=== PATIENT | male | born 1940 | race Caucasian/White ===

== ENCOUNTER 2020-08-20 13:29 | Inpatient (IN) | payer MEDICARE, OTHER, SELFPAY ==
[2020-08-20 13:32] VITALS: BP 154/95; BP 166/92; PULSE 74; PULSE 85; RESP 18; TEMP 37.3; O2SAT 95; BMI 26.1
--- NOTE | 2020-08-20 14:13 | ECG_ITS ---
Test Reason : WEAKNESS,COUGH Blood Pressure : / mmHG Vent. Rate : 077 BPM Atrial Rate : 077 BPM P-R Int : 146 ms QRS Dur : 090 ms QT Int : 392 ms P-R-T Axes : 014 007 001 degrees QTc Int : 443 ms Sinus rhythm with Premature atrial complexes with Aberrant conduction Otherwise normal ECG When compared with ECG of 28-APR-2019 19:13, Aberrant conduction is now Present T wave inversion no longer evident in Anterior leads Referred By: Oneil Ingram Electronically Signed By:Juaquin Martinez
--- NOTE | 2020-08-20 14:13 | XR_ITS ---
EXAMINATION: XR CHEST CLINICAL INFORMATION: Shortness of breath COMPARISON: Previous chest x-ray April 2019 TECHNIQUE: Frontal view of the chest was obtained. FINDINGS: The cardiac and mediastinal contours are stable. The lungs are clear. There is no pleural effusion or pneumothorax. There are degenerative changes of the spine. XR/XR chest 1V IMPRESSION: No evidence for acute disease in the chest.
[2020-08-20 14:42] LABS: Basophils Percent Auto 0.3 % (0-2); Eosinophils Percent Auto 0.3 % (0-4); Hematocrit 39.8 % (42-52); Hemoglobin 13.4 g/dl (14.0-18.0); Imm Gran Abs Auto 0.01 X10*3/uL (0.00-0.03); Imm Gran Pct Auto 0.3 % (0.0-0.4); Lymphocytes Absolute Auto 0.6 X10*3/uL (1.2-4.9); Lymphocytes Percent Auto 15.8 % (20-40); MANUAL DIFF FLAG SCAN; Mean Corpuscular HGB Conc 33.7 g/dl (31.0-36.0); Mean Corpuscular Hemoglobin 29.1 pg (27.0-33.0); Mean Corpuscular Volume 86.3 fL (80-98); Mean Platelet Volume 9.2 fL (9.4-12.4); Monocytes Absolute Auto 0.6 X10*3/uL (0.1-1.2); Monocytes Percent Auto 17.2 % (2-11); Neutrophils Absolute Auto 2.4 X10*3/uL (2.0-8.3); Neutrophils Percent Auto 66.1 % (45-73); Red Blood Count 4.61 X10*6/uL (4.60-5.80); Red Cell Distribution Width 13.2 % (11.0-16.0); SCAN SMEAR FLAG 1; White Blood Count 3.6 X10*3/uL (4.8-10.8)
[2020-08-20 14:50] LABS: INTERNATIONAL NORM RATIO 1.1 (0.9-1.1); Prothrombin Time 13.3 SEC (10.8-13.0)
[2020-08-20 14:53] LABS: Partial Thromboplastin Time 32.1 SEC (24.1-38.0)
[2020-08-20 15:11] LABS: Alanine Aminotransferase 21 U/L (0-40); Albumin Level 3.8 g/dL (3.5-5.0); Alkaline Phosphatase 35 U/L (39-117); Anion Gap 12 (12-20); Aspartate Amino Transferase 29 U/L (5-37); Bilirubin Total 0.9 mg/dL (0.0-1.0); Blood Urea Nitrogen 26 mg/dL (9-16); Calcium 8.4 mg/dL (8.4-10.2); Carbon Dioxide 27 mmol/L (22-29); Chloride 106 mmol/L (96-108); Creatinine Clr Calc Pharmacy 59.8; Estimated Glomerular Filt Rate > 60; Glucose Random 83 mg/dL (60-115); Lactate Dehydrogenase 317 U/L (118-273); Potassium 4.1 mmol/l (3.3-5.1); Sodium 141 mmol/L (135-145); Total Protein 6.4 g/dL (6.5-8.0)
[2020-08-20 15:13] LABS: Platelet Count 111 X10*3/uL (160-400)
[2020-08-20 15:14] LABS: SLIDE REVIEW VERIFIED
[2020-08-20 15:16] LABS: B Type Natriuretic Peptide 20 pg/mL (<100); Troponin-I High Sensitivity 9.4 ng/L (<3.5-35.0)
[2020-08-20 15:23] VITALS: BP 123/79; PULSE 74; RESP 16; TEMP 37.5; O2SAT 97
[2020-08-20 15:26] LABS: Influenza A PCR NEGATIVE (Negative); Influenza B PCR NEGATIVE (Negative); Resp Syncy Virus RNA Qual PCR NEGATIVE (Negative); SARS COV2 PCR INHOUSE POSITIVE (Negative)
[2020-08-20 15:31] LABS: Procalcitonin 0.03 ng/mL
[2020-08-20 15:33] LABS: Ferritin 767 ng/mL (20-250)
[2020-08-20 15:41] LABS: Glucose Urine UA NEG (NEG); Leukocyte Esterase Urine NEG (NEG); Nitrite Urine NEG (NEG); PH 5.5 (5.0-8.0); Specific Gravity - Urine >= 1.030 (1.005-1.025); Urine Blood 3+ (NEG); Urine Ketones 15 MG/DL (NEG); Urine Protein 1+ MG/DL (NEG-TRACE)
[2020-08-20 15:43] LABS: Appearance Urine CLOUDY; Color Urine YELLOW
[2020-08-20] MEDS: 0.9 % Sodium Chloride 500 ML 999 ML IV (15:45)
[2020-08-20 16:00] LABS: RBC Urine 30-49 /HPF (0)
--- NOTE | 2020-08-20 16:07 | PC.NURSE ---
ambulated pt in heart with tech. pt ambulated with slow gait. o2 dropped to around 80% room air. pt denied symptoms, placed back in bed , sating high 90's at rest.
[2020-08-20 16:08] VITALS: O2SAT 80
[2020-08-20] MEDS: Albuterol Sulfate 90 MCG 8 GM INHALER 4 PUFF INHALE (17:00)
--- NOTE | 2020-08-20 17:09 | PM.IMHP ---
History of Present Illness Date of Service: 08/20/20 <AMEYA Sanchez - Last Filed: 08/20/20 17:19> Chief Complaint: Positive COVID contact <AMEYA Sanchez - Last Filed: 08/20/20 17:19> This is a an 80-year-old male who came to the emergency department with his and his son. A member of his [employer] tested positive for coronavirus and they came to be tested. Patient is a vague historian but states that he has no specific complaints. He denies any chest pain, shortness of breath, cough. He tested positive for coronavirus. Chest x-ray was unremarkable. He was noted to be hypoxic with ambulation so the decision was made to admit him for further management. <AMEYA Sanchez - Last Filed: 08/20/20 17:19> Review of Systems Review of Systems: Yes all other systems are reviewed and are negative <AMEYA Sanchez - Last Filed: 08/20/20 17:19> Constitutional: Constitutional: Denies chills and Denies fever(s) <AMEYA Sanchez - Last Filed: 08/20/20 17:19> Cardiovascular: Cardiovascular: Denies chest pain <AMEYA Sanchez - Last Filed: 08/20/20 17:19> Respiratory: Respiratory: Denies cough <AMEYA Sanchez - Last Filed: 08/20/20 17:19> Gastrointestinal: Gastrointestinal: Denies abdominal pain <AMEYA Sanchez - Last Filed: 08/20/20 17:19> [facility] Medical History: Medical History (Updated 08/20/20 @ 21:43 by Oneil Ingram NP) COVID-19 GERD (gastroesophageal reflux disease) HLD (hyperlipidemia) HTN (hypertension) SBO (small bowel obstruction) <AMEYA Sanchez - Last Filed: 08/20/20 17:19> Functional capacity: independent ambulation <AMEYA Sanchez - Last Filed: 08/20/20 17:19> Family history: reviewed and not pertinent <AMEYA Sanchez - Last Filed: 08/20/20 17:19> Surgical History: Surgical History (Updated 08/20/20 @ 17:14 by AMEYA Sanchez) H/O colectomy History of appendectomy <AMEYA Sanchez - Last Filed: 08/20/20 17:19> Social History: Social History (Updated 08/20/20 @ 17:15 by AMEYA Sanchez) Household Members: Spouse Housing: House Alcohol intake: never Smoking Status: Former smoker Smoked in Last 30 Days: No Use of substances other than those prescribed or required for medical reasons: No Currently Displaying Signs/Symptoms of Drug Intoxication Withdrawal: No Have you been hit, kicked, punched, or otherwise hurt by someone within the past year? If so, by whom?: No Do you feel safe in your current relationship?: Yes Is there a partner from a previous relationship who is making you feel unsafe now?: No Are you made to feel afraid or neglected: No Advance Directives: No Advance Directives Information Provided: No Do you have thoughts of harming others: None Do you have a plan to hurt others: No Plan Recently lost weight without trying: No <AMEYA Sanchez - Last Filed: 08/20/20 17:19> Meds Allergies/Adverse reactions: Allergies Allergy/AdvReac Type Severity Reaction Status Date / Time No Known Allergies Allergy Unverified 05/20/20 16:25 <AMEYA Sanchez - Last Filed: 08/20/20 17:19> Home medications: Home Medications Medication Instructions Recorded Confirmed Type lisinopril 20 mg PO DAILY 08/20/20 08/20/20 History simvastatin 40 mg PO BEDTIME 08/20/20 08/20/20 History <AMEYA Sanchez - Last Filed: 08/20/20 17:19> Physical Exam Vital Signs and Narrative: Vital Signs: Last Vital Signs Temp 99.5 F 08/20/20 15:23 Pulse 74 08/20/20 15:23 Resp 16 08/20/20 15:23 BP 123/79 08/20/20 15:23 Pulse Ox 80 L 08/20/20 16:08 Body Mass Index 26.1 <AMEYA Sanchez - Last Filed: 08/20/20 17:19> Const: Nutritional Appearance: well nourished <AMEYA Sanchez - Last Filed: 08/20/20 17:19> Orientation/consciousness: patient oriented x3 <AMEYA Sanchez - Last Filed: 08/20/20 17:19> HENMT: Head: Yes normocephalic and Yes atraumatic <AMEYA Sanchez - Last Filed: 08/20/20 17:19> Eyes: Sclerae: sclerae normal <AMEYA Sanchez - Last Filed: 08/20/20 17:19> Chest: Chest palpation & inspection: normal inspection of the chest <AMEYA Sanchez - Last Filed: 08/20/20 17:19> Resp: Effort & Inspection: normal respiratory effort and no respiratory distress <AMEYA Sanchez - Last Filed: 08/20/20 17:19> Cardio: Rate: regular rate <AMEYA Sanchez - Last Filed: 08/20/20 17:19> Rhythm: regular rhythm <AMEYA Sanchez - Last Filed: 08/20/20 17:19> GI: Palpation (GI): Soft to palpation and nontender <AMEYA Sanchez - Last Filed: 08/20/20 17:19> Skin: General skin exam: no rashes or lesions noted <AMEYA Sanchez - Last Filed: 08/20/20 17:19> Neuro: General: patient oriented x3 <AMEYA Sanchez - Last Filed: 08/20/20 17:19> Cranial nerves: Yes CN's II-XII intact bilaterally and Yes Bilaterally intact EOM present <AMEYA Sanchez - Last Filed: 08/20/20 17:19> Extrem: General: Yes normal to inspection <AMEYA Sanchez - Last Filed: 08/20/20 17:19> Results Labs CBC and Chem 7: : 08/21/20 06:47 08/21/20 06:47 <AMEYA Sanchez - Last Filed: 08/20/20 17:19> Labs: Laboratory Results - last 24 hr 08/20/20 08/20/20 08/20/20 14:24 14:24 14:24 MCV 86.3 MCH 29.1 MCHC 33.7 RDW 13.2 Plt Count 111 L MPV 9.2 L Immature Gran % (Auto) 0.3 Neut % (Auto) 66.1 Lymph % (Auto) 15.8 L [place] % (Auto) 17.2 H Eos % (Auto) 0.3 Baso % (Auto) 0.3 Lymph # (Auto) 0.6 L [place] # (Auto) 0.6 Eos # (Auto) 0.0 Baso # (Auto) 0.0 Abs Immat Gran (auto) 0.01 Absolute Neuts (auto) 2.4 Absolute Nucleated RBC 0.000 Nucleated RBC % (auto) 0.0 Smear Tech's Comments VERIFIED PT 13.3 H INR 1.1 APTT 32.1 Anion Gap Estim Creat Clear Calc Estimated GFR Random Glucose Calcium Ferritin Total Bilirubin AST ALT Alkaline Phosphatase Lactate Dehydrogenase Troponin I High Sens B-Natriuretic Peptide Total Protein Albumin Procalcitonin 0.03 Urine Color Urine Appearance Urine pH Ur Specific [place] Urine Protein Urine Glucose (UA) Urine Ketones Urine Blood Urine Nitrite Ur Leukocyte Esterase Urine RBC Urine WBC Ur Squamous Epith Cells Urine Bacteria Coronavirus (PCR) Influenza Type A (PCR) Influenza Type B (PCR) RSV RNA Qual (PCR) 08/20/20 08/20/20 08/20/20 14:24 14:24 14:25 MCV MCH MCHC RDW Plt Count MPV Immature Gran % (Auto) Neut % (Auto) Lymph % (Auto) [place] % (Auto) Eos % (Auto) Baso % (Auto) Lymph # (Auto) [place] # (Auto) Eos # (Auto) Baso # (Auto) Abs Immat Gran (auto) Absolute Neuts (auto) Absolute Nucleated RBC Nucleated RBC % (auto) Smear Tech's Comments PT INR APTT Anion Gap 12 Estim Creat Clear Calc 59.8 Estimated GFR > 60 Random Glucose 83 Calcium 8.4 Ferritin 767 H Total Bilirubin 0.9 AST 29 ALT 21 Alkaline Phosphatase 35 L Lactate Dehydrogenase 317 H Troponin I High Sens 9.4 B-Natriuretic Peptide 20 Total Protein 6.4 L Albumin 3.8 Procalcitonin Urine Color Urine Appearance Urine pH Ur Specific [place] Urine Protein Urine Glucose (UA) Urine Ketones Urine Blood Urine Nitrite Ur Leukocyte Esterase Urine RBC Urine WBC Ur Squamous Epith Cells Urine Bacteria Coronavirus (PCR) POSITIVE A Influenza Type A (PCR) NEGATIVE Influenza Type B (PCR) NEGATIVE RSV RNA Qual (PCR) NEGATIVE 08/20/20 15:24 MCV MCH MCHC RDW Plt Count MPV Immature Gran % (Auto) Neut % (Auto) Lymph % (Auto) [place] % (Auto) Eos % (Auto) Baso % (Auto) Lymph # (Auto) [place] # (Auto) Eos # (Auto) Baso # (Auto) Abs Immat Gran (auto) Absolute Neuts (auto) Absolute Nucleated RBC Nucleated RBC % (auto) Smear Tech's Comments PT INR APTT Anion Gap Estim Creat Clear Calc Estimated GFR Random Glucose Calcium Ferritin Total Bilirubin AST ALT Alkaline Phosphatase Lactate Dehydrogenase Troponin I High Sens B-Natriuretic Peptide Total Protein Albumin Procalcitonin Urine Color YELLOW Urine Appearance CLOUDY Urine pH 5.5 Ur Specific [place] >= 1.030 H Urine Protein 1+ H Urine Glucose (UA) NEG Urine Ketones 15 Urine Blood 3+ H Urine Nitrite NEG Ur Leukocyte Esterase NEG Urine RBC 30-49 H Urine WBC 1-4 Ur Squamous Epith Cells NONE Urine Bacteria NONE Coronavirus (PCR) Influenza Type A (PCR) Influenza Type B (PCR) RSV RNA Qual (PCR) <AMEYA Sanchez - Last Filed: 08/20/20 17:19> Imaging Radiologist's Impressions: Impressions Chest X-Ray 08/20/20 14:13 IMPRESSION: No evidence for acute disease in the chest. <AMEYA Sanchez - Last Filed: 08/20/20 17:19> Assessment and Plan (1) COVID-19: Status: Inactive <AMEYA Sanchez - Last Filed: 08/20/20 17:19> This is a an 80-year-old male with history of hypertension, dyslipidemia, likely dementia who presents to the emergency department after having a positive coronavirus contact now testing positive for COVID-19 Acute hypoxia r/t COVID-19 Oxygen saturation dropped to 80% with ambulation -dexamethasone -supplemental oxygen Hypertension Continue lisinopril Dyslipidemia Continue statin likely Undiagnosed dementia. 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 DVT prophylaxis-lovenox This case was discussed with Dr. Johnson <AMEYA Sanchez - Last Filed: 08/20/20 17:19>
--- NOTE | 2020-08-20 17:39 | PM.EVENT ---
Event Note Date of Service: 08/20/20 Event Note: Addendum to H and P by Mid-level Provider I saw and examined the patient and participated in the prince portion of the E/M service. I agree with the history and exam as documented by PA. Patient here with covid and hypoxia with ambulation. Exam: no respiratory distress. Admit for close monitoring of O2, corticosteroid. Otherwise, I agree with assessment and plan as outlined in the H and P. late entry note from 08/20/20
[2020-08-20 17:48] VITALS: BP 158/84; PULSE 74; RESP 20; TEMP 37.5; O2SAT 95
--- NOTE | 2020-08-20 20:15 | PC.NURSE ---
REPORT GIVEN TO RN ON FLOOR, PT READY FOR TRANSPORT TO FLOOR.
--- NOTE | 2020-08-20 21:36 | ED_ITS ---
HPI - Weakness General Chief complaint: Weakness Stated complaint: ?COVID EXPOSURE WANTS EVAL Time Seen by Provider: 08/20/20 14:05 Source: patient Mode of arrival: ambulatory Limitations: no limitations History of Present Illness HPI Narrative: This is a 80-year-old male who presents via EMS from home he has a history of gastroesophageal reflux disease, hypertension, hyperlipidemia, and remote history of bowel obstruction, colostomy and appendectomy who presents with and some also as patients with complaint of generalized weakness over the past 1 week exposed to friends at [employer] tested positive he has been increasingly weak and more lethargic per the son and subjective fevers/chills similar to the and son. Also per son he has similar type symptoms in the past where he had a UTI. History is somewhat limited from the patient mostly gathered from and son Neri who report that he likely has dementia as he is always very forgetful and also his answers questions with question. Complaint: generalized weakness Context: new medication Associated symptoms: denies other symptoms Related Data Home Medications Medication Instructions Recorded Confirmed lisinopril 20 mg PO DAILY 08/20/20 08/20/20 simvastatin 40 mg PO BEDTIME 08/20/20 08/20/20 Allergies Allergy/AdvReac Type Severity Reaction Status Date / Time No Known Allergies Allergy Unverified 05/20/20 16:25 Review of Systems Review of Systems: Constitutional: No Weight loss, No Fever, + Chills, No Night Sweats, No Fatigue, No Malaise ENT/Mouth: No Hearing loss, No Ear Pain, No Nasal Congestion, No Sinus Pain, No Hoarseness, No sore throat, + Rhinorrhea, No Swallowing Difficulty Eyes: No Eye Pain, No Swelling, No Redness, No Foreign Body, No Discharge, No Vision Changes Cardiovascular: No Chest Pain, + SOB ?sometimes?, No Dyspnea on Exertion, No Orthopnea, No Edema, No Palpitations Respiratory: + Cough, No Sputum, No Wheezing, No Smoke Exposure, No Dyspnea Gastrointestinal: No Nausea, No Vomiting, No Diarrhea, No Constipation, No abdominal Pain, No Hematochezia, No Melena Genitourinary: no irregular bleeding, No Dysuria, No Urinary Frequency, No H ematuria, No Urinary Incontinence, No Urgency, No Flank Pain, No Urinary Flow Changes, No Hesitancy Musculoskeletal: No joint pain, No Myalgias, No Joint Swelling Skin: No Skin Lesions, No rash Neuro: + Weakness, No Numbness, No Paresthesias, No Loss of Consciousness, No Dizziness, No Headache Psych: No Social Issues Heme/Lymph: No Bruising, No Bleeding,No Lymphadenopathy Endocrine: No Polyuria, No Polydipsia, No Temperature Intolerance Yes all other systems are reviewed and are negative [facility] Past Medical History Medical History (Updated 08/20/20 @ 21:43 by Oneil Ingram NP) COVID-19 GERD (gastroesophageal reflux disease) HLD (hyperlipidemia) HTN (hypertension) SBO (small bowel obstruction) Surgical History (Updated 08/20/20 @ 17:14 by AMEYA Sanchez) H/O colectomy History of appendectomy Social History Social History (Updated 08/20/20 @ 17:15 by AMEYA Sanchez) Household Members: Spouse Housing: House Alcohol intake: never Smoking Status: Former smoker Smoked in Last 30 Days: No Use of substances other than those prescribed or required for medical reasons: No Have you been hit, kicked, punched, or otherwise hurt by someone within the past year? If so, by whom?: No Do you feel safe in your current relationship?: Yes Is there a partner from a previous relationship who is making you feel unsafe now?: No Are you made to feel afraid or neglected: No Advance Directives: No Advance Directives Information Provided: No Do you have thoughts of harming others: None Do you have a plan to hurt others: No Plan Recently lost weight without trying: No Physical Exam Vital Signs: Vital Signs: Last Vital Signs Temp 99.5 F 08/20/20 17:48 Pulse 74 08/20/20 17:48 Resp 20 08/20/20 17:48 BP 158/84 H 08/20/20 17:48 Pulse Ox 95 08/20/20 17:48 Body Mass Index 26.1 Reviewed Const: Other: Frail/elderly appearing General: cooperative; No acute distress or intoxicated appearing Orientation/consciousness: oriented to person, oriented to place and No oriented to time HENMT: Head: Yes normal to inspection Ears: hearing grossly normal bilaterally Eyes: General: appearance normal, both eyes and all related structures Visual [place]: normal visual [place] by confrontation Neck: Neck: Yes normal visual inspection and No tender Thyroid: Thyroid normal Chest: Chest palpation & inspection: normal inspection of the chest Resp: Other: Slight dry bronchial cough Effort & Inspection: normal respiratory effort Auscultation: wheezes (Very mild forced expiratory) Cardio: Jugular venous distension: no JVD Rate: regular rate Rhythm: regular rhythm Heart sounds: S1 normal heart sound present and S2 normal heart sound present GI: Inspection: Yes normal to inspection Percussion: Yes normal to percussi on Auscultation: normal bowel sounds : General: Yes no CVA tenderness Back/Spine/Pelvis: Back: no CVA tenderness Skin: General skin exam: no rashes or lesions noted Neuro: General: oriented to person, oriented to place and No oriented to time Extrem: General: Yes normal to inspection Course Course Course Narrative: Interview 80-year-old male presenting with his son as well as who been exposed with other members of the [employer] with COVID-19 has had body aches chills some vague shortness of breath history limited due to question dementia however upon arrival slightly hypoxic at 91-92% on room air. Will go ahead initiate COVID stratification labs, chest x-ray EKG as well as check UA as son states that sometimes he is like this with UTI. He offers no complaints though history is limited secondary to his dementia. Reevaluation(s) Reevaluation #1: COVID positive, chest x-ray negative at rest pulse ox 91-92% after neb. with ambulation per RN he walked about 15 ft and his pulse ox dropped to 80%. He offers no complaints. Given findings case discussed with hospitalist for further management. MDM - Weakness Lab Data Result diagrams: 08/20/20 14:24 08/20/20 14:24 Labs: Lab Results 08/20/20 08/20/20 08/20/20 Range/Units 14:24 14:24 14:24 WBC 3.6 L (4.8-10.8) X10*3/uL RBC 4.61 (4.60-5.80) X10*6/uL Hgb 13.4 L (14.0-18.0) g/dl Hct 39.8 L (42-52) % MCV 86.3 (80-98) fL MCH 29.1 (27.0-33.0) pg MCHC 33.7 (31.0-36.0) g/dl RDW 13.2 (11.0-16.0) % Plt Count 111 L (160-400) X10*3/uL MPV 9.2 L (9.4-12.4) fL Immature Gran % (Auto) 0.3 (0.0-0.4) % Neut % (Auto) 66.1 (45-73) % Lymph % (Auto) 15.8 L (20-40) % [place] % (Auto) 17.2 H (2-11) % Eos % (Auto) 0.3 (0-4) % Baso % (Auto) 0.3 (0-2) % Lymph # (Auto) 0.6 L (1.2-4.9) X10*3/uL [place] # (Auto) 0.6 (0.1-1.2) X10*3/uL Eos # (Auto) 0.0 (0.0-0.4) X10*3/uL Baso # (Auto) 0.0 (0.0-0.2) X10*3/uL Abs Immat Gran (auto) 0.01 (0.00-0.03) X10*3/uL Absolute Neuts (auto) 2.4 (2.0-8.3) X10*3/uL Absolute Nucleated RBC 0.000 (0.0-0.012) X10*3/uL Nucleated RBC % (auto) 0.0 (0.0-0.2) /100WBC Smear Tech's Comments VERIFIED PT 13.3 H (10.8-13.0) SEC INR 1.1 (0.9-1.1) APTT 32.1 (24.1-38.0) SEC Sodium (135-145) mmol/L Potassium (3.3-5.1) mmol/l Chloride (96-108) mmol/L Carbon Dioxide (22-29) mmol/L Anion Gap (12-20) BUN (9-16) mg/dL Creatinine (0.5-1.4) mg/dL Estim Creat Clear Calc Estimated GFR Random Glucose (60-115) mg/dL Calcium (8.4-10.2) mg/dL Ferritin (20-250) ng/mL Total Bilirubin (0.0-1.0) mg/dL AST (5-37) U/L ALT (0-40) U/L Alkaline Phosphatase (39-117) U/L Lactate Dehydrogenase (118-273) U/L Troponin I High Sens (<3.5-35.0) ng/L B-Natriuretic Peptide (<100) pg/mL Total Protein (6.5-8.0) g/dL Albumin (3.5-5.0) g/dL Procalcitonin 0.03 ng/mL Urine Color Urine Appearance Urine pH (5.0-8.0) Ur Specific [place] (1.005-1.025) Urine Protein (NEG-TRACE) MG/DL Urine Glucose (UA) (NEG) MG/DL Urine Ketones (NEG) MG/DL Urine Blood (NEG) Urine Nitrite (NEG) Ur Leukocyte Esterase (NEG) Urine RBC (0) /HPF Urine WBC (0-4) /HPF Ur Squamous Epith Cells /LPF Urine Bacteria /LPF Coronavirus (PCR) (Negative) Influenza Type A (PCR) (Negative) Influenza Type B (PCR) (Negative) RSV RNA Qual (PCR) (Negative) 08/20/20 08/20/20 08/20/20 Range/Units 14:24 14:24 14:25 WBC (4.8-10.8) X10*3/uL RBC (4.60-5.80) X10*6/uL Hgb (14.0-18.0) g/dl Hct (42-52) % MCV (80-98) fL MCH (27.0-33.0) pg MCHC (31.0-36.0) g/dl RDW (11.0-16.0) % Plt Count (160-400) X10*3/uL MPV (9.4-12.4) fL Immature Gran % (Auto) (0.0-0.4) % Neut % (Auto) (45-73) % Lymph % (Auto) (20-40) % [place] % (Auto) (2-11) % Eos % (Auto) (0-4) % Baso % (Auto) (0-2) % Lymph # (Auto) (1.2-4.9) X10*3/uL [place] # (Auto) (0.1-1.2) X10*3/uL Eos # (Auto) (0.0-0.4) X10*3/uL Baso # (Auto) (0.0-0.2) X10*3/uL Abs Immat Gran (auto) (0.00-0.03) X10*3/uL Absolute Neuts (auto) (2.0-8.3) X10*3/uL Absolute Nucleated RBC (0.0-0.012) X10*3/uL Nucleated RBC % (auto) (0.0-0.2) /100WBC Smear Tech's Comments PT (10.8-13.0) SEC INR (0.9-1.1) APTT (24.1-38.0) SEC Sodium 141 (135-145) mmol/L Potassium 4.1 (3.3-5.1) mmol/l Chloride 106 (96-108) mmol/L Carbon Dioxide 27 (22-29) mmol/L Anion Gap 12 (12-20) BUN 26 H (9-16) mg/dL Creatinine 0.92 (0.5-1.4) mg/dL Estim Creat Clear Calc 59.8 Estimated GFR > 60 Random Glucose 83 (60-115) mg/dL Calcium 8.4 (8.4-10.2) mg/dL Ferritin 767 H (20-250) ng/mL Total Bilirubin 0.9 (0.0-1.0) mg/dL AST 29 (5-37) U/L ALT 21 (0-40) U/L Alkaline Phosphatase 35 L (39-117) U/L Lactate Dehydrogenase 317 H (118-273) U/L Troponin I High Sens 9.4 (<3.5-35.0) ng/L B-Natriuretic Peptide 20 (<100) pg/mL Total Protein 6.4 L (6.5-8.0) g/dL Albumin 3.8 (3.5-5.0) g/dL Procalcitonin ng/mL Urine Color Urine Appearance Urine pH (5.0-8.0) Ur Specific [place] (1.005-1.025) Urine Protein (NEG-TRACE) MG/DL Urine Glucose (UA) (NEG) MG/DL Urine Ketones (NEG) MG/DL Urine Blood (NEG) Urine Nitrite (NEG) Ur Leukocyte Esterase (NEG) Urine RBC (0) /HPF Urine WBC (0-4) /HPF Ur Squamous Epith Cells /LPF Urine Bacteria /LPF Coronavirus (PCR) POSITIVE A (Negative) Influenza Type A (PCR) NEGATIVE (Negative) Influenza Type B (PCR) NEGATIVE (Negative) RSV RNA Qual (PCR) NEGATIVE (Negative) 08/20/20 Range/Units 15:24 WBC (4.8-10.8) X10*3/uL RBC (4.60-5.80) X10*6/uL Hgb (14.0-18.0) g/dl Hct (42-52) % MCV (80-98) fL MCH (27.0-33.0) pg MCHC (31.0-36.0) g/dl RDW (11.0-16.0) % Plt Count (160-400) X10*3/uL MPV (9.4-12.4) fL Immature Gran % (Auto) (0.0-0.4) % Neut % (Auto) (45-73) % Lymph % (Auto) (20-40) % [place] % (Auto) (2-11) % Eos % (Auto) (0-4) % Baso % (Auto) (0-2) % Lymph # (Auto) (1.2-4.9) X10*3/uL [place] # (Auto) (0.1-1.2) X10*3/uL Eos # (Auto) (0.0-0.4) X10*3/uL Baso # (Auto) (0.0-0.2) X10*3/uL Abs Immat Gran (auto) (0.00-0.03) X10*3/uL Absolute Neuts (auto) (2.0-8.3) X10*3/uL Absolute Nucleated RBC (0.0-0.012) X10*3/uL Nucleated RBC % (auto) (0.0-0.2) /100WBC Smear Tech's Comments PT (10.8-13.0) SEC INR (0.9-1.1) APTT (24.1-38.0) SEC Sodium (135-145) mmol/L Potassium (3.3-5.1) mmol/l Chloride (96-108) mmol/L Carbon Dioxide (22-29) mmol/L Anion Gap (12-20) BUN (9-16) mg/dL Creatinine (0.5-1.4) mg/dL Estim Creat Clear Calc Estimated GFR Random Glucose (60-115) mg/dL Calcium (8.4-10.2) mg/dL Ferritin (20-250) ng/mL Total Bilirubin (0.0-1.0) mg/dL AST (5-37) U/L ALT (0-40) U/L Alkaline Phosphatase (39-117) U/L Lactate Dehydrogenase (118-273) U/L Troponin I High Sens (<3.5-35.0) ng/L B-Natriuretic Peptide (<100) pg/mL Total Protein (6.5-8.0) g/dL Albumin (3.5-5.0) g/dL Procalcitonin ng/mL Urine Color YELLOW Urine Appearance CLOUDY Urine pH 5.5 (5.0-8.0) Ur Specific [place] >= 1.030 H (1.005-1.025) Urine Protein 1+ H (NEG-TRACE) MG/DL Urine Glucose (UA) NEG (NEG) MG/DL Urine Ketones 15 (NEG) MG/DL Urine Blood 3+ H (NEG) Urine Nitrite NEG (NEG) Ur Leukocyte Esterase NEG (NEG) Urine RBC 30-49 H (0) /HPF Urine WBC 1-4 (0-4) /HPF Ur Squamous Epith Cells NONE /LPF Urine Bacteria NONE /LPF Coronavirus (PCR) (Negative) Influenza Type A (PCR) (Negative) Influenza Type B (PCR) (Negative) RSV RNA Qual (PCR) (Negative) Discharge Plan Discharge Clinical Impression: COVID-19, Hypoxia Patient Disposition: Admitted As Inpatient Interventions: Admission Worksheet (ED) Last Done: 08/20/20 21:39
[2020-08-20] MEDS: 0.9 % Sodium Chloride Flush 3 ML SYRINGE IVFLUSH (21:58)
[2020-08-20] MEDS: Enoxaparin Sodium 40 MG/0.4 ML SYRINGE SUBCUT (21:58)
[2020-08-20 23:57] VITALS: BP 162/94; PULSE 78; RESP 20; TEMP 36.7; O2SAT 94
[2020-08-21] VITALS (7 sets, daily range): BP systolic 96–168; BP diastolic 71–96; PULSE 63–83; RESP 18–20; TEMP 36–37.2; O2SAT 92–96
[2020-08-21 07:05] LABS: MANUAL DIFF FLAG NO
[2020-08-21 07:13] LABS: Basophils Percent Auto 0.3 % (0-2); Hematocrit 41.2 % (42-52); Hemoglobin 13.6 g/dl (14.0-18.0); Imm Gran Abs Auto 0.01 X10*3/uL (0.00-0.03); Imm Gran Pct Auto 0.3 % (0.0-0.4); Lymphocytes Absolute Auto 0.8 X10*3/uL (1.2-4.9); Mean Corpuscular Hemoglobin 28.5 pg (27.0-33.0); Mean Corpuscular Volume 86.4 fL (80-98); Mean Platelet Volume 9.3 fL (9.4-12.4); Monocytes Absolute Auto 0.5 X10*3/uL (0.1-1.2); Monocytes Percent Auto 13.6 % (2-11); Neutrophils Absolute Auto 2.6 X10*3/uL (2.0-8.3); Neutrophils Percent Auto 64.8 % (45-73); Platelet Count 121 X10*3/uL (160-400); Red Blood Count 4.77 X10*6/uL (4.60-5.80)
[2020-08-21 07:36] LABS: Anion Gap 11 (12-20); Blood Urea Nitrogen 21 mg/dL (9-16); Calcium 8.2 mg/dL (8.4-10.2); Carbon Dioxide 27 mmol/L (22-29); Chloride 106 mmol/L (96-108); Creatinine Clr Calc Pharmacy 65.5; Estimated Glomerular Filt Rate > 60; Glucose Random 91 mg/dL (60-115); Sodium 140 mmol/L (135-145)
[2020-08-21] MEDS: 0.9 % Sodium Chloride Flush 3 ML SYRINGE IVFLUSH ×3 (08:27→20:07)
[2020-08-21] MEDS: Atorvastatin Calcium 10 MG TABLET PO (08:27)
[2020-08-21] MEDS: lisinopriL 20 MG TABLET PO (08:27)
[2020-08-21] MEDS: dexAMETHasone 6 MG TABLET PO (08:27)
--- NOTE | 2020-08-21 15:05 | HO.PM.IMPN ---
Subjective Subjective Date of Service: 08/21/20 Interval History: seen in f/u for covid with hypoxia on ambulation. Has no complaint ROS: denies sob, no fever Physical Exam Vital Signs: Vital Signs: Last Vital Signs Temp 97.1 F 08/21/20 11:07 Pulse 83 08/21/20 11:07 Resp 20 08/21/20 11:07 BP 136/72 08/21/20 11:07 Pulse Ox 92 08/21/20 11:07 Body Mass Index 26.1 General: AO X 2, no acute distress Resp: normal resp effort CVS: S1,S2,RRR GI: +BS, NT, no distention Skin: No rash Neuro: motor grossly intact Psych: appropriate affect Objective Data Current Medications Generic Name Dose Route Start Last Admin Trade Name Freq PRN Reason Stop Dose Admin Acetaminophen 650 mg 08/20/20 20:12 Acetaminophen 325 Mg Tablet PO Q6H PRN Pain, Mild (Pain Scale 1-3) Atorvastatin Calcium 10 mg 08/21/20 09:00 08/21/20 08:27 Atorvastatin Calcium 10 Mg Tablet PO 10 mg DAILY CARL Administration Dexamethasone 6 mg 08/21/20 09:00 08/21/20 08:27 Dexamethasone 6 Mg Tablet PO 6 mg DAILY CARL Administration Docusate Sodium 100 mg 08/20/20 20:12 Docusate Sodium 100 Mg Capsule PO DAILY PRN Constipation Enoxaparin Sodium 40 mg 08/20/20 21:00 08/20/20 21:58 Enoxaparin Sodium 40 Mg/0.4 Ml Syringe SUBCUT 40 mg Q24H CARL Administration Lisinopril 20 mg 08/21/20 09:00 08/21/20 08:27 Lisinopril 20 Mg Tablet PO 20 mg DAILY CARL Administration Protocol Ondansetron HCl 4 mg 08/20/20 20:12 Ondansetron Hcl 4 Mg/2 Ml Vial IVPUSH Q8H PRN Nausea and Vomiting Pharmacy Consult 1 each 08/20/20 15:27 Consult Rx Perform Med Rec MISCELLANE ONCE PRN Consult order Sodium Chloride 3 ml 08/21/20 00:00 08/21/20 08:27 0.9 % Sodium Chloride Flush 3 Ml Syringe IVFLUSH 3 ml QSHIFT CARL Administration Labs CBC & Chem 7: 08/21/20 06:47 08/21/20 06:47 Assessment and Plan (1) COVID-19: Status: Inactive Assessment and Plan: 80-year-old male with history of hypertension, dyslipidemia, likely dementia who presents to the emergency department after having a positive coronavirus contact now testing positive for COVID-19 Acute hypoxia r/t COVID-19 Oxygen saturation dropped to 80% with ambulation -dexamethasone D2 -supplemental oxygen as needed Hypertension Continue lisinopril Dyslipidemia Continue statin likely Undiagnosed dementia. 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 DVT prophylaxis-lovenox Will observe 1 more day
[2020-08-21] MEDS: Enoxaparin Sodium 40 MG/0.4 ML SYRINGE SUBCUT (20:07)
[2020-08-22 03:24] VITALS: BP 151/80; PULSE 73; RESP 18; TEMP 36.8; O2SAT 92
[2020-08-22 07:39] VITALS: BP 151/59; PULSE 94; RESP 18; TEMP 36.4; O2SAT 94
[2020-08-22] MEDS: 0.9 % Sodium Chloride Flush 3 ML SYRINGE IVFLUSH ×2 (07:50→18:52)
[2020-08-22] MEDS: lisinopriL 20 MG TABLET PO (07:50)
[2020-08-22] MEDS: dexAMETHasone 6 MG TABLET PO (07:51)
[2020-08-22] MEDS: Atorvastatin Calcium 10 MG TABLET PO (07:51)
--- NOTE | 2020-08-22 10:20 | HO.PM.IMPN ---
Subjective Subjective Date of Service: 08/22/20 Interval History: seen in f/u for covid with hypoxia on ambulation. At baseline confusion, no distress ROS: denies sob, no fever Physical Exam Vital Signs: Vital Signs: Last Vital Signs Temp 97.5 F 08/22/20 07:39 Pulse 94 08/22/20 07:39 Resp 18 08/22/20 07:39 BP 151/59 H 08/22/20 07:39 Pulse Ox 94 08/22/20 07:39 Body Mass Index 26.1 General: Oriented to self, no acute distress Resp: normal resp effort CVS: regular GI: +BS, NT, no distention Skin: No rash Neuro: motor grossly intact Psych: appropriate affect, pleasantly confused Objective Data Current Medications Generic Name Dose Route Start Last Admin Trade Name Freq PRN Reason Stop Dose Admin Acetaminophen 650 mg 08/20/20 20:12 Acetaminophen 325 Mg Tablet PO Q6H PRN Pain, Mild (Pain Scale 1-3) Atorvastatin Calcium 10 mg 08/21/20 09:00 08/22/20 07:51 Atorvastatin Calcium 10 Mg Tablet PO 10 mg DAILY CARL Administration Dexamethasone 6 mg 08/21/20 09:00 08/22/20 07:51 Dexamethasone 6 Mg Tablet PO 6 mg DAILY CARL Administration Docusate Sodium 100 mg 08/20/20 20:12 Docusate Sodium 100 Mg Capsule PO DAILY PRN Constipation Enoxaparin Sodium 40 mg 08/20/20 21:00 08/21/20 20:07 Enoxaparin Sodium 40 Mg/0.4 Ml Syringe SUBCUT 40 mg Q24H CARL Administration Lisinopril 20 mg 08/21/20 09:00 08/22/20 07:50 Lisinopril 20 Mg Tablet PO 20 mg DAILY CARL Administration Protocol Ondansetron HCl 4 mg 08/20/20 20:12 Ondansetron Hcl 4 Mg/2 Ml Vial IVPUSH Q8H PRN Nausea and Vomiting Pharmacy Consult 1 each 08/20/20 15:27 Consult Rx Perform Med Rec MISCELLANE ONCE PRN Consult order Sodium Chloride 3 ml 08/21/20 00:00 08/22/20 07:50 0.9 % Sodium Chloride Flush 3 Ml Syringe IVFLUSH 3 ml QSHIFT CARL Administration Labs CBC & Chem 7: 08/21/20 06:47 08/21/20 06:47 Assessment and Plan (1) COVID-19: Status: Inactive Assessment and Plan: 80-year-old male with history of hypertension, dyslipidemia, likely dementia who presents to the emergency department after having a positive coronavirus contact now testing positive for COVID-19 Covid 19, Acute hypoxia with exertion Oxygen saturation dropped to 80% with ambulation -dexamethasone D3/10 -supplemental oxygen as needed Hypertension Continue lisinopril Dyslipidemia Continue statin likely Undiagnosed dementia. 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 DVT prophylaxis-lovenox He will likely need placement as who cares for him also has covid in next bed and is more acute
[2020-08-22 12:00] VITALS: BP 126/77; PULSE 74; RESP 18; TEMP 36.1; O2SAT 92
--- NOTE | 2020-08-22 13:53 | MHC.CM.PN ---
CM SPOKE TO PTS SON, HITESH ([phone]) WHO REPORTS HE LIVES IN THE SAME HOME WITH THE PT AND HIS . HITESH REPORTS THE PT DID NOT HAVE ANY SERVICES [employer] BUT WAS NOT ALWAYS DOING A GOOD JOB CARING FOR HIMSELF. HE REPORTS THE PT WOULD GET UTI's OR OTHER ILLNESSES AND WOULD NOT GO TO THE DOCTORS OR TELL ANYONE HE DID NOT FEEL GOOD. HITESH REPORTS SUSPECTING THE PT HAS DEMENTIA BUT IS DOING A GOOD JOB TRYING TO HIDE IT. HITESH REPORTS THE PT DID NOT USE DME [employer]. HE ALSO REPORTS THE PT DOES NOT HAVE A HCP AND ASKS THAT THE DOCUMENT AND INFO BE SENT HOME WITH THE PT. CM EXPLAINED THE DOCUMENT, WHEN IT IS USEFUL AND THE REQUIREMENTS FOR COMPLETING A LEGAL/VALID HCP. HITESH REPORTS THE PT HAS INSURANCE, [employer] AND IS A . 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
[2020-08-22 15:11] VITALS: BP 115/82; PULSE 80; RESP 19; TEMP 36.1; O2SAT 92
[2020-08-22 19:03] VITALS: BP 139/65; PULSE 80; RESP 19; TEMP 36; O2SAT 90
--- NOTE | 2020-08-22 19:03 | PC.NURSE ---
Pt oob to recliner with 1 assist, tolerated 25% of his dinner, urinated with no problem,had small formed BM. Denied any pain,no SOB noted or reported. Pt requires cuing with his ADL's
[2020-08-22] MEDS: Enoxaparin Sodium 40 MG/0.4 ML SYRINGE SUBCUT (20:39)
[2020-08-22 21:08] VITALS: O2SAT 95
[2020-08-23] VITALS (8 sets, daily range): BP systolic 101–158; BP diastolic 62–93; PULSE 66–102; RESP 16–20; TEMP 36.3–39.3; O2SAT 91–97
[2020-08-23] MEDS: 0.9 % Sodium Chloride Flush 3 ML SYRINGE IVFLUSH ×4 (00:27→19:35)
[2020-08-23] MEDS: Acetaminophen 325 MG TABLET 650 MG PO (01:03)
[2020-08-23] MEDS: dexAMETHasone 6 MG TABLET PO (09:21)
[2020-08-23] MEDS: Atorvastatin Calcium 10 MG TABLET PO (09:21)
[2020-08-23] MEDS: lisinopriL 20 MG TABLET PO (09:22)
--- NOTE | 2020-08-23 10:24 | MHC.CM.PN ---
Male 80 DX Covid+ DP Home VNA? [facility] transport. HCP+ son Neri. LOS R/T TEMP 08/23/20 midnight >102 oral.
--- NOTE | 2020-08-23 12:43 | HO.PM.IMPN ---
Subjective Subjective Date of Service: 08/23/20 Interval History: no complaints, but did have fever ;ast night Cardiovascular Cardiovascular: Reports no additional cardiovascular complaints Respiratory Respiratory: Reports no additional respiratory complaints Physical Exam Vital Signs: Vital Signs: Last Vital Signs Temp 97.4 F 08/23/20 11:26 Pulse 102 H 08/23/20 11:26 Resp 19 08/23/20 11:26 BP 125/86 08/23/20 11:26 Pulse Ox 93 08/23/20 11:26 Body Mass Index 26.1 General: Alert, no acute distress Resp: CTA bilateral CVS: S1,S2,RRR GI: soft, non tender, non distended Neuro: motor grossly intact Psych: appropriate affect Objective Data Current Medications Generic Name Dose Route Start Last Admin Trade Name Freq PRN Reason Stop Dose Admin Acetaminophen 650 mg 08/20/20 20:12 08/23/20 01:03 Acetaminophen 325 Mg Tablet PO 650 mg Q6H PRN Administration Pain, Mild (Pain Scale 1-3) Atorvastatin Calcium 10 mg 08/21/20 09:00 08/23/20 09:21 Atorvastatin Calcium 10 Mg Tablet PO 10 mg DAILY CARL Administration Dexamethasone 6 mg 08/21/20 09:00 08/23/20 09:21 Dexamethasone 6 Mg Tablet PO 6 mg DAILY CARL Administration Docusate Sodium 100 mg 08/20/20 20:12 Docusate Sodium 100 Mg Capsule PO DAILY PRN Constipation Enoxaparin Sodium 40 mg 08/20/20 21:00 08/22/20 20:39 Enoxaparin Sodium 40 Mg/0.4 Ml Syringe SUBCUT 40 mg Q24H CARL Administration Lisinopril 20 mg 08/21/20 09:00 08/23/20 09:22 Lisinopril 20 Mg Tablet PO 20 mg DAILY CARL Administration Protocol Ondansetron HCl 4 mg 08/20/20 20:12 Ondansetron Hcl 4 Mg/2 Ml Vial IVPUSH Q8H PRN Nausea and Vomiting Pharmacy Consult 1 each 08/20/20 15:27 Consult Rx Perform Med Rec MISCELLANE ONCE PRN Consult order Sodium Chloride 3 ml 08/21/20 00:00 08/23/20 09:22 0.9 % Sodium Chloride Flush 3 Ml Syringe IVFLUSH 3 ml QSHIFT CARL Administration Labs CBC & Chem 7: 08/21/20 06:47 08/21/20 06:47 Assessment and Plan (1) COVID-19: Status: Inactive Assessment and Plan: 80-year-old male with history of hypertension, dyslipidemia, likely dementia who presents to the emergency department after having a positive coronavirus contact now testing positive for COVID-19 Covid 19, Acute hypoxia with exertion Oxygen saturation dropped to 80% with ambulation -dexamethasone D4/10 -supplemental oxygen as needed Hypertension Continue lisinopril Dyslipidemia Continue statin likely Undiagnosed dementia. 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 DVT prophylaxis-lovenox
[2020-08-23] MEDS: Enoxaparin Sodium 40 MG/0.4 ML SYRINGE SUBCUT (19:35)
[2020-08-24] VITALS (9 sets, daily range): BP systolic 110–161; BP diastolic 67–96; PULSE 65–89; RESP 18–21; TEMP 36.9–38.5; O2SAT 91–97
[2020-08-24 07:11] LABS: Hematocrit 40.8 % (42-52); Hemoglobin 13.8 g/dl (14.0-18.0); Imm Gran Abs Auto 0.13 X10*3/uL (0.00-0.03); Imm Gran Pct Auto 1.2 % (0.0-0.4); Lymphocytes Absolute Auto 0.6 X10*3/uL (1.2-4.9); Lymphocytes Percent Auto 5.2 % (20-40); MANUAL DIFF FLAG SCAN; Mean Corpuscular HGB Conc 33.8 g/dl (31.0-36.0); Mean Corpuscular Hemoglobin 29.4 pg (27.0-33.0); Mean Corpuscular Volume 86.8 fL (80-98); Mean Platelet Volume 9.8 fL (9.4-12.4); Monocytes Absolute Auto 0.7 X10*3/uL (0.1-1.2); Monocytes Percent Auto 6.2 % (2-11); Neutrophils Absolute Auto 9.2 X10*3/uL (2.0-8.3); Neutrophils Percent Auto 87.4 % (45-73); Platelet Count 158 X10*3/uL (160-400); Red Cell Distribution Width 13.1 % (11.0-16.0); SCAN SMEAR FLAG 1; White Blood Count 10.5 X10*3/uL (4.8-10.8)
[2020-08-24 07:29] LABS: D Dimer 383 NG/ML
[2020-08-24 07:36] LABS: Anion Gap 15 (12-20); Blood Urea Nitrogen 32 mg/dL (9-16); Calcium 8.3 mg/dL (8.4-10.2); Carbon Dioxide 24 mmol/L (22-29); Chloride 106 mmol/L (96-108); Creatinine Clr Calc Pharmacy 62.6; Estimated Glomerular Filt Rate > 60; Glucose Fasting 95 mg/dL (60-99); Lactate Dehydrogenase 375 U/L (118-273); Potassium 3.8 mmol/l (3.3-5.1); Sodium 141 mmol/L (135-145)
[2020-08-24 07:57] LABS: SLIDE REVIEW VERIFIED
[2020-08-24] MEDS: 0.9 % Sodium Chloride Flush 3 ML SYRINGE IVFLUSH ×3 (07:58→20:12)
[2020-08-24] MEDS: Atorvastatin Calcium 10 MG TABLET PO (07:59)
[2020-08-24] MEDS: dexAMETHasone 6 MG TABLET PO (07:59)
[2020-08-24] MEDS: lisinopriL 20 MG TABLET PO (07:59)
[2020-08-24 10:05] LABS: C Reactive Protein 12.35 mg/dL (< or = 0.50)
--- NOTE | 2020-08-24 12:20 | HO.PM.IMPN ---
Subjective Subjective Date of Service: 08/24/20 Interval History: no copmlaints, had fever Cardiovascular Cardiovascular: Reports no additional cardiovascular complaints Respiratory Respiratory: Reports no additional respiratory complaints Physical Exam Vital Signs: Vital Signs: Last Vital Signs Temp 98.8 F 08/24/20 11:14 Pulse 69 08/24/20 11:14 Resp 19 08/24/20 11:14 BP 110/67 08/24/20 11:14 Pulse Ox 91 L 08/24/20 11:14 Body Mass Index 26.1 General: Alert, confused, no acute distress Resp: CTA bilateral CVS: S1,S2,RRR GI: soft, non tender, non distended Neuro: motor grossly intact Psych: appropriate affect Objective Data Current Medications Generic Name Dose Route Start Last Admin Trade Name Freq PRN Reason Stop Dose Admin Acetaminophen 650 mg 08/20/20 20:12 08/23/20 01:03 Acetaminophen 325 Mg Tablet PO 650 mg Q6H PRN Administration Pain, Mild (Pain Scale 1-3) Atorvastatin Calcium 10 mg 08/21/20 09:00 08/24/20 07:59 Atorvastatin Calcium 10 Mg Tablet PO 10 mg DAILY CARL Administration Dexamethasone 6 mg 08/21/20 09:00 08/24/20 07:59 Dexamethasone 6 Mg Tablet PO 6 mg DAILY CARL Administration Docusate Sodium 100 mg 08/20/20 20:12 Docusate Sodium 100 Mg Capsule PO DAILY PRN Constipation Enoxaparin Sodium 40 mg 08/20/20 21:00 08/23/20 19:35 Enoxaparin Sodium 40 Mg/0.4 Ml Syringe SUBCUT 40 mg Q24H CARL Administration Lisinopril 20 mg 08/21/20 09:00 08/24/20 07:59 Lisinopril 20 Mg Tablet PO 20 mg DAILY CARL Administration Protocol Ondansetron HCl 4 mg 08/20/20 20:12 Ondansetron Hcl 4 Mg/2 Ml Vial IVPUSH Q8H PRN Nausea and Vomiting Pharmacy Consult 1 each 08/20/20 15:27 Consult Rx Perform Med Rec MISCELLANE ONCE PRN Consult order Sodium Chloride 3 ml 08/21/20 00:00 08/24/20 07:58 0.9 % Sodium Chloride Flush 3 Ml Syringe IVFLUSH 3 ml QSHIFT CARL Administration Labs CBC & Chem 7: 08/24/20 06:20 08/24/20 06:20 Assessment and Plan (1) COVID-19: Status: Inactive Assessment and Plan: 80-year-old male with history of hypertension, dyslipidemia, likely dementia who presents to the emergency department after having a positive coronavirus contact now testing positive for COVID-19 Covid 19, Acute hypoxia with exertion Oxygen saturation dropped to 80% with ambulation -dexamethasone D5/10 -supplemental oxygen as needed having fevers, likely has still yet to peak Hypertension Continue lisinopril Dyslipidemia Continue statin likely Undiagnosed dementia. 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 DVT prophylaxis-lovenox
[2020-08-24] MEDS: Enoxaparin Sodium 40 MG/0.4 ML SYRINGE SUBCUT (20:12)
[2020-08-25] VITALS (8 sets, daily range): BP systolic 115–153; BP diastolic 71–92; PULSE 56–69; RESP 17–20; TEMP 36.1–37.2; O2SAT 92–95
[2020-08-25] MEDS: 0.9 % Sodium Chloride Flush 3 ML SYRINGE IVFLUSH ×3 (07:52→19:56)
[2020-08-25] MEDS: Atorvastatin Calcium 10 MG TABLET PO (07:52)
[2020-08-25] MEDS: dexAMETHasone 6 MG TABLET PO (07:53)
[2020-08-25] MEDS: lisinopriL 20 MG TABLET PO (07:53)
--- NOTE | 2020-08-25 10:46 | HO.PM.IMPN ---
Subjective Subjective Date of Service: 08/25/20 Interval History: no complaints Cardiovascular Cardiovascular: Reports no additional cardiovascular complaints Respiratory Respiratory: Reports no additional respiratory complaints Physical Exam Vital Signs: Vital Signs: Last Vital Signs Temp 98.6 F 08/25/20 07:46 Pulse 67 08/25/20 07:53 Resp 20 08/25/20 07:46 BP 153/73 H 08/25/20 07:53 Pulse Ox 93 08/25/20 07:46 Body Mass Index 26.1 General: Alert confused, no acute distress Resp: CTA bilateral CVS: S1,S2,RRR GI: soft, non tender, non distended Neuro: motor grossly intact Psych: appropriate affect Objective Data Current Medications Generic Name Dose Route Start Last Admin Trade Name Freq PRN Reason Stop Dose Admin Acetaminophen 650 mg 08/20/20 20:12 08/23/20 01:03 Acetaminophen 325 Mg Tablet PO 650 mg Q6H PRN Administration Pain, Mild (Pain Scale 1-3) Atorvastatin Calcium 10 mg 08/21/20 09:00 08/25/20 07:52 Atorvastatin Calcium 10 Mg Tablet PO 10 mg DAILY CARL Administration Dexamethasone 6 mg 08/21/20 09:00 08/25/20 07:53 Dexamethasone 6 Mg Tablet PO 6 mg DAILY CARL Administration Docusate Sodium 100 mg 08/20/20 20:12 Docusate Sodium 100 Mg Capsule PO DAILY PRN Constipation Enoxaparin Sodium 40 mg 08/20/20 21:00 08/24/20 20:12 Enoxaparin Sodium 40 Mg/0.4 Ml Syringe SUBCUT 40 mg Q24H CARL Administration Lisinopril 20 mg 08/21/20 09:00 08/25/20 07:53 Lisinopril 20 Mg Tablet PO 20 mg DAILY CARL Administration Protocol Ondansetron HCl 4 mg 08/20/20 20:12 Ondansetron Hcl 4 Mg/2 Ml Vial IVPUSH Q8H PRN Nausea and Vomiting Pharmacy Consult 1 each 08/20/20 15:27 Consult Rx Perform Med Rec MISCELLANE ONCE PRN Consult order Sodium Chloride 3 ml 08/21/20 00:00 08/25/20 07:52 0.9 % Sodium Chloride Flush 3 Ml Syringe IVFLUSH 3 ml QSHIFT CARL Administration Labs CBC & Chem 7: 08/24/20 06:20 08/24/20 06:20 Assessment and Plan (1) COVID-19: Status: Inactive Assessment and Plan: 80-year-old male with history of hypertension, dyslipidemia, likely dementia who presents to the emergency department after having a positive coronavirus contact now testing positive for COVID-19 Covid 19, Acute hypoxia with exertion Oxygen saturation dropped to 80% with ambulation -dexamethasone D6/10 -supplemental oxygen as needed having fevers, likely has still yet to peak Hypertension Continue lisinopril Dyslipidemia Continue statin likely Undiagnosed dementia. 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 DVT prophylaxis-lovenox
--- NOTE | 2020-08-25 14:57 | MHC.CM.PN ---
Male 80 DX Covid + PT eval rec STR. Spoke with son, Neri as well as his . Preferences were obtained and referrals were made. DP STR VIA BLS.
[2020-08-25] MEDS: Enoxaparin Sodium 40 MG/0.4 ML SYRINGE SUBCUT (19:56)
[2020-08-26 03:15] VITALS: BP 138/77; PULSE 54; RESP 17; TEMP 36.6; O2SAT 94
[2020-08-26 06:50] LABS: Hematocrit 41.1 % (42-52); Hemoglobin 13.3 g/dl (14.0-18.0); Imm Gran Abs Auto 0.08 X10*3/uL (0.00-0.03); Imm Gran Pct Auto 1.1 % (0.0-0.4); Lymphocytes Absolute Auto 0.5 X10*3/uL (1.2-4.9); Lymphocytes Percent Auto 6.6 % (20-40); MANUAL DIFF FLAG SCAN; Mean Corpuscular HGB Conc 32.4 g/dl (31.0-36.0); Mean Corpuscular Hemoglobin 28.2 pg (27.0-33.0); Mean Corpuscular Volume 87.1 fL (80-98); Mean Platelet Volume 9.5 fL (9.4-12.4); Monocytes Absolute Auto 0.9 X10*3/uL (0.1-1.2); Monocytes Percent Auto 12.2 % (2-11); Neutrophils Absolute Auto 6.1 X10*3/uL (2.0-8.3); Neutrophils Percent Auto 80.1 % (45-73); Platelet Count 211 X10*3/uL (160-400); Red Blood Count 4.72 X10*6/uL (4.60-5.80); Red Cell Distribution Width 13.1 % (11.0-16.0); SCAN SMEAR FLAG 1; White Blood Count 7.6 X10*3/uL (4.8-10.8)
[2020-08-26 07:14] LABS: Anion Gap 13 (12-20); Blood Urea Nitrogen 39 mg/dL (9-16); Calcium 8.4 mg/dL (8.4-10.2); Carbon Dioxide 27 mmol/L (22-29); Chloride 105 mmol/L (96-108); Creatinine Clr Calc Pharmacy 61.9; D Dimer 320 NG/ML; Estimated Glomerular Filt Rate > 60; Glucose Fasting 105 mg/dL (60-99); Lactate Dehydrogenase 286 U/L (118-273); Potassium 4.3 mmol/l (3.3-5.1); Sodium 141 mmol/L (135-145)
[2020-08-26 07:39] VITALS: BP 140/52; PULSE 53; RESP 19; TEMP 36.1; O2SAT 94
[2020-08-26 07:47] LABS: SLIDE REVIEW VERIFIED
[2020-08-26] MEDS: lisinopriL 20 MG TABLET PO (08:05)
[2020-08-26] MEDS: 0.9 % Sodium Chloride Flush 3 ML SYRINGE IVFLUSH (08:05)
[2020-08-26] MEDS: dexAMETHasone 6 MG TABLET PO (08:05)
[2020-08-26] MEDS: Atorvastatin Calcium 10 MG TABLET PO (08:05)
[2020-08-26 08:53] VITALS: BP 140/52; PULSE 53; O2SAT 94
--- NOTE | 2020-08-26 09:18 | MHC.CM.PN ---
Per MD Patient may DC today. Contacted [facility] RE bed availability today and tomorrow. Other Facilities referred oare on [facility] list. More referrals will be made if [facility] can not accommodate placement. CM will follow.
--- NOTE | 2020-08-26 10:56 | PC.NURSE ---
Patient is alert and oriented x4, able to make decisions for himself and make his needs known to nursing staff. No behavior issues and is appropriate with staff.
[2020-08-26 11:07] VITALS: BP 113/78; PULSE 79; RESP 18; TEMP 36.2; O2SAT 94
--- NOTE | 2020-08-26 11:21 | PM.DS ---
DS: Providers Provider Date of admission: 08/20/20 17:03 Primary care physician: Unknown Physician DS: Diagnosis Discharge Diagnosis (1) COVID-19: Status: Inactive (2) COVID-19: Status: Acute (3) Hypoxia: Status: Acute DS: Medications Discharge Medications Home Medications: Home Medications Medication Instructions Recorded Confirmed lisinopril 20 mg PO DAILY 08/20/20 08/20/20 simvastatin 40 mg PO BEDTIME 08/20/20 08/20/20 Previous Rx's Medication Instructions Recorded dexamethasone 6 mg PO DAILY #4 tab 08/26/20 DS: Summary Hospital Course Hospital Course: Patient was admitted for acute hypoxic respiratory failure secondary to COVID pneumonia. He was given Decadron. His hypoxia quickly resolved. Did have fever, but has been afebrile greater than 48 hours. And has been on room air for most of his admission. Patient will be discharged to nursing home facility. Time Spent with Patient Time attestation: Total time spent providing and/or coordinating discharge services: Physical Exam Vital Signs: Vital Signs: Last Vital Signs Temp 97.1 F 08/26/20 11:07 Pulse 79 08/26/20 11:07 Resp 18 08/26/20 11:07 BP 113/78 08/26/20 11:07 Pulse Ox 94 08/26/20 11:07 Body Mass Index 26.1 General: AO X 3, no acute distress Resp: CTA bilateral CVS: S1,S2,RRR GI: soft, non tender, non distended Neuro: motor grossly intact Psych: appropriate affect DS: Data Data Completed and Pending Labs on day of discharge: 08/20/20 14:13 ECG 12 lead EKG Stat EKG Documentation DIRECTED XR chest 1V Stat 08/20/20 14:24 B Type Natriuretic Peptide Stat Complete Blood Count Auto Diff Stat Comprehensive Met. Panel Stat Ferritin Stat Lactate Dehydrogenase Stat Partial Thromboplastin Time Stat Procalcitonin Stat Prothrombin Time INR Stat SLIDE REVIEW Stat Troponin-I High Sensitivity Stat 08/20/20 14:25 SARS-CoV2/FLU/RSV Stat 08/20/20 15:28 0.9 % Sodium Chloride [Ns] 500 ml IV 999 mls/hr Albuterol Sulfate [Ventolin] 4 puff INHALE ONCE ONE 08/20/20 16:59 Transfer Order Routine 08/21/20 06:47 Basic Metabolic Panel DAILY@0600 Complete Blood Count Auto Diff DAILY@0600 08/24/20 06:20 BMP [Basic Metabolic Panel Fasting] Routine C Reactive Protein Routine Complete Blood Count Auto Diff Routine D Dimer Routine Lactate Dehydrogenase Routine SLIDE REVIEW Routine 08/26/20 05:52 BMP [Basic Metabolic Panel Fasting] Routine Complete Blood Count Auto Diff Routine D Dimer Routine Lactate Dehydrogenase Routine SLIDE REVIEW Routine Laboratory Last Values WBC 7.6 X10*3/uL (4.8-10.8) 08/26/20 05:52 RBC 4.72 X10*6/uL (4.60-5.80) 08/26/20 05:52 Hgb 13.3 g/dl (14.0-18.0) L 08/26/20 05:52 Hct 41.1 % (42-52) L 08/26/20 05:52 MCV 87.1 fL (80-98) 08/26/20 05:52 MCH 28.2 pg (27.0-33.0) 08/26/20 05:52 MCHC 32.4 g/dl (31.0-36.0) 08/26/20 05:52 RDW 13.1 % (11.0-16.0) 08/26/20 05:52 Plt Count 211 X10*3/uL (160-400) D 08/26/20 05:52 MPV 9.5 fL (9.4-12.4) 08/26/20 05:52 Immature Gran % (Auto) 1.1 % (0.0-0.4) H 08/26/20 05:52 Neut % (Auto) 80.1 % (45-73) H 08/26/20 05:52 Lymph % (Auto) 6.6 % (20-40) L 08/26/20 05:52 Adams % (Auto) 12.2 % (2-11) H 08/26/20 05:52 Eos % (Auto) 0.0 % (0-4) 08/26/20 05:52 Baso % (Auto) 0.0 % (0-2) 08/26/20 05:52 Lymph # (Auto) 0.5 X10*3/uL (1.2-4.9) L 08/26/20 05:52 Adams # (Auto) 0.9 X10*3/uL (0.1-1.2) 08/26/20 05:52 Eos # (Auto) 0.0 X10*3/uL (0.0-0.4) 08/26/20 05:52 Baso # (Auto) 0.0 X10*3/uL (0.0-0.2) 08/26/20 05:52 Abs Immat Gran (auto) 0.08 X10*3/uL (0.00-0.03) H 08/26/20 05:52 Absolute Neuts (auto) 6.1 X10*3/uL (2.0-8.3) 08/26/20 05:52 Absolute Nucleated RBC 0.000 X10*3/uL (0.0-0.012) 08/26/20 05:52 Nucleated RBC % (auto) 0.0 /100WBC (0.0-0.2) 08/26/20 05:52 Smear Tech's Comments VERIFIED 08/26/20 05:52 PT 13.3 SEC (10.8-13.0) H 08/20/20 14:24 INR 1.1 (0.9-1.1) 08/20/20 14:24 APTT 32.1 SEC (24.1-38.0) 08/20/20 14:24 D-Dimer 320 NG/ML 08/26/20 05:52 Sodium 141 mmol/L (135-145) 08/26/20 05:52 Potassium 4.3 mmol/l (3.3-5.1) 08/26/20 05:52 Chloride 105 mmol/L (96-108) 08/26/20 05:52 Carbon Dioxide 27 mmol/L (22-29) 08/26/20 05:52 Anion Gap 13 (-20) 08/26/20 05:52 BUN 39 mg/dL (9-16) H 08/26/20 05:52 Creatinine 0.89 mg/dL (0.5-1.4) 08/26/20 05:52 Estim Creat Clear Calc 61.9 08/26/20 05:52 Estimated GFR > 60 08/26/20 05:52 Random Glucose 91 mg/dL (60-115) 08/21/20 06:47 Fasting Glucose 105 mg/dL (60-99) H 08/26/20 05:52 Calcium 8.4 mg/dL (8.4-10.2) 08/26/20 05:52 Ferritin 767 ng/mL (20-250) H 08/20/20 14:24 Total Bilirubin 0.9 mg/dL (0.0-1.0) 08/20/20 14:24 AST 29 U/L (5-37) 08/20/20 14:24 ALT 21 U/L (0-40) 08/20/20 14:24 Alkaline Phosphatase 35 U/L (39-117) L 08/20/20 14:24 Lactate Dehydrogenase 286 U/L (118-273) H 08/26/20 05:52 Troponin I High Sens 9.4 ng/L (<3.5-35.0) 08/20/20 14:24 C-Reactive Protein 12.35 mg/dL (< or = 0.50) H 08/24/20 06:20 C-React Prot High Sens Cancelled 08/24/20 06:20 B-Natriuretic Peptide 20 pg/mL (<100) 08/20/20 14:24 Total Protein 6.4 g/dL (6.5-8.0) L 08/20/20 14:24 Albumin 3.8 g/dL (3.5-5.0) 08/20/20 14:24 Procalcitonin 0.03 ng/mL 08/20/20 14:24 Urine Color YELLOW 08/20/20 15:24 Urine Appearance CLOUDY 08/20/20 15:24 Urine pH 5.5 (5.0-8.0) 08/20/20 15:24 Ur Specific [place] >= 1.030 (1.005-1.025) H 08/20/20 15:24 Urine Protein 1+ MG/DL (NEG-TRACE) H 08/20/20 15:24 Urine Glucose (UA) NEG MG/DL (NEG) 08/20/20 15:24 Urine Ketones 15 MG/DL (NEG) 08/20/20 15:24 Urine Blood 3+ (NEG) H 08/20/20 15:24 Urine Nitrite NEG (NEG) 08/20/20 15:24 Ur Leukocyte Esterase NEG (NEG) 08/20/20 15:24 Urine RBC 30-49 /HPF (0) H 08/20/20 15:24 Urine WBC 1-4 /HPF (0-4) 08/20/20 15:24 Ur Squamous Epith Cells NONE /LPF 08/20/20 15:24 Urine Bacteria NONE /LPF 08/20/20 15:24 Coronavirus (PCR) POSITIVE (Negative) A 08/20/20 14:25 Influenza Type A (PCR) NEGATIVE (Negative) 08/20/20 14:25 Influenza Type B (PCR) NEGATIVE (Negative) 08/20/20 14:25 RSV RNA Qual (PCR) NEGATIVE (Negative) 08/20/20 14:25 Discharge Plan Discharge Patient Disposition: Xfer SNF Referrals: Physician,Unknown [Primary Care Provider] - Discharge Medications: New dexamethasone 6 mg Tablet 6 mg PO DAILY Qty: 4 RF: 0 Continued lisinopril 20 mg Tablet 20 mg PO DAILY RF: 0 simvastatin 40 mg Tablet 40 mg PO BEDTIME RF: 0 Discharge Orders: Discharge Order (Routine); Ordered 08/26/20 Ordered By: Luis Whitfield Activity on Discharge: As tolerated Visit Report Forms: Patient Portal Discharge page Care Plan Goals: recovery Health Concerns: covid Plan of Treatment: 4 more days decadron
== END 2020-08-26 14:01 | disposition skilled nursing facility (03) | DRG 179 ==
LOC: HO.ED 14:08 → HO.IMC 18:58
PROVIDERS: Nurse Practitioner Primary Care; Physician Assistant Medical; Admitting Provider Internal Medicine; Emergency Provider Emergency Medicine Emergency Medical Services; Visit Provider Internal Medicine
DX: U07.1 COVID-19 (principal); K21.9 Gastro-esophageal reflux disease without esophagitis; F03.90 Unspecified dementia, unspecified severity, without behavioral disturbance, psychotic disturbance, mood disturbance, and anxiety; R09.02 Hypoxemia; E78.5 Hyperlipidemia, unspecified; Z79.899 Other long term (current) drug therapy
CPT/HCPCS: 0241U; 36415; 71045; 80048; 80053; 81001; 82728; 83615; 83880; 84145; 84484; 85025; 85379; 85610; 85730; 86140; 86141; 93005; 97110; 97116; 97162; 97530; 99284; J1650; J8540

== ENCOUNTER 2020-09-15 | Outpatient (REF) | payer MEDICARE, OTHER, SELFPAY ==
[2020-09-15 08:02] LABS: Anion Gap 18 (12-20); Blood Urea Nitrogen 81 mg/dL (9-16); Calcium 7.7 mg/dL (8.4-10.2); Carbon Dioxide 21 mmol/L (22-29); Chloride 102 mmol/L (96-108); Estimated Glomerular Filt Rate 40; Glucose Random 105 mg/dL (60-115); Potassium 4.9 mmol/l (3.3-5.1); Sodium 136 mmol/L (135-145)
== END 2020-09-15 00:01 | disposition home or self-care (01) ==
LOC: HO.MMNH1L
PROVIDERS: Visit Provider Family Medicine
DX: I10 Essential (primary) hypertension (principal); E78.5 Hyperlipidemia, unspecified
CPT/HCPCS: 36415; 80048

== ENCOUNTER 2020-09-16 12:40 | Inpatient (IN) | payer MEDICARE, OTHER, SELFPAY ==
[2020-09-16 12:47] VITALS: BP 111/76; PULSE 83; RESP 24; TEMP 37.3; O2SAT 95; BMI 23.6
--- NOTE | 2020-09-16 13:01 | XR_ITS ---
EXAMINATION: XR CHEST CLINICAL INFORMATION: Right-sided chest pain with shortness of breath COMPARISON: August 20, 2020 TECHNIQUE: AP portable view of the chest was obtained. FINDINGS: Since previous study patient has developed hazy density about the right hemithorax with density along the lateral pleural surface consistent with moderate right pleural effusion. There appears to be some right lower lung disease. No significant left hemithorax abnormality appreciated. Heart normal size. No evidence of pulmonary edema. 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 XR/XR chest 1V IMPRESSION: Development of right pleural effusion with parenchymal disease.
--- NOTE | 2020-09-16 13:01 | ECG_ITS ---
Test Reason : SOB Blood Pressure : / mmHG Vent. Rate : 082 BPM Atrial Rate : 082 BPM P-R Int : 126 ms QRS Dur : 086 ms QT Int : 374 ms P-R-T Axes : -08 02 -08 degrees QTc Int : 436 ms Normal sinus rhythm ST & T wave abnormality, consider inferior ischemia Abnormal ECG When compared with ECG of 20-AUG-2020 14:32, Aberrant conduction is no longer Present Nonspecific T wave abnormality, improved in Anterior leads Referred By: Alma Valenzuela Electronically Signed By:FAB CASILLAS MD
--- NOTE | 2020-09-16 13:04 | ED_ITS ---
HPI - General Adult General Chief complaint: General Medical Stated complaint: hypotension, covid + Time Seen by Provider: 09/16/20 13:01 Source: patient, EMS, RN notes reviewed and old records reviewed Mode of arrival: EMS Limitations: altered mental status History of Present Illness HPI narrative: 80 y/o male with history of HTN, HLD, question of dementia, recurrent falls, GERD, with recent admission to [facility] [place] [place] 08/20-08/26/2020 for acute hypoxic respiratory failure 2/2/ COVID-19 presents to the ED via EMS with rep orts of hypotension. History is obtained from nurse at [facility] where patient has resided since discharge on 08/26/2020. She states patient started developing hypotension on 09/04/2019 associated with decreased PO intake & fatgiue. She reports his BP was as low as 88/61 last week but he was not symptomatic. His appetite was very poor. On Wednesday 09/13 while in therapy he developed symptoms of dizziness, worsening fatigue associated with low BP. He was pale. [facility] ARCHITECT at the facility ordered 2 liters of d51/2NS which he was given without significant improvement. Additional fluids were ordered today. Patient's wanted to take him home however the facility recommended evaluation in the ER. On arrival to the ER patient was normotensive. He reports he is feeling only okay. He reports right sided chest and body pain. Unable to elaborate. MD complaint: hypotension Onset (ago): day(s) () Radiation: non-radiation Severity: mild Quality: aching Pain Consistency: intermittent Relieving factors: none Exacerbating factors: none Associated symptoms: confusion, loss of appetite, malaise and weakness Treatments prior to arrival: none Related Data Home Medications Medication Instructions Recorded Confirmed lisinopril 20 mg PO DAILY 08/20/20 08/20/20 simvastatin 40 mg PO BEDTIME 08/20/20 08/20/20 Previous Rx's Medication Instructions Recorded dexamethasone 6 mg PO DAILY #4 tab 08/26/20 Allergies Allergy/AdvReac Type Severity Reaction Status Date / Time No Known Allergies Allergy Unverified 05/20/20 16:25 Review of Systems Review of Systems: Constitutional: No Fever, No Chills ENT/Mouth: No sore throat, No Rhinorrhea, No Swallowing Difficulty Cardiovascular: + Chest Pain, No SOB, No Orthopnea, No Edema Respiratory: No Cough, No Sputum, No Wheezing, No dyspnea Gastrointestinal: No Nausea, No Vomiting, No Diarrhea, No abdominal Pain Genitourinary: No Dysuria, No Urinary Frequency, No Hematuria Musculoskeletal: No joint pain, No Myalgias Skin: No Skin Lesions, No rash Neuro: + Weakness, No Numbness, No Dizziness, No Headache Psych: No Anxiety/Panic, No Depression Heme/Lymph: No Bruising, No Lymphadenopathy Endocrine: No Polyuria, No Polydipsia PMFSH Past Medical History Attestation statement: The following information was validated with the patient. Medical History COVID-19 GERD (gastroesophageal reflux disease) HLD (hyperlipidemia) HTN (hypertension) SBO (small bowel obstruction) Surgical History H/O colectomy History of appendectomy Social History Social History (Updated 08/20/20 @ 17:15 by AMEYA Sanchez) Household Members: Spouse Housing: House Alcohol intake: never Smoking Status: Former smoker Smoked in Last 30 Days: No Use of substances other than those prescribed or required for medical reasons: No Advance Directives: Yes Advance Directives on File: Yes Advance Directives Date on File: 09/16/20 service: Yes Current occupational status: retired Physical Exam Vital Signs: Vital Signs: Last Vital Signs Temp 98.4 F 09/16/20 15:43 Pulse 77 09/16/20 15:43 Resp 18 09/16/20 15:43 BP 108/71 09/16/20 15:43 Pulse Ox 95 09/16/20 15:43 Body Mass Index 23.6 Appearance: Frail, elderly male laying in bed. Alert. Oriented X2. No acute distress. Eyes: Pupils equal, round and reactive to light. ENT: Pharynx with dry mucus membranes. Neck: Normal inspection. Neck supple. CVS: Normal heart rate and rhythm. Pulses normal. Respiratory: No respiratory distress. Breath sounds normal. Mild right sided anterior chest wall tenderness Abdomen: Soft with mild distention, RUQ tenderness with right lower rib tenderness.. well healed longitudial surgical scar associated with known colec vivienne. +BS x4 Skin: Skin warm and dry. Normal skin color. Normal skin turgor. No rashes. Extremities: No lower extremity edema. +calf tenderness bilaterally with no erythema or warmth. Neuro: Oriented X2. Generalized weakness, non-focal. Course Course Course Narrative: 80 y/o male with history of recent COVID-19 on 08/20 presenting with decreased appetite and fatigue associated with hypotension for the last 12 days. Normotensive on arrival. He reportedly received 1 liter IVF this morning at [facility]. Concern for failure to thrive, need to r/o sepsis. Also need to r/o DVT/PE with recent COVID and reports of calf tenderness and right sided chest pain. Will get septic workup, check DDIMER. Reevaluation(s) Reevaluation #1: 13:30 - labs show WBC 20.2 with abnormal CXR and DDIMER 2600. WBC on 09/06 was 26.6 --> 15.6 and now 20.2. Concern for developing HCAP with ?parapneumonic effusion given CXR findings. Will give Vanco/Zosyn and sepsis IVF bolus. CTA chest ordered for further assessment and to r/o PE. Reevaluation #2: 15:40 - received critical result from radiology about CT scan showing large RUQ abscess 15 x [address] abd/pelvis. Dr. Jarquin reviewed imaging with Dr. Bain from Radiology - abd/pelvis CT scan ordered per recs. He has been given sepsis IVF bolus, will need to keep hydrated to help prevent contrast induced nephropathy. Clindamycin added for antitoxin effect. Reevaluation #3: 4:45 - spoke with patient's Bailey [phone], clinical update provided, all questions answered. 5 pm - Dr. Jarquin came to the ER to evaluate the patient - will admit with plan for CT guided drainage. Medical Decision Making Lab Data Result diagrams: 09/16/20 13:05 09/16/20 13:05 Labs: Lab Results 09/16/20 09/16/20 09/16/20 Range/Units 13:05 13:05 13:05 WBC 20.2 H (4.8-10.8) X10*3/uL RBC 4.12 L (4.60-5.80) X10*6/uL Hgb 11.7 L (14.0-18.0) g/dl Hct 36.6 L (42-52) % MCV 88.8 (80-98) fL MCH 28.4 (27.0-33.0) pg MCHC 32.0 (31.0-36.0) g/dl RDW 14.6 (11.0-16.0) % Plt Count 337 (160-400) X10*3/uL MPV 9.8 (9.4-12.4) fL Immature Gran % (Auto) 2.2 H (0.0-0.4) % Neut % (Auto) 84.9 H (45-73) % Lymph % (Auto) 3.8 L (20-40) % [place] % (Auto) 8.0 (2-11) % Eos % (Auto) 0.9 (0-4) % Baso % (Auto) 0.2 (0-2) % Lymph # (Auto) 0.8 L (1.2-4.9) X10*3/uL [place] # (Auto) 1.6 H (0.1-1.2) X10*3/uL Eos # (Auto) 0.2 (0.0-0.4) X10*3/uL Baso # (Auto) 0.0 (0.0-0.2) X10*3/uL Abs Immat Gran (auto) 0.44 H (0.00-0.03) X10*3/uL Absolute Neuts (auto) 17.2 H (2.0-8.3) X10*3/uL Absolute Nucleated RBC 0.000 (0.0-0.012) X10*3/uL Nucleated RBC % (auto) 0.0 (0.0-0.2) /100WBC Smear Tech's Comments VERIFIED PT 16.3 H D (10.8-13.0) SEC INR 1.4 H (0.9-1.1) APTT 30.6 (24.1-38.0) SEC D-Dimer 2623 NG/ML Sodium 137 (135-145) mmol/L Potassium 4.8 (3.3-5.1) mmol/l Chloride 102 (96-108) mmol/L Carbon Dioxide 25 (22-29) mmol/L Anion Gap 15 (12-20) BUN 63 H (9-16) mg/dL Creatinine 1.13 (0.5-1.4) mg/dL Estim Creat Clear Calc 50.4 Estimated GFR > 60 Random Glucose 113 (60-115) mg/dL Lactic Acid (0.5-2.0) mmol/L Calcium 8.0 L (8.4-10.2) mg/dL Magnesium 2.3 (1.6-2.6) mg/dL Total Bilirubin 0.7 (0.0-1.0) mg/dL Direct Bilirubin 0.5 (0.0-0.5) mg/dL AST 96 H (5-37) U/L ALT 138 H (0-40) U/L Alkaline Phosphatase 110 D (39-117) U/L Troponin I High Sens (<3.5-35.0) ng/L C-Reactive Protein 24.50 H (< or = 0.50) mg/dL B-Natriuretic Peptide (<100) pg/mL Total Protein 5.8 L (6.5-8.0) g/dL Albumin 2.3 L D (3.5-5.0) g/dL Procalcitonin ng/mL COVID-19 (ARCHIE) (Negative) COVID-19 Clin Com 09/16/20 09/16/20 09/16/20 Range/Units 13:05 13:05 13:05 WBC (4.8-10.8) X10*3/uL RBC (4.60-5.80) X10*6/uL Hgb (14.0-18.0) g/dl Hct (42-52) % MCV (80-98) fL MCH (27.0-33.0) pg MCHC (31.0-36.0) g/dl RDW (11.0-16.0) % Plt Count (160-400) X10*3/uL MPV (9.4-12.4) fL Immature Gran % (Auto) (0.0-0.4) % Neut % (Auto) (45-73) % Lymph % (Auto) (20-40) % [place] % (Auto) (2-11) % Eos % (Auto) (0-4) % Baso % (Auto) (0-2) % Lymph # (Auto) (1.2-4.9) X10*3/uL [place] # (Auto) (0.1-1.2) X10*3/uL Eos # (Auto) (0.0-0.4) X10*3/uL Baso # (Auto) (0.0-0.2) X10*3/uL Abs Immat Gran (auto) (0.00-0.03) X10*3/uL Absolute Neuts (auto) (2.0-8.3) X10*3/uL Absolute Nucleated RBC (0.0-0.012) X10*3/uL Nucleated RBC % (auto) (0.0-0.2) /100WBC Smear Tech's Comments PT (10.8-13.0) SEC INR (0.9-1.1) APTT (24.1-38.0) SEC D-Dimer NG/ML Sodium (135-145) mmol/L Potassium (3.3-5.1) mmol/l Chloride (96-108) mmol/L Carbon Dioxide (22-29) mmol/L Anion Gap (12-20) BUN (9-16) mg/dL Creatinine (0.5-1.4) mg/dL Estim Creat Clear Calc Estimated GFR Random Glucose (60-115) mg/dL Lactic Acid 1.3 (0.5-2.0) mmol/L Calcium (8.4-10.2) mg/dL Magnesium (1.6-2.6) mg/dL Total Bilirubin (0.0-1.0) mg/dL Direct Bilirubin (0.0-0.5) mg/dL AST (5-37) U/L ALT (0-40) U/L Alkaline Phosphatase (39-117) U/L Troponin I High Sens 8.7 (<3.5-35.0) ng/L C-Reactive Protein (< or = 0.50) mg/dL B-Natriuretic Peptide 24 (<100) pg/mL Total Protein (6.5-8.0) g/dL Albumin (3.5-5.0) g/dL Procalcitonin 0.86 ng/mL COVID-19 (ARCHIE) (Negative) COVID-19 Clin Com 09/16/20 Range/Units 13:05 WBC (4.8-10.8) X10*3/uL RBC (4.60-5.80) X10*6/uL Hgb (14.0-18.0) g/dl Hct (42-52) % MCV (80-98) fL MCH (27.0-33.0) pg MCHC (31.0-36.0) g/dl RDW (11.0-16.0) % Plt Count (160-400) X10*3/uL MPV (9.4-12.4) fL Immature Gran % (Auto) (0.0-0.4) % Neut % (Auto) (45-73) % Lymph % (Auto) (20-40) % [place] % (Auto) (2-11) % Eos % (Auto) (0-4) % Baso % (Auto) (0-2) % Lymph # (Auto) (1.2-4.9) X10*3/uL [place] # (Auto) (0.1-1.2) X10*3/uL Eos # (Auto) (0.0-0.4) X10*3/uL Baso # (Auto) (0.0-0.2) X10*3/uL Abs Immat Gran (auto) (0.00-0.03) X10*3/uL Absolute Neuts (auto) (2.0-8.3) X10*3/uL Absolute Nucleated RBC (0.0-0.012) X10*3/uL Nucleated RBC % (auto) (0.0-0.2) /100WBC Smear Tech's Comments PT (10.8-13.0) SEC INR (0.9-1.1) APTT (24.1-38.0) SEC D-Dimer NG/ML Sodium (135-145) mmol/L Potassium (3.3-5.1) mmol/l Chloride (96-108) mmol/L Carbon Dioxide (22-29) mmol/L Anion Gap (12-20) BUN (9-16) mg/dL Creatinine (0.5-1.4) mg/dL Estim Creat Clear Calc Estimated GFR Random Glucose (60-115) mg/dL Lactic Acid (0.5-2.0) mmol/L Calcium (8.4-10.2) mg/dL Magnesium (1.6-2.6) mg/dL Total Bilirubin (0.0-1.0) mg/dL Direct Bilirubin (0.0-0.5) mg/dL AST (5-37) U/L ALT (0-40) U/L Alkaline Phosphatase (39-117) U/L Troponin I High Sens (<3.5-35.0) ng/L C-Reactive Protein (< or = 0.50) mg/dL B-Natriuretic Peptide (<100) pg/mL Total Protein (6.5-8.0) g/dL Albumin (3.5-5.0) g/dL Procalcitonin ng/mL COVID-19 (ARCHIE) Negative (Negative) COVID-19 Clin Com See Note ECG Data Attestation: I personally reviewed and interpreted this ECG as follows: Prior ECG tracings: available for review Interpretation: normal sinus rhythm, HR 82 bpm, normal MD interval, t-wave invesions in lead III, aVF, V1 which are similar to EKG from 08/20/2020. Discharge Plan Discharge Clinical Impression: Perforated gallbladder, Intra-abdominal abscess Patient Disposition: Admitted As Inpatient Prescriptions: No Action lisinopril 20 mg Tablet 20 mg PO DAILY RF: 0 simvastatin 40 mg Tablet 40 mg PO BEDTIME RF: 0 dexamethasone 6 mg Tablet 6 mg PO DAILY Qty: 4 RF: 0
[2020-09-16 13:19] LABS: Basophils Percent Auto 0.2 % (0-2); Eosinophils Absolute Auto 0.2 X10*3/uL (0.0-0.4); Eosinophils Percent Auto 0.9 % (0-4); Hematocrit 36.6 % (42-52); Hemoglobin 11.7 g/dl (14.0-18.0); Imm Gran Abs Auto 0.44 X10*3/uL (0.00-0.03); Imm Gran Pct Auto 2.2 % (0.0-0.4); Lymphocytes Absolute Auto 0.8 X10*3/uL (1.2-4.9); Lymphocytes Percent Auto 3.8 % (20-40); MANUAL DIFF FLAG SCAN; Mean Corpuscular Hemoglobin 28.4 pg (27.0-33.0); Mean Corpuscular Volume 88.8 fL (80-98); Mean Platelet Volume 9.8 fL (9.4-12.4); Monocytes Absolute Auto 1.6 X10*3/uL (0.1-1.2); Neutrophils Absolute Auto 17.2 X10*3/uL (2.0-8.3); Neutrophils Percent Auto 84.9 % (45-73); Platelet Count 337 X10*3/uL (160-400); Red Blood Count 4.12 X10*6/uL (4.60-5.80); Red Cell Distribution Width 14.6 % (11.0-16.0); SCAN SMEAR FLAG 1; White Blood Count 20.2 X10*3/uL (4.8-10.8)
[2020-09-16 13:27] LABS: INTERNATIONAL NORM RATIO 1.4 (0.9-1.1); Prothrombin Time 16.3 SEC (10.8-13.0)
[2020-09-16 13:30] LABS: Partial Thromboplastin Time 30.6 SEC (24.1-38.0)
[2020-09-16 13:37] LABS: D Dimer 2623 NG/ML
--- NOTE | 2020-09-16 13:39 | CT_ITS ---
EXAMINATION: CT ANGIOGRAM OF THE CHEST WITH AND WITHOUT CONTRAST (CT PULMONARY ANGIOGRAM FOR PE) CLINICAL INFORMATION: Reason for Exam chest pain, elevated DDIMER, hx COVID COMPARISON: Chest x-ray of same day TECHNIQUE: Prior to contrast administration, noncontrast localization images were obtained. Subsequently, multidetector volumetric imaging was performed from the thoracic inlet to below the diaphragms following the administration of 65 mL Omnipaque 350 intravenous contrast. No contrast reaction reported Sagittal, coronal, and MIP oblique sagittal reformatted images were obtained on the CT workstation, uploaded to PACS, and reviewed. This CT examination was performed using dose optimization techniques as appropriate, variously including the following: *Automated exposure control *Adjustment of mA and/or kV according to patient size (this includes techniques or standardized protocols for targeted exams where dose is matched to indication/reason for exam; i.e. extremities or head) *Use of iterative reconstruction technique Total exam dose-length product 336 mGy-cm FINDINGS: QUALITY OF STUDY/CONTRAST BOLUS: Satisfactory. PULMONARY ARTERIES: No central or segmental pulmonary emboli. THORACIC AORTA: No aneurysm or dissection. LUNG: There is a large right pleural effusion with consolidated right middle and right lower lobe likely related to atelectasis rather than pneumonia. There are a few regions of patchy groundglass opacity bilaterally likely related to dependent atelectasis. Central airways are patent. No bronchiectasis. PLEURA: Large right pleural effusion. MEDIASTINUM: Normal heart size. No pericardial effusion. No hilar or mediastinal lymphadenopathy. No evidence of septal bowing or right heart strain. CHEST WALL/AXILLA: No axillary or internal mammary lymphadenopathy. OSSEOUS STRUCTURES: No suspicious destructive bony lesions identified. Right shoulder calcific tendinitis. Multiple healed right rib fractures. Multilevel degenerative disc disease in the thoracic spine. UPPER ABDOMEN: There is a large collection within the right upper abdomen which is not fully imaged on this study which contains some nondependent gas as well as locules of gas throughout suspicious for large abscess. This is causing some mass impression upon the liver and measures approximately 15 x 13 cm in AP and transverse dimension. Recommend CT abdomen and pelvis for further evaluation of this finding. No reflux of contrast into the hepatic veins to suggest elevated right heart pressures. CT/CT angio chest PE protocol IMPRESSION: No evidence of acute pulmonary artery embolus or thoracic aortic dissection or aneurysm. Large right pleural effusion with consolidated right middle lobe and right lower lobe likely related to atelectasis. Large collection within the right upper quadrant of the abdomen not fully evaluated with the appearance of abscess for which CT of the abdomen and pelvis is recommended. This critical result was discussed with Alma Ghotra at 3:40 PM on September 16, 2020 and it was ascertained that the content and urgency of the report was understood at the time of direct communication. VTE: negative
[2020-09-16 13:40] LABS: SLIDE REVIEW VERIFIED
[2020-09-16 13:45] LABS: Lactic Acid 1.3 mmol/L (0.5-2.0)
[2020-09-16 13:49] LABS: IDNOW Serial# 9DD0AD1C
[2020-09-16 13:50] LABS: COVID-19 Test Negative (Negative)
[2020-09-16 13:57] LABS: Alanine Aminotransferase 138 U/L (0-40); Albumin Level 2.3 g/dL (3.5-5.0); Alkaline Phosphatase 110 U/L (39-117); Anion Gap 15 (12-20); Aspartate Amino Transferase 96 U/L (5-37); B Type Natriuretic Peptide 24 pg/mL (<100); Bilirubin Direct 0.5 mg/dL (0.0-0.5); Bilirubin Total 0.7 mg/dL (0.0-1.0); Blood Urea Nitrogen 63 mg/dL (9-16); Carbon Dioxide 25 mmol/L (22-29); Chloride 102 mmol/L (96-108); Creatinine Clr Calc Pharmacy 50.4; Estimated Glomerular Filt Rate > 60; Glucose Random 113 mg/dL (60-115); Magnesium 2.3 mg/dL (1.6-2.6); Potassium 4.8 mmol/l (3.3-5.1); Sodium 137 mmol/L (135-145); Total Protein 5.8 g/dL (6.5-8.0); Troponin-I High Sensitivity 8.7 ng/L (<3.5-35.0)
[2020-09-16] MEDS: Piperacillin Sodium/Tazobactam 4.5 GM in 0.9 % Sodium Chloride 100 ML IV (14:08)
[2020-09-16] MEDS: 0.9 % Sodium Chloride 1,000 ML 1000 ML IV (14:08)
[2020-09-16 14:09] LABS: Procalcitonin 0.86 ng/mL
[2020-09-16] MEDS: iohexoL 350 MG/ML 100 ML INFUS..BTL IV ×2 (15:02→16:34)
[2020-09-16] MEDS: vancomycin HCL 1,000 MG in 0.9 % Sodium Chloride 250 ML 270 MG IV (15:42)
[2020-09-16 15:43] VITALS: BP 108/71; PULSE 77; RESP 18; TEMP 36.9; O2SAT 95
--- NOTE | 2020-09-16 15:58 | CT_ITS ---
EXAMINATION: CT ABDOMEN AND PELVIS WITH CONTRAST CLINICAL INFORMATION: Right upper quadrant abscess COMPARISON: Chest CT earlier today, abdominal ultrasound 05/13/[address] abdomen pelvis 08/21/2016 TECHNIQUE: Multidetector volumetric images were obtained from the superior aspect of the liver through the pubic symphysis following administration 85 mL of Omnipaque 350 intravenous contrast. Sagittal and coronal reformatted images were obtained on the technologist's workstation. This CT examination was performed using dose optimization techniques as appropriate, variously including the following: *Automated exposure control *Adjustment of mA and/or kV according to patient size (this includes techniques or standardized protocols for targeted exams where dose is matched to indication/reason for exam; i.e. extremities or head) *Use of iterative reconstruction technique DLP: 693 mGy-cm FINDINGS: Large right upper quadrant abscess measuring approximately 15 x 13 cm which was visualized on earlier chest imaging appears contiguous with the gallbladder (best appreciated on coronal image 20/79, series 4). The gallbladder is hydropic and contains air and echogenic material. I do not appreciate any gross gallbladder wall thickening. This large abscess results in mass effect upon the liver. There is a small amount along the inferior margin of the liver which is suspected to be contiguous with the larger abscess. The pancreas, spleen and right adrenal gland are unremarkable. Mild nodularity of the left adrenal gland appears stable. Symmetrically enhancing kidneys. There is no hydronephrosis of either kidney. Bilateral renal cysts are noted including several left-sided parapelvic cysts and a partially exophytic 6.8 cm right renal cyst. There are also several smaller bilateral renal hypodensities which are inaccurately characterized. Tiny hiatal hernia. Normal caliber loops of small and large bowel. Moderate to severe colonic diverticulosis without CT evidence to suggest active diverticulitis. No gross free intra-abdominal air. Nonaneurysmal abdominal aorta which demonstrates moderate to severe atherosclerotic disease. There are a few prominent but nonpathologically enlarged retroperitoneal lymph nodes again noted. The bladder is normal in size and partially opacified by contrast. The prostate gland is mildly enlarged. No gross inguinal lymphadenopathy. No gross free pelvic fluid. Degenerative changes of the spine. Visualized lung bases demonstrate a partially visualized right-sided pleural effusion with associated lower lobe consolidation. CT/CT abdomen pelvis w con IMPRESSION: Large 15 cm right upper quadrant abscess which appears to be contiguous with a perforated gallbladder. Air is present within the gallbladder, however, I do not appreciate any significant air within the gallbladder wall to suggest emphysematous cholecystitis. Clinical correlation recommended. This Critical Result was discussed with AMEYA Car at 5:00 PM on 09/16/2020 and it was ascertained that the content and urgency of the report was understood at the time of direct communication.
--- NOTE | 2020-09-16 16:35 | PC.NURSE ---
pt to and from imaging without incident. pending results plan for admission
--- NOTE | 2020-09-16 17:14 | PM.HPGS ---
History of Present Illness History of Present Illness Date of Service: 09/17/20 Chief complaint: Intrabdominal abscess Narrative: Morgan Isaac is a 80 year male, with dementia, transferred to the ED from the [facility] today because of declining health over the past 2 weeks. He has had poor appetite and had seemed to be steadily getting weaker. He has cognitive deficit so he does not really complain of any particular issue. In the ED, he was noted to have elevated CRP and a right sided effusion on CXR. A CT chest was therefore ordered which showed a large RUQ abscess above the liver with a sympathetic pleural effusion. A CT of the abdomen was therefore done with showed a large RUQ abscess probably from a perforated acute choelcystitis. The patient did not seem to have complained of abdominal pain. The [facility] staff states that he had transient hypotension 2 weeks ago but did not have fever or abdominal pain or any GI complaints. He [place] [facility] [place] with hypoxia last and was discharged after a week. He currently says he does not have abdominal pain. Review of Systems Constitutional: Constitutional: Denies chills and Denies fever(s) Cardiovascular: Cardiovascular: Denies chest pain, Denies dyspnea and Denies dyspnea on exertion Respiratory: Respiratory: Denies cough, Denies dyspnea and Denies dyspnea on exertion Gastrointestinal: Gastrointestinal: Denies abdominal pain, Denies hematochezia and Denies change in bowel habits Genitourinary: Genitourinary: Denies hematuria and Denies difficulty urinating Musculoskeletal: Musculoskeletal: Denies back pain and Denies limited range of motion Neurologic: Reports confusion (chronic, dementia), Denies focal weakness and Denies convulsions Comments: most of ROS is from [facility] Psychiatric: Psychiatric: Reports confusion (chronic, dementia), Denies depression and Denies mood swings [facility] Past Medical History Medical History (Updated 09/17/20 @ 08:59 by Yusuf Black MD) COVID-19 Dementia GERD (gastroesophageal reflux disease) HLD (hyperlipidemia) HTN (hypertension) SBO (small bowel obstruction) Surgical History Surgical History H/O colectomy History of appendectomy Social History Social History Household Members: Spouse Housing: House Alcohol intake: never Smoking Status: Never smoker Advance Directives Date on File: 09/16/20 service: Yes Current occupational status: retired Meds Allergies Allergy/AdvReac Type Severity Reaction Status Date / Time No Known Allergies Allergy Unverified 05/20/20 16:25 Home Medications Medication Instructions Recorded Confirmed Type lisinopril 20 mg PO DAILY 08/20/20 08/20/20 History simvastatin 40 mg PO BEDTIME 08/20/20 08/20/20 History Physical Exam Const: Other: appears comfortable, obvious dementia General: confusion (chronic, dementia); No acute distress Orientation/consciousness: confusion (chronic, dementia) Neck: Neck: No no lymphadenopathy Resp: Effort & Inspection: normal respiratory effort Auscultation: diminished lung sounds (on right side) Cardio: Rhythm: regular rhythm GI: Other: soft, nontender, no guarding or rebound, not distended, no Palacios's sign Neuro: General: confusion (chronic, dementia) Extrem: General: Yes no pedal edema Results Results Chest x-ray: image reviewed Abdomen CT scan report/results: image reviewed CT scan - chest: image reviewed CT scan - pelvis: image reviewed Assessment and Plan (1) Intra-abdominal abscess: Status: Acute He was sent to the ED from the [facility] in view of failure to thrive and poor appetitie. He has a large RUQ abscess and his CT scan suggests this may be from a previous cholecystitis with possible rupture. He has a very benign exam at this time and does not look toxic at all. I have reviewed his imaging studies. He has a large right sided effusion as well likely sympathetic to the intraabdl abscess. He will be admitted and started on Zosyn. I will schedule him for CT drainage and I have discussed this with the radiologist, Dr. Bain. I am getting a hospitalist consult form co-management in view of his advanced age. The patient has elevated BUN and creatinine secondary to prerenal disease and will be on IVF as well. I have discussed the above with his Angella at [phone].
[2020-09-16] MEDS: Clindamycin Phosphate/D5W 900 MG/50 ML PIGGYBACK 50 MG IV (17:37)
[2020-09-16 18:15] VITALS: BP 109/69; PULSE 69; RESP 18; O2SAT 94
--- NOTE | 2020-09-16 19:12 | PC.NURSE ---
report given at this time.
[2020-09-16 19:46] VITALS: BP 105/70; PULSE 74; RESP 18; TEMP 35.9; O2SAT 95
[2020-09-16] MEDS: Lactated Ringers 1,000 ML 100 ML IVCONT (20:28)
[2020-09-16] MEDS: Piperacillin Sodium/Tazobactam 3.375 GM in 0.9 % Sodium Chloride 50 ML IV (20:29)
[2020-09-16] MEDS: Heparin Sodium,Porcine 5,000 UNIT/ML VIAL 5000 UNIT SUBCUT (20:29)
--- NOTE | 2020-09-16 21:20 | PM.IMCN ---
History of Present Illness Data of Consult Service Date: 09/16/20 Requesting physician: Donato Jarquin Primary Care Provider: Tomy Head MD HPI Reason for consult: Medical management An 80-year-old male with past medical history of dementia, GERD, hyperlipidemia hypertension and SBO who presents to the hospital from [facility] with multiple complaints. Patient is confused, not oriented to place or or time and therefore history is obtained mostly from chart. Appears the patient was sent from correction due to declining health over the past 2 weeks. While in the ED he was noted to have elevated CRP and a right-sided effusion on chest x-ray. A follow-up CT chest was therefore ordered which showed a large right upper quadrant abscess above the liver with pleural effusion. A CT scan of the abdomen was therefore done which showed a large right upper quadrant absent probably from a perforated acute cholecystitis. Patient is admitted under the surgical service and we are consulted for medical management. Of note patient was admitted to see it on August 20 for COVID-[address] Jarquin note patient is planned for CT-guided drainage on 09/17 Unable to obtain review of system from patient as he is confused and not really giving much history Past medical history is obtained from chart: COVID-19 infection in August, dementia, GERD, hyperlipidemia, hypertension, history of small-bowel obstruction Surgical history: Status post colectomy, history of appendectomy Family history: Unknown Social history: Comes from correction, no reported history of tobacco alcohol or illicit drugs Review of Systems Review of Systems: Yes Unobtainable due to mental status [facility] Medical History (Updated 09/17/20 @ 07:05 by Дмитрий Anderson MD) COVID-19 Dementia GERD (gastroesophageal reflux disease) HLD (hyperlipidemia) HTN (hypertension) SBO (small bowel obstruction) Surgical History H/O colectomy History of appendectomy Social History Household Members: Spouse Housing: House Alcohol intake: never Smoking Status: Never smoker Advance Directives Date on File: 09/16/20 service: Yes Current occupational status: retired Meds Allergies Allergy/AdvReac Type Severity Reaction Status Date / Time No Known Allergies Allergy Unverified 05/20/20 16:25 Home Medications Medication Instructions Recorded Confirmed Type lisinopril 20 mg PO DAILY 08/20/20 08/20/20 History simvastatin 40 mg PO BEDTIME 08/20/20 08/20/20 History Physical Exam Vital Signs and Narrative: Vital Signs: Last Vital Signs Temp 96.6 F L 09/16/20 19:46 Pulse 74 09/16/20 19:46 Resp 18 09/16/20 19:46 BP 105/70 09/16/20 19:46 Pulse Ox 95 09/16/20 19:46 Body Mass Index 23.6 Const: Other: Alert, awake, but not oriented General: cooperative Eyes: General: appearance normal, both eyes and all related structures Resp: Effort & Inspection: normal respiratory effort and able to speak in complete sentences Cardio: Rate: regular rate Rhythm: regular rhythm GI: Other: Abdominal tenderness in the right upper quadrant on palpation no guarding, and no rebound Palpation (GI): Soft to palpation Skin: General skin exam: no rashes or lesions noted Extrem: General: Yes normal to inspection and Yes no pedal edema Results Labs CBC and Chem 7: 09/16/20 13:05 09/16/20 13:05 Labs: Laboratory Results - last 24 hr 09/16/20 09/16/20 09/16/20 13:05 13:05 13:05 MCV 88.8 MCH 28.4 MCHC 32.0 RDW 14.6 Plt Count 337 MPV 9.8 Immature Gran % (Auto) 2.2 H Neut % (Auto) 84.9 H Lymph % (Auto) 3.8 L [place] % (Auto) 8.0 Eos % (Auto) 0.9 Baso % (Auto) 0.2 Lymph # (Auto) 0.8 L [place] # (Auto) 1.6 H Eos # (Auto) 0.2 Baso # (Auto) 0.0 Abs Immat Gran (auto) 0.44 H Absolute Neuts (auto) 17.2 H Absolute Nucleated RBC 0.000 Nucleated RBC % (auto) 0.0 Smear Tech's Comments VERIFIED PT 16.3 H D INR 1.4 H APTT 30.6 D-Dimer 2623 Anion Gap 15 Estim Creat Clear Calc 50.4 Estimated GFR > 60 Random Glucose 113 Lactic Acid Calcium 8.0 L Magnesium 2.3 Total Bilirubin 0.7 Direct Bilirubin 0.5 AST 96 H ALT 138 H Alkaline Phosphatase 110 D Troponin I High Sens C-Reactive Protein 24.50 H B-Natriuretic Peptide Total Protein 5.8 L Albumin 2.3 L D Procalcitonin COVID-19 (ARCHIE) COVID-19 Clin Com 09/16/20 09/16/20 09/16/20 13:05 13:05 13:05 MCV MCH MCHC RDW Plt Count MPV Immature Gran % (Auto) Neut % (Auto) Lymph % (Auto) [place] % (Auto) Eos % (Auto) Baso % (Auto) Lymph # (Auto) [place] # (Auto) Eos # (Auto) Baso # (Auto) Abs Immat Gran (auto) Absolute Neuts (auto) Absolute Nucleated RBC Nucleated RBC % (auto) Smear Tech's Comments PT INR APTT D-Dimer Anion Gap Estim Creat Clear Calc Estimated GFR Random Glucose Lactic Acid 1.3 Calcium Magnesium Total Bilirubin Direct Bilirubin AST ALT Alkaline Phosphatase Troponin I High Sens 8.7 C-Reactive Protein B-Natriuretic Peptide 24 Total Protein Albumin Procalcitonin 0.86 COVID-19 (ARCHIE) COVID-19 Clin Com 09/16/20 13:05 MCV MCH MCHC RDW Plt Count MPV Immature Gran % (Auto) Neut % (Auto) Lymph % (Auto) [place] % (Auto) Eos % (Auto) Baso % (Auto) Lymph # (Auto) [place] # (Auto) Eos # (Auto) Baso # (Auto) Abs Immat Gran (auto) Absolute Neuts (auto) Absolute Nucleated RBC Nucleated RBC % (auto) Smear Tech's Comments PT INR APTT D-Dimer Anion Gap Estim Creat Clear Calc Estimated GFR Random Glucose Lactic Acid Calcium Magnesium Total Bilirubin Direct Bilirubin AST ALT Alkaline Phosphatase Troponin I High Sens C-Reactive Protein B-Natriuretic Peptide Total Protein Albumin Procalcitonin COVID-19 (ARCHIE) Negative COVID-19 Clin Com See Note Imaging Radiologist's Impressions: Impressions Chest X-Ray 09/16/20 13:01 IMPRESSION: Development of right pleural effusion with parenchymal disease. Chest CTA 09/16/20 13:39 IMPRESSION: No evidence of acute pulmonary artery embolus or thoracic aortic dissection or aneurysm. Large right pleural effusion with consolidated right middle lobe and right lower lobe likely related to atelectasis. Large collection within the right upper quadrant of the abdomen not fully evaluated with the appearance of abscess for which CT of the abdomen and pelvis is recommended. This critical result was discussed with Alma Ghotra at 3:40 PM on September 16, 2020 and it was ascertained that the content and urgency of the report was understood at the time of direct communication. VTE: negative Abdomen/Pelvis CT 09/16/20 15:58 IMPRESSION: Large 15 cm right upper quadrant abscess which appears to be contiguous with a perforated gallbladder. Air is present within the gallbladder, however, I do not appreciate any significant air within the gallbladder wall to suggest emphysematous cholecystitis. Clinical correlation recommended. This Critical Result was discussed with AMEYA Car at 5:00 PM on 09/16/2020 and it was ascertained that the content and urgency of the report was understood at the time of direct communication. Assessment and Plan (1) Intra-abdominal abscess: Status: Acute (2) Perforated gallbladder: Status: Acute (3) HLD (hyperlipidemia): Qualifiers: Hyperlipidemia type: unspecified Qualified Code(s): E78.5 - Hyperlipidemia, unspecified Status: Inactive (4) HTN (hypertension): Qualifiers: Hypertension type: essential hypertension Qualified Code(s): I10 - Essential (primary) hypertension Status: Acute (5) Dementia: Qualifiers: Dementia type: unspecified type Dementia behavioral disturbance: without behavioral disturbance Qualified Code(s): F03.90 - Unspecified dementia without behavioral disturbance Status: Acute (6) Pleural effusion: Status: Acute This is an 80-year-old male who presents from correction for noted progressive weakness found to have right upper quadrant abscess possibly secondary to perforated acute cholecystitis Medical team's consult for medical management # intra-abdominal abscess - plan for CT-guided drainage by General surgery/IR - no evidence of sepsis at this time - management per surgical team # perforated gallbladder - management per surgical team - no evidence of significant sepsis # pleural effusion - possibly secondary to right upper quadrant abdominal abscess - no evidence of hypoxia, - continue to monitor respiratory status # hypertension -stable - continue lisinopril DVT prophylaxis: Heparin per surgical team
[2020-09-16 23:56] VITALS: BP 105/65; PULSE 73; RESP 16; TEMP 36.6; O2SAT 95
--- NOTE | 2020-09-17 | CT_ITS ---
PROCEDURE: CT GUIDED DRAINAGE, PERITONEAL ABSCESS CLINICAL INFORMATION: Right upper quadrant large collection/abscess. COMPARISON: None TECHNIQUE: Following explaining procedure, benefits and risks via telephone to patient's daughter and patient's grandson, a written consent was obtained for procedure and sedation. The telephone consent was witnessed by IR nurse. This CT examination was performed using dose optimization techniques as appropriate, variously including the following: *Automated exposure control *Adjustment of mA and/or kV according to patient size (this includes techniques or standardized protocols for targeted exams where dose is matched to indication/reason for exam; i.e. extremities or head) *Use of iterative reconstruction technique DLP: 447 mGy-cm FINDINGS: Preliminary CT imaging was obtained with the patient in semi left decubitus view. 2 optimal sites were selected along the right upper quadrant, 1 above the liver and 1 corresponding to the gallbladder. Both areas were marked and cleaned in the usual sterile manner. 1% lidocaine was injected initially along the right upper quadrant lower marker where the gallbladder is noted. 1% lidocaine was injected at the puncture site. Through a small skin incision a 5-Moroccan Yueh catheter was inserted. The second marked area slightly superior underneath the hemidiaphragm and above the liver was considered. 1% lidocaine was injected at the marked site. Through a small skin incision a 5-Moroccan Yueh catheter was administered into the large collection. The lower placed Yueh catheter stylet was removed. A 0.35 J-wire was inserted and catheter removed. Over the catheter, a 10.5-Moroccan pigtail catheter with a stiffener was threaded over the guidewire into the gallbladder. The guidewire and the stiffener were removed as the catheter was advanced. Repeat CT imaging was obtained confirming catheter position in gallbladder. A pigtail was formed and the catheter was connected to drainage bag via a 3-way valve. The superiorly placed second catheter stylet was removed. A J-wire was introduced and the catheter removed. Over the J-wire, a 8.5-Moroccan APD catheter with stiffener was advanced over the guidewire. The guidewire and the stiffener were removed as the guidewire was advanced into this large collection. The catheter was then connected to drainage bag via 3-way valve. Both bags were anchored to the skin with a sterile dressing. Patient tolerated procedure very well. Conscious sedation was administered by IR nurse and the radiologist during the exam. CT/CT drain peritoneum IMPRESSION: 2 drains placed in the right upper quadrant large collection. The collection was predominantly old blood. These results were discussed with Dr. Donato Jarquin in his presence during the procedure. On the floor the valve will be opened intermittently to drain both the collections so there is no sudden drop in blood pressure if there is active bleeding.
[2020-09-17] MEDS: Piperacillin Sodium/Tazobactam 3.375 GM in 0.9 % Sodium Chloride 50 ML IV ×4 (02:54→22:28)
[2020-09-17] MEDS: Lactated Ringers 1,000 ML 100 ML IVCONT ×2 (02:55→14:06)
[2020-09-17 04:00] VITALS: BP 111/72; PULSE 81; RESP 16; TEMP 36.3; O2SAT 95
[2020-09-17 06:48] LABS: Hematocrit 32.7 % (42-52); Hemoglobin 10.3 g/dl (14.0-18.0); Mean Corpuscular HGB Conc 31.5 g/dl (31.0-36.0); Mean Corpuscular Hemoglobin 28.3 pg (27.0-33.0); Mean Corpuscular Volume 89.8 fL (80-98); Platelet Count 306 X10*3/uL (160-400); Red Blood Count 3.64 X10*6/uL (4.60-5.80); Red Cell Distribution Width 14.8 % (11.0-16.0); White Blood Count 18.1 X10*3/uL (4.8-10.8)
[2020-09-17 07:08] LABS: Alanine Aminotransferase 125 U/L (0-40); Alkaline Phosphatase 104 U/L (39-117); Anion Gap 14 (12-20); Aspartate Amino Transferase 87 U/L (5-37); Bilirubin Direct 0.3 mg/dL (0.0-0.5); Bilirubin Total 0.4 mg/dL (0.0-1.0); Blood Urea Nitrogen 54 mg/dL (9-16); Calcium 7.6 mg/dL (8.4-10.2); Carbon Dioxide 23 mmol/L (22-29); Chloride 107 mmol/L (96-108); Creatinine Clr Calc Pharmacy 53.7; Estimated Glomerular Filt Rate > 60; Glucose Random 95 mg/dL (60-115); Potassium 4.6 mmol/l (3.3-5.1); Sodium 139 mmol/L (135-145); Total Protein 5.1 g/dL (6.5-8.0)
[2020-09-17 07:52] VITALS: BP 101/73; PULSE 85; RESP 18; TEMP 36.2; O2SAT 93
--- NOTE | 2020-09-17 08:03 | PM.PNGS ---
Subjective Subjective Date of Service: 09/17/20 <Sommer Damon PA-C - Last Filed: 09/17/20 08:07> 09/17/20 <Donato Jarquin MD - Last Filed: 09/17/20 08:31> Interval history: Feels ok. Denies any abdominal pain. Wants to eat food. Denies SOB. <Sommer Damon PA-C - Last Filed: 09/17/20 08:07> Physical Exam Vital Signs: Vital Signs: Last Vital Signs Temp 97.2 F 09/17/20 07:52 Pulse 85 09/17/20 07:52 Resp 18 09/17/20 07:52 BP 101/73 09/17/20 07:52 Pulse Ox 93 09/17/20 07:52 Body Mass Index 23.6 <Sommer Damon PA-C - Last Filed: 09/17/20 08:07> Const: Other: Chemistry 09/16/20 09/17/20 13:05 06:07 Sodium 137 139 Potassium 4.8 4.6 Carbon Dioxide 25 23 BUN 63 H 54 H Creatinine 1.13 1.06 Calcium 8.0 L 7.6 L Hematology 09/16/20 09/17/20 13:05 06:07 WBC 20.2 H 18.1 H Hgb 11.7 L 10.3 L Plt Count 337 306 <Donato Jarquin MD - Last Filed: 09/17/20 08:31> General: comfortable, no acute distress and alert <Sommer Damon PA-C - Last Filed: 09/17/20 08:07> Orientation/consciousness: oriented to person and oriented to place <Sommer Damon PA-C - Last Filed: 09/17/20 08:07> Eyes: Sclerae: sclerae normal <JUNG Kim Last Filed: 09/17/20 08:07> Resp: Effort & Inspection: normal respiratory effort <JUNG iKm Last Filed: 09/17/20 08:07> Auscultation: diminished lung sounds (right base) <JUNG Kim Last Filed: 09/17/20 08:07> Cardio: Rate: regular rate <Sommer Damon PA-C Supriya Last Filed: 09/17/20 08:07> GI: Inspection: No distended <Sommer Damon PA-C Supriya Last Filed: 09/17/20 08:07> Palpation (GI): Soft to palpation, Tenderness to palpation present (GI) (to very deep palpation RUQ), no guarding, not rigid and No Rebound tenderness present <Sommer Damon PA-C Supriya Last Filed: 09/17/20 08:07> Skin: General skin exam: no rashes or lesions noted <Sommer Damon PA-C Supriya Last Filed: 09/17/20 08:07> Neuro: General: oriented to person and oriented to place <Sommer Damon PA-C Supriya Last Filed: 09/17/20 08:07> Extrem: General: Yes no clubbing, cyanosis or edema <Sommer Damon PA-C Supriya Last Filed: 09/17/20 08:07> Progress Note: A&P Assessment and plan (1) Pleural effusion: Status: Acute <Sommer Damon PA-C Supriya Last Filed: 09/17/20 08:07> Assessment and Plan: Likely secondary to intraabdominal RUQ abscess. Asymptomatic, VSS. Hospitalists following. Matias devries. <Sommer Damon PA-C Last Filed: 09/17/20 08:07> (2) Perforated gallbladder: Status: Acute <Sommer Damon PA-C Supriya Last Filed: 09/17/20 08:07> (3) Intra-abdominal abscess: Problem details: Large RUQ abscess, likely secondary to gallbladder rupture <Sommer Damon PA-C Supriya Last Filed: 09/17/20 08:07> Status: Acute <Sommer Damon PA-C Supriya Last Filed: 09/17/20 08:07> Assessment and Plan: IR drainage planned for today. Abd relatively benign- no peritoneal signs. WBC slightly improved today. Continue IV zosyn, vanco. Cont IVF. <Sommer Damon PA-C Supriya Last Filed: 09/17/20 08:07> appears comfortable no fever abd benign WBC trending down BUN, crea better for IR drainage today seen and examined - agree w/ AMEYA Damon Angella updated <Donato Jarquin MD - Last Filed: 09/17/20 08:31> Fall Risk Details Current Medications: Current Medications Generic Name Dose Route Start Last Admin Trade Name Freq PRN Reason Stop Dose Admin Heparin Sodium (Porcine) 5,000 unit 09/16/20 21:00 09/16/20 20:29 Heparin Sodium,Porcine 5,000 Unit/Ml Vial SUBCUT 5,000 unit BID CARL Administration Lactated Ringer's 1,000 mls @ 100 mls/hr 09/16/20 18:30 09/17/20 02:55 Lr IVCONT 100 mls/hr .Q10H CARL Administration Piperacillin Sod/Tazobactam 50 mls @ 100 mls/hr 09/17/20 03:00 09/17/20 03:46 Sod 3.375 gm/ Sodium Chloride IV Infused Q6H CARL Infusion Ondansetron HCl 4 mg 09/16/20 18:27 Ondansetron Hcl 4 Mg/2 Ml Vial IVPUSH Q8H PRN nausea Pharmacy Consult 1 each 09/16/20 13:39 Consult Rx Vancomycin Dosing MISCELLANE DAILY PRN Consult order <Sommer Damon PA-C - Last Filed: 09/17/20 08:07> Time Spent With Patient Time: Total time spent is greater than 50% in coordination of care (as documented) at patient's floor/unit and/or counseling patient: <Sommer Damon PA-C - Last Filed: 09/17/20 08:07> Time with patient: 15 - 24 minutes <Sommer Damon PA-C - Last Filed: 09/17/20 08:07>
--- NOTE | 2020-09-17 08:56 | P.PNIM_ITS ---
Subjective Subjective Date of Service: 09/17/20 Interval History: seen and examined this AM denies abdominal pain appears to be confused Physical Exam Vital Signs: Vital Signs: Last Vital Signs Temp 97.2 F 09/17/20 07:52 Pulse 85 09/17/20 07:52 Resp 18 09/17/20 07:52 BP 101/73 09/17/20 07:52 Pulse Ox 93 09/17/20 07:52 Body Mass Index 23.6 Const: Other: General - no acute distress, appears comfortable Cardiovascular - regular rate and rhythm, S1-S2 Lungs - no respiratory distress, breathing comfortable Abdomen - non-tender, no rebound or guarding Extremities - no edema bilaterally Neuro - awake and alert, no focal deficits, confused Objective Data Current Medications Generic Name Dose Route Start Last Admin Trade Name Freq PRN Reason Stop Dose Admin Heparin Sodium (Porcine) 5,000 unit 09/16/20 21:00 09/16/20 20:29 Heparin Sodium,Porcine 5,000 Unit/Ml Vial SUBCUT 5,000 unit BID CARL Administration Lactated Ringer's 1,000 mls @ 100 mls/hr 09/16/20 18:30 09/17/20 02:55 Lr IVCONT 100 mls/hr .Q10H CARL Administration Piperacillin Sod/Tazobactam 50 mls @ 100 mls/hr 09/17/20 03:00 09/17/20 03:46 Sod 3.375 gm/ Sodium Chloride IV Infused Q6H CARL Infusion Ondansetron HCl 4 mg 09/16/20 18:27 Ondansetron Hcl 4 Mg/2 Ml Vial IVPUSH Q8H PRN nausea Pharmacy Consult 1 each 09/16/20 13:39 Consult Rx Vancomycin Dosing MISCELLANE DAILY PRN Consult order Labs CBC & Chem 7: 09/17/20 06:07 09/17/20 06:07 Assessment and Plan (1) Intra-abdominal abscess: Status: Acute Assessment and Plan: This is a 80 yo M who was diagnosed with COVID 19 last month, treated and di scharged to SNF. He now returns to the hospital and is admitted for intraabdominal abscess which is suspected secondary to ruptured GB. 1. Intraabdominal abscess suspected secondary to ruptured GB continue zosyn, vancomcyin discontinued plan for CT guided drainage - f/u those cultures no evidence of sepsis at this time 2. R pleural effusion possibly secondary to intraabdominal process no respiratory symptoms at this time monitor 3. History of HTN hold lisinopril will follow along with you
[2020-09-17 11:07] VITALS: BP 108/49; PULSE 81; RESP 18; TEMP 36.2; O2SAT 94
--- NOTE | 2020-09-17 11:23 | MHC.CM.PN ---
NURSE [employer] PE TEACHER NOTE ELECTRONIC MEDICAL RECORD REVIEWED ALONG WITH CASE DISCUSS ON MULTIPLE DISCIPLINARY ROUNDS , MET WITH PATIENT ALERT TO NAME AND THAT HE IS IN THE HOSPITAL, BUT CONFUSED REPORTEDLY HAS SOME DEMENTIA. PHONE CALL TO PATIENTS BERNA [phone] AND SON ON SPEAKER PHONE. (PATIENT WAS HOSPITALIZED HERE AT [facility] ON 08/22 WITH POSITIVE COVID AND HE WAS DISCHARGED TO REHAB AT [facility] . PATIENTS VERBALIZED MUCH FRUSTRATION WITH THIS FACILITY AND DOES NOT WANT HER TO GO BACK THERE, SHE IS NOT HOLDING THE BED) NEW REFERRALS SENT TO [facility], [facility], AND [facility] VS HOME WITH NEW REFERRAL TO [facility] , [facility] FOR RN-PT-OT-) ON ADMISSION PATIENT WAS COVID NEGATIVE 09/16/20. AND AT D/C REF TO [facility]. BEFORE BEING HOSPITALIZED IN HE WAS AT HOME INDEPENDENT AND WENT TO [facility] FOR REHAB , PATIENT REPORTED THAT HE STEADILY DECLINED AT THE FACILITY, AND BECAME MORE DEPENDENT IN ALL ADLS AND MOBILITY, DECREASED TALKING , REQUIRING MORE THAN JUST SETTING UP HIS MEAL TRAY AND RECENTLY BECAME INCONTINENT OF URINE AND STOOL. IF AT ALL POSSIBLE PATIENTS WOULD LIKE TO TAKE HIM HOME WITH THIS DISCHARGE , SHE AND HER ADULT SON WOULD CARE FoR HIM 24HRS/7 DAYS WEEK WITH THE HELP OF THE [facility] (RN-PT-OT) AND REff, at discharge, to [facility]. DISCHARGE PLAN TO BE DETERMINED DX WITH INTRA ABDOMINAL MASS S/P GALLBLADDER RUPTURE, TO GO T I.R. FOR DRAINAGE, REQUESTED PHYSICAL THEARPY CONSULT , 1/ REHAB-([facility], [facility] , [facility] 2 HOME WITH 24 /7 CARE AND HOME CARE (RN-PT-OT) REF TO [facility], ([facility], CARE TENDERS [facility] ) , PATIENT HAS MOLST ON FILE, CALLED TO HIS PCP DR ANASTASIA CAIN [phone] [facility] NOW [facility] . i spoke with [facility] and they do nt have health care proxy on file
[2020-09-17] MEDS: Lidocaine HCl 1 % MPF 5 ML VIAL 10 ML SUBCUT (13:13)
[2020-09-17 14:12] LABS: Hematocrit 35.2 % (42-52); Mean Corpuscular HGB Conc 31.3 g/dl (31.0-36.0); Mean Corpuscular Hemoglobin 28.1 pg (27.0-33.0); Mean Platelet Volume 9.6 fL (9.4-12.4); Platelet Count 350 X10*3/uL (160-400); Red Blood Count 3.91 X10*6/uL (4.60-5.80); White Blood Count 19.1 X10*3/uL (4.8-10.8)
--- NOTE | 2020-09-17 14:16 | PM.EVENT ---
Event Note Date of Service: 09/17/20 Event Note: pt underwent CT drainage earlier - actually old old blood, no clots noted, no pus at all [address] 110 cc removed - Dr. Dahl felt that it is best not to removal all of collection as this may be tamponading a bleeding source cultures sent plan is to periodically evacuate fluid daily from the drains. follow Hg and cultures diet ordered - will keep on IVF as pt has poor PO intake dw with Angella over the phone appears stable and comfortable abd remains benign continue Zosyn for now
--- NOTE | 2020-09-17 14:19 | PM.EVENT ---
Event Note Date of Service: 09/20/20 Event Note: Follow-up CT scan today reviewed with Dr. Bo Significant interval decrease in collection, although still large I aspirated more than 30 cc of old blood from the collection above the diaphragm at bedside Keep drains in place Continue to flush both drains were shift to keep patent -discussed with nurse Both drains to gravity Continues to do well Discussed with Dr. Nagy continue current care Angella updated - she says she does not want the pt back in the [facility]
[2020-09-17] MEDS: Dextrose 5 % and 0.9 % NaCl 1,000 ML 80 ML IVCONT (14:43)
[2020-09-17 16:00] VITALS: BP 121/61; PULSE 85; RESP 18; TEMP 36.2; O2SAT 95
[2020-09-17 20:00] VITALS: PULSE 62; RESP 18; TEMP 36.8; O2SAT 93
[2020-09-17] MEDS: Heparin Sodium,Porcine 5,000 UNIT/ML VIAL 5000 UNIT SUBCUT (22:29)
[2020-09-18] VITALS (8 sets, daily range): BP systolic 98–130; BP diastolic 52–77; PULSE 63–79; RESP 16–20; TEMP 35.7–36.5; O2SAT 93–96
[2020-09-18] MEDS: Dextrose 5 % and 0.9 % NaCl 1,000 ML 80 ML IVCONT (03:29)
[2020-09-18] MEDS: Piperacillin Sodium/Tazobactam 3.375 GM in 0.9 % Sodium Chloride 50 ML IV ×4 (03:29→21:26)
[2020-09-18 07:49] LABS: Basophils Percent Auto 0.1 % (0-2); Eosinophils Absolute Auto 0.3 X10*3/uL (0.0-0.4); Eosinophils Percent Auto 1.8 % (0-4); Hematocrit 33.3 % (42-52); Hemoglobin 10.5 g/dl (14.0-18.0); Imm Gran Abs Auto 0.24 X10*3/uL (0.00-0.03); Imm Gran Pct Auto 1.7 % (0.0-0.4); Lymphocytes Absolute Auto 0.5 X10*3/uL (1.2-4.9); Lymphocytes Percent Auto 3.9 % (20-40); MANUAL DIFF FLAG SCAN; Mean Corpuscular HGB Conc 31.5 g/dl (31.0-36.0); Mean Corpuscular Hemoglobin 28.5 pg (27.0-33.0); Mean Corpuscular Volume 90.5 fL (80-98); Mean Platelet Volume 10.2 fL (9.4-12.4); Monocytes Absolute Auto 1.1 X10*3/uL (0.1-1.2); Monocytes Percent Auto 8.1 % (2-11); Neutrophils Absolute Auto 11.6 X10*3/uL (2.0-8.3); Neutrophils Percent Auto 84.4 % (45-73); Platelet Count 319 X10*3/uL (160-400); Red Blood Count 3.68 X10*6/uL (4.60-5.80); Red Cell Distribution Width 15.1 % (11.0-16.0); SCAN SMEAR FLAG 1; White Blood Count 13.8 X10*3/uL (4.8-10.8)
[2020-09-18 08:12] LABS: Anion Gap 16 (12-20); Blood Urea Nitrogen 45 mg/dL (9-16); Calcium 7.9 mg/dL (8.4-10.2); Carbon Dioxide 20 mmol/L (22-29); Chloride 113 mmol/L (96-108); Creatinine Clr Calc Pharmacy 60.5; Estimated Glomerular Filt Rate > 60; Glucose Random 138 mg/dL (60-115); Potassium 5.3 mmol/l (3.3-5.1); Sodium 144 mmol/L (135-145)
--- NOTE | 2020-09-18 08:19 | P.PNIM_ITS ---
Subjective Subjective Date of Service: 09/18/20 Interval History: seen and examined this AM continues to deny abodminal pain Physical Exam 2 Vital Signs: Vital Signs: Last Vital Signs Temp 97.7 F 09/18/20 07:51 Pulse 72 09/18/20 07:51 Resp 19 09/18/20 07:51 BP 130/70 09/18/20 07:51 Pulse Ox 96 09/18/20 07:51 Body Mass Index 23.6 Const: Other: General - no acute distress, appears comfortable Cardiovascular - regular rate and rhythm, S1-S2 Lungs - no respiratory distress, breathing comfortable Abdomen - soft, NT; drain in place Extremities - no edema bilaterally Neuro - awake and alert, no focal deficits, confused Objective Data Current Medications Generic Name Dose Route Start Last Admin Trade Name Freq PRN Reason Stop Dose Admin Heparin Sodium (Porcine) 5,000 unit 09/16/20 21:00 09/17/20 22:29 Heparin Sodium,Porcine 5,000 Unit/Ml Vial SUBCUT 5,000 unit BID CARL Administration Piperacillin Sod/Tazobactam 50 mls @ 100 mls/hr 09/17/20 03:00 09/18/20 04:23 Sod 3.375 gm/ Sodium Chloride IV Infused Q6H CARL Infusion Dextrose/Sodium Chloride 1,000 mls @ 80 mls/hr 09/17/20 14:15 09/18/20 03:29 D5ns IVCONT 80 mls/hr .[id number] CARL Administration Ondansetron HCl 4 mg 09/16/20 18:27 Ondansetron Hcl 4 Mg/2 Ml Vial IVPUSH Q8H PRN nausea Pharmacy Consult 1 each 09/16/20 13:39 Consult Rx Vancomycin Dosing MISCELLANE DAILY PRN Consult order Labs CBC & Chem 7: 09/17/20 13:54 09/18/20 07:08 Microbiology Microbiology Results: Microbiology 09/16/20 13:05 Blood - Arterial Blood Culture - Preliminary No growth after 24 hours. 09/16/20 13:07 Blood - Arterial Blood Culture - Preliminary No growth after 24 hours. Assessment and Plan (1) Intra-abdominal abscess: Status: Acute Assessment and Plan: This is a 80 yo M who was diagnosed with COVID 19 last month, treated and discharged to SNF. He now returns to the hospital and is admitted for intraabdominal abscess which is suspected secondary to ruptured GB. 1. Intraabdominal fluid collection s/p CT guided drainage -- appears to be ? old clotted blood Drain in place Mgmt per surgery continue antibiotics for the time being monitor h/h - relatively stable change IVF to D5LR (mild hyperchloremic metabolic acidosis from NS) 2. R pleural effusion possibly secondary to intraabdominal process no respiratory symptoms at this time monitor 3. History of HTN hold lisinopril will follow along with you
[2020-09-18 08:20] LABS: SLIDE REVIEW VERIFIED
[2020-09-18] MEDS: Heparin Sodium,Porcine 5,000 UNIT/ML VIAL 5000 UNIT SUBCUT ×2 (10:47→21:27)
--- NOTE | 2020-09-18 11:01 | PM.PNGS ---
Subjective Subjective Date of Service: 09/18/20 Interval history: Complaining of boredom this morning. Denies pain or nausea. Physical Exam Vital Signs: Vital Signs: Last Vital Signs Temp 97.7 F 09/18/20 07:51 Pulse 72 09/18/20 07:51 Resp 19 09/18/20 07:51 BP 130/70 09/18/20 07:51 Pulse Ox 96 09/18/20 07:51 Body Mass Index 23.6 Laboratory Results - last 24 hr 09/17/20 09/17/20 09/18/20 13:54 15:17 07:08 WBC 19.1 H 13.8 H RBC 3.91 L 3.68 L Hgb 11.0 L 10.5 L Hct 35.2 L 33.3 L MCV 90.0 90.5 MCH 28.1 28.5 MCHC 31.3 31.5 RDW 15.0 15.1 Plt Count 350 319 MPV 9.6 10.2 Immature Gran % (A uto) 1.7 H Neut % (Auto) 84.4 H Lymph % (Auto) 3.9 L [place] % (Auto) 8.1 Eos % (Auto) 1.8 Baso % (Auto) 0.1 Lymph # (Auto) 0.5 L [place] # (Auto) 1.1 Eos # (Auto) 0.3 Baso # (Auto) 0.0 Abs Immat Gran (au to) 0.24 H Absolute Neuts (au to) 11.6 H Absolute Nucleated RBC 0.000 0.000 Nucleated RBC % (a uto) 0.0 0.0 Smear Tech's Comme nts VERIFIED Sodium Potassium Chloride Carbon Dioxide Anion Gap BUN Creatinine Estim Creat Clear Calc Estimated GFR Random Glucose Calcium Blood Type A Positive Antibody Screen NEGATIVE 09/18/20 07:08 WBC RBC Hgb Hct MCV MCH MCHC RDW Plt Count MPV Immature Gran % (A uto) Neut % (Auto) Lymph % (Auto) [place] % (Auto) Eos % (Auto) Baso % (Auto) Lymph # (Auto) [place] # (Auto) Eos # (Auto) Baso # (Auto) Abs Immat Gran (au to) Absolute Neuts (au to) Absolute Nucleated RBC Nucleated RBC % (a uto) Smear Tech's Comme nts Sodium 144 Potassium 5.3 H Chloride 113 H Carbon Dioxide 20 L Anion Gap 16 BUN 45 H Creatinine 0.94 Estim Creat Clear Calc 60.5 Estimated GFR > 60 Random Glucose 138 H D Calcium 7.9 L Blood Type Antibody Screen Gram stain Final 09/18/20 Gram stain results: 4+ polys 4+ red blood cells 4+ Gram-positive rods 1+ Gram-negative rods 1+ Gram-positive cocci Cultures pending Const: Other: Alert, appears comfortable Resp: Effort & Inspection: normal respiratory effort Auscultation: clear to auscultation bilaterally Cardio: Rate: regular rate Rhythm: regular rhythm GI: Other: Soft, nontender, no palpable masses. Two interventional radiology drains are present right flank, capped. Skin: Other: Normal color, warm and dry Progress Note: A&P Assessment and plan (1) Intra-abdominal abscess: Status: Acute Assessment and Plan: 80-year-old male admitted with presumed perforated gallbladder with associated abscess, but also has as a history of a fall about a month ago. Etiology of process is unclear. Two drains were placed in Interventional Radiology yesterday but were left capped, apparently out of concern for the possibility that the collection might be tamponading a bleeding source. H and H is stable. Cultures are pending. Gram stain reveals mixed kasie. On Zosyn. Plan to flush drains, possibly place to gravity drainage later today. Reviewed scans and discussed plan with Dr. Bo in Radiology today. Fall Risk Details Current Medications: Current Medications Generic Name Dose Route Start Last Admin Trade Name Freq PRN Reason Stop Dose Admin Heparin Sodium (Porcine) 5,000 unit 09/16/20 21:00 09/17/20 22:29 Heparin Sodium,Porcine 5,000 Unit/Ml Vial SUBCUT 5,000 unit BID CARL Administration Piperacillin Sod/Tazobactam 50 mls @ 100 mls/hr 09/17/20 03:00 09/18/20 04:23 Sod 3.375 gm/ Sodium Chloride IV Infused Q6H CARL Infusion Dextrose/Lactated Ringer's 1,000 mls @ 80 mls/hr 09/18/20 08:30 D5lr IVCONT .[id number] CARL Ondansetron HCl 4 mg 09/16/20 18:27 Ondansetron Hcl 4 Mg/2 Ml Vial IVPUSH Q8H PRN nausea Pharmacy Consult 1 each 09/16/20 13:39 Consult Rx Vancomycin Dosing MISCELLANE DAILY PRN Consult order Time Spent With Patient Time: Total time spent is greater than 50% in coordination of care (as documented) at patient's floor/unit and/or counseling patient: Time with patient: 15 - 24 minutes
--- NOTE | 2020-09-18 12:29 | P.EN_ITS ---
Event Note Date of Service: 09/18/20 Event Note: I flushed both the anterior and posterior Interventional Radiology drains with 3 cc of sterile injectable saline after alcohol prep to injection port. There was thin bloody fluid return from both drains. I placed both drains to gravity drainage. After about 20 minutes, there was approximately 25- 30 cc of bloody fluid in the drainage bag for the posterior drain and approximately 175 in the anterior drain. There was approximately 150 cc of drainage from the anterior site that accumulated over the 1st couple of minutes after the drain was placed to gravity drainage. There does not appear to be significant ongoing drainage at this time. Will check CBC this afternoon and in a.m.. INR is mildly elevated at 1.4. Will give 1 dose of vitamin K.
[2020-09-18] MEDS: Phytonadione (Vit K1) 5 MG in 0.9 % Sodium Chloride 50 ML 50.5 MG IV (13:37)
[2020-09-18] MEDS: Dextrose 5 % and Lactated Ring 1,000 ML 80 ML IVCONT ×2 (13:40→21:27)
[2020-09-18 14:41] LABS: Hematocrit 32.5 % (42-52); Hemoglobin 10.2 g/dl (14.0-18.0); Mean Corpuscular HGB Conc 31.4 g/dl (31.0-36.0); Mean Corpuscular Hemoglobin 28.2 pg (27.0-33.0); Mean Corpuscular Volume 89.8 fL (80-98); Mean Platelet Volume 9.6 fL (9.4-12.4); Platelet Count 355 X10*3/uL (160-400); Red Blood Count 3.62 X10*6/uL (4.60-5.80); Red Cell Distribution Width 14.9 % (11.0-16.0); White Blood Count 15.4 X10*3/uL (4.8-10.8)
--- NOTE | 2020-09-18 15:08 | PC.NURSE ---
two drains to right posterior flank dark red/brown drainage, foul smelling thick fluid. 200 tube B and 200 tube B documented under JODIE drain in I and O. aware of output.
[2020-09-19] VITALS (7 sets, daily range): BP systolic 117–152; BP diastolic 65–81; PULSE 68–103; RESP 14–20; TEMP 35.8–36.7; O2SAT 94–97
[2020-09-19] MEDS: Piperacillin Sodium/Tazobactam 3.375 GM in 0.9 % Sodium Chloride 50 ML IV ×4 (03:41→21:05)
[2020-09-19 06:23] LABS: Hemoglobin 10.2 g/dl (14.0-18.0); Mean Corpuscular HGB Conc 30.9 g/dl (31.0-36.0); Mean Corpuscular Hemoglobin 28.3 pg (27.0-33.0); Mean Corpuscular Volume 91.4 fL (80-98); Mean Platelet Volume 9.7 fL (9.4-12.4); Platelet Count 359 X10*3/uL (160-400); Red Blood Count 3.61 X10*6/uL (4.60-5.80); Red Cell Distribution Width 14.9 % (11.0-16.0); White Blood Count 10.7 X10*3/uL (4.8-10.8)
[2020-09-19 06:54] LABS: Anion Gap 11 (12-20); Blood Urea Nitrogen 32 mg/dL (9-16); Calcium 7.8 mg/dL (8.4-10.2); Carbon Dioxide 24 mmol/L (22-29); Chloride 115 mmol/L (96-108); Creatinine Clr Calc Pharmacy 63.9; Estimated Glomerular Filt Rate > 60; Glucose Fasting 110 mg/dL (60-99); Potassium 4.3 mmol/l (3.3-5.1); Sodium 146 mmol/L (135-145)
--- NOTE | 2020-09-19 08:35 | HO.PM.IMPN ---
Subjective Subjective Date of Service: 09/19/20 Interval History: seen and examined this AM offers no complaints ate his breakfast Physical Exam Vital Signs: Vital Signs: Last Vital Signs Temp 97.7 F 09/19/20 08:00 Pulse 103 H 09/19/20 08:00 Resp 20 09/19/20 08:00 BP 152/81 H 09/19/20 08:00 Pulse Ox 94 09/19/20 08:00 Body Mass Index 23.6 Const: Other: General - no acute distress, appears comfortable Cardiovascular - regular rate and rhythm, S1-S2 Lungs - no respiratory distress, breathing comfortable Abdomen - soft, NT; drains in place - serosanginous drainage in 1 Extremities - no edema bilaterally Neuro - awake and alert, no focal deficits, confused Objective Data Current Medications Generic Name Dose Route Start Last Admin Trade Name Freq PRN Reason Stop Dose Admin Heparin Sodium (Porcine) 5,000 unit 09/16/20 21:00 09/18/20 21:27 Heparin Sodium,Porcine 5,000 Unit/Ml Vial SUBCUT 5,000 unit BID CARL Administration Piperacillin Sod/Tazobactam 50 mls @ 100 mls/hr 09/17/20 03:00 09/19/20 04:32 Sod 3.375 gm/ Sodium Chloride IV Infused Q6H CARL Infusion Dextrose 1,000 mls @ 80 mls/hr 09/19/20 07:45 D5w IVCONT 09/19/20 20:14 .[id number] CARL Ondansetron HCl 4 mg 09/16/20 18:27 Ondansetron Hcl 4 Mg/2 Ml Vial IVPUSH Q8H PRN nausea Pharmacy Consult 1 each 09/16/20 13:39 Consult Rx Vancomycin Dosing MISCELLANE DAILY PRN Consult order Labs CBC & Chem 7: 09/19/20 05:43 09/19/20 05:43 Microbiology Microbiology Results: Microbiology 09/17/20 12:47 Abdominal Fluid Gram Stain - Final 09/17/20 12:47 Abdominal Fluid Routine Culture - Preliminary Culture in progress. 09/17/20 12:47 Abdominal Fluid Anaerobic Culture - Preliminary Clostridium perfringens 09/16/20 13:05 Blood - Arterial Blood Culture - Preliminary No growth after 48 hours. 09/16/20 13:07 Blood - Arterial Blood Culture - Preliminary No growth after 48 hours. Assessment and Plan (1) Intra-abdominal abscess: Status: Acute Assessment and Plan: This is a 80 yo M who was diagnosed with COVID 19 last month, treated and discharged to SNF. He now returns to the hospital and is admitted for intraabdominal abscess which is suspected secondary to ruptured GB. 1. Intraabdominal abscess growing clostridium perferinges, enterococcus, streptococcus from culture continue jad butler final C&S s/p CT guided drainage -- appears to be ? old clotted blood ? related to perforated GB Drains in place Remainder of mgmt per surgery 2. Mild HyperNa change IVF to D5W for 1L 3. R pleural effusion possibly secondary to intraabdominal process no respiratory symptoms at this time monitor 3. History of HTN BP rebounding, will restart lisinopril will follow along with you
[2020-09-19] MEDS: Heparin Sodium,Porcine 5,000 UNIT/ML VIAL 5000 UNIT SUBCUT ×2 (09:19→21:05)
[2020-09-19] MEDS: Dextrose 5 % 1,000 ML 80 ML IVCONT (09:19)
--- NOTE | 2020-09-19 11:26 | PM.PNGS ---
Subjective Subjective Date of Service: 09/19/20 Interval history: No complaints. Denies abdominal pain, shortness of breath. Appetite remains somewhat diminished. Physical Exam Vital Signs: Vital Signs: Last Vital Signs Temp 97.7 F 09/19/20 08:00 Pulse 103 H 09/19/20 09:20 Resp 20 09/19/20 08:00 BP 152/81 H 09/19/20 09:20 Pulse Ox 94 09/19/20 08:00 Body Mass Index 23.6 Laboratory Results - last 24 hr 09/18/20 09/19/20 09/19/20 14:14 05:43 05:43 WBC 15.4 H 10.7 RBC 3.62 L 3.61 L Hgb 10.2 L 10.2 L Hct 32.5 L 33.0 L MCV 89.8 91.4 MCH 28.2 28.3 MCHC 31.4 30.9 L RDW 14.9 14.9 Plt Count 355 359 MPV 9.6 9.7 Absolute Nucleated RBC 0.000 0.000 Nucleated RBC % (a uto) 0.0 0.0 Sodium 146 H Potassium 4.3 Chloride 115 H Carbon Dioxide 24 Anion Gap 11 L BUN 32 H Creatinine 0.89 Estim Creat Clear Calc 63.9 Estimated GFR > 60 Fasting Glucose 110 H Calcium 7.8 L Const: Other: Alert, no apparent distress Resp: Effort & Inspection: normal respiratory effort Auscultation: clear to auscultation bilaterally Cardio: Rate: regular rate Rhythm: regular rhythm GI: Other: Soft, nontender, nondistended. Interventional Radiology drains remain in place right flank. Lower, more anterior drain has about 100 cc of bloody fluid in the drainage bag. Minimal bloody drainage is present in posterior superior drain B. Skin: Other: Warm and dry Progress Note: A&P Assessment and plan (1) Intra-abdominal abscess: Status: Acute Assessment and Plan: He appears stable to improved after placement of 2 drains in 2 right upper quadrant perihepatic collection on 09/17/2020. Drains were placed to gravity drainage yesterday. Hemoglobin and hematocrit are stable and white blood count has declined to normal. Cultures are growing Clostridium perfringens. On Zosyn. Drain output appears to have diminished significantly compared to yesterday, but output was not recorded overnight. Likely will repeat CT scan of abdomen to reassess collection tomorrow. Await final culture results. Mild hypernatremia and hyperchloremia. IV fluid adjusted by Dr. Black. Fall Risk Details Current Medications: Current Medications Generic Name Dose Route Start Last Admin Trade Name Freq PRN Reason Stop Dose Admin Heparin Sodium (Porcine) 5,000 unit 09/16/20 21:00 09/19/20 09:19 Heparin Sodium,Porcine 5,000 Unit/Ml Vial SUBCUT 5,000 unit BID CARL Administration Piperacillin Sod/Tazobactam 50 mls @ 100 mls/hr 09/17/20 03:00 09/19/20 09:54 Sod 3.375 gm/ Sodium Chloride IV Infused Q6H CARL Infusion Dextrose 1,000 mls @ 80 mls/hr 09/19/20 07:45 09/19/20 09:19 D5w IVCONT 09/19/20 20:14 80 mls/hr .[id number] CARL Administration Lisinopril 10 mg 09/19/20 09:00 09/19/20 09:20 Lisinopril 10 Mg Tablet PO 10 mg DAILY CARL Administration Protocol Ondansetron HCl 4 mg 09/16/20 18:27 Ondansetron Hcl 4 Mg/2 Ml Vial IVPUSH Q8H PRN nausea Pharmacy Consult 1 each 09/16/20 13:39 Consult Rx Vancomycin Dosing MISCELLANE DAILY PRN Consult order Time Spent With Patient Time: Total time spent is greater than 50% in coordination of care (as documented) at patient's floor/unit and/or counseling patient: Time with patient: less than 15 minutes
--- NOTE | 2020-09-20 | CT_ITS ---
EXAMINATION: CT ABDOMEN AND PELVIS WITH CONTRAST CLINICAL INFORMATION: Follow-up right upper quadrant abscess COMPARISON: Previous exam most recent 09/16/2020 TECHNIQUE: Multidetector volumetric images were obtained from the superior aspect of the liver through the pubic symphysis following administration 85 mL of Omnipaque 350 intravenous contrast. Sagittal and coronal reformatted images were obtained on the technologist's workstation. Oral contrast: Yes This CT examination was performed using dose optimization techniques as appropriate, variously including the following: *Automated exposure control *Adjustment of mA and/or kV according to patient size (this includes techniques or standardized protocols for targeted exams where dose is matched to indication/reason for exam; i.e. extremities or head) *Use of iterative reconstruction technique DLP: 413 mGy-cm FINDINGS: LUNG BASES: There is a large right pleural effusion. There is compressive atelectasis of the right middle and right lower lobes. LIVER, GALLBLADDER, AND BILIARY TREE: There are 2 new right upper quadrant drainage catheters. More superior catheter is under the right hemidiaphragm adjacent to the dome of the liver. There is a residual fluid collection with small pockets of air seen in this region. This measures 10 x 13 x 11 cm and is decreased in size. There is a second drainage catheter that appears in the gallbladder. The gallbladder remains distended and filled with fluid and air and some high attenuation material. No gallstones are appreciated by CT scan. There is a small low-attenuation lesion in the lateral segment of the left lobe of the liver that may represent a cyst. No other focal liver lesion is seen. There is no biliary duct dilatation. PANCREAS: Unremarkable. SPLEEN: Unremarkable. ADRENAL GLANDS: Unremarkable. KIDNEYS AND URETERS: There are bilateral renal cysts. The kidneys are otherwise unremarkable. BLADDER: Unremarkable. GASTROINTESTINAL TRACT: There is mild diverticulosis of the colon. Small and large bowel is otherwise unremarkable. The stomach is unremarkable. ABDOMINAL WALL: No significant hernia is appreciated. LYMPH NODES: There is no free ascites. There is a small amount of fluid tracking along the right lateral paracolic gutter. This appears appears to communicate with the right subdiaphragmatic fluid collection. VASCULAR: There is evidence of atherosclerotic disease. PELVIC VISCERA: Unremarkable. OSSEOUS STRUCTURES: There are degenerative changes of the spine. CT/CT abdomen pelvis w con IMPRESSION: Interval decrease in the subdiaphragmatic complex fluid collection adjacent to the liver post percutaneous drainage. There is still a large residual collection seen measuring approximately 10 x 13 x 11 cm. Cholecystostomy tube. The gallbladder is still distended and filled with complex fluid as well. Large right pleural effusion and right lower lobe and middle lobe atelectasis. Multiple renal cysts.
[2020-09-20] MEDS: Piperacillin Sodium/Tazobactam 3.375 GM in 0.9 % Sodium Chloride 50 ML IV ×4 (02:55→21:25)
[2020-09-20 04:00] VITALS: RESP 14
[2020-09-20 06:59] LABS: Anion Gap 12 (12-20); Blood Urea Nitrogen 26 mg/dL (9-16); Calcium 7.5 mg/dL (8.4-10.2); Carbon Dioxide 23 mmol/L (22-29); Chloride 112 mmol/L (96-108); Creatinine Clr Calc Pharmacy 62.5; Estimated Glomerular Filt Rate > 60; Glucose Fasting 107 mg/dL (60-99); Potassium 3.8 mmol/l (3.3-5.1); Sodium 143 mmol/L (135-145)
[2020-09-20 07:02] LABS: INTERNATIONAL NORM RATIO 1.3 (0.9-1.1); Prothrombin Time 15.4 SEC (10.8-13.0)
--- NOTE | 2020-09-20 07:55 | P.PNGS_ITS ---
Subjective Subjective Date of Service: 09/20/20 <Sommer Damon PA-C - Last Filed: 09/20/20 08:43> 09/20/20 <Donato Jarquin MD - Last Filed: 09/20/20 09:54> Interval history: Feels fine . Not eating much. denies nausea or vomiting. <Sommer Damon PA-C - Last Filed: 09/20/20 08:43> Physical Exam Vital Signs: Vital Signs: Last Vital Signs Temp 96.6 F L 09/19/20 23:49 Pulse 68 09/19/20 23:49 Resp 14 09/20/20 04:00 BP 124/70 09/19/20 23:49 Pulse Ox 96 09/19/20 23:49 Body Mass Index 23.6 <JUNG Kim Last Filed: 09/20/20 08:43> Const: General: comfortable, no acute distress and alert <JUNG Kim Last Filed: 09/20/20 08:43> Orientation/consciousness: oriented to person and oriented to place <Cynthia Damon PA-C - Last Filed: 09/20/20 08:43> Eyes: Sclerae: sclerae normal <JUNG Kim Last Filed: 09/20/20 08:43> Resp: Effort & Inspection: normal respiratory effort <JUNG Kim Last Filed: 09/20/20 08:43> Cardio: Rate: regular rate <JUNG Kim Last Filed: 09/20/20 08:43> GI: Other: Pigtail drains in place with sanguineous output <JUNG Kim Last Filed: 09/20/20 08:43> Inspection: No distended <JUNG Kim Last Filed: 09/20/20 08:43> Palpation (GI): Soft to palpation, nontender, no guarding and not rigid <JUNG Kim Last Filed: 09/20/20 08:43> Skin: General skin exam: no rashes or lesions noted <JUNG Kim Last Filed: 09/20/20 08:43> Neuro: General: oriented to person and oriented to place <JUNG Kim Last Filed: 09/20/20 08:43> Extrem: General: Yes no clubbing, cyanosis or edema <JUNG Kim Last Filed: 09/20/20 08:43> Progress Note: A&P Assessment and plan (1) Pleural effusion: Status: Acute <JUNG Kim Last Filed: 09/20/20 08:43> (2) Perforated gallbladder: Status: Acute <JUNG Kim Last Filed: 09/20/20 08:43> (3) Intra-abdominal abscess: Status: Acute <JUNG Kim Last Filed: 09/20/20 08:43> Assessment and Plan: S/p IR drainage. Drainage continuing to downtrend. VSS> Abd exam very benign. Pigtail output sanguineous. Cx growing Enterococcus/Streptococcus sp and Clostridium perfringens. Cont IV zosyn. WBC normalized. Repeat CT scan today. <JUNG Kim Last Filed: 09/20/20 08:43> Status post CT drainage - all old blood, no gross pus Cultures growing because, Streptococcus and Clostridium perfringens No fevers White count down Abdomen remains very soft, benign, nontender Follow-up CT scan today Consult Dr. Nagy of [place] Looks well Seen and examined Agree with AMEYA Damon Chemistry 09/18/20 09/19/20 09/20/20 07:08 05:43 05:53 Sodium 144 146 H 143 Potassium 5.3 H 4.3 3.8 Carbon Dioxide 20 L 24 23 BUN 45 H 32 H 26 H Creatinine 0.94 0.89 0.91 Calcium 7.9 L 7.8 L 7.5 L Hematology 09/17/20 09/18/20 09/18/20 13:54 07:08 14:14 WBC 19.1 H 13.8 H 15.4 H Hgb 11.0 L 10.5 L 10.2 L Plt Count 350 319 355 09/19/20 09/20/20 05:43 05:53 WBC 10.7 9.8 Hgb 10.2 L 9.2 L Plt Count 359 305 <Donato Jarquin MD - Last Filed: 09/20/20 09:54> (4) Dementia: Status: Acute <Sommer Damon PA-C - Last Filed: 09/20/20 08:43> Fall Risk Details Current Medications: Current Medications Generic Name Dose Route Start Last Admin Trade Name Freq PRN Reason Stop Dose Admin Heparin Sodium (Porcine) 5,000 unit 09/16/20 21:00 09/19/20 21:05 Heparin Sodium,Porcine 5,000 Unit/Ml Vial SUBCUT 5,000 unit BID CARL Administration Piperacillin Sod/Tazobactam 50 mls @ 100 mls/hr 09/17/20 03:00 09/20/20 04:07 Sod 3.375 gm/ Sodium Chloride IV Infused Q6H CARL Infusion Lisinopril 10 mg 09/19/20 09:00 09/19/20 09:20 Lisinopril 10 Mg Tablet PO 10 mg DAILY CARL Administration Protocol Ondansetron HCl 4 mg 09/16/20 18:27 Ondansetron Hcl 4 Mg/2 Ml Vial IVPUSH Q8H PRN nausea Pharmacy Consult 1 each 09/16/20 13:39 Consult Rx Vancomycin Dosing MISCELLANE DAILY PRN Consult order <Sommer Damon PA-C - Last Filed: 09/20/20 08:43> Time Spent With Patient Time: Total time spent is greater than 50% in coordination of care (as documented) at patient's floor/unit and/or counseling patient: <Sommer Damon PA-C - Last Filed: 09/20/20 08:43> Time with patient: 15 - 24 minutes <JUNG Kim Last Filed: 09/20/20 08:43>
[2020-09-20 08:00] VITALS: BP 132/80; PULSE 60; RESP 19; TEMP 36.2; O2SAT 97
[2020-09-20 08:15] LABS: Hemoglobin 9.2 g/dl (14.0-18.0); Mean Corpuscular HGB Conc 30.7 g/dl (31.0-36.0); Mean Corpuscular Hemoglobin 28.5 pg (27.0-33.0); Mean Corpuscular Volume 92.9 fL (80-98); Platelet Count 305 X10*3/uL (160-400); Red Blood Count 3.23 X10*6/uL (4.60-5.80); Red Cell Distribution Width 15.3 % (11.0-16.0); White Blood Count 9.8 X10*3/uL (4.8-10.8)
[2020-09-20 09:51] VITALS: BP 132/80; PULSE 60
[2020-09-20] MEDS: Heparin Sodium,Porcine 5,000 UNIT/ML VIAL 5000 UNIT SUBCUT ×2 (09:52→21:25)
--- NOTE | 2020-09-20 10:12 | HO.PM.IMPN ---
Subjective Subjective Date of Service: 09/20/20 Interval History: no ocmplaints Cardiovascular Cardiovascular: Reports no additional cardiovascular complaints Respiratory Respiratory: Reports no additional respiratory complaints Physical Exam Vital Signs: Vital Signs: Last Vital Signs Temp 97.2 F 09/20/20 08:00 Pulse 60 09/20/20 09:51 Resp 19 09/20/20 08:00 BP 132/80 09/20/20 09:51 Pulse Ox 97 09/20/20 08:00 Body Mass Index 23.6 General: Alert, confused, no acute distress Resp: CTA bilateral CVS: S1,S2,RRR GI: soft, drains in place Neuro: motor grossly intact Psych: appropriate affect Objective Data Current Medications Generic Name Dose Route Start Last Admin Trade Name Freq PRN Reason Stop Dose Admin Heparin Sodium (Porcine) 5,000 unit 09/16/20 21:00 09/20/20 09:52 Heparin Sodium,Porcine 5,000 Unit/Ml Vial SUBCUT 5,000 unit BID CARL Administration Piperacillin Sod/Tazobactam 50 mls @ 100 mls/hr 09/17/20 03:00 09/20/20 09:52 Sod 3.375 gm/ Sodium Chloride IV 100 mls/hr Q6H CARL Administration Lisinopril 10 mg 09/19/20 09:00 09/20/20 09:51 Lisinopril 10 Mg Tablet PO 10 mg DAILY CARL Administration Protocol Ondansetron HCl 4 mg 09/16/20 18:27 Ondansetron Hcl 4 Mg/2 Ml Vial IVPUSH Q8H PRN nausea Pharmacy Consult 1 each 09/16/20 13:39 Consult Rx Vancomycin Dosing MISCELLANE DAILY PRN Consult order Labs CBC & Chem 7: 09/20/20 05:53 09/20/20 05:53 Microbiology Microbiology Results: Microbiology 09/17/20 12:47 Abdominal Fluid Gram Stain - Final 09/17/20 12:47 Abdominal Fluid Routine Culture - Final Enterococcus/Streptococcus sp Streptococcus species 09/17/20 12:47 Abdominal Fluid Anaerobic Culture - Final Clostridium perfringens 09/16/20 13:05 Blood - Arterial Blood Culture - Preliminary No growth after 48 hours. 09/16/20 13:07 Blood - Arterial Blood Culture - Preliminary No growth after 48 hours. Assessment and Plan (1) Intra-abdominal abscess: Status: Acute Assessment and Plan: This is a 80 yo M who was diagnosed with COVID 19 last month, treated and discharged to SNF. He now returned to the hospital and is admitted for intraabdominal abscess which is suspected secondary to ruptured GB. Intraabdominal abscess due to perforated cholecystitis growing clostridium perferinges, enterococcus, streptococcus from culture continue zosyn, ID eval for choice of abc and duration R pleural effusion possibly secondary to intraabdominal process no respiratory symptoms at this time monitor HTN lisinopril
[2020-09-20 12:00] VITALS: BP 123/66; PULSE 67; RESP 20; TEMP 36.5; O2SAT 95
[2020-09-20] MEDS: iohexoL 350 MG/ML 100 ML INFUS..BTL IV (12:06)
--- NOTE | 2020-09-20 14:50 | W.PM.IDCN ---
History of Present Illness Data of Consult Service Date: 09/20/20 Requesting physician: Donato Jarquin Primary Care Provider: Tomy Head MD HPI Reason for consult: abdominal abscess He was transferred from facility with weakness and fatigue He has had hypotension one week earlier He had CT scan showed 15 cm abscess in RUQ possible gallbladder abscess oDrains were placed and grew enterococcus and Clostridium perfringens Review of Systems Review of Systems: Yes all other systems are reviewed and are negative and Unobtainable due to mental status Neurologic: Reports confusion Psychiatric: Psychiatric: Reports confusion [facility] Past Medical History Medical History COVID-19 Dementia GERD (gastroesophageal reflux disease) HLD (hyperlipidemia) HTN (hypertension) Intra-abdominal hematoma SBO (small bowel obstruction) Family History Family History Father History of stomach cancer Family history: reviewed and not pertinent Surgical History Surgical History H/O colectomy History of ankle surgery History of appendectomy History of colonoscopy History of surgery on wrist Social History Social History Household Members: Spouse Housing: House Alcohol intake: never Smoking Status: Never smoker Advance Directives Date on File: 09/16/20 service: Yes Current occupational status: retired [employer] Allergies Allergy/AdvReac Type Severity Reaction Status Date / Time No Known Allergies Allergy Unverified 05/20/20 16:25 Home Medications Medication Instructions Recorded Confirmed Type lisinopril 20 mg PO DAILY 08/20/20 10/01/20 History simvastatin 40 mg PO BEDTIME 08/20/20 10/01/20 History acetaminophen 325 mg capsule 650 mg PO Q6H PRN 09/30/20 10/01/20 History bisacodyl 10 mg rectal suppository 10 mg MS DAILY PRN 09/30/20 10/01/20 History ertapenem 1 gram solution for 1 g IM DAILY 09/30/20 10/01/20 History injection magnesium hydroxide 400 mg/5 mL 1,200 mg PO DAILY PRN ml 09/30/20 10/01/20 History oral suspension Physical Exam Vital Signs: Vital Signs: Last Vital Signs Temp 97.7 F 09/20/20 12:00 Pulse 67 01/18/21 12:00 Resp 20 09/20/20 12:00 BP 123/66 09/20/20 12:00 Pulse Ox 95 09/20/20 12:00 Body Mass Index 23.6 Const: General: cooperative and confusion Orientation/consciousness: confusion HENMT: Head: Yes normal to inspection Mouth: Normal oral and palatal mucosa present Eyes: General: appearance normal, both eyes and all related structures Resp: Effort & Inspection: normal respiratory effort Cardio: Rate: regular rate Rhythm: regular rhythm GI: Palpation (GI): Soft to palpation and nontender : General: Yes no CVA tenderness Back/Spine/Pelvis: Back: no CVA tenderness Skin: General skin exam: no rashes or lesions noted Neuro: General: confusion Assessment and Plan (1) Intra-abdominal abscess: Problem details: s/p IR drainage 09/17/20 with placement of two drainage catheters Status: Acute Would continue Zosyn,day 5 Duration to be determined ,believe likely abscess with hematoma and continue until abscess 2 cm or less May consider daily IV Ertapenem as outpatient No addition of Flagyl at this time Await final cultures Results Labs CBC & Chem 7: 09/21/20 06:09 09/21/20 06:09 Labs: Short CBC 09/20/20 Range/Units 05:53 WBC 9.8 (4.8-10.8) X10*3/uL Hgb 9.2 L (14.0-18.0) g/dl Hct 30.0 L (42-52) % Plt Count 305 (160-400) X10*3/uL BMP 09/20/20 05:53 Sodium 143 Potassium 3.8 Chloride 112 H Carbon Dioxide 23 BUN 26 H Creatinine 0.91 Calcium 7.5 L Microbiology Microbiology Results: Microbiology 09/17/20 12:47 Abdominal Fluid Gram Stain - Final 09/17/20 12:47 Abdominal Fluid Routine Culture - Final Enterococcus/Streptococcus sp Streptococcus species 09/17/20 12:47 Abdominal Fluid Anaerobic Culture - Final Clostridium perfringens 09/16/20 13:05 Blood - Arterial Blood Culture - Preliminary No growth after 48 hours. 09/16/20 13:07 Blood - Arterial Blood Culture - Preliminary No growth after 48 hours.
--- NOTE | 2020-09-20 15:20 | MHC.CM.NN ---
NURSE CARE MANGER NOTE ELECTRONIC MEDICAL RECORD REVIEWED ALONG WITH CASE DISCUSSED ON MULTIPLE DISCIPLINARY ROUNDS PATIENT CAN BE ALERT AND THEN CONFUSED PATIENT WITH DOCUMENTATED COVID 19 POSITIVE DIAGNOSIS LAST AUGUST HE WAS STREATED AND THEN DISCHARGED TO [facility] FOR [facility]. HE IS NOW HERE FOR INTRABDOMINAL ABSCESS WHICH IS SUSPEXTED TO BE TO RUPTURESD GALLBLADDER PATIENT HAS GROWING CLOSTRIDUM PERFERINGES, ENTEROCCUS ,STREPTOCCUS FROM CULTURE PER DOCUMENTATION HE CONTUINUES ON IV ANTIBIOTICS HE IS ALSO BENING MONITORED FOR HIS PLEURAL EFFUSIN HE HAD A CT SCANB OF HIS ABDOMEN WHICH SHOWED A 15CM ABSCESS IN THE RIGHT UPPER QUADRANT DRAINS WERE PLACED , REPEAT CT SCANS PER DOCUMENTATION A LARGER ABSCESAS WITH THE DRAINS IN PLACE AND FELT TO BE WITH HEMATOMA DISCHARGE PLAN FAMILY DOES NOT WANT PATIENT TO RETURN BACK TO [facility] AND THUS NEW REFERRALS WEREE SENT UT TO [facility], [facility] and arnol , the first choice is [facility] and they are followwing , recent clinical sent to them today
[2020-09-20 15:23] VITALS: BP 97/71; PULSE 61; RESP 18; TEMP 36.5; O2SAT 94
[2020-09-20 19:41] VITALS: BP 132/87; PULSE 78; RESP 20; TEMP 36.4; O2SAT 95
[2020-09-21] VITALS (7 sets, daily range): BP systolic 104–138; BP diastolic 65–86; PULSE 58–72; RESP 16–20; TEMP 35.9–36.4; O2SAT 95–98
[2020-09-21] MEDS: Piperacillin Sodium/Tazobactam 3.375 GM in 0.9 % Sodium Chloride 50 ML IV ×4 (03:38→20:15)
[2020-09-21 06:39] LABS: MANUAL DIFF FLAG NO
[2020-09-21 07:07] LABS: Basophils Percent Auto 0.3 % (0-2); Eosinophils Absolute Auto 0.3 X10*3/uL (0.0-0.4); Eosinophils Percent Auto 3.1 % (0-4); Hematocrit 29.7 % (42-52); Hemoglobin 9.2 g/dl (14.0-18.0); Imm Gran Abs Auto 0.33 X10*3/uL (0.00-0.03); Imm Gran Pct Auto 3.3 % (0.0-0.4); Lymphocytes Percent Auto 9.9 % (20-40); Mean Corpuscular Volume 90.5 fL (80-98); Mean Platelet Volume 9.4 fL (9.4-12.4); Monocytes Absolute Auto 0.8 X10*3/uL (0.1-1.2); Monocytes Percent Auto 7.7 % (2-11); Neutrophils Absolute Auto 7.5 X10*3/uL (2.0-8.3); Neutrophils Percent Auto 75.7 % (45-73); Platelet Count 324 X10*3/uL (160-400); Red Blood Count 3.28 X10*6/uL (4.60-5.80); Red Cell Distribution Width 14.8 % (11.0-16.0)
[2020-09-21 07:11] LABS: Anion Gap 11 (12-20); Blood Urea Nitrogen 22 mg/dL (9-16); Calcium 7.4 mg/dL (8.4-10.2); Carbon Dioxide 25 mmol/L (22-29); Chloride 111 mmol/L (96-108); Creatinine Clr Calc Pharmacy 67.8; Estimated Glomerular Filt Rate > 60; Glucose Fasting 74 mg/dL (60-99); Potassium 4.3 mmol/l (3.3-5.1); Sodium 143 mmol/L (135-145)
[2020-09-21] MEDS: Heparin Sodium,Porcine 5,000 UNIT/ML VIAL 5000 UNIT SUBCUT ×2 (08:17→20:15)
--- NOTE | 2020-09-21 09:59 | HO.PM.IMPN ---
Subjective Subjective Date of Service: 09/21/20 Interval History: no complaints Cardiovascular Cardiovascular: Reports no additional cardiovascular complaints Respiratory Respiratory: Reports no additional respiratory complaints Physical Exam Vital Signs: Vital Signs: Last Vital Signs Temp 97.0 F 09/21/20 07:58 Pulse 61 09/21/20 07:58 Resp 18 09/21/20 07:58 BP 124/77 09/21/20 07:58 Pulse Ox 96 09/21/20 07:58 Body Mass Index 23.6 General: Alert, no acute distress Resp: CTA bilateral CVS: S1,S2,RRR GI: soft, non tender, non distended Neuro: motor grossly intact Psych: appropriate affect Objective Data Current Medications Generic Name Dose Route Start Last Admin Trade Name Freq PRN Reason Stop Dose Admin Heparin Sodium (Porcine) 5,000 unit 09/16/20 21:00 09/21/20 08:17 Heparin Sodium,Porcine 5,000 Unit/Ml Vial SUBCUT 5,000 unit BID CARL Administration Piperacillin Sod/Tazobactam 50 mls @ 100 mls/hr 09/17/20 03:00 09/21/20 08:58 Sod 3.375 gm/ Sodium Chloride IV Infused Q6H CARL Infusion Lisinopril 10 mg 09/19/20 09:00 09/21/20 08:17 Lisinopril 10 Mg Tablet PO 10 mg DAILY CARL Administration Protocol Ondansetron HCl 4 mg 09/16/20 18:27 Ondansetron Hcl 4 Mg/2 Ml Vial IVPUSH Q8H PRN nausea Pharmacy Consult 1 each 09/16/20 13:39 Consult Rx Vancomycin Dosing MISCELLANE DAILY PRN Consult order Labs CBC & Chem 7: 09/21/20 06:09 09/21/20 06:09 Microbiology Microbiology Results: Microbiology 09/17/20 12:47 Abdominal Fluid Gram Stain - Final 09/17/20 12:47 Abdominal Fluid Routine Culture - Final Enterococcus/Streptococcus sp Streptococcus species 09/17/20 12:47 Abdominal Fluid Anaerobic Culture - Final Clostridium perfringens 09/16/20 13:05 Blood - Arterial Blood Culture - Preliminary No growth after 48 hours. 09/16/20 13:07 Blood - Arterial Blood Culture - Preliminary No growth after 48 hours. Assessment and Plan (1) Intra-abdominal abscess: Problem details: He has enterococcus and clostridium perfringens ,normal GI kasie after perforation He is not able to give history CT scan still shows large abscess and he has drains in place Part of this is hematoma Status: Acute Assessment and Plan: This is a 80 yo M who was diagnosed with COVID 19 last month, treated and discharged to SNF. He now returned to the hospital and is admitted for intraabdominal abscess which is suspected secondary to ruptured GB. Intraabdominal abscess due to perforated cholecystitis growing clostridium perferinges, enterococcus, streptococcus from culture continue zosyn day 6, ID appreciated, possible ertapenem as outpatient R pleural effusion possibly secondary to intraabdominal process no respiratory symptoms at this time monitor HTN lisinopril
--- NOTE | 2020-09-21 10:23 | P.PNGS_ITS ---
Subjective Subjective Date of Service: 09/21/20 <Sommer Damon PA-C - Last Filed: 09/21/20 10:28> 09/21/20 <Donato Jarquin MD - Last Filed: 09/21/20 14:36> Interval history: Feels ok. Appetite increased and ate all of breakfast. Denies pain. Denies other complaints. Tearful when discussing being away from home for so long. <Sommer Damon PA-C - Last Filed: 09/21/20 10:28> Physical Exam Vital Signs: Vital Signs: Last Vital Signs Temp 97.0 F 09/21/20 07:58 Pulse 61 09/21/20 07:58 Resp 18 09/21/20 07:58 BP 124/77 09/21/20 07:58 Pulse Ox 96 09/21/20 07:58 Body Mass Index 23.6 <Sommer Damon PA-C - Last Filed: 09/21/20 10:28> Const: General: comfortable, no acute distress and alert <Sommer Damon PA-C - Last Filed: 09/21/20 10:28> Orientation/consciousness: oriented to person and oriented to place <Sommer Damon PA-C - Last Filed: 09/21/20 10:28> Eyes: Sclerae: sclerae normal <JUNG Kim Last Filed: 09/21/20 10:28> Resp: Effort & Inspection: normal respiratory effort <Sommer Damon PA-C - Last Filed: 09/21/20 10:28> Cardio: Rate: regular rate <JUNG Kim Last Filed: 09/21/20 10:28> GI: Other: pigtail drains in place, continue with sanguineous output <JUNG Kim Last Filed: 09/21/20 10:28> Inspection: No distended <JNUG Kim Last Filed: 09/21/20 10:28> Palpation (GI): Soft to palpation, nontender, no guarding and not rigid <JUNG Kim Last Filed: 01/19/21 10:28> Skin: General skin exam: no rashes or lesions noted <Sommer Damon PA-C - Last Filed: 09/21/20 10:28> Neuro: General: oriented to person and oriented to place <Sommer Damon PA-C - Last Filed: 09/21/20 10:28> Extrem: General: Yes no clubbing, cyanosis or edema <Sommer Damon PA-C - Last Filed: 09/21/20 10:28> Progress Note: A&P Assessment and plan (1) Pleural effusion: Status: Acute <Sommer Damon PA-C - Last Filed: 09/21/20 10:28> (2) Dementia: Status: Acute <Sommer Damon PA-C - Last Filed: 09/21/20 10:28> (3) Perforated gallbladder: Status: Acute <Sommer Damon PA-C - Last Filed: 09/21/20 10:28> (4) Intra-abdominal abscess: Problem details: s/p IR drainage 09/17/20 with placement of two drainage catheters <Sommer Damon PA-C - Last Filed: 09/21/20 10:28> Status: Acute <JUNG Kim Last Filed: 09/21/20 10:28> Assessment and Plan: Drainage continues to be low-scanty, sanguineous. Repeat CT scan yesterday showed decrease in RUQ abscess size but still large. VSS. Abd exam very benign. Cx growing Enterococcus/Streptococcus sp and Clostridium perfri ngens- seen by ID who recommend ertapenem upon d/c IV until abscess >2cm. WBC remains normal, h/h stable. Keep drains in place to gravity. <Sommer Damon PA-C - Last Filed: 09/21/20 10:28> Looks well No fever No abdominal pain Abdomen soft, nontender Drains in place Aspirated 40 cc of all blood from the superior drain Plan PICC line for long-term IV antibiotics as recommended by ID Doing well overall PT consult Angella martinez Seen and examined -agree with AMEYA Damon <Donato Jarquin MD - Last Filed: 09/21/20 14:36> Fall Risk Details Current Medications: Current Medications Generic Name Dose Route Start Last Admin Trade Name Freq PRN Reason Stop Dose Admin Heparin Sodium (Porcine) 5,000 unit 09/16/20 21:00 09/21/20 08:17 Heparin Sodium,Porcine 5,000 Unit/Ml Vial SUBCUT 5,000 unit BID CARL Administration Piperacillin Sod/Tazobactam 50 mls @ 100 mls/hr 09/17/20 03:00 09/21/20 08:58 Sod 3.375 gm/ Sodium Chloride IV Infused Q6H CARL Infusion Lisinopril 10 mg 09/19/20 09:00 09/21/20 08:17 Lisinopril 10 Mg Tablet PO 10 mg DAILY CARL Administration Protocol Ondansetron HCl 4 mg 09/16/20 18:27 Ondansetron Hcl 4 Mg/2 Ml Vial IVPUSH Q8H PRN nausea Pharmacy Consult 1 each 09/16/20 13:39 Consult Rx Vancomycin Dosing MISCELLANE DAILY PRN Consult order <Sommer Damon PA-C - Last Filed: 09/21/20 10:28> Time Spent With Patient Time: Total time spent is greater than 50% in coordination of care (as documented) at patient's floor/unit and/or counseling patient: <Sommer Damon PA-C - Last Filed: 09/21/20 10:28> Time with patient: less than 15 minutes <Sommer Damon PA-C - Last Filed: 09/21/20 10:28>
--- NOTE | 2020-09-21 13:53 | MHC.CM.PN ---
i spoke c pt's and son c whom he lives... they would like pt to return home at me c picc and iv abx. pt is from [facility] but family does not want him to return to any STR at me. chiquita was asked for a PT eval to ascertain pt's ambulation status prior to going home. this will be shared c pt's . if pt is very impaired pt may need to go to STR despite his family wanting him to return home. ref's have been made for vna and iv abx vendor in the event pt returns home. ref's have been made for str in the case he needs this. cm to cont. to follow.
--- NOTE | 2020-09-21 16:04 | MHC.CM.PN ---
pt's family is requesting a hospital bed, hospital beds must go through primary insurance 1st. patient has [facility] as primary insurance. [facility] does not supply hospital beds for patient c [facility] as primary insurance, hence a ref. was then made to [facility] for the hospital bed. ph: [phone], fax-[phone]. waiting to hear from dme vendor. cm to cont. to follow.
[2020-09-22] VITALS (8 sets, daily range): BP systolic 112–142; BP diastolic 69–86; PULSE 57–79; RESP 16–20; TEMP 36.2–36.6; O2SAT 93–97
[2020-09-22] MEDS: Piperacillin Sodium/Tazobactam 3.375 GM in 0.9 % Sodium Chloride 50 ML IV ×4 (03:07→20:43)
[2020-09-22] MEDS: Heparin Sodium,Porcine 5,000 UNIT/ML VIAL 5000 UNIT SUBCUT ×2 (08:24→20:47)
--- NOTE | 2020-09-22 08:25 | PM.PNGS ---
Subjective Subjective Date of Service: 09/22/20 Interval history: Feels well Denies complaints Much more alert Says he has been eating better No abdominal pain Physical Exam Vital Signs: Vital Signs: Last Vital Signs Temp 97.8 F 09/22/20 08:00 Pulse 63 09/22/20 08:00 Resp 17 09/22/20 08:00 BP 127/79 09/22/20 08:00 Pulse Ox 97 09/22/20 08:00 Body Mass Index 23.6 Chemistry 09/20/20 09/21/20 05:53 06:09 Sodium 143 143 Potassium 3.8 4.3 Carbon Dioxide 23 25 BUN 26 H 22 H Creatinine 0.91 0.84 Calcium 7.5 L 7.4 L Hematology 09/20/20 09/21/20 09/21/20 05:53 06:09 06:09 WBC 9.8 10.0 Cancelled Hgb 9.2 L 9.2 L Cancelled Plt Count 305 324 Cancelled Const: Other: More alert, appears comfortable, very communicative and conversant Resp: Effort & Inspection: normal respiratory effort Cardio: Rhythm: regular rhythm GI: Other: Two drains in place, on gravity, with dark old blood Palpation (GI): Soft to palpation and nontender Progress Note: A&P Assessment and plan (1) Intra-abdominal hematoma: Status: Acute Assessment and Plan: Continues to do very well clinically Much improved with regard to mental status Aspirated blood growing Enterococcus, Clostridium perfringens On Zosyn; seen by ID PICC line as long-term IV antibiotics planned because of positive cultures PT consulted - eventual discharge to home as requested by Looks well and comfortable Push p.o. intake - add Ensure supplements Angella updated Fall Risk Details Current Medications: Current Medications Generic Name Dose Route Start Last Admin Trade Name Freq PRN Reason Stop Dose Admin Heparin Sodium (Porcine) 5,000 unit 09/16/20 21:00 09/21/20 20:15 Heparin Sodium,Porcine 5,000 Unit/Ml Vial SUBCUT 5,000 unit BID CARL Administration Piperacillin Sod/Tazobactam 50 mls @ 100 mls/hr 09/17/20 03:00 09/22/20 08:19 Sod 3.375 gm/ Sodium Chloride IV 100 mls/hr Q6H CARL Administration Lisinopril 10 mg 09/19/20 09:00 09/22/20 08:19 Lisinopril 10 Mg Tablet PO 10 mg DAILY CARL Administration Protocol Ondansetron HCl 4 mg 09/16/20 18:27 Ondansetron Hcl 4 Mg/2 Ml Vial IVPUSH Q8H PRN nausea Pharmacy Consult 1 each 09/16/20 13:39 Consult Rx Vancomycin Dosing MISCELLANE DAILY PRN Consult order Time Spent With Patient Time: Total time spent is greater than 50% in coordination of care (as documented) at patient's floor/unit and/or counseling patient: Time with patient: 15 - 24 minutes
--- NOTE | 2020-09-22 09:43 | HO.PM.IMPN ---
Subjective Subjective Date of Service: 09/22/20 Interval History: no complaints Cardiovascular Cardiovascular: Reports no additional cardiovascular complaints Gastrointestinal Gastrointestinal: Reports no additional gastrointestinal complaints Physical Exam Vital Signs: Vital Signs: Last Vital Signs Temp 97.8 F 09/22/20 08:00 Pulse 63 09/22/20 08:00 Resp 17 09/22/20 08:00 BP 127/79 09/22/20 08:00 Pulse Ox 97 09/22/20 08:00 Body Mass Index 23.6 General: Alert, no acute distress Resp: CTA bilateral CVS: S1,S2,RRR GI: soft, non tender, non distended Neuro: motor grossly intact Psych: appropriate affect Objective Data Current Medications Generic Name Dose Route Start Last Admin Trade Name Freq PRN Reason Stop Dose Admin Heparin Sodium (Porcine) 5,000 unit 09/16/20 21:00 09/22/20 08:24 Heparin Sodium,Porcine 5,000 Unit/Ml Vial SUBCUT 5,000 unit BID CARL Administration Piperacillin Sod/Tazobactam 50 mls @ 100 mls/hr 09/17/20 03:00 09/22/20 09:02 Sod 3.375 gm/ Sodium Chloride IV Infused Q6H CARL Infusion Lisinopril 10 mg 09/19/20 09:00 09/22/20 08:19 Lisinopril 10 Mg Tablet PO 10 mg DAILY CARL Administration Protocol Ondansetron HCl 4 mg 09/16/20 18:27 Ondansetron Hcl 4 Mg/2 Ml Vial IVPUSH Q8H PRN nausea Pharmacy Consult 1 each 09/16/20 13:39 Consult Rx Vancomycin Dosing MISCELLANE DAILY PRN Consult order Labs CBC & Chem 7: 09/21/20 06:09 09/21/20 06:09 Microbiology Microbiology Results: Microbiology 09/16/20 13:05 Blood - Arterial Blood Culture - Final No growth after 5 days. 09/16/20 13:07 Blood - Arterial Blood Culture - Final No growth after 5 days. 09/17/20 12:47 Abdominal Fluid Gram Stain - Final 09/17/20 12:47 Abdominal Fluid Routine Culture - Final Enterococcus/Streptococcus sp Streptococcus species 09/17/20 12:47 Abdominal Fluid Anaerobic Culture - Final Clostridium perfringens Assessment and Plan (1) Intra-abdominal abscess: Problem details: s/p IR drainage 09/17/20 with placement of two drainage catheters Status: Acute Assessment and Plan: This is a 80 yo M who was diagnosed with COVID 19 last month, treated and discharged to SNF. He now returned to the hospital and is admitted for intraabdominal abscess which is suspected secondary to ruptured GB. Intraabdominal abscess due to perforated cholecystitis growing clostridium perferinges, enterococcus, streptococcus from culture continue zosyn day 7, ID appreciated, possible ertapenem as outpatient R pleural effusion possibly secondary to intraabdominal process no respiratory symptoms at this time monitor HTN lisinopril
--- NOTE | 2020-09-22 13:28 | P.PICC_ITS ---
PICC Line Insertion NPICC Diagnosis: INFECTED HEMATOMA Indication: [facility] IV ANTIBIOTICS Pertinent Labs: REVIEWED Technique: Following informed consent including risks, benefits and alternatives and using sterile technique including cap and mask, sterile gown, glove and drape, the RIGHT arm was prepped and draped in the usual sterile fashion of full barrier technique with CHG. Following completion of [place] Protocol the skin and soft tissues were anesthetized with 1% Lidocaine plain. Using ultrasound guidance, BASILIC vein access was obtained ON SECOND ATTEMPT BY THIS RN. Over an 0.018 wire through peel-away sheath, a SINGLE LUMEN, 4 LITHUANIAN, PASV PICC line was positioned. Catheter length is 38 CM internal length, 1 CM external length, for a total trimmed length of 39 CM. The procedure was performed in S3-377. Tip verification was performed by Antoinette Hood with Farhan 3CG. Tip located in SVC. Ultrasound was used to document vein patency and for needle entry. A formal ultrasound picture and cardiac rhythm strip was recorded. [employer] has released the line for use and it is currently dressed with a StatLock, Tegaderm, and CHG disc. Verification has been performed for blood return and line patency. Arm Circumference: 31 CM Equipment: [employer] POWER PICC SOLO Catheter Type: 4 LITHUANIAN SINGLE LUMEN PASV PICC Lot #: [id number]
[2020-09-22] MEDS: 0.9 % Sodium Chloride Flush 10 ML SYRINGE 5 ML IVFLUSH ×2 (15:50→20:50)
[2020-09-23] VITALS (7 sets, daily range): BP systolic 114–154; BP diastolic 72–80; PULSE 69–83; RESP 16–20; TEMP 36.4–36.7; O2SAT 94–97
[2020-09-23] MEDS: Piperacillin Sodium/Tazobactam 3.375 GM in 0.9 % Sodium Chloride 50 ML IV ×4 (03:42→21:17)
--- NOTE | 2020-09-23 08:27 | PM.PNGS ---
Subjective Subjective Date of Service: 09/23/20 <Sommer Damon PA-C - Last Filed: 09/23/20 08:32> 09/23/20 <Donato Jarquin MD - Last Filed: 09/23/20 11:29> Interval history: Feels well. Appetite improved. Tolerating solid diet. Denies abd pain. <Sommer Damon PA-C - Last Filed: 09/23/20 08:32> Physical Exam Vital Signs: Vital Signs: Last Vital Signs Temp 97.6 F 09/23/20 03:47 Pulse 69 09/23/20 03:47 Resp 20 09/23/20 03:47 BP 154/79 H 09/23/20 03:47 Pulse Ox 94 09/23/20 03:47 Body Mass Index 23.6 <JUNG Kim Last Filed: 09/23/20 08:32> Const: General: comfortable, no acute distress and alert <Sommer Damon PA-C - Last Filed: 09/23/20 08:32> Orientation/consciousness: oriented to person and oriented to place <Sommer Damon PA-C - Last Filed: 09/23/20 08:32> Eyes: Sclerae: sclerae normal <Sommer Damon PA-C - Last Filed: 09/23/20 08:32> Resp: Effort & Inspection: normal respiratory effort <Sommer Damon PA-C - Last Filed: 09/23/20 08:32> Cardio: Rate: regular rate <Sommer Damon PA-C - Last Filed: 09/23/20 08:32> GI: Other: drains continue with dark drainage <Sommer Damon PA-C - Last Filed: 09/23/20 08:32> Inspection: No distended <JUNG Kim Last Filed: 09/23/20 08:32> Palpation (GI): Soft to palpation, nontender, no guarding and not rigid <JUNG Kim Last Filed: 09/23/20 08:32> Skin: General skin exam: no rashes or lesions noted <JUNG Kim Last Filed: 09/23/20 08:32> Neuro: General: oriented to person and oriented to place <Sommer Damon PA-C - Last Filed: 09/23/20 08:32> Extrem: General: Yes no clubbing, cyanosis or edema <Sommer Damon PA-C - Last Filed: 09/23/20 08:32> Progress Note: A&P Assessment and plan (1) Intra-abdominal hematoma: Problem details: s/p IR drainage 09/17/20 with placement of two drainage catheters. Aspirated blood growing Enterococcus, Clostridium perfringens. <Sommer Damon PA-C - Last Filed: 09/23/20 08:32> Status: Acute <Sommer Damon PA-C - Last Filed: 09/23/20 08:32> Assessment and Plan: Continues to do very well clinically, much improved. Abd exam benign. Drains with dark old blood. On Zosyn; seen by ID- Long-term IV antibiotics planned because of positive cultures. PICC line in place. PT- Rec STR as patient max assist and unsafe to return home. Push p.o. intake, Ensure supplements. Cont drains to gravity. Discussed with case management who will speak to family regarding disposition. Would also need VNA if to return home. <Sommer Damon PA-C - Last Filed: 09/23/20 08:32> Continues do well More alert Drains in place Abdomen soft, nontender As per PT- unsafe for patient to be discharged to home Will discuss with family PICC line in place Doing well otherwise Seen and examined -agree with AMEYA Damon <Donato Jarquin MD - Last Filed: 09/23/20 11:29> Fall Risk Details Current Medications: Current Medications Generic Name Dose Route Start Last Admin Trade Name Freq PRN Reason Stop Dose Admin Heparin Sodium (Porcine) 5,000 unit 09/16/20 21:00 09/22/20 20:47 Heparin Sodium,Porcine 5,000 Unit/Ml Vial SUBCUT 5,000 unit BID CARL Administration Piperacillin Sod/Tazobactam 50 mls @ 100 mls/hr 09/17/20 03:00 09/23/20 04:41 Sod 3.375 gm/ Sodium Chloride IV Infused Q6H CARL Infusion Lisinopril 10 mg 09/19/20 09:00 09/22/20 08:19 Lisinopril 10 Mg Tablet PO 10 mg DAILY CARL Administration Protocol Ondansetron HCl 4 mg 09/16/20 18:27 Ondansetron Hcl 4 Mg/2 Ml Vial IVPUSH Q8H PRN nausea Pharmacy Consult 1 each 09/16/20 13:39 Consult Rx Vancomycin Dosing MISCELLANE DAILY PRN Consult order Sodium Chloride 5 ml 09/22/20 15:00 09/22/20 20:50 0.9 % Sodium Chloride Flush 10 Ml Syringe IVFLUSH 5 ml TID CARL Administration <Sommer Damon PA-C - Last Filed: 09/23/20 08:32> Time Spent With Patient Time: Total time spent is greater than 50% in coordination of care (as documented) at patient's floor/unit and/or counseling patient: <Sommer Damon PA-C - Last Filed: 09/23/20 08:32> Time with patient: 15 - 24 minutes <Sommer Damon PA-C - Last Filed: 09/23/20 08:32>
--- NOTE | 2020-09-23 08:52 | HO.PM.IMPN ---
Subjective Subjective Date of Service: 09/23/20 Interval History: no complaints Cardiovascular Cardiovascular: Reports no additional cardiovascular complaints Respiratory Respiratory: Reports no additional respiratory complaints Physical Exam Vital Signs: Vital Signs: Last Vital Signs Temp 98.1 F 09/23/20 08:00 Pulse 70 09/23/20 08:00 Resp 19 09/23/20 08:00 BP 144/73 H 09/23/20 08:00 Pulse Ox 97 09/23/20 08:00 Body Mass Index 23.6 General: Alert, confused, no acute distress Resp: CTA bilateral CVS: S1,S2,RRR GI: soft, non tender, non distended Neuro: motor grossly intact Psych: appropriate affect Objective Data Current Medications Generic Name Dose Route Start Last Admin Trade Name Freq PRN Reason Stop Dose Admin Heparin Sodium (Porcine) 5,000 unit 09/16/20 21:00 09/22/20 20:47 Heparin Sodium,Porcine 5,000 Unit/Ml Vial SUBCUT 5,000 unit BID CARL Administration Piperacillin Sod/Tazobactam 50 mls @ 100 mls/hr 09/17/20 03:00 09/23/20 04:41 Sod 3.375 gm/ Sodium Chloride IV Infused Q6H CARL Infusion Lisinopril 10 mg 09/19/20 09:00 09/22/20 08:19 Lisinopril 10 Mg Tablet PO 10 mg DAILY CARL Administration Protocol Ondansetron HCl 4 mg 09/16/20 18:27 Ondansetron Hcl 4 Mg/2 Ml Vial IVPUSH Q8H PRN nausea Pharmacy Consult 1 each 09/16/20 13:39 Consult Rx Vancomycin Dosing MISCELLANE DAILY PRN Consult order Sodium Chloride 5 ml 09/22/20 15:00 09/22/20 20:50 0.9 % Sodium Chloride Flush 10 Ml Syringe IVFLUSH 5 ml TID CARL Administration Labs CBC & Chem 7: 09/21/20 06:09 09/21/20 06:09 Microbiology Microbiology Results: Microbiology 09/16/20 13:05 Blood - Arterial Blood Culture - Final No growth after 5 days. 09/16/20 13:07 Blood - Arterial Blood Culture - Final No growth after 5 days. 09/17/20 12:47 Abdominal Fluid Gram Stain - Final 09/17/20 12:47 Abdominal Fluid Routine Culture - Final Enterococcus/Streptococcus sp Streptococcus species 09/17/20 12:47 Abdominal Fluid Anaerobic Culture - Final Clostridium perfringens Assessment and Plan (1) Intra-abdominal abscess: Problem details: s/p IR drainage 09/17/20 with placement of two drainage catheters Status: Acute Assessment and Plan: This is a 80 yo M who was diagnosed with COVID 19 last month, treated and discharged to SNF. He now returned to the hospital and is admitted for intraabdominal abscess which is suspected secondary to ruptured GB. Intraabdominal abscess due to perforated cholecystitis growing clostridium perferinges, enterococcus, streptococcus from culture continue zosyn day 8, ID appreciated, s/p picc, plan for ertapenem as outpatient R pleural effusion possibly secondary to intraabdominal process no respiratory symptoms at this time monitor HTN lisinopril appears medically stable will sign off for now, please recall if needed
[2020-09-23] MEDS: Heparin Sodium,Porcine 5,000 UNIT/ML VIAL 5000 UNIT SUBCUT ×2 (08:56→21:21)
[2020-09-23] MEDS: 0.9 % Sodium Chloride Flush 10 ML SYRINGE 5 ML IVFLUSH ×2 (08:59→21:24)
--- NOTE | 2020-09-23 14:08 | MHC.CM.PN ---
CM spoke to pts , Angella and son Neri via T/C ([phone]). they now report being open to STR for the pt as they understand he is unable to walk. She reports she would prefer the pt go to [facility] in [place] as it is close to her. She reports the only other plan would be home with [facility] and they would have to care for him. CM informed her that [facility] was following the referral from earlier DC plan discussions. CM updated the SNF and will inform pts family once they provide an answer. Per pts surgeon, he will likely be ready to DC tomorrow or over the weekend.
[2020-09-24] VITALS (8 sets, daily range): BP systolic 116–134; BP diastolic 73–81; PULSE 73–93; RESP 16–20; TEMP 36–37; O2SAT 94–96
[2020-09-24] MEDS: Piperacillin Sodium/Tazobactam 3.375 GM in 0.9 % Sodium Chloride 50 ML IV ×4 (02:59→20:37)
[2020-09-24] MEDS: 0.9 % Sodium Chloride Flush 10 ML SYRINGE 5 ML IVFLUSH ×3 (09:13→20:37)
[2020-09-24] MEDS: Heparin Sodium,Porcine 5,000 UNIT/ML VIAL 5000 UNIT SUBCUT ×2 (09:13→20:37)
--- NOTE | 2020-09-24 09:24 | PM.PNGS ---
Subjective Subjective Date of Service: 09/24/20 <Sommer Damon PA-C - Last Filed: 09/24/20 09:28> 09/24/20 <Donato Jarquin MD - Last Filed: 09/24/20 14:39> Patient reports: no new complaints <Sommer Damon PA-C - Last Filed: 09/24/20 09:28> Interval history: Wants to go home. Tolerating solid diet and appetite increasing. Denies pain. <Sommer Damon PA-C - Last Filed: 09/24/20 09:28> Physical Exam Vital Signs: Vital Signs: Last Vital Signs Temp 96.9 F 09/24/20 07:22 Pulse 73 09/24/20 09:15 Resp 17 09/24/20 07:22 BP 123/81 09/24/20 09:15 Pulse Ox 95 09/24/20 07:22 Body Mass Index 23.6 <Sommer Damon PA-C - Last Filed: 09/24/20 09:28> Const: General: comfortable, no acute distress and alert <Sommer Damon PA-C - Last Filed: 09/24/20 09:28> Orientation/consciousness: oriented to person and oriented to place <Sommer Damon PA-C - Last Filed: 09/24/20 09:28> Eyes: Sclerae: sclerae normal <Sommer Damon PA-C - Last Filed: 09/24/20 09:28> Resp: Effort & Inspection: normal respiratory effort <Sommer Damno PA-C - Last Filed: 09/24/20 09:28> Cardio: Rate: regular rate <JUNG Kim Last Filed: 09/24/20 09:28> GI: Other: pigtail drains- drain A with bilious drainage; drain B with dark sanguineous drainage <JUNG Kim Last Filed: 09/24/20 09:28> Inspection: No distended <JUNG Kim Last Filed: 09/24/20 09:28> Palpation (GI): Soft to palpation, nontender, no guarding and not rigid <Sommer Damon PA-C - Last Filed: 09/24/20 09:28> Skin: General skin exam: no rashes or lesions noted <Sommer Damon PA-C - Last Filed: 09/24/20 09:28> Neuro: General: oriented to person and oriented to place <Sommer Damon PA-C - Last Filed: 09/24/20 09:28> Extrem: General: Yes no clubbing, cyanosis or edema <Sommer Damon PA-C - Last Filed: 09/24/20 09:28> Progress Note: A&P Assessment and plan (1) Intra-abdominal hematoma: Problem details: s/p IR drainage 09/17/20 with placement of two drainage catheters. Aspirated blood growing Enterococcus, Clostridium perfringens. On IV zosyn day 7. <Sommer Damon PA-C - Last Filed: 09/24/20 09:28> Status: Acute <Sommer Damon PA-C - Last Filed: 09/24/20 09:28> Assessment and Plan: Continues to do very well clinically, much improved. Abd exam benign. Drains with bilious (A) and dark old blood (B). Drains changed to JODIE and put to suction. On Zosyn; seen by ID- Long-term IV antibiotics planned because of positive cultures. Will d/c on Ertapenem per ID recs. PICC line in place. Stable for discharge today- plan to d.c to [facility] once bed available. F/u in office in [address] Jarquin. Discussed with vocational case manager Astrid. <Sommer Damon PA-C - Last Filed: 09/24/20 09:28> continues to do well has been more alert abd soft no fever no tenderness as per - ok to dc to [place] if in [facility], mervin Moreau plan transfer to SNF with IV abx once ready both drains to bulb suction ffup in office in 2 weeks seen and examined agree w/ AMEYA Damon <Donato Jarquin MD - Last Filed: 09/24/20 14:39> (2) HTN (hypertension): Status: Acute <Sommer Damon PA-C - Last Filed: 09/24/20 09:28> (3) Pleural effusion: Status: Acute <JUNG Kim Last Filed: 09/24/20 09:28> (4) Dementia: Status: Acute <JUNG Kim Last Filed: 09/24/20 09:28> Fall Risk Details Current Medications: Current Medications Generic Name Dose Route Start Last Admin Trade Name Freq PRN Reason Stop Dose Admin Heparin Sodium (Porcine) 5,000 unit 09/16/20 21:00 09/24/20 09:13 Heparin Sodium,Porcine 5,000 Unit/Ml Vial SUBCUT 5,000 unit BID CARL Administration Piperacillin Sod/Tazobactam 50 mls @ 100 mls/hr 09/17/20 03:00 09/24/20 09:13 Sod 3.375 gm/ Sodium Chloride IV 100 mls/hr Q6H CARL Administration Lisinopril 10 mg 09/19/20 09:00 09/24/20 09:15 Lisinopril 10 Mg Tablet PO 10 mg DAILY CARL Administration Protocol Ondansetron HCl 4 mg 09/16/20 18:27 Ondansetron Hcl 4 Mg/2 Ml Vial IVPUSH Q8H PRN nausea Sodium Chloride 5 ml 09/22/20 15:00 09/24/20 09:13 0.9 % Sodium Chloride Flush 10 Ml Syringe IVFLUSH 5 ml TID CARL Administration <JUNG Kim Last Filed: 09/24/20 09:28> Time Spent With Patient Time: Total time spent is greater than 50% in coordination of care (as documented) at patient's floor/unit and/or counseling patient: <JUNG Kim Last Filed: 09/24/20 09:28> Time with patient: 15 - 24 minutes <JUNG Kim Last Filed: 09/24/20 09:28> No Severe Sepsis: No Severe Sepsis <JUNG Kim Last Filed: 09/24/20 09:28>
--- NOTE | 2020-09-24 13:00 | MHC.CM.PN ---
[facility] HAS OFFERED PT A STR BED. CM SPOKE TO PT AND THEN CALLED PTS , BERNA AND SON/HCP, HITESH ([phone]) WHO REPORT THIS IS STILL THE PREFERRED DC PLAN. CM REQUESTED A COPY OF PTS HCP HOWEVER HITESH REPORTS THE PT COMPLETED IT IN AUGUST HERE AT [facility]. CM CONTACTED [facility], HOWEVER THEY WERE UNABLE TO LOCATE A COPY. CM AND [place] MET WITH PT TO ASSESS HIS WILLINGNESS AND ABILITY TO COMPLETE A NEW ONE THE SNF WILL NOT ACCEPT PT WITHOUT ONE ON FILE. PT REPORTED HE WOULD LIKE TO COMPLETE A NEW HCP AND WAS ALERT AND ORIENTED ENOUGH TO DO SO. A NEW HCP WAS COMPLETED AGAIN NAMING HIS SON, HITESH HIS AGENT. A COPY WILL BE PLACED ON PTS CHART AND SCANNED INTO [place]. PTS SECOND IMM WAS REVIEWED WITH PTS HCP/SON, HITESH DURING THE T/C AND A COPY WILL BE SENT TO HIM VIA CERTIFIED MAIL PT, PTS , AND PTS SON/HCP ARE AWARE THE PT IS SCHEDULED TO DC TO [facility] TOMORROW AT 1300 HOURS. PT WILL NEED A NEW COVID TEST PRIOR TO DC, MADE AWARE.
--- NOTE | 2020-09-24 13:41 | P.DS_ITS ---
DS: Providers Provider Date of Service: 09/27/20 Date of admission: 09/16/20 18:27 Primary care physician: Tomy Head MD Consults: 09/16/20 18:27 Consult to Hospitalist Routine Consulting Provider: Hospitalist Reason for consultation: advanced age, elevated BUN/crea; dementia 09/20/20 10:00 Consult to Infectious Diseases Routine Consulting Provider: Tammy Nagy Reason for consultation: infected intraabdominal hematoma DS: Diagnosis Discharge Diagnosis (1) Intra-abdominal hematoma: Status: Acute Problem details: s/p IR drainage 09/17/20 with placement of two drainage catheters. Aspirated blood growing Enterococcus, Clostridium perfringens. On IV zosyn day 8 (2) HTN (hypertension): Status: Acute (3) Pleural effusion: Status: Acute (4) Dementia: Status: Acute DS: Medications Discharge Medications Home Medications: Home Medications Medication Instructions Recorded Confirmed lisinopril 20 mg PO DAILY 08/20/20 09/20/20 simvastatin 40 mg PO BEDTIME 08/20/20 09/20/20 Previous Rx's Medication Instructions Recorded ertapenem [Invanz] 1 g IM DAILY #10 ea 09/24/20 DS: Summary Hospital Course Hospital Course: BRIEF HPI: Morgan Isaac is a 80 year male with dementia, transferred to the ED from a retirement because of declining health over the past 2 weeks. He has had poor appetite and had seemed to be steadily getting weaker. In the ED, he was noted to have elevated CRP and a right sided effusion on CXR. A CT chest was therefore ordered which showed a large RUQ abscess above the liver with a pleural effusion. A CT of the abdomen was then obtained with redemonstrated the large RUQ abscess, probably from a perforated acute choelcystitis. The patient did not seem to have complained of abdominal pain. The MA staff states that he had transient hypotension 2 weeks ago but did not have fever, abdominal pain or any GI complaints. He was recently admitted to [facility] for COVID pneumonia with hypoxia 08/20/20 and was discharged after a week. HOSPITAL COURSE: The patient was admitted to the surgical service for further treatment of the large RUQ abscess. His CT scan suggested it was likely secondary to previous cholecystitis with possible rupture. He has a large right sided effusion as well, likely sympathetic to the intraabdl abscess. He had a very benign exam and looked nontoxic. He was started on IV zosyn, IVF and made NPO. CT guided drainage of the RUQ abscess was arranged. A hospitalist consult was obtained in light of his advanced age and medical comorbidities and ELSI secondary to dehydration which was treated with gentle IV hydration and improved. CT guided drainage of the large RUQ abscess was performed on 09/17/20. Two drains placed in the right upper quadrant large collection, with one being in the gallbladder. The collection was found to be predominantly old blood. Given the presence of the hematoma, the plan was to drain the collection intermittently so there was no sudden drop in blood pressure if there was active bleeding. The following day, his WBC had significantly improved. His H/H drifted slightly but remained stable. The pigtail drain output remained dark sanguineous output and were placed to gravity bags and monitored. Throughout the stay, his WBC continued to improve. His H/H remained stable and the output continued to appear like dark, old blood and then later bile (drain A), without signs of active bleeding. A repeat CT scan showed decreasing size of the RUQ collection but it remained large. The cultures from the collection came back positive for Enterococcus, Clostridium perfringens. An ID consult was obtained who recommended usp IV Invanz for the positive cultures in light of the size of the collection. The drains were changed to JODIE bulbs and placed to suction. A PT consult was ordered for disposition planning and they felt he was unsafe and unfit to return home and recommended aggressive physical therapy. This was discussed with his family who agreed to send him to a different STR. During his stay, Mr. Isaac's mentation and appetite improved. He was tolerating a solid diet without N/V or abdominal pain. He remained clinically appearing well with a benign abdominal exam. His vitals were stable. He was transferred to [facility] on 09/25/20 in stable condition. He is to follow up with Dr. Jarquin in the office in 1 week. He was discharged with two drains in place to suction and on IV Invanz 1g daily. Status at Discharge Functional status at discharge: uses cane/walker (max assist out of bed) Overall status at discharge: patient is progressing back to baseline Time Spent with Patient Time attestation: Total time spent providing and/or coordinating discharge se rvices: Discharge coordination time: Greater than 30 minutes Physical Exam Vital Signs: Vital Signs: Last Vital Signs Temp 97.7 F 09/24/20 12:00 Pulse 93 09/24/20 12:00 Resp 16 09/24/20 12:00 BP 116/79 09/24/20 12:00 Pulse Ox 96 09/24/20 12:00 Body Mass Index 23.6 Const: General: comfortable, no acute distress and alert Orientation/consciousness: patient oriented x3 Eyes: Sclerae: sclerae normal Resp: Effort & Inspection: normal respiratory effort Cardio: Rate: regular rate GI: Other: Drain A- bilious; Drain B- dark sanguineous Inspection: No distended Palpation (GI): Soft to palpation, not firm, nontender and no guarding Skin: General skin exam: no rashes or lesions noted Neuro: General: patient oriented x3 Extrem: General: Yes no clubbing, cyanosis or edema DS: Data Data Completed and Pending Labs on day of discharge: Laboratory Tests 09/16/20 09/16/20 09/16/20 13:05 13:05 13:05 WBC 20.2 H RBC 4.12 L Hgb 11.7 L Hct 36.6 L MCV 88.8 MCH 28.4 MCHC 32.0 RDW 14.6 Plt Count 337 MPV 9.8 Immature Gran % (Auto) 2.2 H Neut % (Auto) 84.9 H Lymph % (Auto) 3.8 L [place] % (Auto) 8.0 Eos % (Auto) 0.9 Baso % (Auto) 0.2 Lymph # (Auto) 0.8 L [place] # (Auto) 1.6 H Eos # (Auto) 0.2 Baso # (Auto) 0.0 Abs Immat Gran (auto) 0.44 H Absolute Neuts (auto) 17.2 H Absolute Nucleated RBC 0.000 Nucleated RBC % (auto) 0.0 Smear Tech's Comments VERIFIED PT 16.3 H D INR 1.4 H APTT 30.6 D-Dimer 2623 Sodium 137 Potassium 4.8 Chloride 102 Carbon Dioxide 25 Anion Gap 15 BUN 63 H Creatinine 1.13 Estim Creat Clear Calc 50.4 Estimated GFR > 60 Random Glucose 113 Fasting Glucose Lactic Acid Calcium 8.0 L Magnesium 2.3 Total Bilirubin 0.7 Direct Bilirubin 0.5 AST 96 H ALT 138 H Alkaline Phosphatase 110 D Troponin I High Sens C-Reactive Protein 24.50 H B-Natriuretic Peptide Total Protein 5.8 L Albumin 2.3 L D Procalcitonin COVID-19 (ARCHIE) COVIDUnisfair19 [employer] Blood Type Antibody Screen 09/16/20 09/16/20 09/16/20 13:05 13:05 13:05 WBC RBC Hgb Hct MCV MCH MCHC RDW Plt Count MPV Immature Gran % (Auto) Neut % (Auto) Lymph % (Auto) [place] % (Auto) Eos % (Auto) Baso % (Auto) Lymph # (Auto) [place] # (Auto) Eos # (Auto) Baso # (Auto) Abs Immat Gran (auto) Absolute Neuts (auto) Absolute Nucleated RBC Nucleated RBC % (auto) Smear Tech's Comments PT INR APTT D-Dimer Sodium Potassium Chloride Carbon Dioxide Anion Gap BUN Creatinine Estim Creat Clear Calc Estimated GFR Random Glucose Fasting Glucose Lactic Acid 1.3 Calcium Magnesium Total Bilirubin Direct Bilirubin AST ALT Alkaline Phosphatase Troponin I High Sens 8.7 C-Reactive Protein B-Natriuretic Peptide 24 Total Protein Albumin Procalcitonin 0.86 COVID-19 (ARCHIE) COVID-[employer] Blood Type Antibody Screen 09/16/20 09/17/20 09/17/20 13:05 06:07 06:07 WBC 18.1 H RBC 3.64 L Hgb 10.3 L Hct 32.7 L MCV 89.8 MCH 28.3 MCHC 31.5 RDW 14.8 Plt Count 306 MPV 10.0 Immature Gran % (Auto) Neut % (Auto) Lymph % (Auto) [place] % (Auto) Eos % (Auto) Baso % (Auto) Lymph # (Auto) [place] # (Auto) Eos # (Auto) Baso # (Auto) Abs Immat Gran (auto) Absolute Neuts (auto) Absolute Nucleated RBC 0.000 Nucleated RBC % (auto) 0.0 Smear Tech's Comments PT INR APTT D-Dimer Sodium 139 Potassium 4.6 Chloride 107 Carbon Dioxide 23 Anion Gap 14 BUN 54 H Creatinine 1.06 Estim Creat Clear Calc 53.7 Estimated GFR > 60 Random Glucose 95 Fasting Glucose Lactic Acid Calcium 7.6 L Magnesium Total Bilirubin 0.4 Direct Bilirubin 0.3 AST 87 H ALT 125 H Alkaline Phosphatase 104 Troponin I High Sens C-Reactive Protein B-Natriuretic Peptide Total Protein 5.1 L Albumin 2.0 L Procalcitonin COVID-19 (ARCHIE) Negative COVID-19 Clin Com See Note Blood Type Antibody Screen 09/17/20 09/17/20 09/18/20 13:54 15:17 07:08 WBC 19.1 H 13.8 H RBC 3.91 L 3.68 L Hgb 11.0 L 10.5 L Hct 35.2 L 33.3 L MCV 90.0 90.5 MCH 28.1 28.5 MCHC 31.3 31.5 RDW 15.0 15.1 Plt Count 350 319 MPV 9.6 10.2 Immature Gran % (Auto) 1.7 H Neut % (Auto) 84.4 H Lymph % (Auto) 3.9 L [place] % (Auto) 8.1 Eos % (Auto) 1.8 Baso % (Auto) 0.1 Lymph # (Auto) 0.5 L [place] # (Auto) 1.1 Eos # (Auto) 0.3 Baso # (Auto) 0.0 Abs Immat Gran (auto) 0.24 H Absolute Neuts (auto) 11.6 H Absolute Nucleated RBC 0.000 0.000 Nucleated RBC % (auto) 0.0 0.0 Smear Tech's Comments VERIFIED PT INR APTT D-Dimer Sodium Potassium Chloride Carbon Dioxide Anion Gap BUN Creatinine Estim Creat Clear Calc Estimated GFR Random Glucose Fasting Glucose Lactic Acid Calcium Magnesium Total Bilirubin Direct Bilirubin AST ALT Alkaline Phosphatase Troponin I High Sens C-Reactive Protein B-Natriuretic Peptide Total Protein Albumin Procalcitonin COVID-19 (ARCHIE) COVID-19 Clin Com Blood Type A Positive Antibody Screen NEGATIVE 09/18/20 09/18/20 09/19/20 07:08 14:14 05:43 WBC 15.4 H 10.7 RBC 3.62 L 3.61 L Hgb 10.2 L 10.2 L Hct 32.5 L 33.0 L MCV 89.8 91.4 MCH 28.2 28.3 MCHC 31.4 30.9 L RDW 14.9 14.9 Plt Count 355 359 MPV 9.6 9.7 Immature Gran % (Auto) Neut % (Auto) Lymph % (Auto) [place] % (Auto) Eos % (Auto) Baso % (Auto) Lymph # (Auto) [place] # (Auto) Eos # (Auto) Baso # (Auto) Abs Immat Gran (auto) Absolute Neuts (auto) Absolute Nucleated RBC 0.000 0.000 Nucleated RBC % (auto) 0.0 0.0 Smear Tech's Comments PT INR APTT D-Dimer Sodium 144 Potassium 5.3 H Chloride 113 H Carbon Dioxide 20 L Anion Gap 16 BUN 45 H Creatinine 0.94 Estim Creat Clear Calc 60.5 Estimated GFR > 60 Random Glucose 138 H D Fasting Glucose Lactic Acid Calcium 7.9 L Magnesium Total Bilirubin Direct Bilirubin AST ALT Alkaline Phosphatase Troponin I High Sens C-Reactive Protein B-Natriuretic Peptide Total Protein Albumin Procalcitonin COVID-19 (ARCHIE) COVIDFieldAware Blood Type Antibody Screen 09/19/20 09/20/20 09/20/20 05:43 05:53 05:53 WBC 9.8 RBC 3.23 L Hgb 9.2 L Hct 30.0 L MCV 92.9 MCH 28.5 MCHC 30.7 L RDW 15.3 Plt Count 305 MPV 10.0 Immature Gran % (Auto) Neut % (Auto) Lymph % (Auto) [place] % (Auto) Eos % (Auto) Baso % (Auto) Lymph # (Auto) [place] # (Auto) Eos # (Auto) Baso # (Auto) Abs Immat Gran (auto) Absolute Neuts (auto) Absolute Nucleated RBC 0.000 Nucleated RBC % (auto) 0.0 Smear Tech's Comments PT 15.4 H INR 1.3 H APTT D-Dimer Sodium 146 H Potassium 4.3 Chloride 115 H Carbon Dioxide 24 Anion Gap 11 L BUN 32 H Creatinine 0.89 Estim Creat Clear Calc 63.9 Estimated GFR > 60 Random Glucose Fasting Glucose 110 H Lactic Acid Calcium 7.8 L Magnesium Total Bilirubin Direct Bilirubin AST ALT Alkaline Phosphatase Troponin I High Sens C-Reactive Protein B-Natriuretic Peptide Total Protein Albumin Procalcitonin COVID-19 (ARCHIE) COVIDFieldAware Blood Type Antibody Screen 09/20/20 09/21/20 09/21/20 05:53 06:09 06:09 WBC 10.0 RBC 3.28 L Hgb 9.2 L Hct 29.7 L MCV 90.5 MCH 28.0 MCHC 31.0 RDW 14.8 Plt Count 324 MPV 9.4 Immature Gran % (Auto) 3.3 H Neut % (Auto) 75.7 H Lymph % (Auto) 9.9 L [place] % (Auto) 7.7 Eos % (Auto) 3.1 Baso % (Auto) 0.3 Lymph # (Auto) 1.0 L [place] # (Auto) 0.8 Eos # (Auto) 0.3 Baso # (Auto) 0.0 Abs Immat Gran (auto) 0.33 H Absolute Neuts (auto) 7.5 Absolute Nucleated RBC 0.000 Nucleated RBC % (auto) 0.0 Smear Tech's Comments PT INR APTT D-Dimer Sodium 143 143 Potassium 3.8 4.3 Chloride 112 H 111 H Carbon Dioxide 23 25 Anion Gap 12 11 L BUN 26 H 22 H Creatinine 0.91 0.84 Estim Creat Clear Calc 62.5 67.8 Estimated GFR > 60 > 60 Random Glucose Fasting Glucose 107 H 74 Lactic Acid Calcium 7.5 L 7.4 L Magnesium Total Bilirubin Direct Bilirubin AST ALT Alkaline Phosphatase Troponin I High Sens C-Reactive Protein B-Natriuretic Peptide Total Protein Albumin Procalcitonin COVID-19 (ARCHIE) COVID-[employer] Blood Type Antibody Screen 09/21/20 06:09 WBC Cancelled RBC Cancelled Hgb Cancelled Hct Cancelled MCV Cancelled MCH Cancelled MCHC Cancelled RDW Cancelled Plt Count Cancelled MPV Cancelled Immature Gran % (Auto) Cancelled Neut % (Auto) Cancelled Lymph % (Auto) Cancelled [place] % (Auto) Cancelled Eos % (Auto) Cancelled Baso % (Auto) Cancelled Lymph # (Auto) Cancelled [place] # (Auto) Cancelled Eos # (Auto) Cancelled Baso # (Auto) Cancelled Abs Immat Gran (auto) Cancelled Absolute Neuts (auto) Cancelled Absolute Nucleated RBC Cancelled Nucleated RBC % (auto) Cancelled Smear Tech's Comments PT INR APTT D-Dimer Sodium Potassium Chloride Carbon Dioxide Anion Gap BUN Creatinine Estim Creat Clear Calc Estimated GFR Random Glucose Fasting Glucose Lactic Acid Calcium Magnesium Total Bilirubin Direct Bilirubin AST ALT Alkaline Phosphatase Troponin I High Sens C-Reactive Protein B-Natriuretic Peptide Total Protein Albumin Procalcitonin COVID-19 (ARCHIE) COVIDFieldAware Blood Type Antibody Screen Discharge Plan Discharge Patient Disposition: er SNF Referrals: [facility] [Outside] Donato Jarquni MD [Physician] - 1 Week Tomy Head MD [Referring] - 1 Week (Please call and follow up with your physician.) Discharge Medications: New ertapenem [Invanz] 1 gram recon soln 1 g IV DAILY 20 Days Qty: 1 RF: 0 Continued lisinopril 20 mg Tablet 20 mg PO DAILY RF: 0 simvastatin 40 mg Tablet 40 mg PO BEDTIME RF: 0 Discharge Orders: Discharge Order (Routine); Ordered 09/25/20 Ordered By: Donato Jarquin Diet: regular diet Activity on Discharge: As tolerated Stand Alone Forms: Patient Portal Discharge page Discharge Date/Time: 09/25/20 13:18 Activity Restrictions/Additional Instructions: Keep drains to suction. Empty bulbs q shift and record output. Flush with silvia rile saline 10cc as needed. On IV Invanz 1gm IV daily. Duration to be determined. Care Plan Goals: Return to baseline health and activity; resolution of intraabdominal hematoma. Health Concerns: Large intraabdominal hematoma with positive cultures; dementia, HTN Plan of Treatment: S/p IR drainage with [address]; PICC line and IV antibiotics
[2020-09-24 14:48] LABS: COVID-19 Test Negative (Negative); IDNOW Serial# 9DD0AD1C
--- NOTE | 2020-09-24 21:07 | PM.IDPN ---
Subjective Subjective Date of Service: 10/10/20 Interval History: patient feels well,wants to leave Objective Data Labs CBC & Chem 7: 09/21/20 06:09 09/21/20 06:09 Labs: Laboratory Results - last 24 hr 09/24/20 14:02 COVID-19 (ARCHIE) Negative COVID-19 Clin Com See Note Microbiology Microbiology Results: Microbiology 09/16/20 13:05 Blood - Arterial Blood Culture - Final No growth after 5 days. 09/16/20 13:07 Blood - Arterial Blood Culture - Final No growth after 5 days. 09/17/20 12:47 Abdominal Fluid Gram Stain - Final 09/17/20 12:47 Abdominal Fluid Routine Culture - Final Enterococcus/Streptococcus sp Streptococcus species 09/17/20 12:47 Abdominal Fluid Anaerobic Culture - Final Clostridium perfringens Physical Exam Vital Signs: Vital Signs: Last Vital Signs Temp 98.6 F 09/24/20 19:05 Pulse 84 09/24/20 19:05 Resp 19 09/24/20 19:05 BP 125/79 09/24/20 19:05 Pulse Ox 94 09/24/20 19:05 Body Mass Index 23.6 HENMT: Head: Yes normal to inspection Mouth: Normal oral and palatal mucosa present Resp: Effort & Inspection: normal respiratory effort Cardio: Rate: regular rate Rhythm: regular rhythm GI: Palpation (GI): Soft to palpation and nontender Assessment and Plan Assessment and plan (1) Intra-abdominal hematoma: Problem details: s/p IR drainage 09/17/20 with placement of two drainage catheters. Aspirated blood growing Enterococcus, Clostridium perfringens. On IV zosyn day 8 Status: Acute Assessment and Plan: Would continue Zosyn Possible review with Surgery ,continue antibiotics ?need for more drainage until less than 3 cm left Time Spent With Patient Time: Total time spent is greater than 50% in coordination of care (as documented) at patient's floor/unit and/or counseling patient: Time with patient: 15 - 24 minutes
[2020-09-25] MEDS: Piperacillin Sodium/Tazobactam 3.375 GM in 0.9 % Sodium Chloride 50 ML IV ×2 (02:10→09:04)
[2020-09-25 03:53] VITALS: BP 140/88; PULSE 73; RESP 18; TEMP 36.5; O2SAT 96
[2020-09-25 08:00] VITALS: BP 140/92; PULSE 83; RESP 17; TEMP 36.9; O2SAT 96
[2020-09-25] MEDS: Heparin Sodium,Porcine 5,000 UNIT/ML VIAL 5000 UNIT SUBCUT (09:09)
--- NOTE | 2020-09-25 10:13 | P.PNGS_ITS ---
Subjective Subjective Date of Service: 09/25/20 Interval history: feels well appetite better has been more alert Physical Exam Vital Signs: Vital Signs: Last Vital Signs Temp 98.5 F 09/25/20 08:00 Pulse 83 09/25/20 08:00 Resp 17 09/25/20 08:00 BP 140/92 H 09/25/20 08:00 Pulse Ox 96 09/25/20 08:00 Body Mass Index 23.6 Const: Other: communicative and conversant General: comfortable and no acute distress Resp: Effort & Inspection: normal respiratory effort Cardio: Rate: regular rate GI: Other: soft, nontender, [address] on right side, on bulb suction, small amounts of old blood on bulb Progress Note: A&P Assessment and plan (1) Intra-abdominal hematoma: Problem details: s/p IR drainage 09/17/20 with placement of two drainage catheters. Aspirated blood growing Enterococcus, Clostridium perfringens. On IV zosyn day 8 Status: Acute Assessment and Plan: S/P Ct drainage much improved ok to transfer to [facility] as lalo Perales drain care - bulb suction, empty BID IV abx ertanepem via PICC line looks well dw Angella Fall Risk Details Current Medications: Current Medications Generic Name Dose Route Start Last Admin Trade Name Freq PRN Reason Stop Dose Admin Docusate Sodium 100 mg 09/24/20 09:34 Docusate Sodium 100 Mg Capsule PO BID PRN constipation Heparin Sodium (Porcine) 5,000 unit 09/16/20 21:00 09/25/20 09:09 Heparin Sodium,Porcine 5,000 Unit/Ml Vial SUBCUT 5,000 unit BID CARL Administration Piperacillin Sod/Tazobactam 50 mls @ 100 mls/hr 09/17/20 03:00 09/25/20 09:44 Sod 3.375 gm/ Sodium Chloride IV Infused Q6H CARL Infusion Lisinopril 10 mg 09/19/20 09:00 09/25/20 09:10 Lisinopril 10 Mg Tablet PO 10 mg DAILY CARL Administration Protocol Ondansetron HCl 4 mg 09/16/20 18:27 Ondansetron Hcl 4 Mg/2 Ml Vial IVPUSH Q8H PRN nausea Sodium Chloride 5 ml 09/22/20 15:00 09/24/20 20:37 0.9 % Sodium Chloride Flush 10 Ml Syringe IVFLUSH 5 ml TID CARL Administration Time Spent With Patient Time: Total time spent is greater than 50% in coordination of care (as documented) at patient's floor/unit and/or counseling patient: Time with patient: 15 - 24 minutes
--- NOTE | 2020-09-25 10:30 | MHC.CM.PN ---
CALL TO ANNITA AT [facility] ([phone]) CONFIRMED THAT 13:00 TRANSPORT IS STILL THE PLAN.
--- NOTE | 2020-09-25 11:08 | MHC.INPTTRAN ---
Is very weak, unsteady, poor balance. OOB with 2 assist. Has two drains on r ight side. Draining sm amt bloody drainage. Denies pain. Voiding qs occ incont. Had BM today. Cruz diet, although appetite poor. Has rash on roque buttocks, Barrier cream applied. Vague, forgetful. PICC line right upper arm, flushes easily. Abd soft. Takes pills whole. thanks.
[2020-09-25 11:54] VITALS: BP 115/71; PULSE 78; RESP 18; TEMP 36.3; O2SAT 98
== END 2020-09-25 13:18 | disposition skilled nursing facility (03) | DRG 371 ==
LOC: HO.ED 17:11 → HO.S3 18:52
PROVIDERS: Internal Medicine; Physician Assistant; Physician Assistant Surgical; Surgery; Admitting Provider Surgery; Emergency Provider Emergency Medicine Emergency Medical Services; PCP Family Medicine; Visit Provider Surgery
DX: K65.1 Peritoneal abscess (principal); K82.2 Perforation of gallbladder; J90 Pleural effusion, not elsewhere classified; K21.9 Gastro-esophageal reflux disease without esophagitis; I95.9 Hypotension, unspecified; F03.90 Unspecified dementia, unspecified severity, without behavioral disturbance, psychotic disturbance, mood disturbance, and anxiety; E78.5 Hyperlipidemia, unspecified; E86.0 Dehydration; K81.9 Cholecystitis, unspecified; I10 Essential (primary) hypertension; Z86.16 Personal history of COVID-19; Z20.822 Contact with and (suspected) exposure to COVID-19; Z79.899 Other long term (current) drug therapy
CPT/HCPCS: 36415; 36573; 49406; 71045; 71275; 74177; 80048; 80076; 83605; 83735; 83880; 84145; 84484; 85025; 85027; 85379; 85610; 85730; 86140; 86850; 86900; 86901; 87040; 87071; 87073; 87185; 87205; 87635; 93005; 96365; 96367; 97110; 97112; 97162; 97530; 99285; C1729; C1751; J2543; J3370; J3430; Q9967

== ENCOUNTER → 2020-09-30 15:16 | Outpatient (BNVA) | payer MEDICARE, OTHER, SELFPAY | PROVIDERS: PCP Family Medicine; Visit Provider Surgery | DX: Z13.89 Encounter for screening for other disorder (principal) | CPT/HCPCS: 99212 ==

== ENCOUNTER 2020-10-11 09:42 | Outpatient (REF) | payer MEDICARE, OTHER, SELFPAY ==
--- NOTE | ~2020-10-11 | CT_ITS ---
EXAMINATION: CT ABDOMEN AND PELVIS WITHOUT CONTRAST CLINICAL INFORMATION: Abscess COMPARISON: Previous CT scans most recent 09/20/2020 TECHNIQUE: Multidetector volumetric imaging was performed from the superior aspect of the liver through the pubic symphysis. Sagittal and coronal reformatted images were obtained on the technologist's workstation. This CT examination was performed using dose optimization techniques as appropriate, variously including the following: *Automated exposure control *Adjustment of mA and/or kV according to patient size (this includes techniques or standardized protocols for targeted exams where dose is matched to indication/reason for exam; i.e. extremities or head) *Use of iterative reconstruction technique DLP: 515 mGy-cm FINDINGS: LUNG BASES: There is a moderate right pleural effusion and right middle and right lower lobe atelectasis/consolidation. This appears unchanged. LIVER, GALLBLADDER, AND BILIARY TREE: There is a cutaneous drainage catheter in the gallbladder. The gallbladder is upper normal in size. There is high attenuation seen dependently in the gallbladder questionable for small gallstones. There is a complex fluid collection and small pockets of air subcapsular to the dome of the liver. The previously identified drainage catheter in the subcapsular liver collection is no longer seen. Subcapsular collection is decreased in size now measuring 3.6 x 6.2 x 8 cm in longitudinal transverse and AP dimension, coronal reconstructed image 45 and sagittal reconstructed image 85 compared to approximately 3.5 x 13 x 14 cm on most recent exam 09/20/2020. There is a small 7 mm low-attenuation lesion in the lateral segment of the left lobe of the liver axial image 23 series 3 that is stable and may represent a cyst. No other focal liver lesion is seen. There is no intra or extrahepatic biliary duct dilatation. PANCREAS: Unremarkable. SPLEEN: Unremarkable. ADRENAL GLANDS: Unremarkable. KIDNEYS AND URETERS: There are multiple right renal cortical cysts, largest measuring 6 cm exophytic to the lateral upper to midpole. There are several high attenuation round lesions in the right kidney probably representing hyperdense cysts. There may be a small 1 to 2 mm stone in the midpole. There are multiple left renal peripelvic and cortical cysts. BLADDER: Unremarkable. GASTROINTESTINAL TRACT: There is a radiopaque density in the cecum that is unchanged probably representing a surgical clip. This is similar to previous exams. There is diverticulosis of the colon. No evidence of diverticulitis is seen. The appendix is not identified. ABDOMINAL WALL: There is skin thickening and subcutaneous edema of the right lower chest and right upper quadrant. There is a small amount of ascites adjacent to the liver. LYMPH NODES: Normal. VASCULAR: There is evidence of atherosclerotic disease. No aneurysm is seen. PELVIC VISCERA: Unremarkable. OSSEOUS STRUCTURES: There are degenerative changes of the spine and hip joints. CT/CT abdomen pelvis wo con IMPRESSION: Satisfactory position of cholecystostomy tube in the gallbladder. The gallbladder is upper normal in size. Probable small gallstones. The second drainage catheter in the subcapsular liver collection is no longer seen. There is a residual subcapsular collection adjacent to the dome of the liver under the right hemidiaphragm containing small pockets of air. This measures 3.6 x 6.2 x 8 cm in dimension and is decreased in size from previous exam. Small amount of ascites adjacent to the liver and skin thickening and subcutaneous edema adjacent to the right lateral lower chest and right side of the abdomen. Moderate right pleural effusion and right middle and right lower lobe atelectasis/consolidation similar to previous exams. Multiple bilateral renal cysts. Probable small right renal stone. Diverticulosis of the colon.
== END 2020-10-11 09:43 | disposition home or self-care (01) ==
LOC: HO.CT 09:42
PROVIDERS: Visit Provider Surgery
DX: K65.1 Peritoneal abscess (principal)
CPT/HCPCS: 74176

== ENCOUNTER → 2020-10-26 14:51 | Outpatient (BNVA) | payer MEDICARE, OTHER, SELFPAY | PROVIDERS: PCP Family Medicine; Visit Provider Surgery | DX: S36.9 Injury of unspecified intra-abdominal organ (principal) | CPT/HCPCS: 99212 ==

== ENCOUNTER 2020-11-22 09:42 | Outpatient (REF) | payer MEDICARE, OTHER, SELFPAY ==
--- NOTE | ~2020-11-22 | CT_ITS ---
EXAMINATION: CT ABDOMEN AND PELVIS WITH CONTRAST CLINICAL INFORMATION: Peritoneal abscess. COMPARISON: CT abdomen and pelvis 10/11/2020 TECHNIQUE: Multidetector volumetric images were obtained from the superior aspect of the liver through the pubic symphysis following administration 85 mL of Omnipaque 350 intravenous contrast. Sagittal and coronal reformatted images were obtained on the technologist's workstation. Oral contrast: No. This CT examination was performed using dose optimization techniques as appropriate, variously including the following: *Automated exposure control *Adjustment of mA and/or kV according to patient size (this includes techniques or standardized protocols for targeted exams where dose is matched to indication/reason for exam; i.e. extremities or head) *Use of iterative reconstruction technique DLP: 351 mGy-cm FINDINGS: LUNG BASES: There is a small right pleural effusion decreased since the previous study. There is underlying right lower lobe atelectasis. There is a complex irregular shaped loculated thick-walled fluid collection without gas in right subdiaphragmatic region likely old abscess. It measures 4.9 cm in AP, 5.4 cm wide and 2.3 cm in thickness. LIVER, GALLBLADDER, AND BILIARY TREE: The liver is normal in size, shape, and attenuation. No biliary ductal dilatation is present. Slightly thickened gallbladder wall is noted with slightly echogenic debris. There is minimal perihepatic thick fluid collection or scar. 7 mm low-attenuation lesion left hepatic lobe is stable. PANCREAS: Unremarkable. SPLEEN: Unremarkable. ADRENAL GLANDS: There is a nodular density in the left adrenal gland measuring 1.2 cm, stable. Mild nodularity of the right adrenal gland is noted, as well. KIDNEYS AND URETERS: Both kidneys are normal size, shape and position. There are bilateral cortical and left parapelvic renal cysts. There are noted to be calculi or hydronephrosis. BLADDER: Unremarkable. GASTROINTESTINAL TRACT: There is scattered stool, diverticula and gas seen throughout the colon without any significant distention. The small bowel loops are normal caliber. The appendix is normal caliber. There is no mural thickening involving the colon or any pericolic fat stranding. ABDOMINAL WALL: No significant hernia is appreciated. LYMPH NODES: Normal. VASCULAR: There is aneurysmal dilatation of the distal abdominal aorta measuring 2.4 x 2.4 cm. Mild atherosclerotic calcification of the abdominal aorta and common iliac arteries is noted. PELVIC VISCERA: The prostate gland is mildly enlarged. The periprostatic fat planes are preserved. No abnormal pelvic or inguinal lymph nodes seen. OSSEOUS STRUCTURES: No lytic or sclerotic process seen. There are degenerative disc changes L4-L5 disc level with a superior endplate Schmorl's node L4 vertebra. Moderate ventral spondylosis seen in mid dorsal spine. CT/CT abdomen pelvis w con IMPRESSION: Interval reduction in right subdiaphragmatic abscess. Additional loculated fluid collections in pericapsular location and lateral to the liver have improved. The gallbladder is distended with mild wall thickening. Low attenuation seen in the left lower lobe lateral segment appears stable. Stable left hepatic lesion. Moderate constipation. No obstruction seen. There is diffuse colonic diverticulosis without diverticulitis. Bilateral cortical and left renal parapelvic cysts are stable.
[2020-11-22 11:12] LABS: Blood Urea Nitrogen 14 mg/dL (9-16); Estimated Glomerular Filt Rate > 60
== END 2020-11-22 09:43 | disposition home or self-care (01) ==
LOC: HO.CT 09:42
PROVIDERS: Visit Provider Surgery
DX: K65.1 Peritoneal abscess (principal)
CPT/HCPCS: 36415; 74177; 82565; 84520; Q9967

== ENCOUNTER → 2020-12-16 11:10 | Outpatient (BNVA) | payer MEDICARE, OTHER, SELFPAY | PROVIDERS: PCP Internal Medicine; Visit Provider Surgery | DX: Z48.89 Encounter for other specified surgical aftercare (principal); Z87.898 Personal history of other specified conditions | CPT/HCPCS: 99212 ==

== ENCOUNTER 2020-12-23 08:25 | Outpatient (REF) | payer MEDICARE, OTHER, SELFPAY ==
--- NOTE | 2020-12-23 11:06 | MHC.AU.AHA ---
Adult Audiological Evaluation Date of Visit: 12/23/20 Reason for Appointment: Audiological evaluation to monitor the status of Mr. Isaac's hearing loss. He has a history of bilateral asymmetrical hearing loss and hearing aid use. He denies any significant changes to his hearing or medical history. Previous Hearing Test Results: [facility] – [place], [place], 07/25/2019- Normal sloping to moderately severe sensorineural hearing loss in the right ear. Mild sloping to severe sensorineural hearing loss in the left ear. Ear History: History of Ear Wax Buildup: Yes, both ears History: History: Yes Branch: [employer] Years in : 20+ Years Exposed to noise from firearms, right handed shooter Medical History: Medical History: High Blood Pressure Medication List: Takes medications for blood pressure and cholesterol. Hearing Instrument History- Right Ear: Inspector And Tester: [employer] Model: Yoyi Mediaeo M50-R Serial Number: [id number] Battery Size: Rechargeable Repair Warranty: 01/13/2023 Loss and Damage Warranty: 01/13/2023 Dispensed By: [facility] Date of Fittin10/22/2019 Hearing Instrument History- Left Ear: Inspector And Tester: [employer] Model: Yoyi [employer]eo M50-R Serial Number: [id number] Battery Size: Rechargeable Warranty: 01/13/2023 Loss and Damage Warranty: 01/13/2023 Dispensed By: [facility] Date of Fittin10/22/2019 Otoscopy: Right Ear: Unremarkable Left Ear: Unremarkable Hearing Evaluation: Transducer(s) Used: Insert Earphones, Bone Conduction Method: Conventional Audiometry Stimuli Used: Pure Tones Right Ear: Description of Hearing: Normal hearing at 250 Hz, sloping to a mild to moderately severe sensorineural hearing loss from 500-8000 Hz. Left Ear: Description of Hearing: Mild sloping to severe sensorineural hearing loss from 250-8000 Hz. Hearing is 10-35 dBHL worse in the left ear than the right ear from 750-8000 Hz. Speech Recognition Threshold (SRT): Method Used: Monitored Live Voice Stimuli Used: Spondee Words Right Ear: 30 dBHL Left Ear: 50 dBHL Word Discrimination: Method: Recorded Lists Word Lists Used: NU-6 Right Ear: 92% at 70 dBHL Left Ear: 36% at 85 dBHL, 32% at 90 dBHL Binaural: 100% at 80 dBHL Comparison: Compared to the most recent evaluation: Word discrimination scores have decreased in the left ear. Previous score in the left ear was 60% at 85 dBHL in 2019. Recommendations: Audiological re-evaluation in one year. Hearing aid maintenance performed today. Hearing aid(s) reprogrammed with updated test results. Hearing aid maintenance recommended in six months, or sooner if needed. Diagnosis: Primary Diagnosis: H90.3 Bilateral Sensorineural Hearing Loss Services Performed: Comprehensive Audiological Evaluation (CPT 07376) Signature: Provider: Hayley Quintanilla, CCC-A
== END 2020-12-23 08:26 | disposition home or self-care (01) ==
LOC: HO.SH 08:25
PROVIDERS: Visit Provider Internal Medicine
DX: H90.3 Sensorineural hearing loss, bilateral (principal)
CPT/HCPCS: 92557

== ENCOUNTER → 2021-03-02 14:33 | Outpatient (BNVA) | payer MEDICARE, SELFPAY | PROVIDERS: PCP Internal Medicine; Visit Provider Surgery | DX: Z09 Encounter for follow-up examination after completed treatment for conditions other than malignant neoplasm (principal); Z87.2 Personal history of diseases of the skin and subcutaneous tissue | CPT/HCPCS: 99212 ==

== ENCOUNTER 2021-03-15 14:34 | Inpatient (IN) | payer MEDICARE, OTHER, SELFPAY ==
[2021-03-15] VITALS (7 sets, daily range): BP systolic 142–181; BP diastolic 71–109; PULSE 80–96; RESP 16–20; TEMP 37.4–39.1; O2SAT 95–98; BMI 26.4
--- NOTE | ~2021-03-15 | CT_ITS ---
EXAMINATION: CT ABDOMEN AND PELVIS WITHOUT CONTRAST CLINICAL INFORMATION: Evaluate for intra-abdominal abscess COMPARISON: Previous CT of the abdomen and pelvis most recent November 2020 TECHNIQUE: Multidetector volumetric imaging was performed from the superior aspect of the liver through the pubic symphysis. Sagittal and coronal reformatted images were obtained on the technologist's workstation. This CT examination was performed using dose optimization techniques as appropriate, variously including the following: *Automated exposure control *Adjustment of mA and/or kV according to patient size (this includes techniques or standardized protocols for targeted exams where dose is matched to indication/reason for exam; i.e. extremities or head) *Use of iterative reconstruction technique DLP: 607 mGy-cm FINDINGS: LUNG BASES: There is interval decrease in the small right pleural effusion and right base atelectasis or consolidation. LIVER, GALLBLADDER, AND BILIARY TREE: There is a small amount of fluid seen under the right hemidiaphragm and adjacent to the right lobe of the liver. This is continuous with the gallbladder. This appears decreased in size from November 2020 exam. Gallbladder is normal in size. There is increased attenuation seen dependently in the gallbladder questionable for small gallstones. There is a small 5 mm low-attenuation lesion in the left lobe of the liver probably representing a cyst that is stable. No other focal liver lesion is seen. There is mild intra and extrahepatic biliary duct dilatation. The common bile duct measures 1 cm. dilatation. PANCREAS: Unremarkable. SPLEEN: Unremarkable. ADRENAL GLANDS: There is a small 1 cm low-attenuation left adrenal nodule that is stable. The right adrenal gland is unremarkable. KIDNEYS AND URETERS: There are multiple bilateral renal cysts that are stable. Largest cyst measures 5 x 8.5 cm in the posterior upper pole of the right kidney. BLADDER: Unremarkable. GASTROINTESTINAL TRACT: There is diverticulosis of the colon. No evidence of diverticulitis is seen. The small and large bowel is otherwise unremarkable. The appendix is not identified with certainty. No inflammatory changes are seen in the right lower quadrant. The stomach is not optimally distended. ABDOMINAL WALL: No significant hernia is appreciated. LYMPH NODES: Normal. VASCULAR: There is evidence of atherosclerotic disease. No aneurysm is seen. PELVIC VISCERA: Unremarkable. OSSEOUS STRUCTURES: There are degenerative changes of the spine at the hip joints. CT/CT abdomen pelvis wo con IMPRESSION: Small amount of fluid under the right hemidiaphragm and adjacent to the right lobe of the liver. This is decreased in size from November 2020 exam. This is continuous with the gallbladder. There is increased attenuation in the gallbladder questionable for small gallstones. There is mild intra and extrahepatic biliary duct dilatation. Multiple bilateral renal cysts. Diverticulosis of the colon. Interval decrease in right pleural effusion and right base atelectasis or consolidation from November 2020 exam.
--- NOTE | ~2021-03-15 | XR_ITS ---
EXAMINATION: XR CHEST CLINICAL INFORMATION: Altered mental status COMPARISON: None TECHNIQUE: Frontal view of the chest was obtained. FINDINGS: The lungs are hypoexpanded but clear. The heart size and pulmonary vascularity is normal. No gross bony abnormality seen. XR/XR chest 1V IMPRESSION: Hyperexpanded lungs without acute process.
--- NOTE | ~2021-03-15 | US_ITS ---
EXAMINATION: US ABDOMEN LIMITED CLINICAL INFORMATION: Fever and elevated LFTs. Evaluate for acute cholecystitis.. COMPARISON: CT abdomen pelvis earlier today and abdominal ultrasound May 13, 2019 TECHNIQUE: Real-time imaging of the gallbladder. Today's examination is limited secondary to patient noncompliance. FINDINGS: The gallbladder is suboptimally visualized. The gallbladder appears relatively decompressed. Echogenic bile and gallstones are suspected within the gallbladder. There is no definitive gallbladder wall thickening. US/US abdomen limited IMPRESSION: Extremely limited examination demonstrating a relatively decompressed gallbladder with echogenic bile and gallstones. No definitive ultrasound evidence to suggest acute cholecystitis. Clinical correlation is recommended. If there is a high clinical suspicion for acute cholecystitis, HIDA imaging may be warranted.
--- NOTE | ~2021-03-15 | CT_ITS ---
EXAMINATION: CT HEAD WITHOUT CONTRAST CLINICAL INFORMATION: Mental status change COMPARISON: Previous head CT most recent April 2019 TECHNIQUE: Contiguous axial imaging was performed from the skull base to vertex without intravenous administration of contrast. This CT examination was performed using dose optimization techniques as appropriate, variously including the following: *Automated exposure control *Adjustment of mA and/or kV according to patient size (this includes techniques or standardized protocols for targeted exams where dose is matched to indication/reason for exam; i.e. extremities or head) *Use of iterative reconstruction technique DLP: 7 7 mGy-cm FINDINGS: There is no evidence of an extra-axial collection. There is no evidence of intra-axial or extra-axial hemorrhage. There is age-appropriate prominence of the ventricles and extra-axial CSF spaces. There is mild periventricular white matter disease. No mass, mass effect or infarct is seen. There is evidence of atherosclerotic disease. There is mild ectasia of the basilar artery measuring 6 mm. This is similar to previous exams. Review of bone windows is normal. Paranasal sinuses, mastoid air cells and middle ears are clear. CT/CT head/brain wo con IMPRESSION: No acute findings.
--- NOTE | ~2021-03-15 | FL_ITS ---
EXAMINATION: XR FLUOROSCOPY WITH IMAGES CLINICAL INFORMATION: History of perforated gallbladder and right upper quadrant abscess COMPARISON: Previous CT and ultrasound of the abdomen most recent from yesterday TECHNIQUE: Fluoroscopy performed by Dr. Silvestre Fluoroscopy time: 2.4 minutes DAP: 1.6 mGycm2 Images: 15 FINDINGS: There is mild dilatation of the intra and extrahepatic bile ducts. On early images there several small filling defect questionable for air bubbles versus small common bile duct stones. This is not appreciated on later images. Middle images demonstrate wire in the common bile duct, common hepatic duct and intrahepatic bile ducts and balloon. Later images demonstrate decreased dilatation of the intra and extrahepatic bile ducts. FL/FL guidance in OR IMPRESSION: Fluoroscopy guidance for ERCP.
--- NOTE | 2021-03-15 14:53 | ECG_ITS ---
Test Reason : WEAKNESS Blood Pressure : / mmHG Vent. Rate : 088 BPM Atrial Rate : 088 BPM P-R Int : 154 ms QRS Dur : 094 ms QT Int : 364 ms P-R-T Axes : 032 012 005 degrees QTc Int : 440 ms Normal sinus rhythm Nonspecific ST abnormality Abnormal ECG When compared with ECG of 16-SEP-2020 13:12, Nonspecific T wave abnormality, worse in Anterior leads Referred By: Mona Ramachandran Electronically Signed By:Juaquin Martinez
--- NOTE | 2021-03-15 15:10 | ED.WEAKNESS ---
HPI - Weakness General Chief complaint: Weakness Stated complaint: WEAK AND CONFUSED Time Seen by Provider: 03/15/21 14:52 Source: patient, EMS and old records reviewed Mode of arrival: EMS Limitations: no limitations History of Present Illness HPI Narrative: 80-year-old male history of dementia noted by his to be weaker and more confused than his baseline. Patient had a recent (six months ago) hospitalization for intra-abdominal abscesses secondary to rupture gallbladder and cholecystitis. Patient was seen by surgery for follow-up 2 weeks ago seemed like patient was doing very well on outpatient antibiotic via PICC line. Patient was recently discharged from a skilled nursing back home, noticed by his patient is weaker and more confused, with unsteady gait, and patient also was vomiting yesterday. Patient emergency department is oriented to place, time, person, and event. And decline any symptoms. Related Data Home Medications Medication Instructions Recorded Confirmed lisinopril 20 mg PO DAILY 08/20/20 03/02/21 simvastatin 40 mg PO BEDTIME 08/20/20 03/02/21 acetaminophen 325 mg capsule 650 mg PO Q6H PRN 09/30/20 03/02/21 bisacodyl 10 mg rectal suppository 10 mg MT DAILY PRN 09/30/20 03/02/21 ertapenem 1 gram solution for 1 g IM DAILY 09/30/20 03/02/21 injection magnesium hydroxide 400 mg/5 mL 1,200 mg PO DAILY PRN ml 09/30/20 03/02/21 oral suspension Previous Rx's Medication Instructions Recorded ertapenem [Invanz] 1 g IV DAILY 20 Days #1 ea 09/24/20 Allergies Allergy/AdvReac Type Severity Reaction Status Date / Time No Known Allergies Allergy Verified 03/02/21 14:51 Review of Systems Review of Systems: All other systems are reviewed and are negative Constitutional: Reports as per HPI and Reports no additional constitutional complaints Eyes: Reports as per HPI and Reports no additional eye complaints Reports system reviewed and no additional complaints, except as documented Cardiovascular: Reports as per HPI and Reports no additional cardiovascular complaints Respiratory: Reports as per HPI and Reports no additional respiratory complaints Gastrointestinal: Reports as per HPI and Reports no additional gastrointestinal complaints Genitourinary: Reports no additional female genitourinary complaints Musculoskeletal: Reports no additional musculoskeletal complaints Skin/Breast: Reports system reviewed and no additional complaints, except as docu Psychiatric: Reports no additional psychiatric complaints Endocrine: Reports no additional endocrine complaints Hematologic/Lymphatic: Reports no additional hematologic/lymphatic complaints Allergic/Immunologic: Reports no additional allergic/immunologic complaints Reports system reviewed and no additional complaints, except as documented and Reports Abnormal speech present [facility] Past Medical History Medical History COVID-19 Dementia GERD (gastroesophageal reflux disease) HLD (hyperlipidemia) HTN (hypertension) Intra-abdominal hematoma SBO (small bowel obstruction) Surgical History H/O colectomy History of ankle surgery History of appendectomy History of colonoscopy History of surgery on wrist Family History Family History Father History of stomach cancer Social History Social History Household Members: Spouse Housing: House Alcohol intake: never Advance Directives: No Advance Directives Information Provided: No Advance Directives Date on File: 09/16/20 service: Yes Current occupational status: retired Physical Exam Vital Signs: Vital Signs: Last Vital Signs Temp 102.4 F H 03/15/21 18:43 Pulse 93 03/15/21 18:00 Resp 20 03/15/21 18:00 BP 173/75 H 03/15/21 18:00 Pulse Ox 97 03/15/21 18:00 Body Mass Index 26.4 Vital signs have been reviewed as appeared to be correct. Blood pressure elevated. Heart rate normal. Respiration rate normal. Temperature normal. Oxygen saturation normal. Appearance: Alert. Oriented X3. No acute distress. Head: Normal external exam. Normocephalic. Atraumatic. No Walters signs noted. No raccoon eyes noted Eyes: PERRLA. EOMI. Conjunctiva and sclera normal. Eyelids normal. ENT: TM's Normal. Pharynx normal. Uvula midline. Moist mucous membranes. No trismus noted. No drooling noted. No muffled voice noted. Neck: Normal inspection. Neck supple. FROM. No adenopathy. Thyroid Normal. No meningeal signs. No neck mass noted. CVS: Normal heart rate and rhythm. Heart sound normal. No murmurs noted. Pulses normal throughout. Respiratory: No respiratory distress. Painless inspiration. Breath sounds normal. No wheezes/rales/rhonchi noted. Chest nontender. No accessory muscle usage noted or decreased air movement noted. Abdomen: Soft and nontender. Bowel sounds normal in all 4 quadrants. No distention noted. No organomegaly noted. No visible injury noted. Back: No CVA tenderness. Full range of motion noted. Skin: Skin warm and dry. Normal skin color. Normal skin turgor. No rashes/lesions/lacerations noted. Extremities: No lower extremity edema. Extremities exhibit normal range of motion. Extremities nontender. Neuro: Oriented X 3. No motor deficit. No sensory deficit. Course Course Course Narrative: Assessment and plan. [age] male history of dementia, patient had a recent hospitalization for treating and draining intra-abdominal abscess likely secondary to gallbladder rupture, recently evaluated by surgery, patient was discharged from skilled nursing recently to home was concerned because patient had confusion and generalized weakness. And patient was vomiting yesterday. Patient had extensive workup in the emergency room to rule out underlying cause of patient's symptoms, to ambulate in the emergency department, patient is awake oriented to time, person, place, event. Patient symptoms probably part of patient known history of dementia. Reevaluation(s) Reevaluation #1: Patient exam is still the same, patient has low-grade fever of 100.3 than 102.4. Attempt to ambulate the patient patient appear unbalanced and incoherent, Will consider abdominal ultrasound rule out acute cholecystitis. Repeat abdominal exam showed soft abdomen, no tenderness, no guarding, no rebound tenderness. The case discussed with Dr. Felix from surgery who recommended to admit the patient to medicine for further evaluation of acute cholangitis. Will cover the patient with Zosyn. Dr Mascorro was consulted, patient needs to be admitted for MRCP in the morning by Dr. Silvestre.. Time: 20:22 [facility] - Weakness Lab Data Attestation: I reviewed the patient's lab results. Result diagrams: 03/15/21 16:19 03/15/21 16:19 Labs: Lab Results 03/15/21 03/15/21 03/15/21 Range/Units 16:19 16:19 16:19 WBC 9.8 (4.8-10.8) X10*3/uL RBC 5.29 D (4.60-5.80) X10*6/uL Hgb 14.5 D (14.0-18.0) g/dl Hct 43.9 D (42-52) % MCV 83.0 (80-98) fL MCH 27.4 (27.0-33.0) pg MCHC 33.0 (31.0-36.0) g/dl RDW 14.4 (11.0-16.0) % Plt Count 160 D (160-400) X10*3/uL MPV 9.2 L (9.4-12.4) fL Immature Gran % (Auto) 0.5 H (0.0-0.4) % Neut % (Auto) 89.6 H (45-73) % Lymph % (Auto) 3.0 L (20-40) % [place] % (Auto) 6.3 (2-11) % Eos % (Auto) 0.3 (0-4) % Baso % (Auto) 0.3 (0-2) % Lymph # (Auto) 0.3 L (1.2-4.9) X10*3/uL [place] # (Auto) 0.6 (0.1-1.2) X10*3/uL Eos # (Auto) 0.0 (0.0-0.4) X10*3/uL Baso # (Auto) 0.0 (0.0-0.2) X10*3/uL Abs Immat Gran (auto) 0.05 H (0.00-0.03) X10*3/uL Absolute Neuts (auto) 8.8 H (2.0-8.3) X10*3/uL Absolute Nucleated RBC 0.000 (0.0-0.012) X10*3/uL Nucleated RBC % (auto) 0.0 (0.0-0.2) /100WBC Sodium 141 (135-145) mmol/L Potassium 4.3 (3.3-5.1) mmol/L Chloride 104 (96-108) mmol/L Carbon Dioxide 24 (22-29) mmol/L Anion Gap 17 (12-20) BUN 16 (9-16) mg/dL Creatinine 1.12 (0.5-1.4) mg/dL Estim Creat Clear Calc 47.5 Estimated GFR > 60 Random Glucose 128 H (60-115) mg/dL Lactic Acid (0.5-2.0) mmol/L Calcium 9.4 D (8.4-10.2) mg/dL Total Bilirubin 4.5 H (0.0-1.0) mg/dL Direct Bilirubin 3.2 H (0.0-0.5) mg/dL AST 443 H (5-37) U/L ALT 477 H (0-40) U/L Alkaline Phosphatase 127 H D (39-117) U/L Ammonia (13-55) umol/L Troponin I High Sens 4.7 (<3.5-35.0) ng/L B-Natriuretic Peptide 82 (<100) pg/mL Total Protein 7.5 D (6.5-8.0) g/dL Albumin 4.4 D (3.5-5.0) g/dL Lipase 70 (8-78) U/L Urine Color Urine Appearance Urine pH (5.0-8.0) Ur Specific [place] (1.005-1.025) Urine Protein (NEG-TRACE) MG/DL Urine Glucose (UA) (NEG) MG/DL Urine Ketones (NEG) MG/DL Urine Blood (NEG) Urine Nitrite (NEG) Ur Leukocyte Esterase (NEG) Urine RBC (0) /HPF Urine WBC (0-4) /HPF Ur Squamous Epith Cells /LPF Urine Bacteria /LPF COVID-19 (ARCHIE) (Negative) COVID-19 Clin Com 03/15/21 03/15/21 03/15/21 Range/Units 16:20 16:21 16:46 WBC (4.8-10.8) X10*3/uL RBC (4.60-5.80) X10*6/uL Hgb (14.0-18.0) g/dl Hct (42-52) % MCV (80-98) fL MCH (27.0-33.0) pg MCHC (31.0-36.0) g/dl RDW (11.0-16.0) % Plt Count (160-400) X10*3/uL MPV (9.4-12.4) fL Immature Gran % (Auto) (0.0-0.4) % Neut % (Auto) (45-73) % Lymph % (Auto) (20-40) % [place] % (Auto) (2-11) % Eos % (Auto) (0-4) % Baso % (Auto) (0-2) % Lymph # (Auto) (1.2-4.9) X10*3/uL [place] # (Auto) (0.1-1.2) X10*3/uL Eos # (Auto) (0.0-0.4) X10*3/uL Baso # (Auto) (0.0-0.2) X10*3/uL Abs Immat Gran (auto) (0.00-0.03) X10*3/uL Absolute Neuts (auto) (2.0-8.3) X10*3/uL Absolute Nucleated RBC (0.0-0.012) X10*3/uL Nucleated RBC % (auto) (0.0-0.2) /100WBC Sodium (135-145) mmol/L Potassium (3.3-5.1) mmol/L Chloride (96-108) mmol/L Carbon Dioxide (22-29) mmol/L Anion Gap (12-20) BUN (9-16) mg/dL Creatinine (0.5-1.4) mg/dL Estim Creat Clear Calc Estimated GFR Random Glucose (60-115) mg/dL Lactic Acid 1.7 (0.5-2.0) mmol/L Calcium (8.4-10.2) mg/dL Total Bilirubin (0.0-1.0) mg/dL Direct Bilirubin (0.0-0.5) mg/dL AST (5-37) U/L ALT (0-40) U/L Alkaline Phosphatase (39-117) U/L Ammonia (13-55) umol/L Troponin I High Sens (<3.5-35.0) ng/L B-Natriuretic Peptide (<100) pg/mL Total Protein (6.5-8.0) g/dL Albumin (3.5-5.0) g/dL Lipase (8-78) U/L Urine Color YELLOW Urine Appearance CLEAR Urine pH 8.0 (5.0-8.0) Ur Specific [place] 1.010 (1.005-1.025) Urine Protein TRACE (NEG-TRACE) MG/DL Urine Glucose (UA) NEG (NEG) MG/DL Urine Ketones NEG (NEG) MG/DL Urine Blood 1+ H (NEG) Urine Nitrite NEG (NEG) Ur Leukocyte Esterase NEG (NEG) Urine RBC 5-9 H (0) /HPF Urine WBC 0 (0-4) /HPF Ur Squamous Epith Cells NONE /LPF Urine Bacteria TRACE /LPF COVID-19 (ARCHIE) Negative (Negative) COVID-19 Clin Com See Note 03/15/21 Range/Units 18:30 WBC (4.8-10.8) X10*3/uL RBC (4.60-5.80) X10*6/uL Hgb (14.0-18.0) g/dl Hct (42-52) % MCV (80-98) fL MCH (27.0-33.0) pg MCHC (31.0-36.0) g/dl RDW (11.0-16.0) % Plt Count (160-400) X10*3/uL MPV (9.4-12.4) fL Immature Gran % (Auto) (0.0-0.4) % Neut % (Auto) (45-73) % Lymph % (Auto) (20-40) % [place] % (Auto) (2-11) % Eos % (Auto) (0-4) % Baso % (Auto) (0-2) % Lymph # (Auto) (1.2-4.9) X10*3/uL [place] # (Auto) (0.1-1.2) X10*3/uL Eos # (Auto) (0.0-0.4) X10*3/uL Baso # (Auto) (0.0-0.2) X10*3/uL Abs Immat Gran (auto) (0.00-0.03) X10*3/uL Absolute Neuts (auto) (2.0-8.3) X10*3/uL Absolute Nucleated RBC (0.0-0.012) X10*3/uL Nucleated RBC % (auto) (0.0-0.2) /100WBC Sodium (135-145) mmol/L Potassium (3.3-5.1) mmol/L Chloride (96-108) mmol/L Carbon Dioxide (22-29) mmol/L Anion Gap (12-20) BUN (9-16) mg/dL Creatinine (0.5-1.4) mg/dL Estim Creat Clear Calc Estimated GFR Random Glucose (60-115) mg/dL Lactic Acid (0.5-2.0) mmol/L Calcium (8.4-10.2) mg/dL Total Bilirubin (0.0-1.0) mg/dL Direct Bilirubin (0.0-0.5) mg/dL AST (5-37) U/L ALT (0-40) U/L Alkaline Phosphatase (39-117) U/L Ammonia 33 (13-55) umol/L Troponin I High Sens (<3.5-35.0) ng/L B-Natriuretic Peptide (<100) pg/mL Total Protein (6.5-8.0) g/dL Albumin (3.5-5.0) g/dL Lipase (8-78) U/L Urine Color Urine Appearance Urine pH (5.0-8.0) Ur Specific [place] (1.005-1.025) Urine Protein (NEG-TRACE) MG/DL Urine Glucose (UA) (NEG) MG/DL Urine Ketones (NEG) MG/DL Urine Blood (NEG) Urine Nitrite (NEG) Ur Leukocyte Esterase (NEG) Urine RBC (0) /HPF Urine WBC (0-4) /HPF Ur Squamous Epith Cells /LPF Urine Bacteria /LPF COVID-19 (ARCHIE) (Negative) COVID-19 Clin Com Imaging Data Chest x-ray: Radiologist's impression: Hyperexpanded lungs without acute process. CT scan - head: Radiologist's impression: No acute finding. Abdominal ultrasound: Radiologist's impression: Extremely limited examination demonstrating a relatively decompressed gallbladder with echogenic bile and gallstones. No definitive ultrasound evidence to suggest acute cholecystitis. Clinical correlation is recommended. If there is a high clinical suspicion for acute cholecystitis, HIDA imaging may be warranted. Discharge Plan Discharge Clinical Impression: Acute cholangitis Patient Disposition: Admitted As Inpatient
[2021-03-15] MEDS: lisinopriL 40 MG TABLET PO (15:56)
[2021-03-15] MEDS: 0.9 % Sodium Chloride 1,000 ML 500 ML IVCONT (16:00)
[2021-03-15 16:26] LABS: MANUAL DIFF FLAG NO
[2021-03-15 16:31] LABS: Basophils Percent Auto 0.3 % (0-2); Eosinophils Percent Auto 0.3 % (0-4); Hematocrit 43.9 % (42-52); Hemoglobin 14.5 g/dl (14.0-18.0); Imm Gran Abs Auto 0.05 X10*3/uL (0.00-0.03); Imm Gran Pct Auto 0.5 % (0.0-0.4); Lymphocytes Absolute Auto 0.3 X10*3/uL (1.2-4.9); Mean Corpuscular Hemoglobin 27.4 pg (27.0-33.0); Mean Platelet Volume 9.2 fL (9.4-12.4); Monocytes Absolute Auto 0.6 X10*3/uL (0.1-1.2); Monocytes Percent Auto 6.3 % (2-11); Neutrophils Absolute Auto 8.8 X10*3/uL (2.0-8.3); Neutrophils Percent Auto 89.6 % (45-73); Platelet Count 160 X10*3/uL (160-400); Red Blood Count 5.29 X10*6/uL (4.60-5.80); Red Cell Distribution Width 14.4 % (11.0-16.0); White Blood Count 9.8 X10*3/uL (4.8-10.8)
--- NOTE | 2021-03-15 16:34 | PC.NURSE ---
PATIENT CAME IN INCONTINENT OF URINE ,PATIENT WAS CLEAN UP AND CHANGE INTO HOSPITAL ATTIRE .
[2021-03-15 16:41] LABS: COVID-19 Test Negative (Negative); IDNOW Serial# 9DD0AD1C
[2021-03-15 16:55] LABS: Glucose Urine UA NEG (NEG); Leukocyte Esterase Urine NEG (NEG); Nitrite Urine NEG (NEG); Urine Blood 1+ (NEG); Urine Ketones NEG (NEG); Urine Protein TRACE MG/DL (NEG-TRACE)
[2021-03-15 16:56] LABS: Appearance Urine CLEAR; Color Urine YELLOW
[2021-03-15 16:56] LABS: Lactic Acid 1.7 mmol/L (0.5-2.0)
[2021-03-15 17:03] LABS: B Type Natriuretic Peptide 82 pg/mL (<100); Troponin-I High Sensitivity 4.7 ng/L (<3.5-35.0)
[2021-03-15 17:09] LABS: Alanine Aminotransferase 477 U/L (0-40); Albumin Level 4.4 g/dL (3.5-5.0); Alkaline Phosphatase 127 U/L (39-117); Anion Gap 17 (12-20); Aspartate Amino Transferase 443 U/L (5-37); Bilirubin Direct 3.2 mg/dL (0.0-0.5); Bilirubin Total 4.5 mg/dL (0.0-1.0); Blood Urea Nitrogen 16 mg/dL (9-16); Calcium 9.4 mg/dL (8.4-10.2); Carbon Dioxide 24 mmol/L (22-29); Chloride 104 mmol/L (96-108); Creatinine Clr Calc Pharmacy 47.5; Estimated Glomerular Filt Rate > 60; Glucose Random 128 mg/dL (60-115); Lipase 70 U/L (8-78); Potassium 4.3 mmol/L (3.3-5.1); Sodium 141 mmol/L (135-145); Total Protein 7.5 g/dL (6.5-8.0)
[2021-03-15 17:12] LABS: Bacteria Urine TRACE /LPF; WBC Urine 0 /HPF (0-4)
--- NOTE | 2021-03-15 18:33 | PC.NURSE ---
Spoke with for update at this time. Plan is to ambulate the patient and assess his mobility at this time. Ammonia level pending.
--- NOTE | 2021-03-15 18:41 | PC.NURSE ---
Pt unable to ambulate appropriately with a walker. He was unable to follow commands appropriately trying to sit with no bed/chair behind him at times. He was responsive to some redirection but was only able to ambulate a few feet with an unsable gait. MD aware of fever.
[2021-03-15 18:49] LABS: Ammonia 33 umol/L (13-55)
--- NOTE | 2021-03-15 19:02 | PC.NURSE ---
PT RESTING IN STRETCHER WAKES TO VOICE AND DENIES ANY COMPLAINTS STATING I FEEL TIRED . VS OBTAINED. RESPIRATIONS EASY, N/L. SKIN W/D. PT IN NAD. U/S AT BEDSIDE FOR EVAL. WILL CONTINUE TO MONITOR PT
[2021-03-15] MEDS: Acetaminophen 325 MG TABLET 650 MG PO (19:07)
--- NOTE | 2021-03-15 19:07 | PC.NURSE ---
PT MEDICATED FOR HIP PAIN RATING PAIN 5/10.
[2021-03-15] MEDS: Piperacillin Sodium/Tazobactam 3.375 GM in 0.9 % Sodium Chloride 50 ML IV (20:38)
--- NOTE | 2021-03-15 22:28 | P.HPHOSP_ITS ---
History of Present Illness Date of Service: 03/15/21 Chief Complaint: Weakness This is an 80-year-old male with past medical history of GERD, HTN, HLD, COVID pneumonia in August, history of peritoneal abscess in September status post drainage, who presents to the hospital with weakness. Patient is oriented to se lf and place but not to time, very hesitant with history, although cooperative he is not really providing much history. Therefore history is obtained mostly from his over the phone. She reports the patient was very nauseous and had multiple episode of vomiting yesterday, then woke up feeling very weak, and progressively became more and more weak over the course of the day to the point where he could not even get up from the floor. Patient reported abdominal discomfort to her but to me patient denies any abdominal pain. I am unable to complete review of system is patient is not really answering questions appropriately. On arrival to the ED patient hemodynamically stable with vitals showing temp of 99.4? that increased to 102.4 in the ED, other vitals within normal range For normal WBC count, elevated bilirubin of 4.5, direct 3.2, AST of 443, ALT of 477, alk-phos of 127, UA positive for urine blood and RBC Chest x-ray showed hyperexpanded lungs without acute process Head CT showed no acute findings pathology Abdominal CT shows small amount of fluid under the right hemidiaphragm adjacent to the right lobe of the liver which is decreased from November 2020, increased attenuation in the gallbladder suggestive of small gallstone, mild intra and extrahepatic biliary duct dilatation, interval decrease in the right pleural effusion and right base atelectasis. Abdominal ultrasound shows extremely limited exam demonstrating a relatively decompressed gallbladder with echogenic bile and gallstones. No definitive ultrasound evidence of acute, GI is consulted, recommended admission for MRCP and treatment for cholangitis. Past medical history per EMR as patient unable to provide Review of Systems Review of Systems: Yes all other systems are reviewed and are negative [facility] Medical History COVID-19 Dementia GERD (gastroesophageal reflux disease) HLD (hyperlipidemia) HTN (hypertension) Intra-abdominal hematoma SBO (small bowel obstruction) Family History Father History of stomach cancer Surgical History H/O colectomy History of ankle surgery History of appendectomy History of colonoscopy History of surgery on wrist Social History Household Members: Spouse Housing: House Alcohol intake: never Advance Directives: No Advance Directives Information Provided: No Advance Directives Date on File: 09/16/20 service: Yes Current occupational status: retired Meds Allergies Allergy/AdvReac Type Severity Reaction Status Date / Time No Known Allergies Allergy Verified 03/02/21 14:51 Active Medications: Current Medications Generic Name Dose Route Start Last Admin Trade Name Freq PRN Reason Stop Dose Admin Pharmacy Consult 1 each 03/15/21 14:52 Consult Rx Perform Med Rec MISCELLANE ONCE PRN Consult order Home Medications Medication Instructions Recorded Confirmed Last Taken Type lisinopril 20 mg PO DAILY 08/20/20 03/15/21 Unknown History simvastatin 40 mg PO BEDTIME 08/20/20 03/15/21 Unknown History acetaminophen 325 mg capsule 650 mg PO Q6H PRN 09/30/20 03/15/21 Unknown History Physical Exam Vital Signs and Narrative: Vital Signs: Last Vital Signs Temp 100.3 F 03/15/21 20:39 Pulse 93 03/15/21 18:00 Resp 16 03/15/21 20:39 BP 157/85 H 03/15/21 20:39 Pulse Ox 98 03/15/21 20:39 Body Mass Index 26.4 Const: Other: Awake, alert, confused General: cooperative and no acute distress Eyes: General: appearance normal, both eyes and all related structures Resp: Effort & Inspection: normal respiratory effort Auscultation: clear to auscultation bilaterally Cardio: Rate: regular rate Rhythm: regular rhythm GI: Other: No abdominal tenderness guarding or rebound Palpation (GI): Soft to palpation Auscultation: normal bowel sounds Skin: General skin exam: no rashes or lesions noted Neuro: Cognition (Neuro): normal cognition Extrem: General: Yes normal to inspection and Yes no pedal edema Results Labs CBC and Chem 7: 03/15/21 16:19 03/15/21 16:19 Labs: Laboratory Results - last 24 hr 03/15/21 03/15/21 03/15/21 16:19 16:19 16:19 MCV 83.0 MCH 27.4 MCHC 33.0 RDW 14.4 Plt Count 160 D MPV 9.2 L Immature Gran % (Auto) 0.5 H Neut % (Auto) 89.6 H Lymph % (Auto) 3.0 L [place] % (Auto) 6.3 Eos % (Auto) 0.3 Baso % (Auto) 0.3 Lymph # (Auto) 0.3 L [place] # (Auto) 0.6 Eos # (Auto) 0.0 Baso # (Auto) 0.0 Abs Immat Gran (auto) 0.05 H Absolute Neuts (auto) 8.8 H Absolute Nucleated RBC 0.000 Nucleated RBC % (auto) 0.0 Anion Gap 17 Estim Creat Clear Calc 47.5 Estimated GFR > 60 Random Glucose 128 H Lactic Acid Calcium 9.4 D Total Bilirubin 4.5 H Direct Bilirubin 3.2 H AST 443 H ALT 477 H Alkaline Phosphatase 127 H D Ammonia Troponin I High Sens 4.7 B-Natriuretic Peptide 82 Total Protein 7.5 D Albumin 4.4 D Lipase 70 Urine Color Urine Appearance Urine pH Ur Specific [place] Urine Protein Urine Glucose (UA) Urine Ketones Urine Blood Urine Nitrite Ur Leukocyte Esterase Urine RBC Urine WBC Ur Squamous Epith Cells Urine Bacteria COVID-19 (ARCHIE) COVID-19 Clin Com 03/15/21 03/15/21 03/15/21 16:20 16:21 16:46 MCV MCH MCHC RDW Plt Count MPV Immature Gran % (Auto) Neut % (Auto) Lymph % (Auto) [place] % (Auto) Eos % (Auto) Baso % (Auto) Lymph # (Auto) [place] # (Auto) Eos # (Auto) Baso # (Auto) Abs Immat Gran (auto) Absolute Neuts (auto) Absolute Nucleated RBC Nucleated RBC % (auto) Anion Gap Estim Creat Clear Calc Estimated GFR Random Glucose Lactic Acid 1.7 Calcium Total Bilirubin Direct Bilirubin AST ALT Alkaline Phosphatase Ammonia Troponin I High Sens B-Natriuretic Peptide Total Protein Albumin Lipase Urine Color YELLOW Urine Appearance CLEAR Urine pH 8.0 Ur Specific [place] 1.010 Urine Protein TRACE Urine Glucose (UA) NEG Urine Ketones NEG Urine Blood 1+ H Urine Nitrite NEG Ur Leukocyte Esterase NEG Urine RBC 5-9 H Urine WBC 0 Ur Squamous Epith Cells NONE Urine Bacteria TRACE COVID-19 (ARCHIE) Negative COVID-19 Clin Com See Note 03/15/21 18:30 MCV MCH MCHC RDW Plt Count MPV Immature Gran % (Auto) Neut % (Auto) Lymph % (Auto) [place] % (Auto) Eos % (Auto) Baso % (Auto) Lymph # (Auto) [place] # (Auto) Eos # (Auto) Baso # (Auto) Abs Immat Gran (auto) Absolute Neuts (auto) Absolute Nucleated RBC Nucleated RBC % (auto) Anion Gap Estim Creat Clear Calc Estimated GFR Random Glucose Lactic Acid Calcium Total Bilirubin Direct Bilirubin AST ALT Alkaline Phosphatase Ammonia 33 Troponin I High Sens B-Natriuretic Peptide Total Protein Albumin Lipase Urine Color Urine Appearance Urine pH Ur Specific [place] Urine Protein Urine Glucose (UA) Urine Ketones Urine Blood Urine Nitrite Ur Leukocyte Esterase Urine RBC Urine WBC Ur Squamous Epith Cells Urine Bacteria COVID-19 (ARCHIE) COVID-19 Clin Com Imaging Radiologist's Impressions: Impressions Chest X-Ray 03/15/21 14:52 IMPRESSION: Hyperexpanded lungs without acute process. Head CT 03/15/21 14:53 IMPRESSION: No acute findings. Abdomen/Pelvis CT 03/15/21 14:59 IMPRESSION: Small amount of fluid under the right hemidiaphragm and adjacent to the right lobe of the liver. This is decreased in size from November 2020 exam. This is continuous with the gallbladder. There is increased attenuation in the gallbladder questionable for small gallstones. There is mild intra and extrahepatic biliary duct dilatation. Multiple bilateral renal cysts. Diverticulosis of the colon. Interval decrease in right pleural effusion and right base atelectasis or consolidation from November 2020 exam. Abdomen Ultrasound 03/15/21 18:43 IMPRESSION: Extremely limited examination demonstrating a relatively decompressed gallbladder with echogenic bile and gallstones. No definitive ultrasound evidence to suggest acute cholecystitis. Clinical correlation is recommended. If there is a high clinical suspicion for acute cholecystitis, HIDA imaging may be warranted. Assessment and Plan (1) Acute cholangitis: Status: Acute (2) Encephalopathy: Status: Acute (3) Jaundice: Status: Acute This is an 80-year-old male with past medical history of peritoneal hematoma/intra-abdominal abscess status post drainage, hypertension, who presents to the hospital with increased weakness, and vomiting the day prior. Found to have elevated LFTs, patient will be admitted for acute cholangitis # acute cholangitis - patient jaundice, febrile, has elevated LFTs as well as bilirubin - abdominal CT and ultrasound did not show significant abnormality, , please see reports above - GI was consulted recommended MRCP in a.m. - will start patient on Zosyn - blood cultures collected will follow - will keep NPO # encephalopathy - most likely secondary to above - CT head negative for acute intracranial pathology - unable to conduct neurological exam is patient is not following commands - if continues to be encephalopathic, post management of cholangitis, consider MRI # jaundice - secondary to hyperbilirubinemia in the setting of acute cholangitis - MRCP in a.m. # hypertension - elevated - continue home lisinopril # hyperlipidemia - continue simvastatin DVT prophylaxis: SCDs for possible intervention ( ERCP?) Code status: Spoke to , patient's reports patient would want have DNR DNI Quality Stroke Does the patient have a stroke diagnosis?: No VTE Prior VTE?: No VTE Risk Level:: Medical - moderate - high VTE Device Contraindication: N/A - Device Ordered VTE Drug Contraindication: Treatment Not Indicated
--- NOTE | 2021-03-15 22:28 | PC.NURSE ---
PATIENT WAS INCONTINENT MULTIPLE TIMES OF URINE ,PATIENT RECEIVED [facility] EACH TIMES AND WAS REPOSITION.PATIENT IS RESTING COMFORTABLE IN BED
--- NOTE | 2021-03-15 23:21 | PC.NURSE ---
MED REC DONE.
[2021-03-16] VITALS (15 sets, daily range): BP systolic 125–172; BP diastolic 57–99; PULSE 51–96; RESP 14–18; TEMP 36.1–37.4; O2SAT 94–100
--- NOTE | 2021-03-16 00:14 | PC.NURSE ---
[place], CHARGE NURSE INFORMED UNABLE TO CARE FOR THIS PT AT THIS TIME.
[2021-03-16] MEDS: 0.9 % Sodium Chloride Flush 3 ML SYRINGE IVFLUSH ×3 (02:58→16:39)
[2021-03-16] MEDS: Piperacillin Sodium/Tazobactam 3.375 GM in 0.9 % Sodium Chloride 50 ML IV ×4 (03:00→20:10)
[2021-03-16 07:17] LABS: MANUAL DIFF FLAG NO
[2021-03-16 07:22] LABS: Basophils Percent Auto 0.3 % (0-2); Eosinophils Absolute Auto 0.2 X10*3/uL (0.0-0.4); Hematocrit 38.3 % (42-52); Hemoglobin 12.5 g/dl (14.0-18.0); Imm Gran Abs Auto 0.04 X10*3/uL (0.00-0.03); Imm Gran Pct Auto 0.5 % (0.0-0.4); Lymphocytes Absolute Auto 0.6 X10*3/uL (1.2-4.9); Lymphocytes Percent Auto 7.1 % (20-40); Mean Corpuscular HGB Conc 32.6 g/dl (31.0-36.0); Mean Corpuscular Hemoglobin 27.4 pg (27.0-33.0); Mean Platelet Volume 9.7 fL (9.4-12.4); Monocytes Absolute Auto 0.7 X10*3/uL (0.1-1.2); Monocytes Percent Auto 8.5 % (2-11); Neutrophils Absolute Auto 6.5 X10*3/uL (2.0-8.3); Neutrophils Percent Auto 81.6 % (45-73); Platelet Count 139 X10*3/uL (160-400); Red Blood Count 4.56 X10*6/uL (4.60-5.80); Red Cell Distribution Width 14.7 % (11.0-16.0); White Blood Count 7.9 X10*3/uL (4.8-10.8)
[2021-03-16 07:54] LABS: Anion Gap 13 (12-20); Blood Urea Nitrogen 16 mg/dL (9-16); Calcium 8.7 mg/dL (8.4-10.2); Carbon Dioxide 23 mmol/L (22-29); Chloride 109 mmol/L (96-108); Creatinine Clr Calc Pharmacy 55.4; Estimated Glomerular Filt Rate > 60; Glucose Random 101 mg/dL (60-115); Potassium 3.6 mmol/L (3.3-5.1); Sodium 141 mmol/L (135-145)
[2021-03-16 09:06] LABS: Alanine Aminotransferase 301 U/L (0-40); Albumin Level 3.7 g/dL (3.5-5.0); Alkaline Phosphatase 108 U/L (39-117); Aspartate Amino Transferase 157 U/L (5-37); Bilirubin Direct 2.5 mg/dL (0.0-0.5); Bilirubin Total 3.7 mg/dL (0.0-1.0); C Reactive Protein 9.54 mg/dL (< or = 0.50); Total Protein 6.1 g/dL (6.5-8.0)
[2021-03-16 09:23] LABS: INTERNATIONAL NORM RATIO 1.3 (0.9-1.1); Prothrombin Time 14.8 SEC (9.9-13.0)
--- NOTE | 2021-03-16 10:29 | MHC.CM.PN ---
pt lives c his in their home. she helps patient in his care and will provide transportation at home. pending a PT eval patient may benefit from a STR stay - no refs made at this time. if patient is dc'd home then he would benefit from vna - nsg and home PT. a ref. for this has been made. dc plan is uncertain at this time and most likely pending a PT eval. cm to cont. to follow.
--- NOTE | 2021-03-16 10:52 | P.CNGI_ITS ---
History of Present Illness Data of Consult Service Date: 03/16/21 Requesting physician: Дмитрий Anderson Primary Care Provider: [facility] HPI Reason for consult: cholangitis 80-year-old male with past medical history of GERD, HTN, HLD, COVID pneumonia in August, history of peritoneal abscess 09/23 s/p percutaneous drainage who I am asked to see for concern for cholangitis. Patient has dementia and denies any complaints, unsure as to why he is here. I called and also hx from notes. He was well and at baseline till yesterday evening when he appeared more confused and had nausea with vomiting. He seemed weak and fatigued so brought to the hospital On admission he had fever of 102.4, labs with elevated LFT and bili 4.5, pos UA for blood.. Imaging revealed intra/extra hepatic duct dilation and CBD 1 cm. Gallstones noted and decompressed GB. Past medical history per EMR as patient unable to provide Review of Systems Review of Systems: Yes Unobtainable due to mental condition and Unobtainable due to mental status PMFSH Past Medical History Medical History COVID-19 Dementia GERD (gastroesophageal reflux disease) HLD (hyperlipidemia) HTN (hypertension) Intra-abdominal hematoma SBO (small bowel obstruction) Family History Family History Father History of stomach cancer Surgical History Surgical History H/O colectomy History of ankle surgery History of appendectomy History of colonoscopy History of surgery on wrist Social History Social History Household Members: Spouse Housing: House Alcohol intake: never Patient Tobacco Use Status: Former Tobacco user Use of substances other than those prescribed or required for medical reasons: No Are you DNR?: Yes Advance Directives: No Advance Directives Information Provided: No Advance Directives Date on File: 09/16/20 service: No Current occupational status: retired Meds Allergies Allergy/AdvReac Type Severity Reaction Status Date / Time No Known Allergies Allergy Verified 03/02/21 14:51 Active Medications: Current Medications Generic Name Dose Route Start Last Admin Trade Name Freq PRN Reason Stop Dose Admin Acetaminophen 650 mg 03/16/21 01:24 Acetaminophen 325 Mg Tablet PO Q6H PRN Pain, Mild (Pain Scale 1-3) Docusate Sodium 100 mg 03/16/21 01:24 Docusate Sodium 100 Mg Capsule PO DAILY PRN Constipation Piperacillin Sod/Tazobactam 50 mls @ 100 mls/hr 03/16/21 03:00 03/16/21 09:34 Sod 3.375 gm/ Sodium Chloride IV 100 mls/hr Q6H CARL Administration Ondansetron HCl 4 mg 03/16/21 01:24 Ondansetron Hcl 4 Mg/2 Ml Vial IVPUSH Q8H PRN Nausea and Vomiting Pharmacy Consult 1 each 03/15/21 14:52 Consult Rx Perform Med Rec MISCELLANE ONCE PRN Consult order Sodium Chloride 3 ml 03/16/21 01:24 03/16/21 07:09 0.9 % Sodium Chloride Flush 3 Ml Syringe IVFLUSH 3 ml QSHIFT CARL Administration Home Medications Medication Instructions Recorded Confirmed Last Taken Type lisinopril 20 mg PO DAILY 08/20/20 03/15/21 Unknown History simvastatin 40 mg PO BEDTIME 08/20/20 03/15/21 Unknown History acetaminophen 325 mg capsule 650 mg PO Q6H PRN 09/30/20 03/15/21 Unknown History Physical Exam Vital Signs: Vital Signs: Last Vital Signs Temp 98.8 F 03/16/21 10:40 Pulse 69 03/16/21 10:40 Resp 16 03/16/21 10:40 BP 125/90 H 03/16/21 10:40 Pulse Ox 97 03/16/21 10:40 Body Mass Index 26.4 EXAM: GENERAL: The patient is alert, relaxed, jaundiced. impaired memory VITAL SIGNS:see workflow HEENT: icteric sclerae, PERRLA, EOMI. Oropharynx clear. Moist mucous membranes. Conjunctivae appear well perfused. No thyroid mass. CHEST: Chest wall is nontender. HEART: Regular rate and rhythm without murmurs. LUNGS: Clear to auscultation bilaterally. ABDOMEN: Soft, positive bowel sounds, nontender, no organomegaly.no flank tenderness SKIN: No rash, no excessive bruising, petechiae, or purpura. NEUROLOGIC: Cranial nerves II-XII intact without motor/sensory deficit. Psych- confused, alert Results Labs CBC & Chem 7: 03/16/21 06:47 03/16/21 06:47 Labs: Short CBC 03/15/21 03/16/21 Range/Units 16:19 06:47 WBC 9.8 7.9 (4.8-10.8) X10*3/uL Hgb 14.5 D 12.5 L (14.0-18.0) g/dl Hct 43.9 D 38.3 L (42-52) % Plt Count 160 D 139 L (160-400) X10*3/uL BMP 03/15/21 03/16/21 16:19 06:47 Sodium 141 141 Potassium 4.3 3.6 Chloride 104 109 H Carbon Dioxide 24 23 BUN 16 16 Creatinine 1.12 0.96 Calcium 9.4 D 8.7 D Liver Function 03/15/21 03/16/21 Range/Units 16:19 06:47 Total Bilirubin 4.5 H 3.7 H (0.0-1.0) mg/dL Direct Bilirubin 3.2 H 2.5 H (0.0-0.5) mg/dL AST 443 H 157 H (5-37) U/L ALT 477 H 301 H (0-40) U/L Alkaline Phosphatase 127 H D 108 (39-117) U/L Albumin 4.4 D 3.7 (3.5-5.0) g/dL Urine 03/15/21 Range/Units 16:46 Urine Color YELLOW Urine Appearance CLEAR Urine pH 8.0 (5.0-8.0) Ur Specific [place] 1.010 (1.005-1.025) Urine Protein TRACE (NEG-TRACE) MG/DL Urine Glucose (UA) NEG (NEG) MG/DL Assessment and Plan (1) Jaundice: Status: Acute (2) Acute cholangitis: Status: Acute 1/ clinical picture consistent with cholangitis, with dilated CBD, raised bili and altered mentation PLAN: 1/ Resus with fluids and ABX as doing 2/ therapeutic ERCP today plan discussed with and she is in agreement, risks and benefits of ERCP discussed. Procedures Date of Service Date of Service: 03/16/21
--- NOTE | 2021-03-16 12:40 | P.CONAN_ITS ---
[facility] Active Problems Active Problems: All Active Problems (Updated 03/16/21 @ 05:43 by Дмитрий Anderson MD) Jaundice (Acute) Encephalopathy (Acute) Acute cholangitis (Acute) Peritoneal abscess (Acute) Intra-abdominal hematoma (Acute) Pleural effusion (Acute) HTN (hypertension) (Acute) Dementia (Acute) Intra-abdominal abscess (Acute) COVID-19 (Acute) Hypoxia (Acute) Past Medical History Medical History COVID-19 Dementia GERD (gastroesophageal reflux disease) HLD (hyperlipidemia) HTN (hypertension) Intra-abdominal hematoma SBO (small bowel obstruction) Family History Family History Father History of stomach cancer Surgical History Surgical History H/O colectomy History of ankle surgery History of appendectomy History of colonoscopy History of surgery on wrist Social History Social History Household Members: Spouse Housing: House Alcohol intake: never Patient Tobacco Use Status: Former Tobacco user Use of substances other than those prescribed or required for medical reasons: No Are you DNR?: Yes Advance Directives: No Advance Directives Information Provided: No Advance Directives Date on File: 09/16/20 service: No Current occupational status: retired [employer] Allergies Allergy/AdvReac Type Severity Reaction Status Date / Time No Known Allergies Allergy Verified 03/02/21 14:51 Active Medications: Current Medications Generic Name Dose Route Start Last Admin Trade Name Jesúsq PRN Reason Stop Dose Admin Acetaminophen 650 mg 03/16/21 01:24 Acetaminophen 325 Mg Tablet PO Q6H PRN Pain, Mild (Pain Scale 1-3) Docusate Sodium 100 mg 03/16/21 01:24 Docusate Sodium 100 Mg Capsule PO DAILY PRN Constipation Piperacillin Sod/Tazobactam 50 mls @ 100 mls/hr 03/16/21 03:00 03/16/21 09:34 Sod 3.375 gm/ Sodium Chloride IV 100 mls/hr Q6H CARL Administration Ondansetron HCl 4 mg 03/16/21 01:24 Ondansetron Hcl 4 Mg/2 Ml Vial IVPUSH Q8H PRN Nausea and Vomiting Pharmacy Consult 1 each 03/15/21 14:52 Consult Rx Perform Med Rec MISCELLANE ONCE PRN Consult order Sodium Chloride 3 ml 03/16/21 01:24 03/16/21 07:09 0.9 % Sodium Chloride Flush 3 Ml Syringe IVFLUSH 3 ml QSHIFT [facility] Administration Home Medications Medication Instructions Recorded Confirmed Last Taken Type lisinopril 20 mg PO DAILY 08/20/20 03/15/21 Unknown History simvastatin 40 mg PO BEDTIME 08/20/20 03/15/21 Unknown History acetaminophen 325 mg capsule 650 mg PO Q6H PRN 09/30/20 03/15/21 Unknown History Exam Exam Date and Time: March 16, 2021 1240 Height,Weight and Vital Signs: Height 5 ft 7 in Weight 76.4 kg Last Vital Signs Temp 99.3 F 03/16/21 11:44 Pulse 70 03/16/21 11:44 Resp 16 03/16/21 11:44 BP 142/91 H 03/16/21 11:44 Pulse Ox 99 03/16/21 11:44 Pertinent Lab Results Pertinent Lab Results: Laboratory Tests 03/15/21 03/15/21 03/15/21 16:19 16:19 16:19 WBC 9.8 RBC 5.29 D Hgb 14.5 D Hct 43.9 D MCV 83.0 MCH 27.4 MCHC 33.0 RDW 14.4 Plt Count 160 D MPV 9.2 L Immature Gran % (Auto) 0.5 H Neut % (Auto) 89.6 H Lymph % (Auto) 3.0 L [place] % (Auto) 6.3 Eos % (Auto) 0.3 Baso % (Auto) 0.3 Lymph # (Auto) 0.3 L [place] # (Auto) 0.6 Eos # (Auto) 0.0 Baso # (Auto) 0.0 Abs Immat Gran (auto) 0.05 H Absolute Neuts (auto) 8.8 H Absolute Nucleated RBC 0.000 Nucleated RBC % (auto) 0.0 PT INR Sodium 141 Potassium 4.3 Chloride 104 Carbon Dioxide 24 Anion Gap 17 BUN 16 Creatinine 1.12 Estim Creat Clear Calc 47.5 Estimated GFR > 60 Random Glucose 128 H Lactic Acid Calcium 9.4 D Total Bilirubin 4.5 H Direct Bilirubin 3.2 H AST 443 H ALT 477 H Alkaline Phosphatase 127 H D Ammonia Troponin I High Sens 4.7 C-Reactive Protein B-Natriuretic Peptide 82 Total Protein 7.5 D Albumin 4.4 D Lipase 70 Urine Color Urine Appearance Urine pH Ur Specific [place] Urine Protein Urine Glucose (UA) Urine Ketones Urine Blood Urine Nitrite Ur Leukocyte Esterase Urine RBC Urine WBC Ur Squamous Epith Cells Urine Bacteria COVID-19 (ARCHIE) COVID-19 Clin Com 03/15/21 03/15/21 03/15/21 16:20 16:21 16:46 WBC RBC Hgb Hct MCV MCH MCHC RDW Plt Count MPV Immature Gran % (Auto) Neut % (Auto) Lymph % (Auto) [place] % (Auto) Eos % (Auto) Baso % (Auto) Lymph # (Auto) [place] # (Auto) Eos # (Auto) Baso # (Auto) Abs Immat Gran (auto) Absolute Neuts (auto) Absolute Nucleated RBC Nucleated RBC % (auto) PT INR Sodium Potassium Chloride Carbon Dioxide Anion Gap BUN Creatinine Estim Creat Clear Calc Estimated GFR Random Glucose Lactic Acid 1.7 Calcium Total Bilirubin Direct Bilirubin AST ALT Alkaline Phosphatase Ammonia Troponin I High Sens C-Reactive Protein B-Natriuretic Peptide Total Protein Albumin Lipase Urine Color YELLOW Urine Appearance CLEAR Urine pH 8.0 Ur Specific [place] 1.010 Urine Protein TRACE Urine Glucose (UA) NEG Urine Ketones NEG Urine Blood 1+ H Urine Nitrite NEG Ur Leukocyte Esterase NEG Urine RBC 5-9 H Urine WBC 0 Ur Squamous Epith Cells NONE Urine Bacteria TRACE COVID-19 (ARCHIE) Negative COVID-19 Clin Com See Note 03/15/21 03/16/21 03/16/21 18:30 06:47 06:47 WBC 7.9 RBC 4.56 L Hgb 12.5 L Hct 38.3 L MCV 84.0 MCH 27.4 MCHC 32.6 RDW 14.7 Plt Count 139 L MPV 9.7 Immature Gran % (Auto) 0.5 H Neut % (Auto) 81.6 H Lymph % (Auto) 7.1 L [place] % (Auto) 8.5 Eos % (Auto) 2.0 Baso % (Auto) 0.3 Lymph # (Auto) 0.6 L [place] # (Auto) 0.7 Eos # (Auto) 0.2 Baso # (Auto) 0.0 Abs Immat Gran (auto) 0.04 H Absolute Neuts (auto) 6.5 Absolute Nucleated RBC 0.000 Nucleated RBC % (auto) 0.0 PT INR Sodium 141 Potassium 3.6 Chloride 109 H Carbon Dioxide 23 Anion Gap 13 BUN 16 Creatinine 0.96 Estim Creat Clear Calc 55.4 Estimated GFR > 60 Random Glucose 101 Lactic Acid Calcium 8.7 D Total Bilirubin 3.7 H Direct Bilirubin 2.5 H AST 157 H ALT 301 H Alkaline Phosphatase 108 Ammonia 33 Troponin I High Sens C-Reactive Protein 9.54 H B-Natriuretic Peptide Total Protein 6.1 L Albumin 3.7 Lipase Urine Color Urine Appearance Urine pH Ur Specific [place] Urine Protein Urine Glucose (UA) Urine Ketones Urine Blood Urine Nitrite Ur Leukocyte Esterase Urine RBC Urine WBC Ur Squamous Epith Cells Urine Bacteria COVID-19 (ARCHIE) COVID-19 [employer] Com 03/16/21 09:08 WBC RBC Hgb Hct MCV MCH MCHC RDW Plt Count MPV Immature Gran % (Auto) Neut % (Auto) Lymph % (Auto) [place] % (Auto) Eos % (Auto) Baso % (Auto) Lymph # (Auto) [place] # (Auto) Eos # (Auto) Baso # (Auto) Abs Immat Gran (auto) Absolute Neuts (auto) Absolute Nucleated RBC Nucleated RBC % (auto) PT 14.8 H INR 1.3 H Sodium Potassium Chloride Carbon Dioxide Anion Gap BUN Creatinine Estim Creat Clear Calc Estimated GFR Random Glucose Lactic Acid Calcium Total Bilirubin Direct Bilirubin AST ALT Alkaline Phosphatase Ammonia Troponin I High Sens C-Reactive Protein B-Natriuretic Peptide Total Protein Albumin Lipase Urine Color Urine Appearance Urine pH Ur Specific [place] Urine Protein Urine Glucose (UA) Urine Ketones Urine Blood Urine Nitrite Ur Leukocyte Esterase Urine RBC Urine WBC Ur Squamous Epith Cells Urine Bacteria COVID-19 (ARCHIE) COVID-19 Clin Com Airway Mallampati Class: II TM Dist: >3cm Neck ROM: Full Assessment and Plan Assessment Anesthesia Assessment: Anesthesia Plan Discussed and Chart Reviewed Final Anesthetic Review NPO: Yes ASA Class: III Final Preanesthetic Review: No Changes in Pt Med Stat, Meds/Allgs Chart Reviewed, Consent Obtained/Reviewed and Anes Risks/Benef Reviewed Patient Risk: Intermediate Procedure Risk: Low Assessment/Block/Sedation in SS: Assess/Block/Sedation-SS Anesthetic Plan Anesthetic Plan: GA Disposition: Standard PACU
--- NOTE | 2021-03-16 13:38 | P.CDIC_ITS ---
CDI Concurrent Query Service Date: 03/16/21 Documentation Clarification: Please clarify if you are treating a proba ble/suspected/likely or confirmed: Toxic Encephalopathy Metabolic Encephalopathy Toxic/Metabolic Encephalopathy Other, please specify Provider Response: Septic Encephalopathy PLEASE DO NOT DELETE/MODIFY EXISTING CONTENT Additional information is needed in order to code to the highest accuracy and appropriate Severity of Illness (SOI). Please clarify the information noted below in your progress notes and discharge summary. Risk Factors/Clinical Indicators/Treatments 80 year old male admitted with weakness, confusion, vomit CT Head negative PMH Dementia Per H&P: Acute Cholangitis, Jaundice, Encephalopathy CDS: Rosina Calvillo RN Contact Number: [phone] Please Review the information above and exercise your independent professional judgment in responding to the query. If you concur, pleas document in the PROGRESS NOTES and DISCHARGE SUMMARY. If you do not agree with the query, please document in the query above. THIS QUERY IS PART OF THE PERMANENT MEDICAL RECORD
--- NOTE | 2021-03-16 13:42 | P.CDIC_ITS ---
CDI Concurrent Query Service Date: 03/16/21 Documentation Clarification: Please clarify if you are treating a proba ble/suspected/likely or confirmed: Sepsis SIRS Other, please specify Provider Response: Sepsis PLEASE DO NOT DELETE/MODIFY EXISTING CONTENT Additional information is needed in order to code to the highest accuracy and appropriate Severity of Illness (SOI). Please clarify the information noted below in your progress notes and discharge summary. Risk Factors/Clinical Indicators/Treatments Per H&P: Acute Cholangitis, Jaundice, Encephalopathy WBC 9.8 T102.4, P 93 LA 1.7 UA positive blood Blood culture pending Treated with IV antibiotic CDS: Rosina Calvillo RN Contact Number: [phone] Please Review the information above and exercise your independent professional judgment in responding to the query. If you concur, pleas document in the PROGRESS NOTES and DISCHARGE SUMMARY. If you do not agree with the query, please document in the query above. THIS QUERY IS PART OF THE PERMANENT MEDICAL RECORD
--- NOTE | 2021-03-16 15:02 | P.BOP_ITS ---
Brief Operative Note Date of Service: 03/16/21 Pre-op diagnosis: cholangitis Post-op diagnosis: same Surgeon: Mary Silvestre MD Was an Home Health Aide used for this Procedure?: No Estimated blood loss (mL): 5
--- NOTE | 2021-03-16 15:02 | MHC.SHP ---
Pre-Procedural Eval Section A Date of Service: 03/16/21 The patient is an INPATIENT: Yes The History & Physical has been completed within 30 days and I have reviewed it.: Yes Section B Chief Complaint: Cholangitis Allergies: Allergies Allergy/AdvReac Type Severity Reaction Status Date / Time No Known Allergies Allergy Verified 03/02/21 14:51 Plan Diagnosis/Plan: Unchanged I have reviewed the history and physical and performed a pertinent physical examination on my patient. No changes have occurred unless specified.
--- NOTE | 2021-03-16 15:02 | W.PM.OPN ---
Operative Note Operative Note Date of Service: 03/16/21 Narrative: Description: Endoscopic retrograde cholangiopancreatography (ERCP) PROCEDURE: Endoscopic retrograde cholangiopancreatography with sphincterotomy and stone extraction. INDICATION FOR THE PROCEDURE: Patient with a history of chronic abdominal pain and imaging revealing CBD stones MEDICATIONS: General anesthesia, rectal indomethacin 100 mg, on ABX from the floor for cholangitis The risks of the procedure were made aware to the proxy and consisted of medication reaction, bleeding, perforation, aspiration, and post ERCP pancreatitis. DESCRIPTION OF PROCEDURE: After informed consent and appropriate sedation, the duodenoscope was inserted into the oropharynx, down the esophagus, and into the stomach. The scope was then advanced through the pylorus to the ampulla. The stomach was traversed with difficulty due to looping and hiatal hernia, patient had to temporarily repositioned to get to the second part of duodenum. The ampulla had a normal appearance, The CBD was entered with a wire on the first attempt. A cholangiogram was performed and a filling defect was noted in the distal CBD. A sphincterotomy was performed and then a 12 mm extraction balloon passed with some purulent appearing bile noted. A 10 mm greenish black stone was extracted. Multiple passes done and some sludge also removed. A basket was also used but there was no debris noted. an occlusion cholangiogram appeared normal. The gallbladder also filled with contrast. There was some minor oozing which had ceased by the end of the procedure. The stomach was then decompressed and the endoscope was withdrawn. FINDINGS: 1. Choledocholithiasis RECOMMENDATIONS: 1. NPO except ice chips for next 4-6 hrs then clears as tolerated, can advance diet tomorrow if feels well 2. cont ABx for 48 hrs
--- NOTE | 2021-03-16 16:30 | HO.PM.IMPN ---
Subjective Subjective Date of Service: 03/16/21 Interval History: N/V improved; denies abd pain ERCP done, stone removed Physical Exam Vital Signs: Vital Signs: Last Vital Signs Temp 96.9 F 03/16/21 16:00 Pulse 67 03/16/21 16:00 Resp 14 03/16/21 16:00 BP 147/99 H 03/16/21 16:00 Pulse Ox 96 03/16/21 16:00 Body Mass Index 26.4 Gen: in no acute distress HEENT: sclera icteric, moist mucus membranes Neck: supple Lungs: clear to auscultation bilaterally Heart: regular rate and rhythm, no murmurs Abd: soft, non-tender, non-distended, no Palacios sign Ext: no edema Skin: warm/well-perfused, jaundiced Neuro: alert and oriented x3, no focal findings Psych: appropriate affect Objective Data Current Medications Generic Name Dose Route Start Last Admin Trade Name Freq PRN Reason Stop Dose Admin Acetaminophen 650 mg 03/16/21 01:24 Acetaminophen 325 Mg Tablet PO Q6H PRN Pain, Mild (Pain Scale 1-3) Docusate Sodium 100 mg 03/16/21 01:24 Docusate Sodium 100 Mg Capsule PO DAILY PRN Constipation Piperacillin Sod/Tazobactam 50 mls @ 100 mls/hr 03/16/21 03:00 03/16/21 14:39 Sod 3.375 gm/ Sodium Chloride IV Infused Q6H [facility] Infusion Ondansetron HCl 4 mg 03/16/21 01:24 Ondansetron Hcl 4 Mg/2 Ml Vial IVPUSH Q8H PRN Nausea and Vomiting Pharmacy Consult 1 each 03/15/21 14:52 Consult Rx Perform Med Rec MISCELLANE ONCE PRN Consult order Sodium Chloride 3 ml 03/16/21 01:24 03/16/21 07:09 0.9 % Sodium Chloride Flush 3 Ml Syringe IVFLUSH 3 ml QSHIFT [facility] Administration Labs CBC & Chem 7: 03/16/21 06:47 03/16/21 06:47 Labs: Laboratory Results - last 24 hr 03/15/21 03/15/21 03/15/21 16:19 16:19 16:19 WBC 9.8 RBC 5.29 D Hgb 14.5 D Hct 43.9 D MCV 83.0 MCH 27.4 MCHC 33.0 RDW 14.4 Plt Count 160 D MPV 9.2 L Immature Gran % (Auto) 0.5 H Neut % (Auto) 89.6 H Lymph % (Auto) 3.0 L [place] % (Auto) 6.3 Eos % (Auto) 0.3 Baso % (Auto) 0.3 Lymph # (Auto) 0.3 L [place] # (Auto) 0.6 Eos # (Auto) 0.0 Baso # (Auto) 0.0 Abs Immat Gran (auto) 0.05 H Absolute Neuts (auto) 8.8 H Absolute Nucleated RBC 0.000 Nucleated RBC % (auto) 0.0 PT INR Sodium 141 Potassium 4.3 Chloride 104 Carbon Dioxide 24 Anion Gap 17 BUN 16 Creatinine 1.12 Estim Creat Clear Calc 47.5 Estimated GFR > 60 Random Glucose 128 H Lactic Acid Calcium 9.4 D Total Bilirubin 4.5 H Direct Bilirubin 3.2 H AST 443 H ALT 477 H Alkaline Phosphatase 127 H D Ammonia Troponin I High Sens 4.7 C-Reactive Protein B-Natriuretic Peptide 82 Total Protein 7.5 D Albumin 4.4 D Lipase 70 Urine Color Urine Appearance Urine pH Ur Specific [place] Urine Protein Urine Glucose (UA) Urine Ketones Urine Blood Urine Nitrite Ur Leukocyte Esterase Urine RBC Urine WBC Ur Squamous Epith Cells Urine Bacteria COVID-19 ([facility]IE) COVID-19 Clin Com 03/15/21 03/15/21 03/15/21 16:20 16:21 16:46 WBC RBC Hgb Hct MCV MCH MCHC RDW Plt Count MPV Immature Gran % (Auto) Neut % (Auto) Lymph % (Auto) [place] % (Auto) Eos % (Auto) Baso % (Auto) Lymph # (Auto) [place] # (Auto) Eos # (Auto) Baso # (Auto) Abs Immat Gran (auto) Absolute Neuts (auto) Absolute Nucleated RBC Nucleated RBC % (auto) PT INR Sodium Potassium Chloride Carbon Dioxide Anion Gap BUN Creatinine Estim Creat Clear Calc Estimated GFR Random Glucose Lactic Acid 1.7 Calcium Total Bilirubin Direct Bilirubin AST ALT Alkaline Phosphatase Ammonia Troponin I High Sens C-Reactive Protein B-Natriuretic Peptide Total Protein Albumin Lipase Urine Color YELLOW Urine Appearance CLEAR Urine pH 8.0 Ur Specific [place] 1.010 Urine Protein TRACE Urine Glucose (UA) NEG Urine Ketones NEG Urine Blood 1+ H Urine Nitrite NEG Ur Leukocyte Esterase NEG Urine RBC 5-9 H Urine WBC 0 Ur Squamous Epith Cells NONE Urine Bacteria TRACE COVID-19 (ARCHIE) Negative COVID-19 Clin Com See Note 03/15/21 03/16/21 03/16/21 18:30 06:47 06:47 WBC 7.9 RBC 4.56 L Hgb 12.5 L Hct 38.3 L MCV 84.0 MCH 27.4 MCHC 32.6 RDW 14.7 Plt Count 139 L MPV 9.7 Immature Gran % (Auto) 0.5 H Neut % (Auto) 81.6 H Lymph % (Auto) 7.1 L [place] % (Auto) 8.5 Eos % (Auto) 2.0 Baso % (Auto) 0.3 Lymph # (Auto) 0.6 L [place] # (Auto) 0.7 Eos # (Auto) 0.2 Baso # (Auto) 0.0 Abs Immat Gran (auto) 0.04 H Absolute Neuts (auto) 6.5 Absolute Nucleated RBC 0.000 Nucleated RBC % (auto) 0.0 PT INR Sodium 141 Potassium 3.6 Chloride 109 H Carbon Dioxide 23 Anion Gap 13 BUN 16 Creatinine 0.96 Estim Creat Clear Calc 55.4 Estimated GFR > 60 Random Glucose 101 Lactic Acid Calcium 8.7 D Total Bilirubin 3.7 H Direct Bilirubin 2.5 H AST 157 H ALT 301 H Alkaline Phosphatase 108 Ammonia 33 Troponin I High Sens C-Reactive Protein 9.54 H B-Natriuretic Peptide Total Protein 6.1 L Albumin 3.7 Lipase Urine Color Urine Appearance Urine pH Ur Specific [place] Urine Protein Urine Glucose (UA) Urine Ketones Urine Blood Urine Nitrite Ur Leukocyte Esterase Urine RBC Urine WBC Ur Squamous Epith Cells Urine Bacteria COVID-19 (ARCHIE) COVID-19 Clin Com 03/16/21 09:08 WBC RBC Hgb Hct MCV MCH MCHC RDW Plt Count MPV Immature Gran % (Auto) Neut % (Auto) Lymph % (Auto) [place] % (Auto) Eos % (Auto) Baso % (Auto) Lymph # (Auto) [place] # (Auto) Eos # (Auto) Baso # (Auto) Abs Immat Gran (auto) Absolute Neuts (auto) Absolute Nucleated RBC Nucleated RBC % (auto) PT 14.8 H INR 1.3 H Sodium Potassium Chloride Carbon Dioxide Anion Gap BUN Creatinine Estim Creat Clear Calc Estimated GFR Random Glucose Lactic Acid Calcium Total Bilirubin Direct Bilirubin AST ALT Alkaline Phosphatase Ammonia Troponin I High Sens C-Reactive Protein B-Natriuretic Peptide Total Protein Albumin Lipase Urine Color Urine Appearance Urine pH Ur Specific [place] Urine Protein Urine Glucose (UA) Urine Ketones Urine Blood Urine Nitrite Ur Leukocyte Esterase Urine RBC Urine WBC Ur Squamous Epith Cells Urine Bacteria COVID-19 (ARCHIE) COVID-19 Clin Com Impressions Abdomen Ultrasound 03/15/21 18:43 IMPRESSION: Extremely limited examination demonstrating a relatively decompressed gallbladder with echogenic bile and gallstones. No definitive ultrasound evidence to suggest acute cholecystitis. Clinical correlation is recommended. If there is a high clinical suspicion for acute cholecystitis, HIDA imaging may be warranted. Guidance Fluoroscopy 03/16/21 12:33 IMPRESSION: Fluoroscopy guidance for ERCP. Quality Stroke Does the patient have a stroke diagnosis?: No VTE Prior VTE?: No VTE Risk Level:: Medical - moderate - high VTE Device Contraindication: N/A - Device Ordered VTE Drug Contraindication: Treatment Not Indicated Assessment and Plan (1) Acute cholangitis: Status: Acute Assessment and Plan: hospital d#2 80yo M with hx periotneal hematoma/intra-abdominal abscess s/p drainage, HTN presented with weakness and vomiting admitted for sepsis from cholangitis # acute cholangitis # sepsis # choledocholithiasis - ERCP done today by Dr Silvestre: The CBD was entered with a wire on the first attempt. A cholangiogram was performed and a filling defect was noted in the distal CBD. A sphincterotomy was performed and then a 12 mm extraction balloon passed with some purulent appearing bile noted. A 10 mm greenish black stone was extracted. Multiple passes done and some sludge also removed. A basket was also used but there was no debris noted. an occlusion cholangiogram appeared normal. The gallbladder also filled with contrast. - continue pip/robbie d#2, follow BCx. continue IV ABX at least 48h - NPO except ice chips for 6 hr post-procedure then clears as tolerated, advance diet tomorrow if tolerates # septic encephalopathy - treat infection as above # HTN - held lisinopril, resume tomorrow if BP allows # HLD - held statin, resume tomorrow if tolerating POs # hyperlipidemia - continue simvastatin # VTE ppx - SCDs
[2021-03-17] VITALS (7 sets, daily range): BP systolic 117–151; BP diastolic 82–99; PULSE 66–95; RESP 12–17; TEMP 36.1–37; O2SAT 96–99
[2021-03-17] MEDS: 0.9 % Sodium Chloride Flush 3 ML SYRINGE IVFLUSH ×3 (00:36→16:31)
[2021-03-17] MEDS: Piperacillin Sodium/Tazobactam 3.375 GM in 0.9 % Sodium Chloride 50 ML IV ×4 (04:00→20:41)
[2021-03-17 06:47] LABS: Hematocrit 39.5 % (42-52); Hemoglobin 12.7 g/dl (14.0-18.0); Mean Corpuscular HGB Conc 32.2 g/dl (31.0-36.0); Mean Corpuscular Hemoglobin 27.5 pg (27.0-33.0); Mean Corpuscular Volume 85.7 fL (80-98); Mean Platelet Volume 9.8 fL (9.4-12.4); Platelet Count 135 X10*3/uL (160-400); Red Blood Count 4.61 X10*6/uL (4.60-5.80); Red Cell Distribution Width 14.5 % (11.0-16.0); White Blood Count 7.5 X10*3/uL (4.8-10.8)
[2021-03-17 06:59] LABS: Alanine Aminotransferase 191 U/L (0-40); Albumin Level 3.5 g/dL (3.5-5.0); Alkaline Phosphatase 94 U/L (39-117); Anion Gap 14 (12-20); Aspartate Amino Transferase 55 U/L (5-37); Bilirubin Total 1.4 mg/dL (0.0-1.0); Blood Urea Nitrogen 33 mg/dL (9-16); Carbon Dioxide 24 mmol/L (22-29); Chloride 108 mmol/L (96-108); Creatinine Clr Calc Pharmacy 48.4; Estimated Glomerular Filt Rate > 60; Glucose Random 112 mg/dL (60-115); Potassium 4.3 mmol/L (3.3-5.1); Sodium 142 mmol/L (135-145); Total Protein 6.2 g/dL (6.5-8.0)
--- NOTE | 2021-03-17 11:05 | HO.PM.IMPN ---
Subjective Subjective Date of Service: 03/17/21 Interval History: fever resolved no abd pain, nausea or vomiting tolerating ice chips + water Physical Exam Vital Signs: Vital Signs: Last Vital Signs Temp 97.4 F 03/17/21 07:34 Pulse 66 03/17/21 09:33 Resp 16 03/17/21 07:34 BP 150/90 H 03/17/21 09:33 Pulse Ox 99 03/17/21 09:33 Body Mass Index 26.4 Gen: in no acute distress HEENT: sclera icteric, moist mucus membranes Neck: supple Lungs: clear to auscultation bilaterally Heart: regular rate and rhythm, no murmurs Abd: soft, non-tender, non-distended, no Palacios sign Ext: no edema Skin: warm/well-perfused Neuro: alert and oriented x3, no focal findings Psych: appropriate affect Objective Data Current Medications Generic Name Dose Route Start Last Admin Trade Name Freq PRN Reason Stop Dose Admin Acetaminophen 650 mg 03/16/21 01:24 Acetaminophen 325 Mg Tablet PO Q6H PRN Pain, Mild (Pain Scale 1-3) Docusate Sodium 100 mg 03/16/21 01:24 Docusate Sodium 100 Mg Capsule PO DAILY PRN Constipation Piperacillin Sod/Tazobactam 50 mls @ 100 mls/hr 03/16/21 03:00 03/17/21 08:19 Sod 3.375 gm/ Sodium Chloride IV Infused Q6H [facility] Infusion Ondansetron HCl 4 mg 03/16/21 01:24 Ondansetron Hcl 4 Mg/2 Ml Vial IVPUSH Q8H PRN Nausea and Vomiting Pharmacy Consult 1 each 03/15/21 14:52 Consult Rx Perform Med Rec MISCELLANE ONCE PRN Consult order Sodium Chloride 3 ml 03/16/21 01:24 03/17/21 07:41 0.9 % Sodium Chloride Flush 3 Ml Syringe IVFLUSH 3 ml QSHIFT [facility] Administration Labs CBC & Chem 7: 03/17/21 05:53 03/17/21 05:53 Labs: Laboratory Results - last 24 hr 03/17/21 03/17/21 05:53 05:53 WBC 7.5 RBC 4.61 Hgb 12.7 L Hct 39.5 L MCV 85.7 MCH 27.5 MCHC 32.2 RDW 14.5 Plt Count 135 L MPV 9.8 Absolute Nucleated RBC 0.000 Nucleated RBC % (auto) 0.0 Sodium 142 Potassium 4.3 Chloride 108 Carbon Dioxide 24 Anion Gap 14 BUN 33 H D Creatinine 1.10 Estim Creat Clear Calc 48.4 Estimated GFR > 60 Random Glucose 112 Calcium 9.0 Total Bilirubin 1.4 H AST 55 H ALT 191 H Alkaline Phosphatase 94 Total Protein 6.2 L Albumin 3.5 Microbiology Microbiology Results: Microbiology 03/15/21 16:29 Blood Culture - Preliminary Blood - Venous No growth after 24 hours. 03/15/21 16:19 Blood Culture - Preliminary Blood - Venous No growth after 24 hours. Quality Stroke Does the patient have a stroke diagnosis?: No VTE Prior VTE?: No VTE Risk Level:: Medical - moderate - high VTE Device Contraindication: N/A - Device Ordered VTE Drug Contraindication: Treatment Not Indicated Assessment and Plan (1) Acute cholangitis: Status: Acute Assessment and Plan: hospital d#3 80yo M with hx periotneal hematoma/intra-abdominal abscess s/p drainage (Sep 2020), HTN presented with weakness and vomiting admitted for sepsis from cholangitis # acute cholangitis # sepsis # choledocholithiasis - ERCP done 03/16/[address] Silvestre: The CBD was entered with a wire on the first attempt. A cholangiogram was performed and a filling defect was noted in the distal CBD. A sphincterotomy was performed and then a 12 mm extraction balloon passed with some purulent appearing bile noted. A 10 mm greenish black stone was extracted. Multiple passes done and some sludge also removed. A basket was also used but there was no debris noted. an occlusion cholangiogram appeared normal. The gallbladder also filled with contrast. - continue pip/robbie d#3, follow BCx- NGTD. continue IV ABX at least another 24h - clear liquid diet, advance as tolerated # septic encephalopathy, resolved - treat infection as above # HTN - resume lisinopril # HLD - resume statin # VTE ppx - SCDs
--- NOTE | 2021-03-17 14:13 | HO.POSTANES ---
Post Anesthesia Evaluation Post Anesthesia Evaluation Vital Signs: Vital Signs Temp Pulse Resp BP Pulse Ox 03/17/21 11:30 98.0 F 95 17 125/91 H 98 03/17/21 09:33 66 150/90 H 99 03/17/21 07:34 97.4 F 66 16 150/90 H 99 03/17/21 04:00 98.6 F 82 16 151/99 H 99 Anesthesia: General Endotracheal-GETA Mental Status: Awake Pain Control: Satisfactory Nausea/Vomiting: None Hydration: Adequate Anesthesia-Related Issues: No Anes. Related Issues
[2021-03-17] MEDS: Atorvastatin Calcium 20 MG TABLET PO (20:41)
[2021-03-18] VITALS (8 sets, daily range): BP systolic 109–164; BP diastolic 64–106; PULSE 62–86; RESP 18–20; TEMP 35.9–37.1; O2SAT 92–98
[2021-03-18] MEDS: 0.9 % Sodium Chloride Flush 3 ML SYRINGE IVFLUSH ×4 (01:11→23:38)
[2021-03-18] MEDS: Piperacillin Sodium/Tazobactam 3.375 GM in 0.9 % Sodium Chloride 50 ML IV ×4 (04:13→20:36)
[2021-03-18 06:41] LABS: Hematocrit 40.3 % (42-52); Hemoglobin 13.1 g/dl (14.0-18.0); Mean Corpuscular HGB Conc 32.5 g/dl (31.0-36.0); Mean Corpuscular Hemoglobin 27.5 pg (27.0-33.0); Mean Corpuscular Volume 84.7 fL (80-98); Mean Platelet Volume 9.9 fL (9.4-12.4); Platelet Count 173 X10*3/uL (160-400); Red Blood Count 4.76 X10*6/uL (4.60-5.80); Red Cell Distribution Width 14.7 % (11.0-16.0); White Blood Count 6.4 X10*3/uL (4.8-10.8)
[2021-03-18 07:14] LABS: Alanine Aminotransferase 124 U/L (0-40); Albumin Level 3.6 g/dL (3.5-5.0); Alkaline Phosphatase 77 U/L (39-117); Anion Gap 16 (12-20); Aspartate Amino Transferase 23 U/L (5-37); Bilirubin Total 1.1 mg/dL (0.0-1.0); Blood Urea Nitrogen 31 mg/dL (9-16); C Reactive Protein 3.95 mg/dL (< or = 0.50); Carbon Dioxide 21 mmol/L (22-29); Chloride 108 mmol/L (96-108); Creatinine Clr Calc Pharmacy 48.8; Estimated Glomerular Filt Rate > 60; Glucose Random 110 mg/dL (60-115); Potassium 3.5 mmol/L (3.3-5.1); Sodium 141 mmol/L (135-145); Total Protein 6.2 g/dL (6.5-8.0)
[2021-03-18] MEDS: lisinopriL 20 MG TABLET PO (08:58)
--- NOTE | 2021-03-18 14:52 | P.PNIM_ITS ---
Subjective Subjective Date of Service: 03/18/21 Interval History: No N/V/abd pain. Tolerating clears, would like to advance diet. No fever. Physical Exam Vital Signs: Vital Signs: Last Vital Signs Temp 98.8 F 03/18/21 11:20 Pulse 67 03/18/21 11:20 Resp 18 03/18/21 11:20 BP 135/66 03/18/21 11:20 Pulse Ox 92 03/18/21 13:00 Body Mass Index 26.4 Gen: in no acute distress HEENT: sclera icteric, moist mucus membranes Neck: supple Lungs: clear to auscultation bilaterally Heart: regular rate and rhythm, no murmurs Abd: soft, non-tender, non-distended, no Palacios sign Ext: no edema Skin: warm/well-perfused Neuro: alert and oriented x3, no focal findings Psych: appropriate affect Objective Data Current Medications Generic Name Dose Route Start Last Admin Trade Name Freq PRN Reason Stop Dose Admin Acetaminophen 650 mg 03/16/21 01:24 Acetaminophen 325 Mg Tablet PO Q6H PRN Pain, Mild (Pain Scale 1-3) Atorvastatin Calcium 20 mg 03/17/21 21:00 03/17/21 20:41 Atorvastatin Calcium 20 Mg Tablet PO 20 mg BEDTIME [facility] Administration Docusate Sodium 100 mg 03/16/21 01:24 Docusate Sodium 100 Mg Capsule PO DAILY PRN Constipation Piperacillin Sod/Tazobactam 50 mls @ 100 mls/hr 03/16/21 03:00 03/18/21 09:41 Sod 3.375 gm/ Sodium Chloride IV Infused Q6H [facility] Infusion Lisinopril 20 mg 03/18/21 09:00 03/18/21 08:58 Lisinopril 20 Mg Tablet PO 20 mg DAILY [facility] Administration Protocol Ondansetron HCl 4 mg 03/16/21 01:24 Ondansetron Hcl 4 Mg/2 Ml Vial IVPUSH Q8H PRN Nausea and Vomiting Pharmacy Consult 1 each 03/15/21 14:52 Consult Rx Perform Med Rec MISCELLANE ONCE PRN Consult order Sodium Chloride 3 ml 03/16/21 01:24 03/18/21 08:58 0.9 % Sodium Chloride Flush 3 Ml Syringe IVFLUSH 3 ml QSHIFT [facility] Administration Labs CBC & Chem 7: 03/18/21 05:48 03/18/21 05:48 Labs: Laboratory Results - last 24 hr 03/18/21 03/18/21 05:48 05:48 WBC 6.4 RBC 4.76 Hgb 13.1 L Hct 40.3 L MCV 84.7 MCH 27.5 MCHC 32.5 RDW 14.7 Plt Count 173 D MPV 9.9 Absolute Nucleated RBC 0.000 Nucleated RBC % (auto) 0.0 Sodium 141 Potassium 3.5 Chloride 108 Carbon Dioxide 21 L Anion Gap 16 BUN 31 H Creatinine 1.09 Estim Creat Clear Calc 48.8 Estimated GFR > 60 Random Glucose 110 Calcium 9.0 Total Bilirubin 1.1 H AST 23 D ALT 124 H Alkaline Phosphatase 77 C-Reactive Protein 3.95 H Total Protein 6.2 L Albumin 3.6 Microbiology Microbiology Results: Microbiology 03/15/21 16:29 Blood Culture - Preliminary Blood - Venous No growth after 48 hours. 03/15/21 16:19 Blood Culture - Preliminary Blood - Venous No growth after 48 hours. Quality Stroke Does the patient have a stroke diagnosis?: No VTE Prior VTE?: No VTE Risk Level:: Medical - moderate - high VTE Device Contraindication: N/A - Device Ordered VTE Drug Contraindication: Treatment Not Indicated Assessment and Plan (1) Acute cholangitis: Status: Acute Assessment and Plan: hospital d#4 80yo M with hx periotneal hematoma/intra-abdominal abscess s/p drainage (Sep 2020), HTN presented with weakness and vomiting admitted for sepsis from cholangitis # acute cholangitis # sepsis # choledocholithiasis - ERCP done 03/16/[address] Silvestre: The CBD was entered with a wire on the first attempt. A cholangiogram was performed and a filling defect was noted in the distal CBD. A sphincterotomy was performed and then a 12 mm extraction balloon passed with some purulent appear ing bile noted. A 10 mm greenish black stone was extracted. Multiple passes done and some sludge also removed. A basket was also used but there was no debris noted. an occlusion cholangiogram appeared normal. The gallbladder also filled with contrast. - continue pip/robbie d#4, BCx negative. change to PO ABX tomorrow - advance to solid diet - referral to gen surg as outpt for cholecystectomy # septic encephalopathy, resolved - treat infection as above # HTN - resumed lisinopril # HLD - resumed statin # VTE ppx - SCDs # dispo - PT eval pending
[2021-03-18] MEDS: Atorvastatin Calcium 20 MG TABLET PO (20:36)
[2021-03-19] VITALS: BP 131/85; PULSE 67; RESP 16; TEMP 36.2; O2SAT 96
[2021-03-19] MEDS: Piperacillin Sodium/Tazobactam 3.375 GM in 0.9 % Sodium Chloride 50 ML IV ×2 (03:33→08:19)
[2021-03-19 04:00] VITALS: BP 143/83; PULSE 58; RESP 16; TEMP 36.3; O2SAT 94
[2021-03-19 08:00] VITALS: BP 138/83; PULSE 69; RESP 17; TEMP 36.4; O2SAT 98
[2021-03-19 08:18] VITALS: BP 138/83; PULSE 69
[2021-03-19] MEDS: 0.9 % Sodium Chloride Flush 3 ML SYRINGE IVFLUSH (08:18)
[2021-03-19] MEDS: lisinopriL 20 MG TABLET PO (08:18)
--- NOTE | 2021-03-19 11:11 | W.MHC.F2F ---
Service Date Service Date: 03/19/21 Encounter Date of encounter: 03/19/21 Reasons for Services Signs and symptoms assessed: sepsis from cholangitis Reason for physical therapy: home safety and mobility, therapeutic exercises, gait/transfer training, assess need for DME, ADL training and energy conservation MD Overseeing Care: Levy Littlejohn Homebound: Leaving the home is medically contraindicated at this time without the asist of a device and/or another person due th the listed conditions above and below. Certification: Based on the above findings, I certify that this patient is confined to the home and needs intermittent [facility] care, physical therapy and/or speech therapy, or continues to need occupational therapy. The patient is under my care, and I have initiated the establishment of the plan of care. The patient will be followed by a physician who will periodically review the plan of care.
--- NOTE | 2021-03-19 11:12 | PM.DS ---
DS: Providers Provider Date of Service: 03/19/21 Date of admission: 03/15/21 22:24 Primary care physician: [facility] Consults: 03/16/21 01:24 Consult to Gastroenterology Routine Consulting Provider: Mary Silvestre Reason for consultation: MRCP Has provider been notified: No DS: Diagnosis Discharge Diagnosis (1) Acute cholangitis: Status: Acute (2) Choledocholithiasis: Status: Acute (3) Obstructive jaundice: Status: Acute (4) Sepsis: Status: Acute (5) Septic encephalopathy: Status: Acute DS: Medications Discharge Medications Home Medications: Home Medications Medication Instructions Recorded Confirmed lisinopril 20 mg PO DAILY 08/20/20 03/15/21 simvastatin 40 mg PO BEDTIME 08/20/20 03/15/21 acetaminophen 325 mg capsule 650 mg PO Q6H PRN 09/30/20 03/15/21 Previous Rx's Medication Instructions Recorded amoxicillin-pot clavulanate 1 tab PO BID #10 tab 03/19/21 DS: Summary Hospital Course Hospital Course: from admission history and physical by hospitalist Дмитрий Anderson, 03/15/21: This is an 80-year-old male with past medical history of GERD, HTN, HLD, COVID pneumonia in August, history of peritoneal abscess in September status post drainage, who presents to the hospital with weakness. Patient is oriented to self and place but not to time, very hesitant with history, although cooperative he is not really providing much history. Therefore history is obtained mostly from his over the phone. She reports the patient was very nauseous and had multiple episode of vomiting yesterday, then woke up feeling very weak, and progressively became more and more weak over the course of the day to the point where he could not even get up from the floor. Patient reported abdominal discomfort to her but to me patient denies any abdominal pain. I am unable to complete review of system is patient is not really answering questions appropriately. On arrival to the ED patient hemodynamically stable with vitals showing temp of 99.4? that increased to 102.4 in the ED, other vitals within normal range For normal WBC count, elevated bilirubin of 4.5, direct 3.2, AST of 443, ALT of 477, alk-phos of 127, UA positive for urine blood and RBC Chest x-ray showed hyperexpanded lungs without acute process Head CT showed no acute findings pathology Abdominal CT shows small amount of fluid under the right hemidiaphragm adjacent to the right lobe of the liver which is decreased from November 2020, increased attenuation in the gallbladder suggestive of small gallstone, mild intra and extrahepatic biliary duct dilatation, interval decrease in the right pleural effusion and right base atelectasis. Abdominal ultrasound shows extremely limited exam demonstrating a relatively decompressed gallbladder with echogenic bile and gallstones. The patient was admitted to the medical/surgical floor with sepsis and encephalopathy from acute cholangitis due to suspected choledocholithiasis. He was given IV piperacillin/tazobactam. Gastroenterology was consulted. ERCP was done on 03/20/21. Per operative note by Dr Silvestre: The CBD was entered with a wire on the first attempt. A cholangiogram was performed and a filling defect was noted in the distal CBD. A sphincterotomy was performed and then a 12 mm extraction balloon passed with some purulent appearing bile noted. A 10 mm greenish black stone was extracted. Multiple passes done and some sludge also removed. A basket was also used but there was no debris noted. an occlusion cholangiogram appeared normal. The gallbladder also filled with contrast. His postoperative course was unremarkable. Blood cultures were negative. Diet was advanced gradually. Encephalopathy resolved. Obstructive jaundice resolved. He was discharged home with 5 more days of amoxicillin/clavulanate. He should be seen by his primary care provider in 1 week and by a general surgeon in 2 weeks to discuss and plan for cholecystectomy. Time Spent with Patient Time attestation: Total time spent providing and/or coordinating discharge services: 40 Discharge coordination time: Greater than 30 minutes Quality: Stroke Does the patient have a stroke diagnosis?: No Physical Exam Vital Signs: Vital Signs: Last Vital Signs Temp 97.6 F 03/19/21 08:00 Pulse 69 03/19/21 08:18 Resp 17 03/19/21 08:00 BP 138/83 03/19/21 08:18 Pulse Ox 98 03/19/21 08:00 Body Mass Index 26.4 Gen: in no acute distress HEENT: sclera mildly icteric, moist mucus membranes Neck: supple Lungs: clear to auscultation bilaterally Heart: regular rate and rhythm, no murmurs Abd: soft, non-tender, non-distended, no Palacios sign Ext: no edema Skin: warm/well-perfused Neuro: alert and oriented x3, no focal findings Psych: appropriate affect DS: Data Data Completed and Pending Completed studies during hospitalization [Text1]: Laboratory Results WBC 6.4 X10*3/uL (4.8-10.8) 03/18/21 05:48 RBC 4.76 X10*6/uL (4.60-5.80) 03/18/21 05:48 Hgb 13.1 g/dl (14.0-18.0) L 03/18/21 05:48 Hct 40.3 % (42-52) L 03/18/21 05:48 MCV 84.7 fL (80-98) 03/18/21 05:48 MCH 27.5 pg (27.0-33.0) 03/18/21 05:48 MCHC 32.5 g/dl (31.0-36.0) 03/18/21 05:48 RDW 14.7 % (11.0-16.0) 03/18/21 05:48 Plt Count 173 X10*3/uL (160-400) D 03/18/21 05:48 MPV 9.9 fL (9.4-12.4) 03/18/21 05:48 Immature Gran % (Auto) 0.5 % (0.0-0.4) H 03/16/21 06:47 Neut % (Auto) 81.6 % (45-73) H 03/16/21 06:47 Lymph % (Auto) 7.1 % (20-40) L 03/16/21 06:47 [place] % (Auto) 8.5 % (2-11) 03/16/21 06:47 Eos % (Auto) 2.0 % (0-4) 03/16/21 06:47 Baso % (Auto) 0.3 % (0-2) 03/16/21 06:47 Lymph # (Auto) 0.6 X10*3/uL (1.2-4.9) L 03/16/21 06:47 [place] # (Auto) 0.7 X10*3/uL (0.1-1.2) 03/16/21 06:47 Eos # (Auto) 0.2 X10*3/uL (0.0-0.4) 03/16/21 06:47 Baso # (Auto) 0.0 X10*3/uL (0.0-0.2) 03/16/21 06:47 Abs Immat Gran (auto) 0.04 X10*3/uL (0.00-0.03) H 03/16/21 06:47 Absolute Neuts (auto) 6.5 X10*3/uL (2.0-8.3) 03/16/21 06:47 Absolute Nucleated RBC 0.000 X10*3/uL (0.0-0.012) 03/18/21 05:48 Nucleated RBC % (auto) 0.0 /100WBC (0.0-0.2) 03/18/21 05:48 PT 14.8 SEC (9.9-13.0) H 03/16/21 09:08 INR 1.3 (0.9-1.1) H 03/16/21 09:08 Sodium 141 mmol/L (135-145) 03/18/21 05:48 Potassium 3.5 mmol/L (3.3-5.1) 03/18/21 05:48 Chloride 108 mmol/L (96-108) 03/18/21 05:48 Carbon Dioxide 21 mmol/L (22-29) L 03/18/21 05:48 Anion Gap 16 (12-20) 03/18/21 05:48 BUN 31 mg/dL (9-16) H 03/18/21 05:48 Creatinine 1.09 mg/dL (0.5-1.4) 03/18/21 05:48 Estim Creat Clear Calc 48.8 03/18/21 05:48 Estimated GFR > 60 03/18/21 05:48 Random Glucose 110 mg/dL (60-115) 03/18/21 05:48 Lactic Acid 1.7 mmol/L (0.5-2.0) 03/15/21 16:21 Calcium 9.0 mg/dL (8.4-10.2) 03/18/21 05:48 Total Bilirubin 1.1 mg/dL (0.0-1.0) H 03/18/21 05:48 Direct Bilirubin 2.5 mg/dL (0.0-0.5) H 03/16/21 06:47 AST 23 U/L (5-37) D 03/18/21 05:48 ALT 124 U/L (0-40) H 03/18/21 05:48 Alkaline Phosphatase 77 U/L (39-117) 03/18/21 05:48 Ammonia 33 umol/L (13-55) 03/15/21 18:30 Troponin I High Sens 4.7 ng/L (<3.5-35.0) 03/15/21 16:19 C-Reactive Protein 3.95 mg/dL (< or = 0.50) H 03/18/21 05:48 B-Natriuretic Peptide 82 pg/mL (<100) 03/15/21 16:19 Total Protein 6.2 g/dL (6.5-8.0) L 03/18/21 05:48 Albumin 3.6 g/dL (3.5-5.0) 03/18/21 05:48 Lipase 70 U/L (8-78) 03/15/21 16:19 Urine Color YELLOW 03/15/21 16:46 Urine Appearance CLEAR 03/15/21 16:46 Urine pH 8.0 (5.0-8.0) 03/15/21 16:46 Ur Specific [place] 1.010 (1.005-1.025) 03/15/21 16:46 Urine Protein TRACE MG/DL (NEG-TRACE) 03/15/21 16:46 Urine Glucose (UA) NEG MG/DL (NEG) 03/15/21 16:46 Urine Ketones NEG MG/DL (NEG) 03/15/21 16:46 Urine Blood 1+ (NEG) H 03/15/21 16:46 Urine Nitrite NEG (NEG) 03/15/21 16:46 Ur Leukocyte Esterase NEG (NEG) 03/15/21 16:46 Urine RBC 5-9 /HPF (0) H 03/15/21 16:46 Urine WBC 0 /HPF (0-4) 03/15/21 16:46 Ur Squamous Epith Cells NONE /LPF 03/15/21 16:46 Urine Bacteria TRACE /LPF 03/15/21 16:46 COVID-19 (ARCHIE) Negative (Negative) 03/15/21 16:20 COVID-19 Clin Com See Note 03/15/21 16:20 Impressions Chest X-Ray 03/15/21 14:52 IMPRESSION: Hyperexpanded lungs without acute process. Head CT 03/15/21 14:53 IMPRESSION: No acute findings. Abdomen/Pelvis CT 03/15/21 14:59 IMPRESSION: Small amount of fluid under the right hemidiaphragm and adjacent to the right lobe of the liver. This is decreased in size from November 2020 exam. This is continuous with the gallbladder. There is increased attenuation in the gallbladder questionable for small gallstones. There is mild intra and extrahepatic biliary duct dilatation. Multiple bilateral renal cysts. Diverticulosis of the colon. Interval decrease in right pleural effusion and right base atelectasis or consolidation from November 2020 exam. Abdomen Ultrasound 03/15/21 18:43 IMPRESSION: Extremely limited examination demonstrating a relatively decompressed gallbladder with echogenic bile and gallstones. No definitive ultrasound evidence to suggest acute cholecystitis. Clinical correlation is recommended. If there is a high clinical suspicion for acute cholecystitis, HIDA imaging may be warranted. Guidance Fluoroscopy 03/16/21 12:33 IMPRESSION: Fluoroscopy guidance for ERCP. Discharge Plan Discharge Anticipated Discharge Date/Time: 03/19/21 11:03 Patient Disposition: Home Health Service Discharge Diagnosis: acute cholangitis Referrals: Donato Jarquin MD [Physician] - 1 Week Levy Littlejohn PA [Physician Butadiene Compressor Operator] - 1 Week Discharge Medications: New amoxicillin-pot clavulanate 875-125 mg tablet 1 tab PO BID Qty: 10 RF: 0 Continued lisinopril 20 mg Tablet 20 mg PO DAILY RF: 0 simvastatin 40 mg Tablet 40 mg PO BEDTIME RF: 0 acetaminophen 325 mg capsule 650 mg PO Q6H PRN (Reason: Fever Or Pain) RF: 0 Discharge Orders: Discharge Order (Routine); Ordered 03/19/21 Ordered By: Rashmi Parks Diet: advance to usual diet Activity on Discharge: As tolerated Stand Alone Forms: Patient Portal Discharge page Care Plan Goals: cure of cholangitis prevention of complications of gallstone disease Health Concerns: cholangitis choledocholithiasis Plan of Treatment: take antibiotics, amoxicillin/clavulanate 875/125 mg twice daily for 5 days follow up with your primary care provider in 1 week follow up with Dr Jarquin [General Surgery] in 2 weeks to discuss cholecystectomy Assessment: as above
--- NOTE | 2021-03-19 11:21 | MHC.CM.PN ---
PATIENT'S PCP IS NOT [facility] HE SEES MATT ALVARADO [facility]. UPDATE MADE IN QUICK TASK.
--- NOTE | 2021-03-19 11:28 | MHC.CM.PN ---
A REFERRAL WAS PLACED BY PREVIOUS AGRICULTURAL CONSULTANT. PCP WAS NOT CORRECT, AND [facility] WAS NOT ABLE TO OFFER YET. THIS FAMILY AND DIVORCE LEGAL ASSISTANT VERIFIED PCP AND INFORMED [facility] VIA [employer]. BECAUSE IT ISTHE WEEKEND, PCP CANNOT BE VERIFIED. PATIENT MADE AWARE. CASE MANAGEMENT TO FOLLOW UP ON WEEK DAY. CONTACT NUMBER FOR [facility] GIVEN TO PATIENT. IMM 03/19 IN CHART
== END 2021-03-19 13:30 | disposition home health service (06) | DRG 871 ==
LOC: HO.ED 20:31 → HO.EDOVER 23:04 → HO.S3 03-16 12:31
PROVIDERS: Internal Medicine Gastroenterology; Admitting Provider Internal Medicine; Emergency Provider Emergency Medicine; PCP Physician Assistant Medical; Visit Provider Family Medicine
PROC: 0F798ZZ Dilation of Common Bile Duct, Via Natural or Artificial Opening Endoscopic (ICD-10-PCS; CPT 43260; principal; 2021-03-16 13:30)
DX: A41.9 Sepsis, unspecified organism (principal); G93.41 Metabolic encephalopathy; K80.32 Calculus of bile duct with acute cholangitis without obstruction; K21.9 Gastro-esophageal reflux disease without esophagitis; F03.90 Unspecified dementia, unspecified severity, without behavioral disturbance, psychotic disturbance, mood disturbance, and anxiety; E78.5 Hyperlipidemia, unspecified; I10 Essential (primary) hypertension; Z20.822 Contact with and (suspected) exposure to COVID-19; Z87.891 Personal history of nicotine dependence; Z79.899 Other long term (current) drug therapy
CPT/HCPCS: 36415; 70450; 71045; 74176; 76705; 80048; 80053; 80076; 81001; 82140; 83605; 83690; 83880; 84484; 85025; 85027; 85610; 86140; 87040; 87635; 93005; 97110; 97116; 97162; 99285; C1769; J1100; J1610; J2405; J2543; J3010; Q9967

== ENCOUNTER → 2021-03-30 10:08 | Outpatient (BNVA) | payer MEDICARE, SELFPAY | PROVIDERS: PCP Physician Assistant Medical; Referring Provider Physician Assistant Medical; Visit Provider Surgery | DX: K80.50 Calculus of bile duct without cholangitis or cholecystitis without obstruction (principal) | CPT/HCPCS: 99212 ==

== ENCOUNTER 2021-09-20 12:54 | Outpatient (REF) | payer SELFPAY ==
--- NOTE | 2021-09-20 13:16 | MHC.AU.P13 ---
Hearing Instrument Follow-Up- Binaural Date of Visit: 09/20/21 Right Ear: Clearance Center Manager: Phonak Model: Audeo M50-R Serial Number: [id number] Repair Warranty: 01/13/2023 Loss and Damage Warranty: 01/13/2023 Battery Size: Rechargeable Color: H0- Beige Sap Architect: 2 M Type of Mold: Small open Type of Wax Guard: Cerushield Dispensed By: [facility] Date of Fittin10/22/2019 Left Ear: Clearance Center Manager: Phonak Model: Audeo M50-R Serial Number: [id number] Repair Warranty: 01/13/2023 Loss and Damage Warranty: 01/13/2023 Battery Size: Rechargeable Color: H0- Beige Sap Architect: 2 P Type of Dome: Small vented Type of Wax Guard: Cerushield Dispensed By: [facility] Date of Fittin10/22/2019 Follow-Up Summary: Patient brought in aids - stated not working well. Both very clogged with wax. Cleaned aids and changed wax guards, domes, retention tails - both now amplifying clearly. Recommendations: Recommendations: Hearing instrument follow-up or maintenance as needed. Diagnosis Code(s): Primary Diagnosis: H90.3 Bilateral Sensorineural Hearing Loss Signature: Provider: TALI Carlin-HIS
== END 2021-09-20 12:55 | disposition home or self-care (01) ==
LOC: HO.HAP 12:54
PROVIDERS: Visit Provider Physician Assistant Medical
DX: Z13.89 Encounter for screening for other disorder (principal)

== ENCOUNTER 2022-02-01 11:24 | Outpatient (REF) | payer MEDICARE, SELFPAY ==
--- NOTE | 2022-03-01 16:24 | MHC.AU.AHA ---
Adult Audiological Evaluation Date of Visit: 02/01/22 Gold Stamper Used: Not Applicable Reason for Appointment: Audiologic re-evaluation to determine possible change in hearing ability. Morgan has a history of asymmetric hearing loss and uses binaural hearing aids. Since last tested, he had COVID-19 in September 2019. In March 2021, Morgan was hospitalized for Cholangitis with sepsis and required rehabilitation. Previous Hearing Test Results: 12/23/2020 [facility] Right ear - Normal hearing threshold at 250 Hz, sloping to a moderately-severe high frequency sensorineural hearing loss with 92% speech understanding at 70 dB HL Left ear - Mild dropping to severe sensorineural hearing loss with 36% speech discrimination at 85 dB HL and 32% at 90 dB HL. Binaural speech understanding at 80 dB HL was 100% Medical History: Medical History: High Blood Pressure, High Cholesterol Medication List: Lisinopril and Simvastatin Hearing Instrument History- Right Ear: Finger Buff Sewer: [employer] Model: [employer] M50-R Serial Number: [id number] Battery Size: Rechargeable Repair Warranty: 01/13/2023 Loss and Damage Warranty: 01/13/2023 Dispensed By: [facility] Date of Fittin10/22/2019 Hearing Instrument History- Left Ear: Finger Buff Sewer: Phonak Model: A[employer] M50-R Serial Number: [id number] Battery Size: Rechargeable Warranty: 01/13/2023 Loss and Damage Warranty: 01/13/2023 Dispensed By: [facility] Date of Fittin10/22/2019 Otoscopy: Right Ear: Mostly occluding cerumen partially removed prior to test today Left Ear: Mostly occluding cerumen completely removed prior to testing today Tympanometry: Tympanometry performed due to: To assess integrity of the middle ear system Right Ear: Normal Middle Ear System (Type A) Left Ear: Normal Middle Ear System (Type A) Hearing Evaluation: Transducer(s) Used: Insert Earphones Bone Conduction Method: Conventional Audiometry Stimuli Used: Pure Tones Right Ear: Description of Hearing: Mild sloping to moderately-severe sensorineural hearing loss Left Ear: Description of Hearing: Mild dropping to severe sensorineural hearing loss with conductive component noted at 1000 Hz. Speech Recognition Threshold (SRT): Method Used: Monitored Live Voice Stimuli Used: Spondee Words Right Ear: 30 dB HL Left Ear: 45 dB HL Word Discrimination: Method: Recorded Lists Word Lists Used: NU-6 Right Ear: 88% at 70 dB HL Left Ear: 32% at 85 dB HL Binaural: 88% at 75 dB HL Comparison: Compared to most recent evaluation: Overall 5-10 dB decrease for both ears with stable speech discrimination. Recommendations: - Hearing aid maintenance performed today. - Hearing aid(s) reprogrammed with updated test results. - Discussed and provided a handout regarding Communication Strategies to use to improve speech understanding as best as possible. - Advise using Ear Wax MD ear drops once a month to reduce the amount of cerumen. - Audiological re-evaluation in one year. Will send a reminder card. Diagnosis: Primary Diagnosis: H90.3 Bilateral Sensorineural Hearing Loss Secondary Diagnosis: H61.23 Impacted Cerumen, Bilateral Services Performed: Comprehensive Audiological Evaluation (CPT 89081) Tympanometry (CPT 65838) Signature: Provider: Hayley White, CCC-A
== END 2022-02-01 11:25 | disposition home or self-care (01) ==
LOC: HO.SH 11:24
PROVIDERS: Visit Provider Physician Assistant Medical
DX: Z01.118 Encounter for examination of ears and hearing with other abnormal findings (principal); H90.3 Sensorineural hearing loss, bilateral; H61.23 Impacted cerumen, bilateral
CPT/HCPCS: 92557; 92567

== ENCOUNTER 2022-02-01 12:31 | Outpatient (REF) | payer SELFPAY | END 2022-02-01 12:32 | disposition home or self-care (01) | LOC: HO.HAP 12:31 | PROVIDERS: Visit Provider Physician Assistant Medical | DX: Z46.1 Encounter for fitting and adjustment of hearing aid (principal); H90.3 Sensorineural hearing loss, bilateral; H61.23 Impacted cerumen, bilateral | CPT/HCPCS: 92700 ==

== ENCOUNTER 2022-02-27 11:06 | Outpatient (REF) | payer SELFPAY ==
--- NOTE | 2022-03-01 11:02 | MHC.AU.HFU ---
Hearing Instrument Follow-Up- Binaural Date of Visit: 02/27/22 Right Ear: Multimedia Artist: Phonak Model: [employer] M50-R Serial Number: [id number] Repair Warranty: 01/13/2023 Loss and Damage Warranty: 01/13/2023 Battery Size: Rechargeable Stabilizing Machine Operator: 2 M Type of Mold: Small vented Type of Wax Guard: Cerushield Left Ear: Multimedia Artist: Phonak Model: Audeo M50-R Serial Number: [id number] Repair Warranty: 01/13/2023 Loss and Damage Warranty: 01/13/2023 Battery Size: Rechargeable Stabilizing Machine Operator: 2 P Type of Dome: Small vented Type of Wax Guard: Cerushield Follow-Up Summary: Patient reports that his right hearing aid seems to have stopped charging. The light will take awhile to light up, and then will stay blinking red the whole time. He will be able to use the hearing aid for an hour or so before it needs to be charged again. Both hearing aids were inspected. The right hearing aid was unable to charge in his tipple oiler and our stock chargers. His left hearing aid was able to charge as expected in the right slot in the tipple oiler, suggesting the tipple oiler itself is okay. The right hearing aid was sent to [employer] for repair under warranty. It was noted that the assembler convertible top on the left instrument was bent. The left assembler convertible top was replaced. Patient was provided with a loaner right instrument (Phonak [employer] M50-R #[id number]). Recommendations: Patient will be contacted when the repaired right hearing aid has arrived. Diagnosis Code(s): Primary Diagnosis: H90.3 Bilateral Sensorineural Hearing Loss Signature: Provider: Hayley Huang, GUERA-A
== END 2022-02-27 11:07 | disposition home or self-care (01) ==
LOC: HO.HAP 11:06
PROVIDERS: Visit Provider Physician Assistant Medical
DX: Z13.89 Encounter for screening for other disorder (principal)

== ENCOUNTER 2022-03-15 11:06 | Outpatient (REF) | payer SELFPAY | END 2022-03-15 11:07 | disposition home or self-care (01) | LOC: HO.HAP 11:06 | PROVIDERS: Visit Provider Physician Assistant Medical | DX: Z13.89 Encounter for screening for other disorder (principal) ==

== ENCOUNTER 2022-04-22 21:47 | Emergency (ER) | payer MEDICARE, OTHER, SELFPAY ==
--- NOTE | ~2022-04-22 | XR_ITS ---
EXAMINATION: XR CHEST CLINICAL INFORMATION: Pain COMPARISON: 03/15/2021 TECHNIQUE: 2 views of the chest were obtained. FINDINGS: Elevated right hemidiaphragm with small right pleural effusion. No additional consolidation. No edema. No pneumothorax. The cardiomediastinal silhouette is within normal limits. XR/XR chest 2V IMPRESSION: Small right pleural effusion associated with elevated right hemidiaphragm. No consolidation.
[2022-04-22 21:50] VITALS: BP 144/86; PULSE 100; O2SAT 97
[2022-04-22 21:53] VITALS: BP 129/91; PULSE 105; RESP 18; TEMP 36.3; O2SAT 100; BMI 25.0
[2022-04-22 22:05] LABS: MANUAL DIFF FLAG NO
[2022-04-22 22:07] LABS: Basophils Percent Auto 0.3 % (0-2); Eosinophils Percent Auto 0.3 % (0-4); Hematocrit 40.5 % (42.0-52.0); Hemoglobin 13.5 g/dl (14.0-18.0); Imm Gran Abs Auto 0.03 X10*3/uL (0.00-0.03); Imm Gran Pct Auto 0.3 % (0.0-0.4); Lymphocytes Absolute Auto 0.7 X10*3/uL (1.2-4.9); Lymphocytes Percent Auto 6.8 % (20-40); Mean Corpuscular HGB Conc 33.3 g/dl (31.0-36.0); Mean Corpuscular Hemoglobin 27.2 pg (27.0-33.0); Mean Corpuscular Volume 81.7 fL (80.0-98.0); Mean Platelet Volume 8.9 fL (9.4-12.4); Monocytes Absolute Auto 0.9 X10*3/uL (0.1-1.2); Monocytes Percent Auto 9.7 % (2-11); Neutrophils Absolute Auto 7.9 x10*3/uL (2.0-8.3); Neutrophils Percent Auto 82.6 % (45-73); Platelet Count 232 X10*3/uL (160-400); Red Blood Count 4.96 X10*6/uL (4.60-5.80); Red Cell Distribution Width 14.2 % (11.0-16.0); White Blood Count 9.6 X10*3/uL (4.8-10.8)
[2022-04-22 22:21] LABS: COVID-19 Test Positive (Negative); IDNOW Serial# 16C4AD1C
[2022-04-22 22:27] LABS: Alanine Aminotransferase 24 U/L (0-40); Albumin Level 4.1 g/dL (3.5-5.0); Alkaline Phosphatase 60 U/L (39-117); Anion Gap 18 (12-20); Aspartate Amino Transferase 28 U/L (5-37); Bilirubin Direct 0.4 mg/dL (0.0-0.5); Blood Urea Nitrogen 34 mg/dL (9-16); Calcium 9.5 mg/dL (8.4-10.2); Carbon Dioxide 26 mmol/L (22-29); Chloride 102 mmol/L (96-108); Creatinine Clr Calc Pharmacy 43.5; Estimated Glomerular Filt Rate 59; Glucose Random 184 mg/dL (60-115); Lipase 11 U/L (8-78); Sodium 142 mmol/L (135-145)
[2022-04-23 03:15] VITALS: BP 113/93; PULSE 101; RESP 16; TEMP 36.5; O2SAT 96
[2022-04-23 05:06] VITALS: BP 125/92; PULSE 99; RESP 18; TEMP 37.6; O2SAT 95
--- NOTE | 2022-04-23 06:45 | ED_ITS ---
HPI - General Adult General Chief complaint: Nausea/Vomiting/Diarrhea Stated complaint: unable to keep food down Time Seen by Provider: 04/23/22 06:37 Source: patient Mode of arrival: ambulatory Limitations: no limitations History of Present Illness HPI narrative: This is 82 years old male presented to the emergency department with a chief complaint of poor p.o. intake nausea vomiting, generalized weakness, denies cough or shortness of breath chest pain. Onset (ago): week(s) Radiation: non-radiation Severity: moderate Pain Consistency: constant Relieving factors: none Associated symptoms: denies other symptoms Related Data Home Medications Medication Instructions Recorded Confirmed lisinopril 20 mg tablet 20 mg PO DAILY 08/20/20 03/15/21 simvastatin 40 mg tablet 40 mg PO BEDTIME 08/20/20 03/15/21 acetaminophen 325 mg capsule 650 mg PO Q6H PRN Fever Or Pain 09/30/20 03/15/21 Previous Rx's Medication Instructions Recorded amoxicillin 875 mg-potassium 1 tab PO BID #10 tabs 03/19/21 clavulanate 125 mg tablet Allergies Allergy/AdvReac Type Severity Reaction Status Date / Time No Known Allergies Allergy Verified 03/30/21 10:10 Review of Systems Constitutional: Constitutional: Reports anorexia, Denies chills, Reports fatigue and Denies fever(s) Cardiovascular: Cardiovascular: Reports no additional cardiovascular complaints Genitourinary: Genitourinary: Reports no additional male genitourinary complaints Neurologic: Reports system reviewed and no additional complaints, except as documented Endocrine: Endocrine: Reports fatigue PMFSH Past Medical History Medical History Acute cholangitis COVID-19 Dementia Encephalopathy GERD (gastroesophageal reflux disease) HLD (hyperlipidemia) HTN (hypertension) Intra-abdominal hematoma Jaundice SBO (small bowel obstruction) Surgical History H/O colectomy History of ankle surgery History of appendectomy History of colonoscopy History of surgery on wrist Family History Family History Father History of stomach cancer Social History Social History Household Members: Spouse Housing: House Do you presently have visiting nurse or other home services: Yes Alcohol intake: never Patient Tobacco Use Status: Former Tobacco user Quit Date: 30 years ago Tobacco use type: Cigarette Second Hand Smoke Exposure: No Advance Directives: Yes Advance Directives on File: Yes Advance Directives Date on File: 09/16/20 service: No Current occupational status: retired Physical Exam ED Vital Signs: Vital Signs - 24 hr 04/22/22 21:53 04/23/22 03:15 04/23/22 05:06 Temperature 97.4 F 97.7 F 99.6 F Pulse Rate 105 H 101 H 99 Respiratory Rate 18 16 18 Blood Pressure 129/91 H 113/93 H 125/92 H Pulse Oximetry 100 96 95 Oxygen Delivery Method Room Air Room Air Room Air 04/23/22 07:15 Temperature 98.9 F Pulse Rate 94 Respiratory Rate 12 Blood Pressure 144/94 H Pulse Oximetry 94 Oxygen Delivery Method Room Air BMI result Body Mass Index 25.0 Const General: cooperative Nutritional Appearance: well nourished Orientation/consciousness: patient oriented x3 Limitations: no limitations HENMT Head: Yes normal to inspection General nose exam: Normal external nose present Face and sinus: Yes normal facial exam Mouth: Normal oral and palatal mucosa present Teeth and gingiva: dentition normal Throat: Yes posterior oropharynx normal Neck Neck: Yes normal visual inspection and Yes full ROM Chest Chest palpation & inspection: normal inspection of the chest Resp Effort & Inspection: normal respiratory effort Auscultation: clear to auscultation bilaterally Cardio Jugular venous distension: no JVD Rate: regular rate Rhythm: regular rhythm GI Palpation (GI): Soft to palpation, not firm and nontender Auscultation: normal bowel sounds Skin General skin exam: no rashes or lesions noted Neuro General: patient oriented x3 Course Reevaluation(s) Reevaluation #1: Remains stable no toxic oxygenating well, labs are normal OK to d/c Reevaluation #2: Pt was ambulated by Nurse Rupa did well,tolerated po well will d/c home.He not met criteria for admission Medical Decision Making MDM Narrative Medical decision making narrative: The patient vital signs stable he is COVID positive but afebrile and nontoxic, chest x-ray shows a small right pleural effusion, I will give him 1 Liter of fluids and I anticipate discharge home,he is not hypoxic is not tachypneic Lab Data Result diagrams: 04/22/22 22:01 04/22/22 22:01 Labs: Lab Results 04/22/22 04/22/22 04/22/22 Range/Units 22:01 22:01 22:01 WBC 9.6 (4.8-10.8) X10*3/uL RBC 4.96 (4.60-5.80) X10*6/uL Hgb 13.5 L (14.0-18.0) g/dl Hct 40.5 L (42.0-52.0) % MCV 81.7 (80.0-98.0) fL MCH 27.2 (27.0-33.0) pg MCHC 33.3 (31.0-36.0) g/dl RDW 14.2 (11.0-16.0) % Plt Count 232 (160-400) X10*3/uL MPV 8.9 L (9.4-12.4) fL Immature Gran % (Auto) 0.3 (0.0-0.4) % Neut % (Auto) 82.6 H (45-73) % Lymph % (Auto) 6.8 L (20-40) % [place] % (Auto) 9.7 (2-11) % Eos % (Auto) 0.3 (0-4) % Baso % (Auto) 0.3 (0-2) % Lymph # (Auto) 0.7 L (1.2-4.9) X10*3/uL [place] # (Auto) 0.9 (0.1-1.2) X10*3/uL Eos # (Auto) 0.0 (0.0-0.4) X10*3/uL Baso # (Auto) 0.0 (0.0-0.2) X10*3/uL Abs Immat Gran (auto) 0.03 (0.00-0.03) X10*3/uL Absolute Neuts (auto) 7.9 (2.0-8.3) x10*3/uL Absolute Nucleated RBC 0.000 (0.0-0.012) X10*3/uL Nucleated RBC % (auto) 0.0 (0.0-0.2) /100WBC Sodium 142 (135-145) mmol/L Potassium 4.0 (3.3-5.1) mmol/L Chloride 102 (96-108) mmol/L Carbon Dioxide 26 (22-29) mmol/L Anion Gap 18 (12-20) BUN 34 H (9-16) mg/dL Creatinine 1.18 (0.5-1.4) mg/dL Estim Creat Clear Calc 43.5 Estimated GFR 59 Random Glucose 184 H D (60-115) mg/dL Calcium 9.5 (8.4-10.2) mg/dL Total Bilirubin 1.0 (0.0-1.0) mg/dL Direct Bilirubin 0.4 (0.0-0.5) mg/dL AST 28 (5-37) U/L ALT 24 (0-40) U/L Alkaline Phosphatase 60 D (39-117) U/L Total Protein 7.0 (6.5-8.0) g/dL Albumin 4.1 (3.5-5.0) g/dL Lipase 11 (8-78) U/L COVID-19 (ARCHIE) Positive A (Negative) COVID-19 Clin Com See Note Imaging Data Chest x-ray: Radiologist's impression: CLINICAL INFORMATION: Pain COMPARISON: 03/15/2021 TECHNIQUE: 2 views of the chest were obtained. FINDINGS: Elevated right hemidiaphragm with small right pleural effusion. No additional consolidation. No edema. No pneumothorax. The cardiomediastinal silhouette is within normal limits. XR/XR chest 2V IMPRESSION: Small right pleural effusion associated with elevated right hemidiaphragm. No consolidation. Dictated By: Grayson Rene MD Signed By: <E Discharge Plan Discharge Clinical Impression: COVID-19, Pleural effusion Patient Disposition: Home, Self-Care Instructions: Pleural Effusion (ED), COVID-19 (Coronavirus Disease 2019) (ED) Additional Instructions: Follow-up with your primary care physician tomorrow, your blood work is normal, you oxygen is good, your are COVID positive. Return to the emergency room if you worse, shortness of breath, fever, vomiting, any concern Prescriptions: No Action lisinopril 20 mg Tablet 20 mg PO DAILY simvastatin 40 mg Tablet 40 mg PO BEDTIME amoxicillin-pot clavulanate 875-125 mg tablet 1 tab PO BID Qty: 10 0RF acetaminophen 325 mg capsule 650 mg PO Q6H PRN (Reason: Fever Or Pain) Referrals: Physician,Unknown J [Primary Care Provider] - 04/24/22 Interventions: ED Discharge Assessment Last Done: 04/23/22 10:26 Discharge Date/Time: 04/23/22 10:28
[2022-04-23 07:15] VITALS: BP 144/94; PULSE 94; RESP 12; TEMP 37.2; O2SAT 94
[2022-04-23] MEDS: 0.9 % Sodium Chloride 1,000 ML 100 ML IVCONT (07:27)
[2022-04-23] MEDS: ondansetron HCL 4 MG/2 ML VIAL IVPUSH (07:30)
--- NOTE | 2022-04-23 07:34 | PC.NURSE ---
Pt is aox3. Lung sounds are clear bilaterally. Abd is soft and non tender. Resting with no apparent distress. States no pain, no nausea, and reports feeling well at this time. Pt aware of plan of care.
[2022-04-23] MEDS: 0.9 % Sodium Chloride 1,000 ML 999 ML IVCONT (09:12)
--- NOTE | 2022-04-23 10:09 | PC.NURSE ---
Pt is ready for discharge. Pt ambulates with some weakness. Pts , Angella, contacted via telephone and adviced to bring pts walker for discharge. Angella aware and will last picker pt.
== END 2022-04-23 10:28 | disposition home or self-care (01) ==
PROVIDERS: Emergency Provider Emergency Medicine
DX: U07.1 COVID-19 (principal); R07.89 Other chest pain; J90 Pleural effusion, not elsewhere classified; Z79.899 Other long term (current) drug therapy
CPT/HCPCS: 36415; 71046; 80053; 82248; 83690; 85025; 87635; 96365; 96375; 99284; J2405

== ENCOUNTER 2022-05-10 11:52 | Outpatient (REF) | payer SELFPAY | END 2022-05-10 11:53 | disposition home or self-care (01) | LOC: HO.HAP 11:52 | DX: Z13.89 Encounter for screening for other disorder (principal) ==

== ENCOUNTER 2022-11-22 12:45 | Outpatient (REF) | payer SELFPAY | END 2022-11-22 12:46 | disposition home or self-care (01) | LOC: HO.HAP 12:45 | PROVIDERS: Visit Provider Physician Assistant Medical | DX: Z13.89 Encounter for screening for other disorder (principal) ==

== ENCOUNTER 2022-11-23 12:13 | Outpatient (REF) | payer SELFPAY | END 2022-11-23 12:14 | disposition home or self-care (01) | LOC: HO.HAP 12:13 | PROVIDERS: Visit Provider Internal Medicine | DX: Z13.89 Encounter for screening for other disorder (principal) ==

== ENCOUNTER 2022-12-26 12:21 | Outpatient (REF) | payer SELFPAY ==
--- NOTE | 2022-12-26 13:01 | MHC.AU.HA3 ---
Hearing Instrument Follow-Up- Binaural Date of Visit: 12/26/22 Right Ear: Brooks, Model, Color, Serial Number: Rios Medina [id number]-[id number], #[id number] Molecular Modeler Repair Warranty: 01/13/2023 Molecular Modeler Loss and Damage Warranty: 01/13/2023 Battery Size: Rechargeable Computational Scientist/Slim Tube: 2 M Earmold/Dome/CShell/SlimTip:Small open Type of Wax Guard: Cerushield Dispensed By: [facility] Date of Fittin10/22/2019 Left Ear: Brooks, Model, Color, Serial Number: Rios Medina [id number]-[id number], #[id number] Molecular Modeler Repair Warranty: 01/13/2023 Molecular Modeler Loss and Damage Warranty: 01/13/2023 Battery Size: Rechargeable Computational Scientist/Slim Tube: 2 P Earmold/Dome/CShell/SlimTip: Type of Wax Guard: Cerushield Dispensed By: [facility] Date of Fittin10/22/2019 Follow-Up Summary: Patient arrived for hearing aid maintenance, and to have his ears checked for cerumen. The left canal was mostly clear. The right canal was partially occluded. With permission, a lighted disposable curette was used to removed wax from the right ear. Small area of irritation noted on bottom of canal afterwards, where cerumen had adhered. Tympanic membrane is now visible. His hearing aids are going out of warranty on 01/13/2023. Recommended that they be sent out for clean/test before end of warranty. Both hearing aids were sent out. Also requested a new business programmer, as his had excessive cerumen inside. Recommendations: Patient will be contacted when materials have arrived. Does not need appointment- can bean picker hearing aids and business programmer when they arrive. Diagnosis Code(s): Primary Diagnosis: H90.3 Bilateral Sensorineural Hearing Loss Signature: Provider: Manjula Huang, [facility]
== END 2022-12-26 12:22 | disposition home or self-care (01) ==
LOC: HO.HAP 12:21
PROVIDERS: Visit Provider Internal Medicine
DX: Z13.89 Encounter for screening for other disorder (principal)

== ENCOUNTER 2023-01-04 21:35 | Emergency (ER) | payer MEDICARE, OTHER, SELFPAY ==
[2023-01-04 21:46] VITALS: BP 160/96; BP 164/102; PULSE 96; PULSE 97; RESP 16; TEMP 37.7; O2SAT 96; O2SAT 97; BMI 25.8
[2023-01-04 21:50] VITALS: BP 146/87; PULSE 95; RESP 20; O2SAT 97
--- NOTE | 2023-01-04 21:56 | PC.NURSE ---
this RN called pts to discuss pts current condition. She reports that he has been answering slower lately and has seemed more confused. Per , the patient is going through a dementia diagnosis but also appears like this when he has a UTI
[2023-01-04 22:06] VITALS: BP 146/80; PULSE 101; RESP 19; O2SAT 97
--- NOTE | 2023-01-04 22:18 | ED_ITS ---
HPI - Altered Mental Status General Chief Complaint: Altered Mental Status Stated Complaint: BACK PAIN,NAUSEA,OFF TODAY PER FAMILY Time Seen by Provider: 01/04/23 22:15 Source: patient Mode of arrival: EMS Limitations: no limitations History of Present Illness HPI narrative: Patient with history of hypertension hyperlipidemia and dementia him by EMS as thinks patient is more confused lately forgetful patient fell in his bed earlier without any significant injuries no fever no chills Related Data Home Medications Medication Instructions Recorded Confirmed lisinopril 20 mg tablet 20 mg PO DAILY 08/20/20 03/15/21 simvastatin 40 mg tablet 40 mg PO BEDTIME 08/20/20 03/15/21 acetaminophen 325 mg capsule 650 mg PO Q6H PRN Fever Or Pain 09/30/20 03/15/21 Previous Rx's Medication Instructions Recorded amoxicillin 875 mg-potassium 1 tab PO BID #10 tabs 03/19/21 clavulanate 125 mg tablet Allergies Allergy/AdvReac Type Severity Reaction Status Date / Time No Known Allergies Allergy Verified 01/05/23 00:10 Review of Systems Review of Systems: Yes all other systems are reviewed and are negative PMFSH Past Medical History Medical History Acute cholangitis COVID-19 Dementia Encephalopathy GERD (gastroesophageal reflux disease) HLD (hyperlipidemia) HTN (hypertension) Intra-abdominal hematoma Jaundice SBO (small bowel obstruction) Surgical History H/O colectomy History of ankle surgery History of appendectomy History of colonoscopy History of surgery on wrist Family History Family History Father History of stomach cancer Social History Social History Household Members: Spouse Housing: House Do you presently have visiting nurse or other home services: Yes Alcohol intake: never Patient Tobacco Use Status: Former Tobacco user Quit Date: 30 years ago Tobacco use type: Cigarette Smoked in Last 30 Days: No Second Hand Smoke Exposure: No Use of substances other than those prescribed or required for medical reasons: No Advance Directives: Yes Advance Directives Information Provided: No Advance Directives on File: No Advance Directives Date on File: 09/16/20 service: No Current occupational status: retired Physical Exam ED Vital Signs: Vital Signs - 24 hr 01/04/23 21:46 01/04/23 21:50 01/04/23 22:06 Temperature 99.8 F Pulse Rate 97 95 101 H Respiratory Rate 16 20 19 Blood Pressure 164/102 H 146/87 H 146/80 H Pulse Oximetry 97 97 97 Oxygen Delivery Method Room Air Room Air Room Air 01/05/23 02:45 Temperature 99.0 F Pulse Rate 74 Respiratory Rate 13 Blood Pressure 143/90 H Pulse Oximetry 95 Oxygen Delivery Method Room Air BMI result Body Mass Index 25.8 Appearance: Alert. Oriented X2. No acute distress. Eyes: PERRLA, No Nystagmus ENT: Pharynx normal. Oral Mucosa moist Neck: Normal inspection. Neck supple. CVS: Normal heart rate and rhythm. Pulses normal. Respiratory: No respiratory distress. Equal air entry bilateral, no wheezing/rales/rhonchi Abdomen: Soft and nontender. Bowel sounds are present, no mass palpable, no CVA tenderness Skin: Skin warm and dry. Normal skin color. Normal skin turgor. Extremities: No lower extremity edema. No calf tenderness Neuro: Oriented X 2. No motor deficit. No sensory deficit.No cerebellar signs , cranial nerves II-XII intact short-term memory 1:3 in 3 minute Medical Decision Making Medical Decision Making MDM Narrative: Patient with dementia with nonspecific complaints workup is stable no acute psychotic features will discharge patient back home patient ambulatory in the ER vitals are stable Lab Data [facility] Lab Attestation statement: I reviewed the patient's lab results. 01/04/23 23:03 01/04/23 23:03 Labs: Lab Results 01/04/23 01/04/23 01/04/23 Range/Units 23:03 23:03 23:03 WBC 12.0 H (4.8-10.8) X10*3/uL RBC 4.80 (4.60-5.80) X10*6/uL Hgb 13.5 L (14.0-18.0) g/dl Hct 39.8 L (42.0-52.0) % MCV 82.9 (80.0-98.0) fL MCH 28.1 (27.0-33.0) pg MCHC 33.9 (31.0-36.0) g/dl RDW 13.7 (11.0-16.0) % Plt Count 154 L D (160-400) X10*3/uL MPV 9.0 L (9.4-12.4) fL Immature Gran % (Auto) 0.3 (0.0-0.4) % Neut % (Auto) 84.4 H (45-73) % Lymph % (Auto) 7.0 L (20-40) % [place] % (Auto) 7.1 (2-11) % Eos % (Auto) 0.8 (0-4) % Baso % (Auto) 0.4 (0-2) % Lymph # (Auto) 0.8 L (1.2-4.9) X10*3/uL [place] # (Auto) 0.9 (0.1-1.2) X10*3/uL Eos # (Auto) 0.1 (0.0-0.4) X10*3/uL Baso # (Auto) 0.1 (0.0-0.2) X10*3/uL Abs Immat Gran (auto) 0.04 H (0.00-0.03) X10*3/uL Absolute Neuts (auto) 10.1 H (2.0-8.3) x10*3/uL Absolute Nucleated RBC 0.000 (0.0-0.012) X10*3/uL Nucleated RBC % (auto) 0.0 (0.0-0.2) /100WBC Sodium 140 (135-145) mmol/L Potassium 4.1 (3.3-5.1) mmol/L Chloride 108 (96-108) mmol/L Carbon Dioxide 22 (22-29) mmol/L Anion Gap 14 (12-20) BUN 15 (9-16) mg/dL Creatinine 0.99 (0.5-1.4) mg/dL Estim Creat Clear Calc 51.9 Estimated GFR > 60 Random Glucose 133 H (60-115) mg/dL Calcium 8.7 D (8.4-10.2) mg/dL Magnesium 2.1 (1.6-2.6) mg/dL Total Bilirubin 0.8 (0.0-1.0) mg/dL AST 14 (5-37) U/L ALT 14 (0-40) U/L Alkaline Phosphatase 50 (39-117) U/L Total Protein 6.4 L (6.5-8.0) g/dL Albumin 3.9 (3.5-5.0) g/dL Urine Color Yellow Urine Appearance Clear Urine pH 6.5 (5.0-9.0) Ur Specific [place] 1.015 (1.005-1.025) Urine Protein Trace (Neg-Trace) mg/dL Urine Glucose (UA) Negative (Negative) mg/dL Urine Ketones Negative (Negative) mg/dL Urine Blood Trace H (Negative) Urine Nitrite Negative (Negative) Ur Leukocyte Esterase Negative (Negative) Urine RBC 0-2 (0-2) /HPF Urine WBC 0-5 (0-5) /HPF Ur Squamous Epith Cells 0-2 (0-2) /HPF Urine Bacteria None Seen (None Seen) Hyaline Casts 0-2 (0-2) /LPF Discharge Plan Discharge Clinical Impression: Dementia Patient Disposition: Home, Self-Care Instructions: Dementia (ED) Additional Instructions: Continue medication follow-up with your PCP Prescriptions: No Action lisinopril 20 mg Tablet 20 mg PO DAILY simvastatin 40 mg Tablet 40 mg PO BEDTIME amoxicillin-pot clavulanate 875-125 mg tablet 1 tab PO BID Qty: 10 0RF acetaminophen 325 mg capsule 650 mg PO Q6H PRN (Reason: Fever Or Pain)
[2023-01-04 23:10] LABS: MANUAL DIFF FLAG NO
[2023-01-04 23:11] LABS: Basophils Absolute Auto 0.1 X10*3/uL (0.0-0.2); Basophils Percent Auto 0.4 % (0-2); Eosinophils Absolute Auto 0.1 X10*3/uL (0.0-0.4); Eosinophils Percent Auto 0.8 % (0-4); Hematocrit 39.8 % (42.0-52.0); Hemoglobin 13.5 g/dl (14.0-18.0); Imm Gran Abs Auto 0.04 X10*3/uL (0.00-0.03); Imm Gran Pct Auto 0.3 % (0.0-0.4); Lymphocytes Absolute Auto 0.8 X10*3/uL (1.2-4.9); Mean Corpuscular HGB Conc 33.9 g/dl (31.0-36.0); Mean Corpuscular Hemoglobin 28.1 pg (27.0-33.0); Mean Corpuscular Volume 82.9 fL (80.0-98.0); Monocytes Absolute Auto 0.9 X10*3/uL (0.1-1.2); Monocytes Percent Auto 7.1 % (2-11); Neutrophils Absolute Auto 10.1 x10*3/uL (2.0-8.3); Neutrophils Percent Auto 84.4 % (45-73); Platelet Count 154 X10*3/uL (160-400); Red Cell Distribution Width 13.7 % (11.0-16.0)
[2023-01-04 23:13] LABS: Appearance Urine Clear; Color Urine Yellow; Glucose Urine UA Negative (Negative); Leukocyte Esterase Urine Negative (Negative); Nitrite Urine Negative (Negative); PH 6.5 (5.0-9.0); Specific Gravity - Urine 1.015 (1.005-1.025); UMIC TRIGGER UACC YES; Urine Blood Trace (Negative); Urine Ketones Negative (Negative); Urine Protein Trace mg/dL (Neg-Trace)
[2023-01-04 23:16] LABS: Bacteria Urine None Seen (None Seen); Hyaline Casts Urine 0-2 /LPF (0-2); RBC Urine 0-2 /HPF (0-2); Squamous Epithelial Cell Urine 0-2 /HPF (0-2); WBC Urine 0-5 /HPF (0-5)
[2023-01-04 23:36] LABS: Anion Gap 14 (12-20)
[2023-01-04 23:42] LABS: Alanine Aminotransferase 14 U/L (0-40); Albumin Level 3.9 g/dL (3.5-5.0); Alkaline Phosphatase 50 U/L (39-117); Aspartate Amino Transferase 14 U/L (5-37); Bilirubin Total 0.8 mg/dL (0.0-1.0); Blood Urea Nitrogen 15 mg/dL (9-16); Calcium 8.7 mg/dL (8.4-10.2); Carbon Dioxide 22 mmol/L (22-29); Chloride 108 mmol/L (96-108); Creatinine Clr Calc Pharmacy 51.9; Estimated Glomerular Filt Rate > 60; Glucose Random 133 mg/dL (60-115); Magnesium 2.1 mg/dL (1.6-2.6); Potassium 4.1 mmol/L (3.3-5.1); Sodium 140 mmol/L (135-145); Total Protein 6.4 g/dL (6.5-8.0)
[2023-01-05 02:45] VITALS: BP 143/90; PULSE 74; RESP 13; TEMP 37.2; O2SAT 95
== END 2023-01-05 04:09 | disposition home or self-care (01) ==
PROVIDERS: Emergency Provider Internal Medicine; PCP Internal Medicine
DX: F03.90 Unspecified dementia, unspecified severity, without behavioral disturbance, psychotic disturbance, mood disturbance, and anxiety (principal); I10 Essential (primary) hypertension; E78.5 Hyperlipidemia, unspecified; Z79.899 Other long term (current) drug therapy; Z79.02 Long term (current) use of antithrombotics/antiplatelets
CPT/HCPCS: 36415; 80053; 81001; 83735; 85025; 99283; 99284

== ENCOUNTER 2023-01-08 12:22 | Outpatient (REF) | payer OTHER, MEDICARE, SELFPAY | END 2023-01-08 12:23 | disposition home or self-care (01) | LOC: HO.HAP 12:22 | PROVIDERS: Visit Provider Physician Assistant Medical | DX: Z13.89 Encounter for screening for other disorder (principal) ==

== ENCOUNTER 2023-01-24 10:24 | Outpatient (REF) | payer MEDICARE, SELFPAY ==
[2023-01-24 12:41] LABS: Syphilis Screen Nonreactive (Nonreactive)
[2023-01-24 13:14] LABS: Folate 13.4 ng/mL (> or = 4.0); Vitamin B12 426 pg/mL (200-900)
[2023-01-26 11:09] LABS: Lyme Abs Screen <0.90 index
[2023-01-26 18:29] LABS: Homocysteine 13.1 umol/L (<11.4)
== END 2023-01-24 10:25 | disposition home or self-care (01) ==
LOC: HO.LAB 10:24
PROVIDERS: Visit Provider Psychiatry & Neurology Neurology
DX: G30.9 Alzheimer's disease, unspecified (principal); I67.9 Cerebrovascular disease, unspecified
CPT/HCPCS: 36415; 82607; 82746; 83090; 86617; 86618; 86780

== ENCOUNTER 2023-05-24 11:54 | Outpatient (REF) | payer SELFPAY | END 2023-05-24 11:55 | disposition home or self-care (01) | LOC: HO.HAP 11:54 | PROVIDERS: Visit Provider Internal Medicine | DX: Z13.89 Encounter for screening for other disorder (principal) ==

== ENCOUNTER 2023-05-28 11:23 | Outpatient (REF) | payer SELFPAY | END 2023-05-28 11:24 | disposition home or self-care (01) | LOC: HO.HAP 11:23 | PROVIDERS: Visit Provider Physician Assistant Medical | DX: H90.3 Sensorineural hearing loss, bilateral (principal) | CPT/HCPCS: V5299 ==

== ENCOUNTER 2023-08-02 18:55 | Inpatient (IN) | payer MEDICARE, OTHER, SELFPAY ==
--- NOTE | ~2023-08-02 | CT_ITS ---
EXAMINATION: CT ANGIOGRAM HEAD CT ANGIOGRAM NECK CLINICAL INFORMATION: Reason for Exam dysarthria, R arm weakness COMPARISON: Earlier same day noncontrast head CT TECHNIQUE: Initial noncontrast head athletic trainer imaging of the head and neck was performed. Comparison is made with noncontrast head CT from earlier today. Test bolus sequences followed by intravenous administration 70 mL of Omnipaque 350. Helical imaging was performed in the axial plane from the aortic arch to the skull vertex. Delayed postcontrast imaging of the head was also performed. The data was processed at the surgical scrub technologist's workstation for generation of MIP sequences. Angled MIPs and volume rendered reformatted images were also generated at an offline 3D workstation. Stenoses are assessed in accordance with NASCET criteria unless otherwise indicated. DLP: 1527 mGy-cm This CT examination was performed using dose optimization techniques as appropriate, variously including the following: *Automated exposure control. *Adjustment of mA and/or kV according to patient size (this includes techniques or standardized protocols for targeted exams where dose is matched to indication/reason for exam; i.e. extremities or head). *Use of iterative reconstruction technique. FINDINGS: CT Head: There is no evidence of acute intracranial hemorrhage or edematous territorial infarction. A few foci of hypoattenuation in the periventricular and deep white matter are consistent with mild microangiopathy. Lawrence-white matter differentiation is preserved. Proportional prominence of the ventricles and sulcal spaces. No evidence for obstructive hydrocephalus. No abnormal mass effect or midline shift. No extra-axial fluid collections. No pathologic intra-axial enhancement or regional oligemia. No acute soft tissue or osseous abnormalities. Mild maxillary sinus mucosal thickening. CT Neck: The thyroid gland and remaining cervical soft tissues are within normal limits. Moderate to advanced multilevel cervical spondylosis. Severe arthrosis of the atlantodental articulation with presumably degenerative cystic changes of the dens process and small retrodental pannus without evidence of high-grade spinal stenosis at the craniocervical junction. CT Upper Chest: The visualized lung apices and upper mediastinum are within normal limits. Neck CTA: Aortic Arch: Normal contour and caliber. Classic 3 vessel branching pattern of the aortic arch. Great Vessel Origins: No significant stenosis of the branch origins. Right Common Carotid Artery: No focal stenosis or occlusion. Cervical Right Internal Carotid Artery: Mild calcific atherosclerotic disease of the carotid bulb and proximal internal carotid artery without flow-limiting stenosis. Left Common Carotid Artery: No focal stenosis or occlusion. Cervical Left Internal Carotid Artery: Mild calcific atherosclerotic disease of the carotid bulb and proximal internal carotid artery without flow-limiting stenosis. Cervical Right Vertebral Artery: No focal stenosis or occlusion. Cervical Left Vertebral Artery: No focal stenosis or occlusion. Brain CTA: Intracranial Internal Carotid Arteries: Calcific atherosclerotic disease of the intracranial internal carotid arteries without occlusion or flow-limiting stenosis. Right Anterior Cerebral Artery: The right A1 segment is congenitally absent or diminutive. Normal opacification of the distal TERE segments. Left Anterior Cerebral Artery: Dominant left A1 segment supplies the bilateral TERE complexes. Normal opacification of the distal TERE segments. Anterior Communicating Artery: Normal. Right Middle Cerebral Artery: Normal M1 segment of the MCA without focal stenosis or occlusion. Normal arborization of the distal segments. Left Middle Cerebral Artery: Normal M1 segment of the MCA without focal stenosis or occlusion. Normal arborization of the distal segments. Right Vertebral Artery: Normal V4 segment. Left Vertebral Artery: Normal V4 segment. Basilar Artery: Normal without focal stenosis or occlusion. Normal appearance of the proximal superior cerebellar arteries. Right Posterior Cerebral Artery: The P1 segment is diminutive. origin of the ELECTRICAL INSTRUMENT REPAIRER with robust opacification of the posterior communicating artery. Normal opacification of the distal ELECTRICAL INSTRUMENT REPAIRER segments. Left Posterior Cerebral Artery: Normal P1 segment. Normal opacification of the distal ELECTRICAL INSTRUMENT REPAIRER segments. Normal opacification of the superior sagittal, straight, transverse, and sigmoid sinuses. CT/CT angio head neck stroke IMPRESSION: No arterial high grade stenosis or large vessel occlusion in the head or neck. Above impression was communicated to Dr Black on 08/02/2023 7:42 PM
--- NOTE | ~2023-08-02 | MR_ITS ---
MRI OF THE BRAIN WITHOUT IV CONTRAST INDICATION: ? CVA COMPARISON: CTA head and neck on 08/02/2023 TECHNIQUE: Multiplanar multisequence MR imaging of the brain was obtained without IV contrast. FINDINGS: Acute infarct involving the left thalamus. No hemorrhagic conversion. Scattered and confluent periventricular white matter T2/FLAIR hyperintensities, nonspecific however commonly seen with small vessel ischemic disease. Diffuse prominence of the sulci with associated ex vacuo dilation of the ventricles compatible with global cerebral atrophy. No midline shift or hydrocephalus. No acute extra-axial fluid collections. The osseous structures are unremarkable. Partially empty sella. The pineal gland and remaining midline structures are unremarkable. No orbital pathology. Mucosal thickening of the paranasal sinuses. The mastoid air cells are clear. MR/MR head/brain wo con IMPRESSION: 1. Acute infarct involving the left thalamus. No hemorrhagic conversion. 2. Global cerebral atrophy and chronic microangiopathy.
--- NOTE | ~2023-08-02 | CT_ITS ---
EXAMINATION: CT HEAD WITHOUT CONTRAST (STROKE PROTOCOL) CLINICAL INFORMATION: Stroke protocol. Dysarthria. COMPARISON: CT brain 03/15/2021 TECHNIQUE: Contiguous axial imaging was performed from the skull base to vertex without intravenous administration of contrast. This CT examination was performed using dose optimization techniques as appropriate, variously including the following: *Automated exposure control *Adjustment of mA and/or kV according to patient size (this includes techniques or standardized protocols for targeted exams where dose is matched to indication/reason for exam; i.e. extremities or head) *Use of iterative reconstruction technique DLP: 690 mGy-cm FINDINGS: There is no acute intra-axial, extra-axial bleed, masses or midline shift. There is no acute infarction in evolution. There is no edema. The lateral ventricles are symmetrical in size and configuration but enlarged. There is mild periventricular hypodensity seen in both cerebral hemispheres without mass effect. There is no abnormality seen in the posterior fossa. There is mild ectasia of the basilar artery. Bone windows reveal no calvarial abnormality. There is no scalp soft tissue abnormality. There is mild mucoperiosteal thickening bilateral maxillary sinuses. Rest of the paranasal sinuses are well-aerated. CT/CT head for stroke IMPRESSION: 1. No acute intracranial process seen. 2. Age-related cerebral volume loss with chronic small vessel ischemic changes. This critical result was discussed with Dr. Bouchra Benedict in ED at 7:13 PM on 08/02/2023.. It was ascertained that the content and urgency of the report was understood at the time of direct communication.
[2023-08-02 19:02] VITALS: BP 184/88; PULSE 83; O2SAT 96
--- NOTE | 2023-08-02 19:02 | ECG_ITS ---
Test Reason : STROKE Blood Pressure : / mmHG Vent. Rate : 085 BPM Atrial Rate : 085 BPM P-R Int : 162 ms QRS Dur : 088 ms QT Int : 370 ms P-R-T Axes : 051 017 014 degrees QTc Int : 440 ms Normal sinus rhythm Inferior infarct , age undetermined Abnormal ECG When compared with ECG of 15-MAR-2021 16:04, Nonspecific T wave abnormality no longer evident in Anterior leads Referred By: Allyn Black Electronically Signed By:FAB CASILLAS MD
--- NOTE | 2023-08-02 19:03 | ED.NEUROSD ---
HPI - Neuro Symptoms/Deficit General Chief Complaint: Stroke Stated Complaint: SRTOKE ALERT,SYNCOPAL EPISODES,BI LAT WEAKNESS Source: patient, family and old records reviewed Mode of arrival: EMS Limitations: other (cognitive impairment) History of Present Illness HPI Narrative: 83 yo male from home hx of dementia, UTI, HTN, here from home - report from EMS states not himself with slurred speech since this afternoon. Not on blood thinners. On arrival he has dysarthria and word finding difficulties along with mild RUE weakness and RLE weakness. He is confused as well. No signs of head trauma. He cannot provide a good history. Will put on CT scan and call family finally able to reach and son on phone - his last known well was at 10am today. They cannot say when they noticed his symptoms some time this afternoon and before dinner he couldn't use utensils couldnt walk right and his speech was worsening throughout the day. They both know that he was last normal at 10am but after a 7 min phone conversation neither could relay what time he was observed at the start of symptoms. Onset (ago): unknown Last Observed Normal: 10:00 Timing confirmed by: family member Location: speech, right arm and right leg History of same: No Severity: moderate Quality: weak Relieving factors: none Exacerbating factors: none Context: gradual onset On Anticoagulants: No Associated symptoms: denies other symptoms Treatments Prior to Arrival: none Related Data Home Medications Medication Instructions Recorded Confirmed lisinopril 20 mg tablet 20 mg PO DAILY 08/20/20 08/02/23 Allergies Allergy/AdvReac Type Severity Reaction Status Date / Time No Known Allergies Allergy Verified 08/02/23 19:41 Review of Systems Review of Systems: ROS unable to be obtained due to cognitive impairment [facility] Past Medical History Attestation statement: The following information was validated with the patient. Source: old records reviewed Medical History Jaundice Encephalopathy Acute cholangitis Intra-abdominal hematoma Dementia COVID-19 SBO (small bowel obstruction) GERD (gastroesophageal reflux disease) HLD (hyperlipidemia) HTN (hypertension) Surgical History History of colonoscopy History of surgery on wrist History of ankle surgery History of appendectomy H/O colectomy Family History Family History Father History of stomach cancer Social History Social History Household Members: Spouse Housing: House Do you presently have visiting nurse or other home services: Yes Alcohol intake: never Patient Tobacco Use Status: Former Tobacco user Quit Date: 30 years ago Tobacco use type: Cigarette Smoked in Last 30 Days: No Second Hand Smoke Exposure: No Use of substances other than those prescribed or required for medical reasons: No Advance Directives: Yes Advance Directives on File: Yes Advance Directives Date on File: 09/16/20 service: No Current occupational status: retired Physical Exam Vital Signs: Vital Signs: Last Vital Signs Temp 98.4 F 08/02/23 19:35 Pulse 87 08/02/23 21:27 Resp 17 08/02/23 21:27 BP 103/81 08/02/23 21:27 Pulse Ox 97 08/02/23 21:27 O2 Del Method Room Air 08/02/23 21:27 BMI result Body Mass Index 28.2 Appearance: Alert. Confused. Mild acute distress. Eyes: Pupils equal, round and reactive to light. ENT: Pharynx normal. Neck: Normal inspection. Neck supple. CVS: Normal heart rate and rhythm. Pulses normal. Respiratory: No respiratory distress. Breath sounds normal. Abdomen: Soft and nontender. Skin: Skin warm and dry. Normal skin color. Normal skin turgor. Extremities: No lower extremity edema. No calf ttp Neuro: Confused, R UE and RLE 4+/5 aphasia and dysarthria no facial droop reports no change in visual [place], mild R drift Course Course Course Narrative: unable to reach on arrival able to call 706pm - after 7 min phone call last known well 10am, Morgan himself states he thinks the speech happened before lunch but he is very hard to understand Reevaluation(s) Reevaluation #1: aspirin ordered Medications Administered Discontinued Medications Generic Name Dose Route Start Last Admin Trade Name Freq PRN Reason Stop Dose Admin Aspirin 325 mg 08/02/23 20:09 08/02/23 21:25 Aspirin 325 Mg Tablet PO 08/02/23 20:10 325 mg ONCE ONE Administration Iohexol 100 ml 08/02/23 19:17 08/02/23 19:17 Iohexol 350 Mg/Ml 100 Ml Infus..Btl IV 08/02/23 19:18 70 ml ONCE ONE Administration Medical Decision Making Medical Decision Making [facility] [place] Narrative: 83 yo male from home hx of dementia, UTI, HTN, here from home here with speech issues and R sided weakness concerning for stroke not on thinners. I spent 7 min on the phone with son and and I could not pinpoint a timeframe for symptom onset. They both agree he was last seen normal at 10am which is when he woke up. He seems he slept most of the day and his symptoms hung around. Given last known well at 10am he is not a candidate for TNK. He will get labs, CT scan, CTA if clot present will discuss with neurointerventional. Planned admit. Differential Diagnosis Differential Diagnoses: The differential diagnosis associated with the presentation includes stroke, metabolic or toxic encephalopathy Admission/Observation Consideration of admission/observation: Escalation of care including admission/observation considered admit for further workup Consult Healthcare Provider Management of the patient was discussed with: Hospitalist (will admit) Lab Data [facility] [place] Lab Attestation statement: I reviewed the patient's lab results. 08/02/23 19:49 08/02/23 19:49 Labs: Lab Results 08/02/23 08/02/23 08/02/23 Range/Units 19:49 19:51 19:53 WBC 7.8 (4.8-10.8) X10*3/uL RBC 4.55 L (4.60-5.80) X10*6/uL Hgb 12.9 L (14.0-18.0) g/dl Hct 38.8 L (42.0-52.0) % MCV 85.3 (80.0-98.0) fL MCH 28.4 (27.0-33.0) pg MCHC 33.2 (31.0-36.0) g/dl RDW 13.4 (11.0-16.0) % Plt Count 173 (160-400) X10*3/uL MPV 8.9 L (9.4-12.4) fL Immature Gran % (Auto) 0.4 (0.0-0.4) % Neut % (Auto) 68.9 (45-73) % Lymph % (Auto) 17.1 L (20-40) % [place] % (Auto) 9.0 (2-11) % Eos % (Auto) 3.7 (0-4) % Baso % (Auto) 0.9 (0-2) % Lymph # (Auto) 1.3 (1.2-4.9) X10*3/uL [place] # (Auto) 0.7 (0.1-1.2) X10*3/uL Eos # (Auto) 0.3 (0.0-0.4) X10*3/uL Baso # (Auto) 0.1 (0.0-0.2) X10*3/uL Abs Immat Gran (auto) 0.03 (0.00-0.03) X10*3/uL Absolute Neuts (auto) 5.4 (2.0-8.3) x10*3/uL Absolute Nucleated RBC 0.000 (0.0-0.012) X10*3/uL Nucleated RBC % (auto) 0.0 (0.0-0.2) /100WBC PT 11.5 (11.1-13.3) SEC INR 0.9 (0.9-1.1) APTT 31.2 (26.0-36.4) SEC Sodium 138 (135-145) mmol/L Potassium 4.3 (3.3-5.1) mmol/L Chloride 106 (96-108) mmol/L Carbon Dioxide 27 (22-29) mmol/L Anion Gap 9 L (12-20) BUN 23 H (9-16) mg/dL Creatinine 1.04 (0.5-1.4) mg/dL Estim Creat Clear Calc 53.1 Estimated GFR > 60 POC Glucose 84 (60-115) mg/dL Random Glucose 93 (60-115) mg/dL Calcium 9.0 (8.4-10.2) mg/dL Magnesium 2.4 (1.6-2.6) mg/dL Total Bilirubin 0.4 (0.0-1.0) mg/dL Direct Bilirubin 0.1 (0.0-0.5) mg/dL AST 17 (5-37) U/L ALT 18 (0-40) U/L Alkaline Phosphatase 48 (39-117) U/L Troponin I High Sens 2.7 (<3.5-35.0) ng/L Total Protein 6.9 (6.5-8.0) g/dL Albumin 3.8 (3.5-5.0) g/dL Triglycerides 215 H (<150) mg/dL Cholesterol 179 (<200) mg/dL LDL Cholesterol, Calc 103 H (<100) mg/dL HDL Cholesterol 33 L (>40) mg/dL Urine Color Urine Appearance Urine pH (5.0-9.0) Ur Specific [place] (1.005-1.025) Urine Protein (Neg-Trace) mg/dL Urine Glucose (UA) (Negative) mg/dL Urine Ketones (Negative) mg/dL Urine Blood (Negative) Urine Nitrite (Negative) Ur Leukocyte Esterase (Negative) Urine RBC (0-2) /HPF Urine WBC (0-5) /HPF Ur Squamous Epith Cells (0-2) /HPF Urine Bacteria (None Seen) Hyaline Casts (0-2) /LPF Ethyl Alcohol < 10 mg/dL COVID-19 (ARCHIE) Negative (Negative) COVID-19 Clin Com See Note 08/02/23 Range/Units 20:28 WBC (4.8-10.8) X10*3/uL RBC (4.60-5.80) X10*6/uL Hgb (14.0-18.0) g/dl Hct (42.0-52.0) % MCV (80.0-98.0) fL MCH (27.0-33.0) pg MCHC (31.0-36.0) g/dl RDW (11.0-16.0) % Plt Count (160-400) X10*3/uL MPV (9.4-12.4) fL Immature Gran % (Auto) (0.0-0.4) % Neut % (Auto) (45-73) % Lymph % (Auto) (20-40) % [place] % (Auto) (2-11) % Eos % (Auto) (0-4) % Baso % (Auto) (0-2) % Lymph # (Auto) (1.2-4.9) X10*3/uL [place] # (Auto) (0.1-1.2) X10*3/uL Eos # (Auto) (0.0-0.4) X10*3/uL Baso # (Auto) (0.0-0.2) X10*3/uL Abs Immat Gran (auto) (0.00-0.03) X10*3/uL Absolute Neuts (auto) (2.0-8.3) x10*3/uL Absolute Nucleated RBC (0.0-0.012) X10*3/uL Nucleated RBC % (auto) (0.0-0.2) /100WBC PT (11.1-13.3) SEC INR (0.9-1.1) APTT (26.0-36.4) SEC Sodium (135-145) mmol/L Potassium (3.3-5.1) mmol/L Chloride (96-108) mmol/L Carbon Dioxide (22-29) mmol/L Anion Gap (12-20) BUN (9-16) mg/dL Creatinine (0.5-1.4) mg/dL Estim Creat Clear Calc Estimated GFR POC Glucose (60-115) mg/dL Random Glucose (60-115) mg/dL Calcium (8.4-10.2) mg/dL Magnesium (1.6-2.6) mg/dL Total Bilirubin (0.0-1.0) mg/dL Direct Bilirubin (0.0-0.5) mg/dL AST (5-37) U/L ALT (0-40) U/L Alkaline Phosphatase (39-117) U/L Troponin I High Sens (<3.5-35.0) ng/L Total Protein (6.5-8.0) g/dL Albumin (3.5-5.0) g/dL Triglycerides (<150) mg/dL Cholesterol (<200) mg/dL LDL Cholesterol, Calc (<100) mg/dL HDL Cholesterol (>40) mg/dL Urine Color Yellow Urine Appearance Clear Urine pH 6.5 (5.0-9.0) Ur Specific [place] 1.010 (1.005-1.025) Urine Protein Negative (Neg-Trace) mg/dL Urine Glucose (UA) Negative (Negative) mg/dL Urine Ketones Negative (Negative) mg/dL Urine Blood Trace H (Negative) Urine Nitrite Negative (Negative) Ur Leukocyte Esterase Negative (Negative) Urine RBC 0-2 (0-2) /HPF Urine WBC 0-5 (0-5) /HPF Ur Squamous Epith Cells 0-2 (0-2) /HPF Urine Bacteria None Seen (None Seen) Hyaline Casts 0-2 (0-2) /LPF Ethyl Alcohol mg/dL COVID-19 (ARCHIE) (Negative) COVID-19 Clin Com Independent Interpretation I performed an independent interpretation of an: EKG and CT Scan Interpretation: Rate: 85 Rhythm: NSR [place]: normal Normal P waves. Normal [place]. Normal QRS complex. ST T wave : no [place], inverted t wave III qTC: normal prior studies: no acute ischemia The study has been interpreted contemporaneously by me. . Radiology Impression Discussion of test interpretation with radiology: I discussed test interpretation with the radiologist and I have reviewed the radiologist's reading. Radiologist Impression: radiology 714pm - no ICH on dry CT scan CTA read 741pm no LVO noted Independent Historian Clinical information obtained from an independent historian. History obtained from or confirmed by: Spouse and EMS NIH Stroke Scale Internal: Initial- Upon Arrival Level of Consciousness: Alert Level of Consciousness Questions: Answers one question correctly Level of Consciousness Commands: Performs one task correctly Best Gaze: Normal Visual: No visual loss Facial Palsy: Normal Motor Arm (Right): Drift Motor Arm (Left): No drift Motor Leg (Right): Drift Motor Leg (Left): No drift Limb Ataxia: Absent Sensory: Normal Best Language: Mild to moderate aphasia Dysarthia: Mild to moderate dysarthria Extinction and Inattention: No abnormality Score: 6 Critical Care Time Critical Care Time Critical Care Time: Yes Total Critical Care Time: 35 Attestation: stroke alert and protocol, family discussion, medical admission I attest to this time spent taking care of the patient Discharge Plan Discharge Clinical Impression: Aphasia, Weakness Patient Disposition: Admitted As Inpatient
[2023-08-02] MEDS: iohexoL 350 MG/ML 100 ML INFUS..BTL IV (19:17)
[2023-08-02 19:35] VITALS: BP 178/98; PULSE 92; RESP 17; TEMP 36.9; O2SAT 98; BMI 28.2
--- NOTE | 2023-08-02 19:47 | PC.NURSE ---
pt LB as a stroke alert, reporting fatigue/lethargy/ off balance/ slurred speech since this afternoon exact time unknown. report she notice it all more during supper at 5:00. pt had difficulty eating, holding utensils, and finding words. stroke alert called, pt to CT scan immediately upon arrival, #20g iv placed in RAC, labs sent, ekg done, pt changed into hospital attire, on cardiac technician, used urinal at bedside, A7Ox3, difficulty finding words/slurred speech. call hoff within reach plan of care ongoing
[2023-08-02 19:53] LABS: MANUAL DIFF FLAG NO
[2023-08-02 19:55] LABS: Basophils Absolute Auto 0.1 X10*3/uL (0.0-0.2); Basophils Percent Auto 0.9 % (0-2); Eosinophils Absolute Auto 0.3 X10*3/uL (0.0-0.4); Eosinophils Percent Auto 3.7 % (0-4); Hematocrit 38.8 % (42.0-52.0); Hemoglobin 12.9 g/dl (14.0-18.0); Imm Gran Abs Auto 0.03 X10*3/uL (0.00-0.03); Imm Gran Pct Auto 0.4 % (0.0-0.4); Lymphocytes Absolute Auto 1.3 X10*3/uL (1.2-4.9); Lymphocytes Percent Auto 17.1 % (20-40); Mean Corpuscular HGB Conc 33.2 g/dl (31.0-36.0); Mean Corpuscular Hemoglobin 28.4 pg (27.0-33.0); Mean Corpuscular Volume 85.3 fL (80.0-98.0); Mean Platelet Volume 8.9 fL (9.4-12.4); Monocytes Absolute Auto 0.7 X10*3/uL (0.1-1.2); Neutrophils Absolute Auto 5.4 x10*3/uL (2.0-8.3); Neutrophils Percent Auto 68.9 % (45-73); Platelet Count 173 X10*3/uL (160-400); Red Blood Count 4.55 X10*6/uL (4.60-5.80); Red Cell Distribution Width 13.4 % (11.0-16.0); White Blood Count 7.8 X10*3/uL (4.8-10.8)
[2023-08-02 19:57] LABS: Glucose, Whole Blood 84 mg/dL (60-115)
[2023-08-02 20:02] LABS: INTERNATIONAL NORM RATIO 0.9 (0.9-1.1); Prothrombin Time 11.5 SEC (11.1-13.3)
[2023-08-02 20:05] LABS: Partial Thromboplastin Time 31.2 SEC (26.0-36.4)
[2023-08-02 20:12] LABS: Ethanol < 10 mg/dL
[2023-08-02 20:13] LABS: Alanine Aminotransferase 18 U/L (0-40); Albumin Level 3.8 g/dL (3.5-5.0); Alkaline Phosphatase 48 U/L (39-117); Anion Gap 9 (12-20); Aspartate Amino Transferase 17 U/L (5-37); Bilirubin Direct 0.1 mg/dL (0.0-0.5); Bilirubin Total 0.4 mg/dL (0.0-1.0); Blood Urea Nitrogen 23 mg/dL (9-16); Carbon Dioxide 27 mmol/L (22-29); Chloride 106 mmol/L (96-108); Cholesterol 179 mg/dL (<200); Creatinine Clr Calc Pharmacy 53.1; Estimated Glomerular Filt Rate > 60; Glucose Random 93 mg/dL (60-115); HDL Cholesterol 33 mg/dL (>40); LDL Cholesterol Calculated 103 mg/dL (<100); Magnesium 2.4 mg/dL (1.6-2.6); Potassium 4.3 mmol/L (3.3-5.1); Sodium 138 mmol/L (135-145); Total Protein 6.9 g/dL (6.5-8.0); Triglycerides 215 mg/dL (<150)
[2023-08-02 20:20] LABS: Troponin-I High Sensitivity 2.7 ng/L (<3.5-35.0)
[2023-08-02 20:30] LABS: COVID-19 Test Negative (Negative); IDNOW Serial# 08D9AD1C
[2023-08-02 20:35] LABS: Appearance Urine Clear; Color Urine Yellow; Glucose Urine UA Negative (Negative); Leukocyte Esterase Urine Negative (Negative); Nitrite Urine Negative (Negative); PH 6.5 (5.0-9.0); UMIC TRIGGER UACC YES; Urine Blood Trace (Negative); Urine Ketones Negative (Negative); Urine Protein Negative (Neg-Trace)
[2023-08-02 20:39] LABS: Bacteria Urine None Seen (None Seen); Hyaline Casts Urine 0-2 /LPF (0-2); RBC Urine 0-2 /HPF (0-2); Squamous Epithelial Cell Urine 0-2 /HPF (0-2); WBC Urine 0-5 /HPF (0-5)
--- NOTE | 2023-08-02 21:22 | PM.IMHP ---
History of Present Illness Date of Service: 08/02/23 Attending physician on admission: Luis Whitfield Chief Complaint: Dysarthria, slurred speech, right-sided weakness Pt is an 83-year-old male with a PMH significant for?HTN, unspecified dementia, and hx of cholangitis who presents to the ED from with dysarthria, difficulties word-finding, and right sided weakness since sometime this afternoon. At time of examination pt appears alert and oriented?x4, though he is a rather poor historian and unable to provide precise times or details. This has apparently been an issue for the pt's past two admissions. The ED physician was able to get ahold of the pt's family earlier in the evening and apparently they, too, had difficulties providing specific details about the patient's condition. Patient's last known well time possibly around 10:00 this morning. Apparently patient's and his son noticed his symptoms sometime in the afternoon but cannot pinpoint exactly when they occurred. Patient slept most of the day and by dinnertime could not use utensils, had difficulty walking, and had worsening speech throughout the day. It is unclear whether he has experienced similar episodes in the past. Pt denies headache, acute vision changes. No chest pain/pressure,. palpitations. Denies SOB. No fever, chills, nausea, vomiting, diarrhea. In the ED pt with low-grade fever of 99.0, pulse of 92, initially slightly hypertensive of 178/98, satting at 98% on RA. Labs were significant for stable normocytic anemia 12.9/38.8, and triglycerides 215, otherwise largely unremarkable. Electrolytes WNL. Hepatic and renal function WNL. Troponin 2.7. Total cholesterol 179. UA negative for UTI. CT of head showed no acute intracranial process, though showed age-related cerebral volume loss with chronic small vessel ischemic changes. CTA showed no arterial high-grade stenosis or large vessel occlusion in the head or neck. EKG demonstrated normal sinus rhythm without evidence of significant ST elevations or depressions. Pt was treated with aspirin. Pt will be admitted to the hospital for treatment and further evaluation of likely CVA. Review of Systems Review of Systems: Dysarthria, slurred speech, difficulty word-finding Right-sided weakness, difficulty walking, lack of fine motor control Denies headache, acute vision changes No chest pain/pressure, palpitations Denies fever, chills, nausea, abdominal pain [facility] Medical History Jaundice Encephalopathy Acute cholangitis Intra-abdominal hematoma Dementia COVID-19 SBO (small bowel obstruction) GERD (gastroesophageal reflux disease) HLD (hyperlipidemia) HTN (hypertension) Family History Father History of stomach cancer Surgical History History of colonoscopy History of surgery on wrist History of ankle surgery History of appendectomy H/O colectomy Social History Household Members: Spouse Housing: House Do you presently have visiting nurse or other home services: Yes Alcohol intake: never Patient Tobacco Use Status: Former Tobacco user Quit Date: 30 years ago Tobacco use type: Cigarette Second Hand Smoke Exposure: No Advance Directives Date on File: 09/16/20 service: No Current occupational status: retired [employer] Allergies Allergy/AdvReac Type Severity Reaction Status Date / Time No Known Allergies Allergy Verified 08/02/23 19:41 Home Medications Medication Instructions Recorded Confirmed Last Taken Type lisinopril 20 mg tablet 20 mg PO DAILY 08/20/20 08/02/23 Unknown History Physical Exam Vital Signs and Narrative: Vital Signs: Last Vital Signs Temp 98.4 F 08/02/23 19:35 Pulse 92 08/02/23 19:35 Resp 17 08/02/23 19:35 BP 178/98 H 08/02/23 19:35 Pulse Ox 98 08/02/23 19:35 O2 Del Method Room Air 08/02/23 19:35 BMI result Body Mass Index 28.2 Constitutional: Alert, though having difficulties speaking and with word finding, cooperative, answering appropriately, in no acute distress. Mental Status: Oriented to person, place, time, and situation, though initially got the date wrong but quickly corrected himself. Eyes: Pupils are equal, round, and reactive to light. Ear, Nose, and Throat: Oropharynx clear, mucous membranes moist. Ears and nose without deformities. Trachea midline. Respiratory: Clear to auscultation bilaterally. No wheezing, rales, or rhonchi. Cardiovascular: S1, S2 regular. No murmurs, rubs, or gallops. Gastrointestinal: Abdomen soft, non-tender, non-distended. Normal bowel sounds. Neurologic: Cranial nerves II-XII are grossly intact bilaterally. Moves all extremities spontaneously, though with noted lack of coordination of RUE. Preserved strength and sensation to light touch of UE and LE bilaterally. Failed [id number] of RUE. Skin: Warm, dry. Extremities: No edema. Results Labs 08/02/23 19:49 08/02/23 19:49 Labs: Laboratory Results - last 24 hr 08/02/23 08/02/23 08/02/23 19:49 19:51 19:53 MCV 85.3 MCH 28.4 MCHC 33.2 RDW 13.4 Plt Count 173 MPV 8.9 L Immature Gran % (Auto) 0.4 Neut % (Auto) 68.9 Lymph % (Auto) 17.1 L [place] % (Auto) 9.0 Eos % (Auto) 3.7 Baso % (Auto) 0.9 Lymph # (Auto) 1.3 [place] # (Auto) 0.7 Eos # (Auto) 0.3 Baso # (Auto) 0.1 Abs Immat Gran (auto) 0.03 Absolute Neuts (auto) 5.4 Absolute Nucleated RBC 0.000 Nucleated RBC % (auto) 0.0 PT 11.5 INR 0.9 APTT 31.2 Anion Gap 9 L Estim Creat Clear Calc 53.1 Estimated GFR > 60 POC Glucose 84 Random Glucose 93 Calcium 9.0 Magnesium 2.4 Total Bilirubin 0.4 Direct Bilirubin 0.1 AST 17 ALT 18 Alkaline Phosphatase 48 Total Protein 6.9 Albumin 3.8 Triglycerides 215 H Cholesterol 179 LDL Cholesterol, Calc 103 H HDL Cholesterol 33 L Urine Color Urine Appearance Urine pH Ur Specific [place] Urine Protein Urine Glucose (UA) Urine Ketones Urine Blood Urine Nitrite Ur Leukocyte Esterase Urine RBC Urine WBC Ur Squamous Epith Cells Urine Bacteria Hyaline Casts Ethyl Alcohol < 10 COVID-19 (ARCHIE) Negative COVID-19 Clin Com See Note 08/02/23 20:28 MCV MCH MCHC RDW Plt Count MPV Immature Gran % (Auto) Neut % (Auto) Lymph % (Auto) [place] % (Auto) Eos % (Auto) Baso % (Auto) Lymph # (Auto) [place] # (Auto) Eos # (Auto) Baso # (Auto) Abs Immat Gran (auto) Absolute Neuts (auto) Absolute Nucleated RBC Nucleated RBC % (auto) PT INR APTT Anion Gap Estim Creat Clear Calc Estimated GFR POC Glucose Random Glucose Calcium Magnesium Total Bilirubin Direct Bilirubin AST ALT Alkaline Phosphatase Total Protein Albumin Triglycerides Cholesterol LDL Cholesterol, Calc HDL Cholesterol Urine Color Yellow Urine Appearance Clear Urine pH 6.5 Ur Specific [place] 1.010 Urine Protein Negative Urine Glucose (UA) Negative Urine Ketones Negative Urine Blood Trace H Urine Nitrite Negative Ur Leukocyte Esterase Negative Urine RBC 0-2 Urine WBC 0-5 Ur Squamous Epith Cells 0-2 Urine Bacteria None Seen Hyaline Casts 0-2 Ethyl Alcohol COVID-19 (ARCHIE) COVID-19 Clin Com Imaging Radiologist's Impressions: Impressions Head CT 08/02/23 19:04 IMPRESSION: 1. No acute intracranial process seen. 2. Age-related cerebral volume loss with chronic small vessel ischemic changes. This critical result was discussed with Dr. Bouchra Benedict in ED at 7:13 PM on 08/02/2023.. It was ascertained that the content and urgency of the report was understood at the time of direct communication. Head/Neck CTA 08/02/23 19:23 IMPRESSION: No arterial high grade stenosis or large vessel occlusion in the head or neck. Above impression was communicated to Dr Black on 08/02/2023 7:42 PM Assessment and Plan (1) Aphasia: Status: Acute (2) Dysarthria: Status: Acute Plan Pt is an 83-year-old male with a PMH significant for?HTN, unspecified dementia, and hx of cholangitis who presents to the ED from with dysarthria, difficulties word-finding, and right sided weakness since sometime this afternoon. Pt will be admitted to the hospital for treatment and further evaluation of likely CVA. Question of CVA Patient with right-sided weakness, difficulty ambulating, slurred speech, difficulty word-finding Symptoms have not yet resolved CT of head negative for acute intracranial hemorrhage or edematous territorial infarction; CTA negative for arterial high-grade stenosis or large vessel occlusion in head or neck Total cholesterol 173 Will start on aspirin 81 mg daily, atorvastatin 40 mg daily MRI of brain Echocardiogram PT/OT and speech evaluation Neurology consult NPO pending speech swallow evaluation, cardiac diet thereafter Monitor on telemetry HTN: Will hold lisinopril for now for permissive hypertension Unspecified dementia Appears AOx4 and answering appropriately, if not with exacting detail Baseline mentation unknown Monitor mentation Full Code Attending:?Dr. Whitfield DVT Prophylaxis: Lovenox Pt will require a hospitalization of at least two nights for treatment and further evaluation of dysarthria and right-sided weakness in the setting of likely acute CVA. Quality Stroke Does the patient have a stroke diagnosis?: Yes Reason for No Anti-thrombotic by Day Two: Contraindicated (Outside of TNK therapeutic window; last known well time 10:00, though even that is unclear) VTE Prior VTE?: No VTE Risk Level:: Medical - moderate - high VTE Device Contraindication: Treatment Not Indicated VTE Drug Contraindication: N/A - Med Ordered
[2023-08-02] MEDS: Aspirin 325 MG TABLET PO (21:25)
[2023-08-02 21:27] VITALS: BP 103/81; PULSE 87; RESP 17; O2SAT 97
--- NOTE | 2023-08-02 21:43 | PHA.MEDREC ---
Pharmacy Consult ? Medication Reconciliation Pharmacy has completed the medication reconciliation.
[2023-08-02 22:36] VITALS: BP 159/96; PULSE 84; RESP 19; O2SAT 97
--- NOTE | 2023-08-02 22:53 | PC.NURSE ---
late entry - swallow eval done and PASSED. pt still having difficulty findings words, speech slurred. PA at bedside assessing pt. on it compliance manager. pt offers no current complaints, resting comfortably. call hoff within reach - plan of care ongoing. pt given update on phone
[2023-08-02 23:02] VITALS: BP 176/96; PULSE 72; RESP 14; O2SAT 95
[2023-08-02] MEDS: Atorvastatin Calcium 40 MG TABLET PO (23:12)
[2023-08-02] MEDS: Enoxaparin Sodium 40 MG/0.4 ML SYRINGE SUBCUT (23:12)
[2023-08-03] VITALS (13 sets, daily range): BP systolic 100–201; BP diastolic 55–155; PULSE 69–97; RESP 15–18; TEMP 36.3–36.9; O2SAT 95–98
--- NOTE | 2023-08-03 01:10 | PC.NURSE ---
PA aware of patient's high blood pressures . PA reports holing pt lisinopril for now. high BPs OK in stroke patients. PRN order in mar as needed for systolic > 200s. pt in no apparent distress. resting comfortably on stretcher. call hoff within reach
[2023-08-03] MEDS: hydrALAZINE HCl 20 MG/ML VIAL 5 MG IVPUSH (02:34)
--- NOTE | 2023-08-03 02:35 | PC.NURSE ---
PA notifed again that BP's continue to rise. 5mg hydralazine iv administered for SBP > 200 per MAR. pt is asymptomatic has no current complaints denies headache vision changes etc. will ctm closely.
--- NOTE | 2023-08-03 07:00 | CA_ITS ---
Transthoracic Echocardiogram Patient (Last, First, Middle): Morgan Isaac E Gender: Male Date of : 1940 Age: 83 Procedure Date: 08/03/2023 Procedure Type: Transthoracic Echocardiogram Location: ER Height: 170. cm Weight: 80.74 kg BSA: 1.92 m2 Heart Rate: 77 bpm BP: 114 / 98 mmHg Fiscal Technician: ERICKSON Guzman MD: Lala HOU Herbarium Curator: Ryan Blanco MD Symptoms: ?CVA Study Quality: Technically Difficult ECG Rhythm: Sinus Conclusions: - 1. Technically limited study with LVEF of 55-60% with impaired relaxation filling pattern 2. Early mild aortic stenosis Findings Left Ventricle Normal left ventricular size, thickness, and systolic function. The visually estimated ejection fraction is between 55-60%. Regional wall motion abnormalities can not be excluded due to suboptimal endocardial definition. Spectral Doppler is indicative of an impaired relaxation filling pattern. E/E prime ratio is between 8 and 15 consistent with indeterminate filling pressures. Right Ventricle The right ventricle was not well visualized. Atria The left atrium was not well visualized. Interatrial shunt cannot be excluded. The right atrium was not well visualized. Aortic Valve The aortic valve was not well visualized. There is mild calcification of the aortic valve. The peak aortic gradient is 14 mmHg.The mean gradient is 8 mmHg. The aortic valve area is 1.95 cm2. There is no aortic valve regurgitation. Mitral Valve The mitral valve was not well visualized. There is no mitral valve regurgitation. There is no mitral valve stenosis. Pulmonic Valve The pulmonic valve was not well visualized. Tricuspid Valve The tricuspid valve was not well visualized. Tricuspid regurgitation envelope is inadequate for calculation of right ventricular systolic pressure. Great Vessels The aorta was not well visualized. The pulmonary artery was not well visualized. Venous The inferior vena cava was not well visualized. Pericardium/Pleural The pericardium was not well visualized. Prior Study Comparison No prior study available for comparison. Recommendations, Care & Conclusions Consider a JULIOCESAR if clinically appropriate. Recommend contrast in the future to improve endocardial definition. Measurements 2D Linear Measurements IVSd: 1.42 0.6-0.9/0.6-1.0 cm LVIDd: 3.64 3.9-5.3/4.2-5.9 cm LVIDd Index: 1.90 2.4-3.2/2.2-3.1 cm/m2 LVIDs: 1.98 2.0-3.6 cm LVPWd: 1.01 0.7-1.1 cm LA Diam: 3.80 2.7-3.8/3.0-4.0 cm LAIDs Index: 1.98 1.5-2.3 cm/m2 LV Mass: 182.44 67-162/88-224 g LV Mass Index: 95.02 43-95/49-115 g/m2 LVOT Diam: 2.10 3.0+(-)1.3 cm Mitral Valve MV Pk E: 0.59 MV PK A: 1.27 MV Decel Time: 565.00 E/A: 0.50 E'Lateral: 10.00 E'Medial: 5.00 E/E' Med: 11.80 E/E' Lat: 5.90 PHT: 166.00 MVA PHT: 1.33 Decel Lipscomb: 1.04 Aortic Valve AoV Pk Kevin: 1.88 AoV Mn Kevin: 1.27 AoV VTI: 0.34 AoV Pk Grad: 14.00 Aov Mn Grad: 8.00 SUMI Cont.VTI: 1.95 LVOT LVOT Pk Kevin: 1.09 LVOT Mn Kevin: 0.78 LVOT VTI: 0.19 LVOT Pk Grad: 5.00 LVOT Mn Grad: 3.00 LVOT Diam: 2.10 LVOT Area: 3.46 Diastolic Function MV Pk E: 0.59 MV Pk A: 1.27 E/A: 0.50 E'Medial: 5.00 E/E' Med: 11.80 E' Laterial: 10.00 E/E' Lat: 5.90 Right Ventricle TAPSE (mm): 13.40 TVS' Kevin: 12.00 Tricuspid Valve TR Pk Kevin: 2.62 TR Pk Grad: 27.00 Great Vessels Aorta Sinus of Valsalva: 4.10 2.0-3.5 cm Ao Asc: 3.80 2.1-3.4 cm Pulmonary Valve PV Pk Kevin: 0.65 Peak PV Grad: 2.00 Updated in Other Vendor System with Status of Final Ryan Blanco MD electronically signed on 08/03/2023 4:00:43 PM with status of Final
[2023-08-03 07:19] LABS: Estimated Average Glucose 105 mg/dL; Hemoglobin A1c % 5.3 % (<6.0)
[2023-08-03] MEDS: 0.9 % Sodium Chloride Flush 3 ML SYRINGE IVFLUSH ×3 (09:34→23:55)
[2023-08-03] MEDS: Aspirin 81 MG TAB.CHEW PO (09:45)
--- NOTE | 2023-08-03 09:48 | PC.NURSE ---
patient has appeared to be sleeping off and on for most of the morning, remains NPO. able to follow verbal commands and move upper extremities. continues to have some episodes of garbled speech and difficulty finding words. when asked if he could state his birthday he responded no, however, when his birthday was stated to him he was able to confirm that it was his birthday. was able to medicated himself with the aspirin when provided.
--- NOTE | 2023-08-03 10:22 | PC.NURSE ---
unable to obtain medical information from patient to complete MRI screening form at this time
--- NOTE | 2023-08-03 11:18 | PC.NURSE ---
rae barajas - [phone] called for update and completed screening form via telephone
--- NOTE | 2023-08-03 11:33 | PC.NURSE ---
hospitalist at bedside, speech appropriate at this time, still reporting feeling some difficulty finding words however he is able to answer questions appropriately at this time. per speech therapy, patient no longer NPO, able to start regular diet with thin liquids, pills to be taken whole with liquid or puree.
--- NOTE | 2023-08-03 12:06 | PC.NURSE ---
patient off unit at MRI at this time
--- NOTE | 2023-08-03 13:50 | MHC.CM.PN ---
Addendum entered by Astrid Cedillo 08/04/23 09:00: CM CALLED PTS YESTERDAY AFTERNOON TO INFORM HER [facility] IS NOT CONTRACTED WITH THE PTS INSURANCE SO THERE WOULD BE A 40% COPAY. PER DISCUSSION, [facility] IS NOW THE PREFERRED [facility]. REFERRAL PLACED. 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
--- NOTE | 2023-08-03 13:56 | PM.NEUROCN ---
History of Present Illness Data of Consult Service Date: 08/03/23 Primary Care Provider: Unknown Physician HPI Reason for consult: Stroke 83 years old man with uncontrolled hypertension who came to hospital with somewhat nonspecific symptoms. His stated that his speech was slurred and he was generally weak. Initial diagnosis was not clear and onset was not much clear. He had investigations done revealing a stroke and this consultation was requested. There was no sign of dizziness nausea vomiting blurred vision double vision or any pain. Review of Systems Review of Systems: No cold or flu-like illness or cardiac symptom. [facility] Past Medical History Medical History Jaundice Encephalopathy Acute cholangitis Intra-abdominal hematoma Dementia COVID-19 SBO (small bowel obstruction) GERD (gastroesophageal reflux disease) HLD (hyperlipidemia) HTN (hypertension) Family History Family History Father History of stomach cancer Surgical History Surgical History History of colonoscopy History of surgery on wrist History of ankle surgery History of appendectomy H/O colectomy Social History Social History Household Members: Spouse Housing: House Do you presently have visiting nurse or other home services: Yes Alcohol intake: never Patient Tobacco Use Status: Former Tobacco user Quit Date: 30 years ago Tobacco use type: Cigarette Smoked in Last 30 Days: No Second Hand Smoke Exposure: No Use of substances other than those prescribed or required for medical reasons: No Advance Directives: Yes Advance Directives on File: Yes Advance Directives Date on File: 09/16/20 Nutrition Risks: No Nutritional Risk service: Yes Current occupational status: retired Meds Allergies Allergy/AdvReac Type Severity Reaction Status Date / Time No Known Allergies Allergy Verified 08/02/23 19:41 Active Medications: Current Medications Acetaminophen (Acetaminophen 325 Mg Tablet) 650 mg PO Q6H PRN PRN Reason: Pain, Mild (Pain Scale 1-3) Aspirin (Aspirin 81 Mg Tab.Chew) 81 mg PO DAILY [facility] Last Admin: 08/03/23 09:45 Dose: 81 mg Atorvastatin Calcium (Atorvastatin Calcium 40 Mg Tablet) 40 mg PO BEDTIME [facility] Last Admin: 08/02/23 23:12 Dose: 40 mg Benzonatate (Benzonatate 100 Mg Capsule) 100 mg PO TID PRN PRN Reason: Cough Docusate Sodium (Docusate Sodium 100 Mg Capsule) 100 mg PO DAILY PRN PRN Reason: Constipation Enoxaparin Sodium (Enoxaparin Sodium 40 Mg/0.4 Ml Syringe) 40 mg SUBCUT Q24H [facility] Last Admin: 08/02/23 23:12 Dose: 40 mg Hydralazine HCl (Hydralazine Hcl 20 Mg/Ml Vial) 5 mg IVPUSH Q4H PRN; Protocol PRN Reason: SBP>200 Last Admin: 08/03/23 02:34 Dose: 5 mg Melatonin (Melatonin 3 Mg Tablet) 6 mg PO BEDTIME PRN PRN Reason: Insomnia Ondansetron HCl (Ondansetron Hcl 4 Mg/2 Ml Vial) 4 mg IVPUSH Q8H PRN PRN Reason: Nausea and Vomiting Sodium Chloride (0.9 % Sodium Chloride Flush 3 Ml Syringe) 3 ml IVFLUSH QSHIFT [facility] Last Admin: 08/03/23 09:34 Dose: 3 ml Home Medications Medication Instructions Recorded Confirmed Last Taken Type lisinopril 20 mg tablet 20 mg PO DAILY 08/20/20 08/02/23 Unknown History Physical Exam Vital Signs: Vital Signs: Last Vital Signs Temp 98.2 F 08/03/23 09:41 Pulse 71 08/03/23 09:41 Resp 18 08/03/23 09:41 BP 114/98 H 08/03/23 09:41 Pulse Ox 97 08/03/23 09:41 O2 Del Method Room Air 08/03/23 09:41 BMI result Body Mass Index 28.2 Neuro: Other: He is alert and awake with normal spontaneity of speech fluency comprehension and affect. Visual [place] are full. Face is symmetrical. There is no definite weakness. Right plantar is extensor. Results Labs 08/02/23 19:49 08/02/23 19:49 Labs: Short CBC 08/02/23 Range/Units 19:49 WBC 7.8 (4.8-10.8) X10*3/uL Hgb 12.9 L (14.0-18.0) g/dl Hct 38.8 L (42.0-52.0) % Plt Count 173 (160-400) X10*3/uL BMP 08/02/23 19:49 Sodium 138 Potassium 4.3 Chloride 106 Carbon Dioxide 27 BUN 23 H Creatinine 1.04 Calcium 9.0 Liver Function 08/02/23 Range/Units 19:49 Total Bilirubin 0.4 (0.0-1.0) mg/dL Direct Bilirubin 0.1 (0.0-0.5) mg/dL AST 17 (5-37) U/L ALT 18 (0-40) U/L Alkaline Phosphatase 48 (39-117) U/L Albumin 3.8 (3.5-5.0) g/dL Urine 08/02/23 Range/Units 20:28 Urine Color Yellow Urine Appearance Clear Urine pH 6.5 (5.0-9.0) Ur Specific [place] 1.010 (1.005-1.025) Urine Protein Negative (Neg-Trace) mg/dL Urine Glucose (UA) Negative (Negative) mg/dL His MRI of brain revealed a small atherothrombotic left thalamic acute ischemic infarction. CTA did not reveal any large vessel disease. Assessment and Plan (1) Thalamic infarct, acute: Status: Acute 83 years old man with uncontrolled hypertension and a small left thalamic infarct, which typically can cause a right-sided weakness and sometime effect speech and sensation. This was a relatively small infarct and with PT and OT he should feel better. Mainstay of management is blood pressure control statin and anti-platelet agent. If he was taking baby aspirin daily add clopidogrel 75 mg daily. Procedures Date of Service Date of Service: 08/03/23
--- NOTE | 2023-08-03 14:48 | MHC.SL.SWA ---
Speech Pathologist Impression: Swallow WFL; pt presents with mild dysarthria, aphasia, some confusion. Risk of Aspiration Due to: Neurological Condition Reduced Cognition Dysphasia Diet Status: UPGRADE from NPO, start on regular texture diet Liquid Consistency and Strategies for Safe Swallow: Liquid Intake Recommendation: Thin Liquid Intake Strategies: Small Sips Solid Food Consistency: Dietary Recommendations: Regular Additional Modifications to Solid Foods: Pt seen for bedside swallow in ED. Pt consumed dry vi cracker and water, demonstrated mildly prolonged mastication, but with good oral clearance, overall without any overt s/s of aspiration Swallow deemed to be WFL. Recommend upgrade from NPO, start on REGULAR texture diet with THIN liquids, pills WHOLE with liquid or puree. Aspiration precautions and supervision recommended d/t recent CVA. Oral Medication Intake: Whole with Liquid Please contact the pharmacy regarding appropriate crushable or liquid drug formulations that are available whenever modified delivery is recommended. Compensatory Strategies and Precautions to be Taken for Safe Swallow: Sitting Upright (90 deg) Double Swallow Small Bites and Sips Alternate Liquids/Solids Rate of Ingestion Change Supervision While Eating and Drinking for Safe Swallow: Total Supervision (1:1) Swallowing Recommended Treatments: Compens. Strategy Educat. Recommendation for Speech: Inpatient Speech Therapy Speech Therapy through Rehab Facility Comment: Recommend continue speech therapy for dysarthria, cognition, and aphasia at next level of care. Warehouse And Receiving Supervisor Clinican/Clinical Fellow: No Supervisory Statement: I have reviewed and agree with the student/clinical fellow's documentation: N/A Speech Language Pathologist: Alana Alvarez M.A., CCC-MEMBERSHIP SALES REPRESENTATIVE
--- NOTE | 2023-08-03 15:14 | HO.PM.IMPN ---
Subjective Subjective Date of Service: 08/03/23 Interval History: No acute issues since admission. Strength and speech have both improved Review of Systems Denies chest pain Denies shortness of breath Denies nausea vomiting diarrhea Denies fever chills Physical Exam Vital Signs: Vital Signs: Last Vital Signs Temp 98.4 F 08/03/23 14:34 Pulse 86 08/03/23 14:34 Resp 16 08/03/23 14:34 BP 157/109 H 08/03/23 14:34 Pulse Ox 97 08/03/23 14:34 O2 Del Method Room Air 08/03/23 14:34 BMI result Body Mass Index 28.2 Const: Other: Awake alert no acute distress Resp: Other: Clear to auscultation bilaterally no rales rhonchi wheezes Cardio: Other: No S4; positive S1-S2; no S3 murmurs rubs gallops GI: Other: Soft nontender nondistended normoactive bowel sounds Neuro: Other: Cranial nerves 2-12 grossly intact safety mild right facial droop. Motor is 5/5 left; 4-5 right. Sensation is intact. Mild expressive aphasia that has improved Extrem: Other: No edema bilateral Objective Data Active Medications Acetaminophen (Acetaminophen 325 Mg Tablet) 650 mg PO Q6H PRN PRN Reason: Pain, Mild (Pain Scale 1-3) Aspirin (Aspirin 81 Mg Tab.Chew) 81 mg PO DAILY [facility] Last Admin: 08/03/23 09:45 Dose: 81 mg Documented By: MARTIR Atorvastatin Calcium (Atorvastatin Calcium 40 Mg Tablet) 40 mg PO BEDTIME [facility] Last Admin: 08/02/23 23:12 Dose: 40 mg Documented By: JORGE Benzonatate (Benzonatate 100 Mg Capsule) 100 mg PO TID PRN PRN Reason: Cough Clopidogrel Bisulfate (Clopidogrel Bisulfate 75 Mg Tablet) 75 mg PO DAILY [facility] Docusate Sodium (Docusate Sodium 100 Mg Capsule) 100 mg PO DAILY PRN PRN Reason: Constipation Enoxaparin Sodium (Enoxaparin Sodium 40 Mg/0.4 Ml Syringe) 40 mg SUBCUT Q24H [facility] Last Admin: 08/02/23 23:12 Dose: 40 mg Documented By: JORGE Hydralazine HCl (Hydralazine Hcl 20 Mg/Ml Vial) 5 mg IVPUSH Q4H PRN; Protocol PRN Reason: SBP>200 Last Admin: 08/03/23 02:34 Dose: 5 mg Documented By: JORGE Comments: given for BP 201/155 Melatonin (Melatonin 3 Mg Tablet) 6 mg PO BEDTIME PRN PRN Reason: Insomnia Ondansetron HCl (Ondansetron Hcl 4 Mg/2 Ml Vial) 4 mg IVPUSH Q8H PRN PRN Reason: Nausea and Vomiting Sodium Chloride (0.9 % Sodium Chloride Flush 3 Ml Syringe) 3 ml IVFLUSH QSHIFT [facility] Last Admin: 08/03/23 09:34 Dose: 3 ml Documented By: MARTIR Labs 08/02/23 19:49 08/02/23 19:49 Labs: Laboratory Results - last 24 hr 08/02/23 08/02/23 08/02/23 19:49 19:51 19:53 MCV 85.3 MCH 28.4 MCHC 33.2 RDW 13.4 Plt Count 173 MPV 8.9 L Immature Gran % (Auto) 0.4 Neut % (Auto) 68.9 Lymph % (Auto) 17.1 L [place] % (Auto) 9.0 Eos % (Auto) 3.7 Baso % (Auto) 0.9 Lymph # (Auto) 1.3 [place] # (Auto) 0.7 Eos # (Auto) 0.3 Baso # (Auto) 0.1 Abs Immat Gran (auto) 0.03 Absolute Neuts (auto) 5.4 Absolute Nucleated RBC 0.000 Nucleated RBC % (auto) 0.0 PT 11.5 INR 0.9 APTT 31.2 Anion Gap 9 L Estim Creat Clear Calc 53.1 Estimated GFR > 60 POC Glucose 84 Random Glucose 93 Estimat Average Glucose 105 Hemoglobin A1c % 5.3 Calcium 9.0 Magnesium 2.4 Total Bilirubin 0.4 Direct Bilirubin 0.1 AST 17 ALT 18 Alkaline Phosphatase 48 Total Protein 6.9 Albumin 3.8 Triglycerides 215 H Cholesterol 179 LDL Cholesterol, Calc 103 H HDL Cholesterol 33 L Urine Color Urine Appearance Urine pH Ur Specific [place] Urine Protein Urine Glucose (UA) Urine Ketones Urine Blood Urine Nitrite Ur Leukocyte Esterase Urine RBC Urine WBC Ur Squamous Epith Cells Urine Bacteria Hyaline Casts Ethyl Alcohol < 10 COVID-19 (ARCHIE) Negative COVID-19 Clin Com See Note 08/02/23 20:28 MCV MCH MCHC RDW Plt Count MPV Immature Gran % (Auto) Neut % (Auto) Lymph % (Auto) [place] % (Auto) Eos % (Auto) Baso % (Auto) Lymph # (Auto) [place] # (Auto) Eos # (Auto) Baso # (Auto) Abs Immat Gran (auto) Absolute Neuts (auto) Absolute Nucleated RBC Nucleated RBC % (auto) PT INR APTT Anion Gap Estim Creat Clear Calc Estimated GFR POC Glucose Random Glucose Estimat Average Glucose Hemoglobin A1c % Calcium Magnesium Total Bilirubin Direct Bilirubin AST ALT Alkaline Phosphatase Total Protein Albumin Triglycerides Cholesterol LDL Cholesterol, Calc HDL Cholesterol Urine Color Yellow Urine Appearance Clear Urine pH 6.5 Ur Specific [place] 1.010 Urine Protein Negative Urine Glucose (UA) Negative Urine Ketones Negative Urine Blood Trace H Urine Nitrite Negative Ur Leukocyte Esterase Negative Urine RBC 0-2 Urine WBC 0-5 Ur Squamous Epith Cells 0-2 Urine Bacteria None Seen Hyaline Casts 0-2 Ethyl Alcohol COVID-19 (ARCHIE) COVID-19 Clin Com Assessment and Plan (1) Thalamic infarct, acute: Status: Acute (2) HTN (hypertension): Status: Acute Plan Pt is an 83-year-old male with a PMH significant for?HTN, unspecified dementia, and hx of cholangitis who presents to the ED from with dysarthria, difficulties word-finding, and right sided weakness since sometime this afternoon. Pt will be admitted to the hospital for treatment and further evaluation of likely CVA. 1.CVA(left thalamic infarct by MRI) -symptoms resolving; expressive aphasia improving as well as right-sided weakness -aspirin 81 mg/atorvastatin 40 mg/Plavix 75 daily -PT/OT and speech evaluation -telemetry 2.HTN -poor control at present -as per Neurology will restart lisinopril -adjust as indicated Full Code Lovenox Patient will require ongoing hospitalization for workup of acute CVA Quality Stroke Does the patient have a stroke diagnosis?: Yes Reason for No Anti-thrombotic by Day Two: Contraindicated (Outside of [facility] therapeutic window; last known well time 10:00, though even that is unclear) VTE Prior VTE?: No VTE Risk Level:: Medical - moderate - high VTE Device Contraindication: Treatment Not Indicated VTE Drug Contraindication: N/A - Med Ordered
[2023-08-03] MEDS: Clopidogrel Bisulfate 75 MG TABLET PO (16:07)
[2023-08-03] MEDS: lisinopriL 20 MG TABLET PO (16:07)
--- NOTE | 2023-08-03 18:09 | PC.NURSE ---
Patient arrived to unit on stretcher from ED approximately 1500. Oriented to room, call hoff system and staff. Pt A&OX4. Expressive aphasia noted pt aware of difficulties with speech. Possible very mild receptive aphasia noted as well. Mild right mouth droop and right tongue deviation noted. Denies headache, dizziness or vision changes pupils 2B. THORNE to command left 5/5, right side 4/5 + drift to right side although able to hold off bed. Sensation intact. +pp bilat no edema noted. Denies pain/discomfort. LSCTA denies SOB or CP, NSR on tele. BSX4 abdomen soft non-tender denies nausea/vomiting. Meds given per order at 1600 swallow intact. Bed in lowest locked position alarm for safety call hoff within reach. Will continue to monitor and report changes
[2023-08-03] MEDS: Enoxaparin Sodium 40 MG/0.4 ML SYRINGE SUBCUT (20:45)
[2023-08-03] MEDS: Atorvastatin Calcium 40 MG TABLET PO (20:45)
[2023-08-04] VITALS (7 sets, daily range): BP systolic 106–153; BP diastolic 74–99; PULSE 58–93; RESP 12–20; TEMP 36–37; O2SAT 94–97
[2023-08-04 06:04] LABS: MANUAL DIFF FLAG NO
[2023-08-04 06:17] LABS: Basophils Percent Auto 0.4 % (0-2); Eosinophils Percent Auto 0.4 % (0-4); Hematocrit 42.1 % (42.0-52.0); Hemoglobin 14.2 g/dl (14.0-18.0); Imm Gran Abs Auto 0.05 X10*3/uL (0.00-0.03); Imm Gran Pct Auto 0.5 % (0.0-0.4); Lymphocytes Absolute Auto 0.7 X10*3/uL (1.2-4.9); Lymphocytes Percent Auto 6.6 % (20-40); Mean Corpuscular HGB Conc 33.7 g/dl (31.0-36.0); Mean Corpuscular Hemoglobin 28.3 pg (27.0-33.0); Mean Corpuscular Volume 83.9 fL (80.0-98.0); Monocytes Absolute Auto 0.5 X10*3/uL (0.1-1.2); Monocytes Percent Auto 4.6 % (2-11); Neutrophils Absolute Auto 9.6 x10*3/uL (2.0-8.3); Neutrophils Percent Auto 87.5 % (45-73); Platelet Count 187 X10*3/uL (160-400); Red Blood Count 5.02 X10*6/uL (4.60-5.80); Red Cell Distribution Width 13.2 % (11.0-16.0)
[2023-08-04 06:20] LABS: Alanine Aminotransferase 16 U/L (0-40); Albumin Level 3.9 g/dL (3.5-5.0); Alkaline Phosphatase 49 U/L (39-117); Anion Gap 13 (12-20); Aspartate Amino Transferase 17 U/L (5-37); Bilirubin Total 0.7 mg/dL (0.0-1.0); Blood Urea Nitrogen 22 mg/dL (9-16); Calcium 9.6 mg/dL (8.4-10.2); Carbon Dioxide 25 mmol/L (22-29); Chloride 106 mmol/L (96-108); Creatinine Clr Calc Pharmacy 47.2; Estimated Glomerular Filt Rate 59; Glucose Fasting 152 mg/dL (60-99); Potassium 4.3 mmol/L (3.3-5.1); Sodium 140 mmol/L (135-145); Total Protein 7.2 g/dL (6.5-8.0)
[2023-08-04] MEDS: lisinopriL 20 MG TABLET PO (08:38)
[2023-08-04] MEDS: 0.9 % Sodium Chloride Flush 3 ML SYRINGE IVFLUSH ×2 (08:38→16:04)
[2023-08-04] MEDS: Aspirin 81 MG TAB.CHEW PO (08:38)
[2023-08-04] MEDS: Clopidogrel Bisulfate 75 MG TABLET PO (08:38)
--- NOTE | 2023-08-04 13:49 | P.PNIM_ITS ---
Subjective Subjective Date of Service: 08/04/23 Interval History: No acute issues overnight. Still with right upper/right lower extremity weakness Review of Systems Denies chest pain Denies shortness of breath Denies nausea vomiting diarrhea Denies fever chills Physical Exam 2 Vital Signs: Vital Signs: Last Vital Signs Temp 98.6 F 08/04/23 11:13 Pulse 89 08/04/23 12:30 Resp 18 08/04/23 11:13 BP 135/91 H 08/04/23 12:30 Pulse Ox 96 08/04/23 12:30 O2 Del Method Room Air 08/04/23 11:13 BMI result Body Mass Index 28.2 Const: Other: Awake alert no acute distress Resp: Other: Clear to auscultation bilaterally no rales rhonchi wheezes Cardio: Other: No S4; positive S1-S2; no S3 murmurs rubs gallops GI: Other: Soft nontender nondistended normoactive bowel sounds Neuro: Other: Cranial nerves 2-12 grossly intact safety mild right facial droop. Motor is 5/5 left; 3-5 right. Sensation is intact. Mild expressive aphasia that has improved Extrem: Other: No edema bilateral Objective Data Active Medications Acetaminophen (Acetaminophen 325 Mg Tablet) 650 mg PO Q6H PRN PRN Reason: Pain, Mild (Pain Scale 1-3) Aspirin (Aspirin 81 Mg Tab.Chew) 81 mg PO DAILY [facility] Last Admin: 08/04/23 08:38 Dose: 81 mg Documented By: BULL Atorvastatin Calcium (Atorvastatin Calcium 40 Mg Tablet) 40 mg PO BEDTIME [facility] Last Admin: 08/03/23 20:45 Dose: 40 mg Documented By: LUNA Benzonatate (Benzonatate 100 Mg Capsule) 100 mg PO TID PRN PRN Reason: Cough Clopidogrel Bisulfate (Clopidogrel Bisulfate 75 Mg Tablet) 75 mg PO DAILY [facility] Last Admin: 08/04/23 08:38 Dose: 75 mg Documented By: BULL Docusate Sodium (Docusate Sodium 100 Mg Capsule) 100 mg PO DAILY PRN PRN Reason: Constipation Enoxaparin Sodium (Enoxaparin Sodium 40 Mg/0.4 Ml Syringe) 40 mg SUBCUT Q24H [facility] Last Admin: 08/03/23 20:45 Dose: 40 mg Documented By: LUNA Hydralazine HCl (Hydralazine Hcl 20 Mg/Ml Vial) 5 mg IVPUSH Q4H PRN; Protocol PRN Reason: SBP>200 Last Admin: 08/03/23 02:34 Dose: 5 mg Documented By: JORGE Comments: given for BP 201/155 Lisinopril (Lisinopril 20 Mg Tablet) 20 mg PO DAILY [facility]; Protocol Last Admin: 08/04/23 08:38 Dose: 20 mg Documented By: BULL Melatonin (Melatonin 3 Mg Tablet) 6 mg PO BEDTIME PRN PRN Reason: Insomnia Ondansetron HCl (Ondansetron Hcl 4 Mg/2 Ml Vial) 4 mg IVPUSH Q8H PRN PRN Reason: Nausea and Vomiting Sodium Chloride (0.9 % Sodium Chloride Flush 3 Ml Syringe) 3 ml IVFLUSH QSHIFT [facility] Last Admin: 08/04/23 08:38 Dose: 3 ml Documented By: BULL Labs 08/04/23 05:57 08/04/23 05:57 Labs: Laboratory Results - last 24 hr 08/04/23 05:57 MCV 83.9 MCH 28.3 MCHC 33.7 RDW 13.2 Plt Count 187 MPV 9.0 L Immature Gran % (Auto) 0.5 H Neut % (Auto) 87.5 H Lymph % (Auto) 6.6 L [place] % (Auto) 4.6 Eos % (Auto) 0.4 Baso % (Auto) 0.4 Lymph # (Auto) 0.7 L [place] # (Auto) 0.5 Eos # (Auto) 0.0 Baso # (Auto) 0.0 Abs Immat Gran (auto) 0.05 H Absolute Neuts (auto) 9.6 H Absolute Nucleated RBC 0.000 Nucleated RBC % (auto) 0.0 Anion Gap 13 Estim Creat Clear Calc 47.2 Estimated GFR 59 Fasting Glucose 152 H Calcium 9.6 D Total Bilirubin 0.7 AST 17 ALT 16 Alkaline Phosphatase 49 Total Protein 7.2 Albumin 3.9 Assessment and Plan (1) Thalamic infarct, acute: Status: Acute Plan Pt is an 83-year-old male with a PMH significant for?HTN, unspecified dementia, and hx of cholangitis who presents to the ED from with dysarthria, difficulties word-finding, and right sided weakness since sometime this afternoon. Pt will be admitted to the hospital for treatment and further evaluation of likely CVA. 1.CVA(left thalamic infarct by MRI) -expressive aphasia improving ; right-sided weakness unchanged -aspirin 81 mg/atorvastatin 40 mg/Plavix 75 daily -PT/OT recommends acute -telemetry 2.HTN -poor control at present -as per Neurology will restart lisinopril -adjust as indicated Full Code Lovenox Patient will require ongoing hospitalization for workup of acute CVA Quality Stroke Does the patient have a stroke diagnosis?: Yes Reason for No Anti-thrombotic by Day Two: Contraindicated (Outside of [facility] therapeutic window; last known well time 10:00, though even that is unclear) VTE Prior VTE?: No VTE Risk Level:: Medical - moderate - high VTE Device Contraindication: Treatment Not Indicated VTE Drug Contraindication: N/A - Med Ordered
[2023-08-04] MEDS: Enoxaparin Sodium 40 MG/0.4 ML SYRINGE SUBCUT (21:31)
[2023-08-04] MEDS: Atorvastatin Calcium 40 MG TABLET PO (21:31)
[2023-08-05 03:39] VITALS: BP 159/91; PULSE 70; RESP 20; TEMP 36.1; O2SAT 96
[2023-08-05] MEDS: 0.9 % Sodium Chloride Flush 3 ML SYRINGE IVFLUSH ×3 (06:26→16:40)
[2023-08-05 06:30] LABS: MANUAL DIFF FLAG NO
[2023-08-05 06:51] LABS: Alanine Aminotransferase 14 U/L (0-40); Albumin Level 3.6 g/dL (3.5-5.0); Alkaline Phosphatase 44 U/L (39-117); Anion Gap 11 (12-20); Aspartate Amino Transferase 14 U/L (5-37); Bilirubin Total 0.4 mg/dL (0.0-1.0); Blood Urea Nitrogen 27 mg/dL (9-16); Calcium 9.3 mg/dL (8.4-10.2); Carbon Dioxide 25 mmol/L (22-29); Chloride 108 mmol/L (96-108); Creatinine Clr Calc Pharmacy 42.8; Estimated Glomerular Filt Rate 53; Glucose Fasting 116 mg/dL (60-99); Sodium 140 mmol/L (135-145); Total Protein 6.6 g/dL (6.5-8.0)
[2023-08-05 07:16] LABS: Basophils Absolute Auto 0.1 X10*3/uL (0.0-0.2); Basophils Percent Auto 0.6 % (0-2); Eosinophils Absolute Auto 0.4 X10*3/uL (0.0-0.4); Eosinophils Percent Auto 3.5 % (0-4); Hematocrit 40.8 % (42.0-52.0); Hemoglobin 13.4 g/dl (14.0-18.0); Imm Gran Abs Auto 0.04 X10*3/uL (0.00-0.03); Imm Gran Pct Auto 0.4 % (0.0-0.4); Lymphocytes Absolute Auto 1.9 X10*3/uL (1.2-4.9); Lymphocytes Percent Auto 19.5 % (20-40); Mean Corpuscular HGB Conc 32.8 g/dl (31.0-36.0); Mean Corpuscular Volume 85.2 fL (80.0-98.0); Mean Platelet Volume 9.4 fL (9.4-12.4); Monocytes Absolute Auto 0.9 X10*3/uL (0.1-1.2); Monocytes Percent Auto 9.5 % (2-11); Neutrophils Absolute Auto 6.6 x10*3/uL (2.0-8.3); Neutrophils Percent Auto 66.5 % (45-73); Platelet Count 210 X10*3/uL (160-400); Red Blood Count 4.79 X10*6/uL (4.60-5.80); Red Cell Distribution Width 13.6 % (11.0-16.0); White Blood Count 9.9 X10*3/uL (4.8-10.8)
[2023-08-05 07:40] VITALS: BP 116/84; PULSE 79; RESP 20; TEMP 36.3; O2SAT 97
[2023-08-05] MEDS: lisinopriL 20 MG TABLET PO (08:44)
[2023-08-05] MEDS: Clopidogrel Bisulfate 75 MG TABLET PO (08:44)
[2023-08-05] MEDS: Aspirin 81 MG TAB.CHEW PO (08:44)
[2023-08-05 11:17] VITALS: BP 113/79; PULSE 86; RESP 20; TEMP 36.8; O2SAT 95
--- NOTE | 2023-08-05 13:29 | HO.PM.IMPN ---
Subjective Subjective Date of Service: 08/05/23 Interval History: Continues to improve. Speech markedly improved. Still with right arm weakness Review of Systems Denies chest pain Denies shortness of breath Denies nausea vomiting diarrhea Denies fever chills Physical Exam Vital Signs: Vital Signs: Last Vital Signs Temp 98.2 F 08/05/23 11:17 Pulse 86 08/05/23 11:17 Resp 20 08/05/23 11:17 BP 113/79 08/05/23 11:17 Pulse Ox 95 08/05/23 11:17 O2 Del Method Room Air 08/05/23 11:17 BMI result Body Mass Index 28.2 Const: Other: Awake alert no acute distress Resp: Other: Clear to auscultation bilaterally no rales rhonchi wheezes Cardio: Other: No S4; positive S1-S2; no S3 murmurs rubs gallops GI: Other: Soft nontender nondistended normoactive bowel sounds Neuro: Other: Cranial nerves 2-12 grossly intact safety mild right facial droop. Motor is 5/5 left; 3-5 right. Sensation is intact. Mild expressive aphasia that has improved Extrem: Other: No edema bilateral Objective Data Active Medications Acetaminophen (Acetaminophen 325 Mg Tablet) 650 mg PO Q6H PRN PRN Reason: Pain, Mild (Pain Scale 1-3) Aspirin (Aspirin 81 Mg Tab.Chew) 81 mg PO DAILY [facility] Last Admin: 08/05/23 08:44 Dose: 81 mg Documented By: TANISHA Atorvastatin Calcium (Atorvastatin Calcium 40 Mg Tablet) 40 mg PO BEDTIME [facility] Last Admin: 08/04/23 21:31 Dose: 40 mg Documented By: POLO Benzonatate (Benzonatate 100 Mg Capsule) 100 mg PO TID PRN PRN Reason: Cough Clopidogrel Bisulfate (Clopidogrel Bisulfate 75 Mg Tablet) 75 mg PO DAILY [facility] Last Admin: 08/05/23 08:44 Dose: 75 mg Documented By: TANISHA Docusate Sodium (Docusate Sodium 100 Mg Capsule) 100 mg PO DAILY PRN PRN Reason: Constipation Enoxaparin Sodium (Enoxaparin Sodium 40 Mg/0.4 Ml Syringe) 40 mg SUBCUT Q24H [facility] Last Admin: 08/04/23 21:31 Dose: 40 mg Documented By: POLO Hydralazine HCl (Hydralazine Hcl 20 Mg/Ml Vial) 5 mg IVPUSH Q4H PRN; Protocol PRN Reason: SBP>200 Last Admin: 08/03/23 02:34 Dose: 5 mg Documented By: JORGE Comments: given for BP 201/155 Lisinopril (Lisinopril 20 Mg Tablet) 20 mg PO DAILY [facility]; Protocol Last Admin: 08/05/23 08:44 Dose: 20 mg Documented By: TANISHA Melatonin (Melatonin 3 Mg Tablet) 6 mg PO BEDTIME PRN PRN Reason: Insomnia Ondansetron HCl (Ondansetron Hcl 4 Mg/2 Ml Vial) 4 mg IVPUSH Q8H PRN PRN Reason: Nausea and Vomiting Sodium Chloride (0.9 % Sodium Chloride Flush 3 Ml Syringe) 3 ml IVFLUSH QSHIFT [facility] Last Admin: 08/05/23 08:45 Dose: 3 ml Documented By: TANISHA Labs 08/05/23 06:21 08/05/23 06:21 Labs: Laboratory Results - last 24 hr 08/05/23 06:21 MCV 85.2 MCH 28.0 MCHC 32.8 RDW 13.6 Plt Count 210 MPV 9.4 Immature Gran % (Auto) 0.4 Neut % (Auto) 66.5 Lymph % (Auto) 19.5 L [place] % (Auto) 9.5 Eos % (Auto) 3.5 Baso % (Auto) 0.6 Lymph # (Auto) 1.9 [place] # (Auto) 0.9 Eos # (Auto) 0.4 Baso # (Auto) 0.1 Abs Immat Gran (auto) 0.04 H Absolute Neuts (auto) 6.6 Absolute Nucleated RBC 0.000 Nucleated RBC % (auto) 0.0 Anion Gap 11 L Estim Creat Clear Calc 42.8 Estimated GFR 53 Fasting Glucose 116 H Calcium 9.3 Total Bilirubin 0.4 AST 14 ALT 14 Alkaline Phosphatase 44 Total Protein 6.6 Albumin 3.6 Assessment and Plan (1) Thalamic infarct, acute: Status: Acute (2) HTN (hypertension): Status: Acute Plan Pt is an 83-year-old male with a PMH significant for?HTN, unspecified dementia, and hx of cholangitis who presents to the ED from with dysarthria, difficulties word-finding, and right sided weakness since sometime this afternoon. Pt will be admitted to the hospital for treatment and further evaluation of likely CVA. 1.CVA(left thalamic infarct by MRI) -expressive aphasia improving -aspirin 81 mg/atorvastatin 40 mg/Plavix 75 daily -PT/OT recommends acute rehab -telemetry 2.HTN -acceptable control current therapies -adjust as indicated Full Code Porfiriox Patient will require ongoing hospitalization for placement in acute Quality Stroke Does the patient have a stroke diagnosis?: Yes Reason for No Anti-thrombotic by Day Two: Contraindicated (Outside of [facility] therapeutic window; last known well time 10:00, though even that is unclear) VTE Prior VTE?: No VTE Risk Level:: Medical - moderate - high VTE Device Contraindication: Treatment Not Indicated VTE Drug Contraindication: N/A - Med Ordered
[2023-08-05 15:43] VITALS: BP 130/78; PULSE 82; RESP 17; TEMP 36.4; O2SAT 94
[2023-08-05 19:05] VITALS: BP 135/75; PULSE 75; RESP 17; TEMP 36.4; O2SAT 98
[2023-08-05] MEDS: Atorvastatin Calcium 40 MG TABLET PO (22:17)
[2023-08-05] MEDS: Enoxaparin Sodium 40 MG/0.4 ML SYRINGE SUBCUT (22:17)
[2023-08-06] VITALS (9 sets, daily range): BP systolic 126–163; BP diastolic 60–96; PULSE 82–89; RESP 15–18; TEMP 35.9–36.5; O2SAT 93–96
[2023-08-06] MEDS: 0.9 % Sodium Chloride Flush 3 ML SYRINGE IVFLUSH ×4 (00:38→22:02)
--- NOTE | 2023-08-06 03:30 | MHC.PIE ---
P.FALL I.BED ALARM SOUNDING,UPON ENTERING ROOM PT FOUND ON FLOOR BY SIDE OF BED.PT STATED HE WAS REACHING FOR SOMETHNG ON BEDSIDE TABLE AND SLID TO FLOOR.DID NOT USE CALL TURNER.DENIES ANY INJURY,DENIES HITTING HEAD.2 ASSIST BTB,NO INJURY NOTED.VS [id number]/76.TELESITTER CAMERA PLACED IN ROOM.MONITOR SR.NURSING ORCHARDIST AND DR MUJICA MADE AWARE. TO UNIT TO ASSESS PATIENT.NO FURTHER ORDERS.PT RESTING COMF. E.CONT TO MONITOR.
--- NOTE | 2023-08-06 07:14 | PM.EVENT ---
Event Note Date of Service: 08/06/23 (Fall) Event Note: Called by RN to examine patient who fell from bed. Patient has a history of CVA with right sided weakness. He reports that he was trying to reach for something by the bedside when he slid from the bed to the floor. He did not hit any part of his body including his head and actually denies any pain. His vital signs are stable. No further work up is indicated at this .time Will continue to closely monitor. Time Spent With Patient Time: Total time managing care of this patient today _15___ minutes.
[2023-08-06] MEDS: Clopidogrel Bisulfate 75 MG TABLET PO (07:56)
[2023-08-06] MEDS: lisinopriL 20 MG TABLET PO (07:56)
[2023-08-06] MEDS: Aspirin 81 MG TAB.CHEW PO (07:56)
[2023-08-06 08:08] LABS: MANUAL DIFF FLAG NO
[2023-08-06 08:24] LABS: Basophils Absolute Auto 0.1 X10*3/uL (0.0-0.2); Basophils Percent Auto 0.7 % (0-2); Eosinophils Absolute Auto 0.3 X10*3/uL (0.0-0.4); Eosinophils Percent Auto 3.5 % (0-4); Hematocrit 41.1 % (42.0-52.0); Hemoglobin 13.3 g/dl (14.0-18.0); Imm Gran Abs Auto 0.04 X10*3/uL (0.00-0.03); Imm Gran Pct Auto 0.4 % (0.0-0.4); Lymphocytes Absolute Auto 1.9 X10*3/uL (1.2-4.9); Lymphocytes Percent Auto 18.9 % (20-40); Mean Corpuscular HGB Conc 32.4 g/dl (31.0-36.0); Mean Corpuscular Hemoglobin 28.4 pg (27.0-33.0); Mean Corpuscular Volume 87.8 fL (80.0-98.0); Mean Platelet Volume 9.7 fL (9.4-12.4); Monocytes Percent Auto 10.3 % (2-11); Neutrophils Absolute Auto 6.5 x10*3/uL (2.0-8.3); Neutrophils Percent Auto 66.2 % (45-73); Platelet Count 213 X10*3/uL (160-400); Red Blood Count 4.68 X10*6/uL (4.60-5.80); Red Cell Distribution Width 13.9 % (11.0-16.0); White Blood Count 9.8 X10*3/uL (4.8-10.8)
[2023-08-06 08:42] LABS: Alanine Aminotransferase 14 U/L (0-40); Albumin Level 3.6 g/dL (3.5-5.0); Alkaline Phosphatase 50 U/L (39-117); Anion Gap 12 (12-20); Aspartate Amino Transferase 16 U/L (5-37); Bilirubin Total 0.5 mg/dL (0.0-1.0); Blood Urea Nitrogen 27 mg/dL (9-16); Calcium 9.2 mg/dL (8.4-10.2); Carbon Dioxide 27 mmol/L (22-29); Chloride 107 mmol/L (96-108); Creatinine Clr Calc Pharmacy 46.4; Estimated Glomerular Filt Rate 58; Glucose Fasting 104 mg/dL (60-99); Sodium 142 mmol/L (135-145); Total Protein 6.7 g/dL (6.5-8.0)
--- NOTE | 2023-08-06 12:31 | MHC.SL.SOA ---
Referring Provider: Lala Chiu Reason for Referral: Swallow eval Date of Plan of Treatment:08/03/23 Onset of Symptoms/Illness:08/02/23 Date Treatment Started:08/03/23 Medical Diagnosis:Aphasia, dysarthria Primary Speech Language Diagnosis:R41.841 Cognitive communication disorder Secondary Speech Language Diagnosis:R47.1 Dysarthria Reason for Visit:91646 Individual Treatment Subjective:Pt was awake and alert, sitting up in his chair. He greeted the clinician amicably and enthusiastically participated in speech therapy. He was accompanied by two family members, who report that pt seems to be having a better time expressing himself today. Objective: Pt completed the [place] Naming Test (BNT) in part. He correctly named 35/50 images during this confrontational naming task. Assessment:Pt presents with mild expressive aphasia. Pt gropes for words and is aware of his difficulties, stating, I know that, but I just can't say it. Pt at times perseverated on previous topics, but was aware of this and attempted to self-correct. Pt also presents with some paraphasias, for example naming cowlitz as ground hog, globe as compass, and snail as sea cucumber. Pt compensated for his difficulties by describing words. His descriptions were robust and served as self-cues, as it often lead to him eventually recalling the word on his own. For example, he described a cactus as The big green thing that grows in the desert and snail as That thing that crawls all over the yard. When provided with gestural cues, phonemic cues, sentence completion cues, and forced choice cues, he named an additional 14 words. Pt was able to state that he was at [facility], but made errors when stating the day of the week, the date, the month, and his age. Pt was able to correctly repeat single words and whole sentences, suggesting that repetition is a relative strength. Pt also exhibited no difficulty following directions, though he did have some trouble hearing and stated he did not have his hearing aids with him. Notes: FIGURE SKATER discussed with pt various word finding strategies: using gesture, circumlocution, and spelling. His family was also advised, rather than to give pt the words, to provide cues or hints to assist (i.e. semantic cues, phonemic cues, forced choice cues, sentence completion cues, etc.) Recommend continue speech therapy during inpatient stay and at the next level of care for continued evaluation and treatment of mild dysarthria and mild expressive aphasia. Suggested goals are as follows: Plan: Goal # : Pt will name 10 different household items (confrontational naming), when pointed to by the clinician within a familiar setting, with 80% accuracy. Status of Goal: New Goal Goal # : Pt will produce a minimum of 4 different features, when presented with a word using semantic feature analysis (SFA), given verbal prompts, with 75% accuracy. Status of Goal: New Goal Goal # : Pt will utilize trained word finding strategies (SFA, circumlocution, gesture, writing, spelling, etc.) for 2 minute description of recent event with at least 80% accuracy and minimal verbal cues. Status of Goal: New Goal Goal # : Pt will name 4 members per spoken category with 80% accuracy and minimal verbal cues. Status of Goal: New Goal Seen by: Graduate/Clinical Fellow: No Supervisory Statement: f_Reg Query Last Value , [facility] Speech Language Pathologist: Alana Alvarez M.A., CCC-FIGURE SKATER
--- NOTE | 2023-08-06 13:01 | HO.PM.IMPN ---
Subjective Subjective Date of Service: 08/06/23 Interval History: Continues to improve. Slight out of bed today without acute injuries. Review of Systems Denies chest pain Denies shortness of breath Denies nausea vomiting diarrhea Denies fever chills Physical Exam Vital Signs: Vital Signs: Last Vital Signs Temp 97.1 F 08/06/23 11:33 Pulse 85 08/06/23 11:33 Resp 17 08/06/23 11:33 BP 134/60 08/06/23 11:33 Pulse Ox 94 08/06/23 11:33 O2 Del Method Room Air 08/06/23 11:33 BMI result Body Mass Index 28.2 Const: Other: Awake alert no acute distress Resp: Other: Clear to auscultation bilaterally no rales rhonchi wheezes Cardio: Other: No S4; positive S1-S2; no S3 murmurs rubs gallops GI: Other: Soft nontender nondistended normoactive bowel sounds Neuro: Other: Cranial nerves 2-12 grossly intact safety mild right facial droop. Motor is 5/5 left; 3-5 right. Sensation is intact. Mild expressive aphasia that has improved Extrem: Other: No edema bilateral Objective Data Active Medications Acetaminophen (Acetaminophen 325 Mg Tablet) 650 mg PO Q6H PRN PRN Reason: Pain, Mild (Pain Scale 1-3) Aspirin (Aspirin 81 Mg Tab.Chew) 81 mg PO DAILY [facility] Last Admin: 08/06/23 07:56 Dose: 81 mg Documented By: RUSLAN Atorvastatin Calcium (Atorvastatin Calcium 40 Mg Tablet) 40 mg PO BEDTIME [facility] Last Admin: 08/05/23 22:17 Dose: 40 mg Documented By: POLO Benzonatate (Benzonatate 100 Mg Capsule) 100 mg PO TID PRN PRN Reason: Cough Clopidogrel Bisulfate (Clopidogrel Bisulfate 75 Mg Tablet) 75 mg PO DAILY [facility] Last Admin: 08/06/23 07:56 Dose: 75 mg Documented By: RUSLAN Docusate Sodium (Docusate Sodium 100 Mg Capsule) 100 mg PO DAILY PRN PRN Reason: Constipation Enoxaparin Sodium (Enoxaparin Sodium 40 Mg/0.4 Ml Syringe) 40 mg SUBCUT Q24H [facility] Last Admin: 08/05/23 22:17 Dose: 40 mg Documented By: POLO Hydralazine HCl (Hydralazine Hcl 20 Mg/Ml Vial) 5 mg IVPUSH Q4H PRN; Protocol PRN Reason: SBP>200 Last Admin: 08/03/23 02:34 Dose: 5 mg Documented By: JORGE Comments: given for BP 201/155 Lisinopril (Lisinopril 20 Mg Tablet) 20 mg PO DAILY CARL; Protocol Last Admin: 08/06/23 07:56 Dose: 20 mg Documented By: RUSLAN Melatonin (Melatonin 3 Mg Tablet) 6 mg PO BEDTIME PRN PRN Reason: Insomnia Ondansetron HCl (Ondansetron Hcl 4 Mg/2 Ml Vial) 4 mg IVPUSH Q8H PRN PRN Reason: Nausea and Vomiting Sodium Chloride (0.9 % Sodium Chloride Flush 3 Ml Syringe) 3 ml IVFLUSH QSHIFT [facility] Last Admin: 08/06/23 07:56 Dose: 3 ml Documented By: RUSLAN Labs 08/06/23 06:49 08/06/23 06:49 Labs: Laboratory Results - last 24 hr 08/06/23 06:49 MCV 87.8 MCH 28.4 MCHC 32.4 RDW 13.9 Plt Count 213 MPV 9.7 Immature Gran % (Auto) 0.4 Neut % (Auto) 66.2 Lymph % (Auto) 18.9 L [place] % (Auto) 10.3 Eos % (Auto) 3.5 Baso % (Auto) 0.7 Lymph # (Auto) 1.9 [place] # (Auto) 1.0 Eos # (Auto) 0.3 Baso # (Auto) 0.1 Abs Immat Gran (auto) 0.04 H Absolute Neuts (auto) 6.5 Absolute Nucleated RBC 0.000 Nucleated RBC % (auto) 0.0 Anion Gap 12 Estim Creat Clear Calc 46.4 Estimated GFR 58 Fasting Glucose 104 H Calcium 9.2 Total Bilirubin 0.5 AST 16 ALT 14 Alkaline Phosphatase 50 Total Protein 6.7 Albumin 3.6 Assessment and Plan (1) Thalamic infarct, acute: Status: Acute Plan Pt is an 83-year-old male with a PMH significant for?HTN, unspecified dementia, and hx of cholangitis who presents to the ED from with dysarthria, difficulties word-finding, and right sided weakness since sometime this afternoon. Pt will be admitted to the hospital for treatment and further evaluation of likely CVA. 1.CVA(left thalamic infarct by MRI) -expressive aphasia improving -aspirin 81 mg/atorvastatin 40 mg/Plavix 75 daily -PT/OT recommends acute rehab -telemetry 2.HTN -acceptable control current therapies -adjust as indicated Full Code [place] Patient will require ongoing hospitalization for placement in acute Quality Stroke Does the patient have a stroke diagnosis?: Yes Reason for No Anti-thrombotic by Day Two: Contraindicated (Outside of TNK therapeutic window; last known well time 10:00, though even that is unclear) VTE Prior VTE?: No VTE Risk Level:: Medical - moderate - high VTE Device Contraindication: Treatment Not Indicated VTE Drug Contraindication: N/A - Med Ordered
[2023-08-06] MEDS: Atorvastatin Calcium 40 MG TABLET PO (22:01)
[2023-08-06] MEDS: Enoxaparin Sodium 40 MG/0.4 ML SYRINGE SUBCUT (22:01)
[2023-08-07 03:09] VITALS: BP 113/75; PULSE 88; RESP 16; TEMP 36.4; O2SAT 92
[2023-08-07 07:49] VITALS: BP 106/70; PULSE 84; RESP 18; TEMP 36.3; O2SAT 96
[2023-08-07] MEDS: lisinopriL 20 MG TABLET PO (08:03)
[2023-08-07] MEDS: Clopidogrel Bisulfate 75 MG TABLET PO (08:03)
[2023-08-07] MEDS: 0.9 % Sodium Chloride Flush 3 ML SYRINGE IVFLUSH (08:04)
[2023-08-07] MEDS: Aspirin 81 MG TAB.CHEW PO (08:04)
--- NOTE | 2023-08-07 10:33 | MHC.CM.PN ---
Patient has been medically cleared for dc to Acute Rehab today.Patient will dc to [facility] today at 1:30 PM, via [facility]. IMM addressed with /HCP/Angella at [phone].
[2023-08-07 10:54] VITALS: BP 106/70; PULSE 84; O2SAT 96
[2023-08-07 11:20] VITALS: BP 90/59; PULSE 94; RESP 18; TEMP 36.4; O2SAT 92
--- NOTE | 2023-08-07 13:15 | P.DS_ITS ---
DS: Providers Provider Date of Service: 08/07/23 Date of admission: 08/02/23 22:04 Date of discharge: 08/07/23 Primary care physician: Kassidy Siddiqui MD Consults: 08/02/23 22:10 Consult to Neurology Routine Consulting Provider: [facility] Reason for consultation: Dysarthria, right-sided deficits, ?CVA DS: Diagnosis Discharge Diagnosis (1) Thalamic infarct, acute: Status: Acute DS: Summary Hospital Course Hospital Course: Chief Complaint: Dysarthria, slurred speech, right-sided weakness Pt is an 83-year-old male with a PMH significant for?HTN, unspecified dementia, and hx of cholangitis who presents to the ED from with dysarthria, difficulties word-finding, and right sided weakness since sometime this afternoon. At time of examination pt appears alert and oriented?x4, though he is a rather poor historian and unable to provide precise times or details. This has apparently been an issue for the pt's past two admissions. The ED physician was able to get ahold of the pt's family earlier in the evening and apparently they, too, had difficulties providing specific details about the patient's condition. Patient's last known well time possibly around 10:00 this morning. Apparently patient's and his son noticed his symptoms sometime in the afternoon but cannot pinpoint exactly when they occurred. Patient slept most of the day and by dinnertime could not use utensils, had difficulty walking, and had worsening speech throughout the day. It is unclear whether he has experienced similar episodes in the past. Pt denies headache, acute vision changes. No chest pain/pressure,. palpitations. Denies SOB. No fever, chills, nausea, vomiting, diarrhea. In the ED pt with low-grade fever of 99.0, pulse of 92, initially slightly hypertensive of 178/98, satting at 98% on RA. Labs were significant for stable normocytic anemia 12.9/38.8, and triglycerides 215, otherwise largely unremarkable. Electrolytes WNL. Hepatic and renal function WNL. Troponin 2.7. Total cholesterol 179. UA negative for UTI. CT of head showed no acute intracranial process, though showed age-related cerebral volume loss with chronic small vessel ischemic changes. CTA showed no arterial high-grade stenosis or large vessel occlusion in the head or neck. EKG demonstrated normal sinus rhythm without evidence of significant ST elevations or depressions. Pt was treated with aspirin. Pt will be admitted to the hospital for treatment and further evaluation of likely CVA. Hospital Course Admitted to telemetry where his monitor failed to show any acute dysrhythmias. He was seen in consultation by Neurology after MRI was obtained. CTA of head neck failed to demonstrate any a high-grade arterial stenosis or large vessel occlusion. Subsequent MRI demonstrated acute infarct involving the left thalamus without hemorrhagic conversion. It also noted global cerebral atrophy and chronic microangiopathy. Neurology felt this was a relatively small infarct and PT and OT would be extremely beneficial. His medical regimen was changed to make the addition of a baby aspirin daily and Plavix 75 mg daily. Permissive hypertension was allowed during the 1st 48 hours post diagnosis and his lisinopril was added back as appropriate. At this point in time he is medically acceptable for transfer to acute rehab Time Attestation Discharge coordination time: Greater than 30 minutes Quality: Safe Use of Opioids Does Pt have an Active Cancer Diagnosis on the Problem List?: No Quality: Stroke Does the patient have a stroke diagnosis?: Yes Reason for No Anti-thrombotic at DC: N/A - Med Ordered Reason for No Anticoagulant at DC: Not indicated Reason Not Initiating IV-Tpa: Not indicated Reason for No Anti-thrombotic by Day Two: Not indicated Reason for No Statin at DC: N/A - Med Ordered Physical Exam Vital Signs: Vital Signs: Last Vital Signs Temp 97.6 F 08/07/23 11:20 Pulse 94 08/07/23 11:20 Resp 18 08/07/23 11:20 BP 90/59 L 08/07/23 11:20 Pulse Ox 92 08/07/23 11:20 O2 Del Method Room Air 08/07/23 11:20 BMI result Body Mass Index 28.2 Const: Other: Awake alert no acute distress Resp: Other: Clear to auscultation bilaterally no rales rhonchi wheezes Cardio: Other: No S4; positive S1-S2; no S3 murmurs rubs gallops GI: Other: Soft nontender nondistended normoactive bowel sounds Neuro: Other: Cranial nerves 2-12 grossly intact safety mild right facial droop. Motor is 5/5 left; 3-5 right. Sensation is intact. Mild expressive aphasia that has improved Extrem: Other: No edema bilateral DS: Data Data Completed and Pending Completed studies during hospitalization [Text1]: Procedures Dilation of Common Bile Duct, Via Natural or Artificial Opening Endoscopic (03/15/21) Drainage of Peritoneum with Drainage Device, Percutaneous Approach (09/16/20) Insertion of Infusion Device into Superior Vena Cava, Percutaneous Approach (09/16/20) Irrigation of Indwelling Device using Irrigating Substance, External Approach (09/16/20) Ultrasonography of Superior Vena Cava, Guidance (09/16/20) Discharge Plan Discharge Anticipated Discharge Date/Time: 08/07/23 13:11 Patient Disposition: Xfer Inpatient Rehab Fac Discharge Diagnosis: Thalamic Infarct Referrals: [facility] [Outside] - 1 Week Kassidy Siddiqui MD [Primary Care Provider] - 1 Week Discharge Medications: New atorvastatin 40 mg Tablet 40 mg PO BEDTIME Qty: 30 0RF clopidogrel 75 mg Tablet 75 mg PO DAILY Qty: 30 0RF aspirin 81 mg Tablet,Chewable 81 mg PO DAILY Qty: 30 0RF Continued lisinopril 20 mg Tablet 20 mg PO DAILY Discharge Orders: Discharge Order (Routine); Ordered 08/07/23 Ordered By: Jesus Wellington Diet: Advance to usual diet Activity on Discharge: As tolerated Stand Alone Forms: Patient Portal Discharge page Care Plan Goals: Continue medicines as outlined on discharge summary Health Concerns: Follow-up with Dr. Bond after discharge from acute rehab Plan of Treatment: Further plans as per receiving facility Assessment: See discharge summary
== END 2023-08-07 13:53 | DRG 65 ==
LOC: HO.ED 20:08 → HO.EDOVER 22:24 → HO.IMC 08-03 14:23
PROVIDERS: Admitting Provider Student in an Organized Health Care Education/Training Program; Emergency Provider Emergency Medicine; PCP Internal Medicine; Visit Provider Hospitalist
DX: I63.89 Other cerebral infarction (principal); G81.91 Hemiplegia, unspecified affecting right dominant side; R47.01 Aphasia; I10 Essential (primary) hypertension; F03.90 Unspecified dementia, unspecified severity, without behavioral disturbance, psychotic disturbance, mood disturbance, and anxiety; R47.1 Dysarthria and anarthria; R29.706 NIHSS score 6; Z20.822 Contact with and (suspected) exposure to COVID-19; Z87.891 Personal history of nicotine dependence; Z79.899 Other long term (current) drug therapy
CPT/HCPCS: 36415; 70450; 70496; 70498; 70551; 80048; 80053; 80061; 80076; 80307; 81001; 82947; 83036; 83735; 84484; 85025; 85610; 85730; 87635; 92507; 92610; 93005; 93306; 97110; 97163; 97167; 97530; 97535; 99285; J0360; J1650; Q9957; Q9967

== ENCOUNTER → 2023-08-02 19:02 | Outpatient (BNV) | payer MEDICARE, SELFPAY | PROVIDERS: Admitting Provider Student in an Organized Health Care Education/Training Program; Emergency Provider Emergency Medicine; Visit Provider Internal Medicine Cardiovascular Disease | DX: R94.31 Abnormal electrocardiogram [ECG] [EKG] (principal) | CPT/HCPCS: 93010 ==

== ENCOUNTER 2023-08-02 22:04 | Outpatient (BNV) | payer MEDICARE, SELFPAY | END 2023-08-03 07:00 | PROVIDERS: Admitting Provider Student in an Organized Health Care Education/Training Program; Emergency Provider Emergency Medicine; Visit Provider Internal Medicine Cardiovascular Disease | DX: I35.0 Nonrheumatic aortic (valve) stenosis (principal); R94.31 Abnormal electrocardiogram [ECG] [EKG] | CPT/HCPCS: 93306 ==

== ENCOUNTER → 2023-08-02 22:04 | Outpatient (BNV) | payer MEDICARE, SELFPAY | PROVIDERS: Admitting Provider Student in an Organized Health Care Education/Training Program; Emergency Provider Emergency Medicine; Visit Provider Student in an Organized Health Care Education/Training Program | DX: I69.351 Hemiplegia and hemiparesis following cerebral infarction affecting right dominant side (principal) | CPT/HCPCS: 99222; 99232; 99239; 99499 ==

== ENCOUNTER 2023-09-06 05:33 | Outpatient (REF) | payer MEDICARE, SELFPAY | END 2023-09-06 05:34 | disposition home or self-care (01) | LOC: HO.MMNH1L 05:33 | PROVIDERS: Visit Provider Family Medicine | DX: I10 Essential (primary) hypertension (principal); I63.9 Cerebral infarction, unspecified | CPT/HCPCS: 36415; 80053; 85025 ==

== ENCOUNTER 2023-09-10 10:32 | Outpatient (REF) | payer MEDICARE, SELFPAY | END 2023-09-10 10:33 | disposition home or self-care (01) | LOC: HO.MMNH1L 10:32 | PROVIDERS: Visit Provider Family Medicine | DX: I63.9 Cerebral infarction, unspecified (principal); I10 Essential (primary) hypertension | CPT/HCPCS: 36415; 80048; 85025 ==

== ENCOUNTER 2023-09-17 | Outpatient (REF) | payer MEDICARE, SELFPAY ==
[2023-09-17 06:28] LABS: MANUAL DIFF FLAG NO
[2023-09-17 06:58] LABS: Basophils Absolute Auto 0.1 X10*3/uL (0.0-0.2); Basophils Percent Auto 0.7 % (0-2); Eosinophils Absolute Auto 0.5 X10*3/uL (0.0-0.4); Eosinophils Percent Auto 6.7 % (0-4); Hematocrit 28.7 % (42.0-52.0); Hemoglobin 9.2 g/dl (14.0-18.0); Imm Gran Abs Auto 0.02 X10*3/uL (0.00-0.03); Imm Gran Pct Auto 0.3 % (0.0-0.4); Lymphocytes Absolute Auto 1.4 X10*3/uL (1.2-4.9); Mean Corpuscular HGB Conc 32.1 g/dl (31.0-36.0); Mean Corpuscular Hemoglobin 27.4 pg (27.0-33.0); Mean Corpuscular Volume 85.4 fL (80.0-98.0); Mean Platelet Volume 9.5 fL (9.4-12.4); Monocytes Absolute Auto 0.7 X10*3/uL (0.1-1.2); Monocytes Percent Auto 9.8 % (2-11); Neutrophils Absolute Auto 4.6 x10*3/uL (2.0-8.3); Neutrophils Percent Auto 63.5 % (45-73); Platelet Count 210 X10*3/uL (160-400); Red Blood Count 3.36 X10*6/uL (4.60-5.80); White Blood Count 7.3 X10*3/uL (4.8-10.8)
[2023-09-17 07:16] LABS: Anion Gap 10 (12-20); Blood Urea Nitrogen 12 mg/dL (9-16); Calcium 8.8 mg/dL (8.4-10.2); Carbon Dioxide 26 mmol/L (22-29); Chloride 110 mmol/L (96-108); Estimated Glomerular Filt Rate > 60; Glucose Random 98 mg/dL (60-115); Potassium 3.3 mmol/L (3.3-5.1); Sodium 143 mmol/L (135-145)
== END 2023-09-17 00:01 ==
LOC: HO.MMNH1L
PROVIDERS: Visit Provider Family Medicine
DX: I10 Essential (primary) hypertension (principal); I63.9 Cerebral infarction, unspecified
CPT/HCPCS: 36415; 80048; 85025

== ENCOUNTER 2023-09-24 06:25 | Outpatient (REF) | payer MEDICARE, SELFPAY ==
[2023-09-24 06:10] LABS: MANUAL DIFF FLAG NO
[2023-09-24 06:55] LABS: Anion Gap 11 (12-20); Basophils Absolute Auto 0.1 X10*3/uL (0.0-0.2); Blood Urea Nitrogen 18 mg/dL (9-16); Calcium 9.2 mg/dL (8.4-10.2); Carbon Dioxide 26 mmol/L (22-29); Chloride 110 mmol/L (96-108); Eosinophils Absolute Auto 0.6 X10*3/uL (0.0-0.4); Eosinophils Percent Auto 9.4 % (0-4); Estimated Glomerular Filt Rate > 60; Glucose Random 87 mg/dL (60-115); Hematocrit 29.4 % (42.0-52.0); Hemoglobin 9.5 g/dl (14.0-18.0); Imm Gran Abs Auto 0.03 X10*3/uL (0.00-0.03); Imm Gran Pct Auto 0.5 % (0.0-0.4); Lymphocytes Absolute Auto 1.4 X10*3/uL (1.2-4.9); Lymphocytes Percent Auto 22.1 % (20-40); Mean Corpuscular HGB Conc 32.3 g/dl (31.0-36.0); Mean Corpuscular Hemoglobin 27.3 pg (27.0-33.0); Mean Corpuscular Volume 84.5 fL (80.0-98.0); Mean Platelet Volume 9.7 fL (9.4-12.4); Monocytes Absolute Auto 0.6 X10*3/uL (0.1-1.2); Monocytes Percent Auto 9.7 % (2-11); Neutrophils Absolute Auto 3.6 x10*3/uL (2.0-8.3); Neutrophils Percent Auto 57.3 % (45-73); Platelet Count 238 X10*3/uL (160-400); Potassium 3.6 mmol/L (3.3-5.1); Red Blood Count 3.48 X10*6/uL (4.60-5.80); Red Cell Distribution Width 15.1 % (11.0-16.0); Sodium 143 mmol/L (135-145); White Blood Count 6.2 X10*3/uL (4.8-10.8)
== END 2023-09-24 06:26 | disposition home or self-care (01) ==
LOC: HO.MMNH1L 06:25
PROVIDERS: Visit Provider Family Medicine
DX: I10 Essential (primary) hypertension (principal); Z86.73 Personal history of transient ischemic attack (TIA), and cerebral infarction without residual deficits
CPT/HCPCS: 36415; 80048; 85025

== ENCOUNTER 2023-10-01 06:35 | Outpatient (REF) | payer MEDICARE, SELFPAY ==
[2023-10-01 06:24] LABS: MANUAL DIFF FLAG NO
[2023-10-01 07:13] LABS: Basophils Absolute Auto 0.1 X10*3/uL (0.0-0.2); Basophils Percent Auto 1.2 % (0-2); Eosinophils Absolute Auto 0.5 X10*3/uL (0.0-0.4); Eosinophils Percent Auto 7.6 % (0-4); Hematocrit 30.4 % (42.0-52.0); Hemoglobin 9.6 g/dl (14.0-18.0); Imm Gran Abs Auto 0.04 X10*3/uL (0.00-0.03); Imm Gran Pct Auto 0.6 % (0.0-0.4); Lymphocytes Absolute Auto 1.4 X10*3/uL (1.2-4.9); Lymphocytes Percent Auto 20.4 % (20-40); Mean Corpuscular HGB Conc 31.6 g/dl (31.0-36.0); Mean Corpuscular Hemoglobin 26.6 pg (27.0-33.0); Mean Corpuscular Volume 84.2 fL (80.0-98.0); Mean Platelet Volume 9.7 fL (9.4-12.4); Monocytes Absolute Auto 0.6 X10*3/uL (0.1-1.2); Monocytes Percent Auto 9.1 % (2-11); Neutrophils Absolute Auto 4.3 x10*3/uL (2.0-8.3); Neutrophils Percent Auto 61.1 % (45-73); Platelet Count 227 X10*3/uL (160-400); Red Blood Count 3.61 X10*6/uL (4.60-5.80); Red Cell Distribution Width 15.3 % (11.0-16.0)
[2023-10-01 07:30] LABS: Anion Gap 14 (12-20); Blood Urea Nitrogen 17 mg/dL (9-16); Calcium 9.1 mg/dL (8.4-10.2); Carbon Dioxide 24 mmol/L (22-29); Chloride 109 mmol/L (96-108); Estimated Glomerular Filt Rate > 60; Glucose Random 91 mg/dL (60-115); Potassium 3.3 mmol/L (3.3-5.1); Sodium 144 mmol/L (135-145)
== END 2023-10-01 06:36 | disposition home or self-care (01) ==
LOC: HO.MMNH1L 06:35
PROVIDERS: Visit Provider Family Medicine
DX: I10 Essential (primary) hypertension (principal); Z86.73 Personal history of transient ischemic attack (TIA), and cerebral infarction without residual deficits
CPT/HCPCS: 36415; 80048; 85025

== ENCOUNTER 2025-06-18 13:27 | Outpatient (AMB) | payer MEDICARE, OTHER, SELFPAY ==
--- NOTE | 2025-06-18 13:41 | MHC.OFFVIS ---
Intake Visit Reasons: 4mnth Allergies No Known Allergies Allergy (Verified 08/02/23 19:41) HPI Comments Details: The patient is an 85-year-old male presenting with dementia. Memory impairments primarily involve short-term memory challenges, characterized by forgetfulness and confusion regarding familiar tasks. Episodes of forgetfulness are noted to become pronounced during illness such as urinary tract infections, complicating his cognitive state temporarily. He has shown a lack of motivation and occasional disinterest, but is not significantly agitated. Past trials of donepezil for dementia have been stopped due to significant adverse effects, prompting a decision to pursue non-pharmacological management. This aligns with the current preference of the patient and caregivers for more natural management strategies. The patient has experienced recurrent urinary tract infections that temporarily exacerbate his cognitive symptoms but has not been associated with hallucinations. Post-vaccination with the influenza vaccine, the patient experienced mild flu-like symptoms for a week, which resolved. Care is generally centered around maintaining the patient in a home environment, as transitions to hospital settings are associated with a decline in cognitive and physical function. [facility] Medical History Jaundice Encephalopathy Acute cholangitis Intra-abdominal hematoma Dementia COVID-19 SBO (small bowel obstruction) GERD (gastroesophageal reflux disease) HLD (hyperlipidemia) HTN (hypertension) Surgical History History of colonoscopy History of surgery on wrist History of ankle surgery History of appendectomy H/O colectomy Family History Father History of stomach cancer Social History Household Members: Spouse Housing: House Do you presently have visiting nurse or other home services: No Alcohol intake: never Patient Tobacco Use Status: Former Tobacco user Tobacco use type: Cigarette Second Hand Smoke Exposure: No Advance Directives Date on File: 09/16/20 service: Yes Current occupational status: retired Review of Systems Const Details: - Neurological: Reports memory issues, particularly short-term memory deficits; reports decreased motivation; denies hallucinations. - Urinary: Reports recurrent urinary tract infections. - General: Denies significant agitation. Physical Exam Neuro Other: Mental Status: Alert and oriented to person, place, and time. Normal attention. Normal spontaneous speech, fluency, and comprehension. Cranial Nerves: CN II: Visual [place] full to confrontation, visual acuity intact. CN III, IV, : Pupils equal, round, reactive to light and accommodation. Extraocular movements are normal. CN V: Facial sensation is normal. CN VII: Facial movements symmetrical. CN VIII: Hearing intact to bedside conversation is normal. CN IX, X: Palate elevates symmetrically. CN XI: Shoulder shrug and head turn symmetrical. CN XII: Tongue midline without atrophy or fasciculations. Extrapyramidal: Full facial expressions and blinking. No rigidity. Movements are appropriate with no tremor or abnormality. Speech: Normal; no dysarthria or tremor. Assessment & Plan Assessment & Plan (1) Alzheimer dementia: Comment: CT brain WO at [facility] in 2020: mild to mod diff atrophy, mild to mod MVD Routine EEG at [facility] in February 2023; WNL. Code(s): G30.9 - Alzheimer's disease, unspecified; F02.80 - Dementia in other diseases classified elsewhere, unspecified severity, without behavioral disturbance, psychotic disturbance, mood disturbance, and anxiety Category: Medical Qualifiers: Alzheimer's disease onset: late onset Dementia severity: moderate Dementia behavioral or psychological symptom: without behavioral, psychotic, or mood disturbance or anxiety Qualified Code(s): G30.1 - Alzheimer's disease with late onset; F02.B0 - Dementia in other diseases classified elsewhere, moderate, without behavioral disturbance, psychotic disturbance, mood disturbance, and anxiety Plan During the visit, I discussed the management of the patient's dementia and the decision to avoid pharmacological treatments such as donepezil due to prior intolerance. Emphasis was placed on maintaining stability at home as transitions to hospital settings have led to cognitive and functional decline. I also discussed the impact of urinary tract infections on cognitive symptom exacerbation, advising preventive and early treatment strategies. In regards to the influenza vaccination, I reassured the patient of its necessity despite transient symptoms, noting the greater risk of severe consequences from influenza itself. We agreed not to set a follow-up appointment, opting instead for as needed assessments to adapt to their care requirements. Coding Level of Care Code Est Pt Level 4 (81423) Diagnoses Moderate late onset Alzheimer's dementia without behavioral disturbance, psychotic disturbance, mood disturbance, or anxiety G30.1; F02.B0 Alzheimer's disease onset: late onset Dementia severity: moderate Dementia behavioral or psychological symptom: without behavioral, psychotic, or mood disturbance or anxiety
--- OUTSIDE RECORDS SUMMARY | 2025-06-18 16:55 | XMS_ITS | Data Portability ---
Author Organization AMEYA Dowell [id number] Address [address] [place] [address] Assessment No assessment recorded. Plan of Treatment Reminders Order Date Submit Date Provider Last Modified By Organization Details Last Modified Time Details Appointments None recorded. Lab None recorded. Referral None recorded. Procedures None recorded. Surgeries None recorded. Imaging None recorded. Medication Orders neomycin-po lymyxin-hyd rocort 3.5 mg-10,000 unit/mL-1 % ear drops,susp 2022 023 [id number], [address] [place] [address], [id number], 3 16:47:10 Allergy Relief (fluticason e) 50 mcg/actuati on nasal spray,suspe nsion 2022 023 [facility] #[id number], [address] [place] [address], [id number], 3 16:47:11 loratadine 10 mg tablet 2022 023 [facility] #[id number], [address] [place] [address], [id number], 3 16:47:12 Patient TargetsNo targets recorded. Patient Instructions Encounter Date Encounter Id Patient Instructions Last Modified By Organization Details Last Modified Time 03/23/2023 [id number] Sinusitis is an infection of the lining of the sinus cavities in your head. Sinusitis often follows a cold. It causes pain and pressure in your head and face. In most cases, sinusitis gets better on its own in 1 to 2 weeks. But some mild symptoms may last for several weeks. Sometimes antibiotics are needed. if you are having problems. It's also a good idea to know your test results and keep a list of the medicines you take. How can you care for yourself at home? Take an qldg-yue-vixkggp pain medicine. Avoid Ibuprofen, Aleve and Aspirin if . If the doctor prescribed antibiotics, take them as directed. Do not stop taking them just because you feel better. You need to take the full course of antibiotics. Be careful when taking ttpu-cau-iifgald cold or influenza (flu) medicines and Tylenol at the same time. Many of these medicines have acetaminophen, which is Tylenol. Read the labels to make sure that you are not taking more than the recommended dose. Too much acetaminophen (Tylenol) can be harmful. Breathe warm, moist air from a steamy shower, a hot bath, or a sink filled with hot water. Avoid cold, dry air. Using a humidifier in your home may help. Follow the directions for cleaning the machine. Use saline (saltwater) nasal washes. This can help keep your nasal passages open and wash out mucus and bacteria. You can buy saline nose drops at a grocery store or drugstore. Or you can make your own at home by adding 1 teaspoon (5 millilitres) of salt and 1 teaspoon (5 millilitres) of baking soda to 2 cups (500 mL) of distilled water. If you make your own, fill a bulb syringe with the solution, insert the tip into your nostril, and squeeze gently. Blow your nose. Put a hot, wet towel or a warm gel pack on your face 3 or 4 times a day for 5 to 10 minutes each time. Try a decongestant nasal spray like oxymetazoline (Drixoral). Do not use it for more than 3 days in a row. Using it for more than 3 days can make your congestion worse. [email or web address] Not available 03/23/2023 16:46:49 decrease hearing and pressure bilateral ears requesting irrigation for cerumen removal. denies any fever or fever with chills, denies any SOB or respiratory distress. Water in the ear, from swimming or bathing, makes the ear canal prone to infection. Hot and humid weather also predisposes to infection. Symptoms of otitis externa include: ear pain, fullness or itching in the ear, ear drainage, and temporary loss of hearing. These symptoms are similar to those caused by otitis media (middle ear infection). To differentiate between external ear infection and middle ear infection, the provider looks in the ear with an instrument called an otoscope. It is important to distinguish between the two infections, as they are treated differently: External otitis is treated with drops in the ear canal, while middle ear infection is sometimes treated with an antibiotic by mouth. MEASURES YOU SHOULD TAKE TO HELP TREAT EXTERNAL EAR INFECTION: 1. Use the ear drops regularly, as directed on the prescription. 2. The prince to treatment is getting the drops down into the canal and keeping the medicine there. To accomplish this: Lie on your side, with the unaffected ear down. Put three to four drops in the infected ear canal, then gently pull the outer ear back and forth several times, working the medicine deeper into the ear canal. Remain still, wasq-xqq-grim-down for about 15 minutes. 3. Keep the ear as dry as possible. Swimming should be postponed until the infection has cleared. Try to avoid getting water in the ear when bathing. If water does get in the ear, the canal can be gently dried with a hair blow dryer. Use the low heat setting, and keep the blow dryer about six inches from the ear. 4. Rxoj-kqk-tnlptnj pain medications can relieve discomfort associated with external otitis. Acetaminophen (Tylenol), ibuprofen, or naproxen can be taken, depending on individual preference. 5. Return to the [facility] in about one week. The provider can check to make sure the infection has cleared, continue the medicine if needed, okay a return to swimming, etc. 6. To prevent repeated episodes of otitis externa, try to keep the ear canal dry. Gentle swabbing with Q-tips (never deep into the canal), along with a hair blow dryer (low heat), can be used to dry the ear canal if it gets wet. 7. Should you develop severe pain, fever, severe headache, or stiff neck, see your personal/referral doctor or go to the closest emergency department promptly. Otitis externa does not normally cause these symptoms; another problem, requiring different treatment, could be present mora Not available 03/23/2023 16:47:03 Reason for Referral None Reported. Problems Name Problem SNOMED Code Status Onset Date Resolution Date Notes Provider Name and Address Organization Details Recorded Time Hypertensive disorder 65378149 Active 2022 AMEYA Wyman [facility] 3 15:22:17 Hyperlipidemia 55527780 Active 2022 AMEYA Wyman [facility] 3 15:22:22 Problem Notes None recorded. Procedures Surgical History Date Name Laterality Status Provider Name and Address Organization Details Recorded Time 3 Cerumen Removal by Irrigation completed Kathrine Epps [facility] 03/23/2023 16:42:18 Imaging Results None recorded. Procedure Notes None recorded. Medical Equipment None Reported. Allergies No known drug allergies Medications Name Sig Start Date Stop Date Status Note LastModified by Organization Details LastModified Time fluticasone propionate 50 mcg/actuation nasal spray,suspensi on USE 1 SPRAY IN EACH NOSTRIL EVERY DAY DIRECTED active Not Available Not Available No t Available loratadine 10 mg tablet TAKE 1 TABLET BY MOUTH EVERY MORNING active Not Available Not Available No t Available neomycin-polym yxin-hydrocort 3.5 mg-10,000 unit/mL-1 % ear drops,susp SHAKE LIQUID AND INSTILL 4 DROPS TO AFFECTED EAR THREE TIMES DAILY FOR 10 DAYS active Not Available Not Available No t Available atorvastatin active Not Available Not Available Not Available lisinopril active Not Available Not Av ailable Not Available Vitals Date Recorded Body height Body mass index (BMI) Body weight Pain severity - 0-10 verbal numeric rating [Score] - Reported Respiratory rate Body temperature Oxygen saturation Oxygen saturation in Arterial blood by Pulse oximetry Heart rate Systolic And Diastolic Provider Name and Address Organization Details Last Updated DateTime 3 170.18 cm 25.1 kg/m2 40902.7 8 g 2 20 /min 98.2 [degF] 96 % 96 % 76 /min 142/84 mm[Hg] Kathrine Gates PA - [facility] 3 15:24:45 Social History Question Answer Notes LastModified by Organizat ion Details LastModified Time Tobacco Smoking Status Never Smoker Kathrine hull PA Supriya [facility] 03/23/2023 15:22:30 Have You Had Direct Contact, Or Contact During Intimacy, With Monkeypox Rash, Scabs, Or Body Fluids From A Person With Monkeypox? No Information not available 03/23/2023 Have You Recently Traveled Abroad? No Information not available 03/23/2023 Sex: Unknown Functional Status Question Answer Note LastModified by Organizat ion Details LastModified Time Do you use any illicit or recreational drugs? No Information not available 03/23/2023 Do you or have you ever used any other forms of tobacco or nicotine? No Information not available 03/23/2023 What is your level of alcohol consumption? None Information not available 03/23/2023 Mental Status None recorded. Family History Relationship Description Onset Age of this Age Resolved Age Notes LastModified by Organization Details LastModified Time Father No current problems or disability Not available 03/23 15:22:24 Mother No current problems or disability Not available 03/23 15:22:24 Medical History No medical history recorded. Immunizations Vaccine Type Date Status Note Provider Nam e and Address Organization Details Recorded Time Influenza, MDCK, quadrivalent, preservative 1 completed Kathrine [place] null, PA - [facility] 03/23/2023 15:21:45 COVID-19, mRNA, LNP-S, PF, 30 mcg/0.3 mL dose 1 completed Kathrine Kody null, PA - [facility] 03/23/2023 15:21:45 COVID-19, mRNA, LNP-S, PF, 30 mcg/0.3 mL dose 1 completed Kathrine Kody null, PA - [facility] 03/23/2023 15:21:45 pneumococcal polysaccharide PPV23 8 completed Kathrine Kody null, PA - [facility] 03/23/2023 15:21:45 Pneumococcal conjugate PCV 13 5 completed Kathrine Kody null, PA - [facility] 03/23/2023 15:21:45 Influenza, split virus, trivalent, preservative 5 completed Kathrine Kody null, PA - [facility] 03/23/2023 15:21:45 Influenza, split virus, trivalent, preservative 5 completed Kathrine Kody null, PA - [facility] 03/23/2023 15:21:45 Influenza, split virus, trivalent, preservative 4 completed Kathrine [place] null, PA - [facility] 03/23/2023 15:21:45 Influenza, split virus, trivalent, preservative 2 completed Kathrine [place] null, PA - [facility] 03/23/2023 15:21:45 Td (adult), 2 Lf tetanus toxoid, preservative free, adsorbed 1 completed Kathrine Kody null, PA - [facility] 03/23/2023 15:21:45 Past Encounters Encounter ID Performer Location Encounter Start Date Encounter Closed Date Diagnosis/Indication Diagnosis SNOMED-CT Code Diagnosis ICD10 Code Diagnosis IMO Codes Diagnosis Note [id number] [facility] [facility] [address] [place] [address] 06/19/2020 12:58:24 06/19/2020 16:18:27 [id number] Amauri Balderas, DIRECTOR OF HOTEL [address] [address] [place] [address] 03/23/2023 15:14:27 03/23/2023 16:49:34 Impacted cerumen in right ear 7496921637 813403 H61.21 Otitis ext mark of right ear 8653693269 096108 H60.91 Acute sinusitis 72408101 J01.90 Health Concerns Section Related Observation LastModified by Organization Detai ls LastModified Time None Recorded Concern Status LastModified by Organization Details LastModified Time None Recorded Advance Directives Directive None Recorded Payers Insurance Date Sequence Insurance Name Policy Number Policy Gallagher Covered Member ID Gallagher Member ID Guarantor Name 03/23/2023 1 [place]: [employer] Morgan Isaac [id number] Morgan Joshimette 03/23/2023 2 FOR LIFE ( - MEDICARE SUPPLEMENT) Morgan Redmanlemette [id number] Morgan Redmanlemette 03/23/2023 1 [facility] (MEDICARE REPLACEMENT/ ADVANTAGE - HMO) [id number] Morgan Redmanlemette [id number] Morgan Redmanlemette Notes Date Note Type Note Provider Name and Address Organization Details Recorded Time 03/23/20 23 text/htm l Ear problem UCReported by PatientHPIFor quality, patient reportscloggedanddecreased hearing. For severity, patient reportsmoderate. For modifying factors, patient reportshurts to lie on, or pull on earbut reportsdoes not hurt to chewandoften has wax accumulation. For associated symptoms, patient reportspopping noise in the ears. For source of patient information, patient reportsinformation obtained from patient,patient arrived at urgent care ambulatory, andlearning styles: auditory. For location, patient reportsbilateral. For duration, patient reports2 weeks. For context, patient reportsno sick contacts,no recent swimming/water in ear, andno recent air travel. Amauri Balderas NP [address] [facility] [place], [address], PA - [facility] 03/23/2023 16:47:29
--- OUTSIDE RECORDS SUMMARY | 2025-06-18 16:55 | XMS_ITS | Encounter Summary ---
Author Organization [facility] Address [address] [place] [address] Care Team Providers Care Snow Ranger Name Role Phone Nando Deng MD Primary Care Provider Reason for Visit * Reason Comments home health cert 09/16/24-11/14/24 Encounter Details Date Type Department Care Team ([facility] st Contact Info) Description 11/05/2024 Billing Patient Not Present Adult Medicine [address] [address] Levy Littlejohn PA [address] [place] [phone] Social History Tobacco Use Types Packs/Day Years Used Date Smoking Tobacco: Never Smokeless Tobacco: Never Alcohol Use Standard Drinks/Week Comments No 0 (1 standard drink = 0.6 oz pur e alcohol) Interpersonal Safety Answer Date Record ed Physical Abuse Unrecognized value 09/14/2024 Verbal Abuse Unrecognized value 09/14/2024 Sex and Gender Information Value Date Recorded Sex Assigned at Male 09/17/2024 1:38 PM EST Legal Sex Male 6:48 PM EST Gender Identity Male 09/17/2024 1:38 PM EST Sexual Orientation Straight 09/17/2024 1: 38 PM EST documented as of this encounter Functional Status * Are you deaf or do you have serious difficulty hearing? Answer Date of Assessment Author No 09/17/2024 2:05 PM EST Mckinley RN * Are you blind or do you have serious difficulty seeing, even when wearing glasses? Answer Date of Assessment Author No 09/17/2024 2:05 PM De La Paz RN * Do you have serious difficulty walking or climbing stairs? Answer Date of Assessment Author Yes 09/17/2024 2:05 PM De La Paz RN * Do you have serious difficulty dressing or bathing? Answer Date of Assessment Author Yes 09/17/2024 2:05 PM De La Paz RN * Because of a physical, mental, or emotional condition, do you have serious difficulty doing errandsalone such as visiting the doctor? Answer Date of Assessment Author Yes 09/17/2024 2:05 PM De La Paz RN documented as of this encounter Mental Status * Because of a physical, mental, or emotional condition, do you have serious difficulty concentrating, remembering, or making decisions? (5 years old or older) Answer Entry Date Author Yes 09/17/2024 2:05 PM De La Paz RN documented in this encounter Plan of Treatment Upcoming Encounters Date Type Department Care Team (Late st Contact Info) Description 08/20/2025 3:00 PM EST Office Visit Adult Medicine [facility] [address] [place], [place] [phone] Nando Deng MD [address] [place], [place] documented as of this encounter Visit Diagnoses Not on filedocumented in this encounter Additional Health Concerns Infection Onset Date Last Indicated Resolved Time Respiratory Rule-Out 11/16/2024 11/16/2024 025 12:48 PM EDT COVID-19 Rule-Out 11/16/2024 11/16/2024 11/16/2024 12:48 PM EDT Respiratory Rule-Out 11/16/2024 11/16/2024 025 2:40 PM EDT COVID-19 Rule-Out 11/16/2024 11/16/2024 11/16/2024 2:40 PM EDT Respiratory Rule-Out 01/12/2025 01/12/2025 025 8:02 PM EDT COVID-19 Rule-Out 01/12/2025 01/12/2025 01/12/2025 8:02 PM EDT Respiratory Rule-Out 04/21/2025 04/21/2025 025 11:00 PM EDT COVID-19 Rule-Out 04/21/2025 04/21/2025 04/21/2025 11:00 PM EDT documented as of this encounter Care Teams Snow Ranger Relationship Specialty Start Date End Date Nando Deng MD [address] [place] [address] PCP - General Internal Medicine 01/12/25 documented as of this encounter
--- OUTSIDE RECORDS SUMMARY | 2025-06-18 16:55 | XMS_ITS | Encounter Summary ---
Author Organization [facility] Address [address] [place] [address] Care Team Providers Care Mid Level Java Developer Name Role Phone Nando Deng MD Primary Care Provider Encounter Details Date Type Department Care Team (Late st Contact Info) Description 10/02/[address] [facility] - Main Lab [address] [facility] [place] [place] [address] Ervin Thayer MD [address] [place] [address] Other pulmonary embolism without acute cor pulmonale (CMS/HCC V24, CMS/HCC V28); Essential (primary) hypertension Social History Tobacco Use Types Packs/Day Years [...] 3:00 PM EST Office Visit Adult Medicine [facility] [address] [place] [address] Nando Deng MD [address] [place], [place] documented as of this encounter Procedures Procedure Name Priority Date/Time Associated Diagnosis Comments VITAMIN B12 AND FOLATE Routine 10/03/2024 6:10 AM EST Other pulmonary embolism without acute cor pulmonale (CMS/HCC) Essential (primary) hypertension COMPLETE BLOOD COUNT Routine 10/03/2024 6:10 AM EST Other pulmonary embolism without acute cor pulmonale (CMS/HCC) Essential (primary) hypertension THYROID STIMULATING HORMONE Routine 10/03/2024 6:10 AM EST Other pulmonary embolism without acute cor pulmonale (CMS/HCC) Essential (primary) hypertension BASIC METABOLIC PANEL Routine 10/03/2024 6:10 AM EST Other pulmonary embolism without acute cor pulmonale (CMS/HCC) Essential (primary) hypertension documented in this encounter Results * Vitamin B12 and folate (10/03/2024 6:10 AM EST) Pathologist [facility] Vitamin B-12 371 250 - 900 pcg/mL LAB CHEMISTRY METHOD 10/03/2024 11:08 AM EST [facility] Folate 14.4 2.8 - 17.0 ng/ml LAB CHEMISTRY METHOD 10/03/2024 11:08 AM EST [facility] Blood Venous blood specimen / Unknown Venipuncture / Unknown 10/03/2024 6:10 AM EST 10/03/2024 10:06 AM EST Ervin Thayer MD LAB BLOOD ORDERABLES Final R esult Performing Organization Address [facility]/ZIP Co de Phone Number [facility] [address] [place] [address], [place] [phone] * Thyroid stimulating hormone (10/03/2024 6:10 AM EST) [facility] TSH 2.58 0.40 - 4.00 mcIU/mL LAB CHEMISTRY METHOD 10/03/2024 10:53 AM EST [facility] Blood Venous blood specimen / Unknown Venipuncture / Unknown 10/03/2024 6:10 AM EST 10/03/2024 10:06 AM EST Ervin Thayer MD LAB BLOOD ORDERABLES Final R esult [facility] [address] [place] [address], [place] [phone] * (ABNORMAL) Basic metabolic panel (10/03/2024 6:10 AM EST) [facility] Sodium 142 133 - 145 mmol/L LAB CHEMISTRY METHOD 10/03/2024 10:44 AM EST [facility] Potassium 4.4 3.5 - 5.5 mmol/L LAB CHEMISTRY METHOD 10/03/2024 10:44 AM [facility] Chloride 109 96 - 110 mmol/L LAB CHEMISTRY METHOD 10/03/2024 10:44 AM [facility] CO2 28 21 - 32 mmol/L LAB CHEMISTRY METHOD 10/03/2024 10:44 AM [facility] Anion Gap 5 3 - 11 LAB CHEMISTRY METHOD 10/03/2024 10:44 AM [facility] Glucose 91 70 - 100 mg/dL LAB CHEMISTRY METHOD 10/03/2024 10:44 AM [facility] BUN 21 5 - 25 mg/dL LAB CHEMISTRY METHOD 10/03/2024 10:44 AM [facility] Creatinine 1.19 0.70 - 1.30 mg/dL LAB CHEMISTRY METHOD 10/03/2024 10:44 AM [facility] eGFR 59(L) >=60 mL/min/1. 73m2 LAB CHEMISTRY METHOD 10/03/2024 10:44 AM [facility] Comment:Calculation based on the Chronic Kidney Disease Epidemiology Collaboration (CKD-EPI) equation refit without adjustment for race. BUN/Creatinine Ratio 17.6 LAB CHEMISTRY METHOD 10/03/2024 10:44 AM [facility] Calcium 8.9 8.5 - 10.5 mg/dL LAB CHEMISTRY METHOD 10/03/2024 10:44 AM [facility] Blood Venous blood specimen / Unknown Venipuncture / Unknown 10/03/2024 6:10 AM EST 10/03/2024 10:06 AM EST us Ervin Thayer MD LAB BLOOD ORDERABLES Final R esult [facility] [address] [place] [address], * (ABNORMAL) Complete blood count (10/03/2024 6:10 AM EST) [facility] WBC 6.6 4.8 - 10.8 K/mcL LAB HEMETOLOGY METHOD 10/03/2024 10:24 AM [facility] RBC 3.90(L) 4.50 - 5.50 M/mcL LAB HEMETOLOGY METHOD 10/03/2024 10:24 AM [facility] Hemoglobin 10.6(L) 13.5 - 17.5 g/dL LAB HEMETOLOGY METHOD 10/03/2024 10:24 AM [facility] Hematocrit 33.8(L) 42.0 - 54.0 % LAB HEMETOLOGY METHOD 10/03/2024 10:24 AM [facility] MCV 87.8 79.0 - 98.0 FL LAB HEMETOLOGY METHOD 10/03/2024 10:24 AM [facility] MCH 27.5 27.0 - 32.0 pcg LAB HEMETOLOGY METHOD 10/03/2024 10:24 AM [facility] MCHC 31.4(L) 32.0 - 37.0 g/dL LAB HEMETOLOGY METHOD 10/03/2024 10:24 AM [facility] RDW 14.0 11.0 - 15.0 % LAB HEMETOLOGY METHOD 10/03/2024 10:24 AM [facility] Platelets 236 130 - 400 K/mcL LAB HEMETOLOGY METHOD 10/03/2024 10:24 AM [facility] MPV 9.9 7.0 - 11.0 FL LAB HEMETOLOGY METHOD 10/03/2024 10:24 AM [facility] NRBC 0.0 <1.0 % LAB HEMETOLOGY METHOD 10/03/2024 10:24 AM [facility] NRBC Absolute 0.00 <0.10 K/mcL LAB HEMETOLOGY METHOD 10/03/2024 10:24 AM EST [facility] Blood Venous blood specimen / Unknown Venipuncture / Unknown 10/03/2024 6:10 AM EST 10/03/2024 10:06 AM EST us Ervin Thayer MD LAB BLOOD ORDERABLES Final R esult [facility] [address] [place] [address], documented in this encounter Visit Diagnoses Diagnosis Other pulmonary embolism without acute cor pulmonale (CMS/HCC V24, CMS/HCC V28) Essential (primary) hypertension Unspecified essential hypertension documented in this encounter Additional Health Concerns Infection [...] documented as of this encounter Care Teams Mid Level Java Developer Relationship Specialty Start Date End Date Nando Deng MD [address] [place] [address] PCP - General Internal Medicine 01/12/25 documented as of this encounter
--- OUTSIDE RECORDS SUMMARY | 2025-06-18 16:55 | XMS_ITS | Encounter Summary ---
Author Organization [facility] Address [address] [place] [address] Care Team Providers Care Buckle Strap Drum Operator Name Role Phone Nando Deng MD Primary Care Provider Encounter Details Date Type Department Care Team (Late st Contact Info) Description 09/19/2024 Lab Requisition [facility] - Main Lab [address] [facility] [place] [address] Ervin Thayer MD [address] [place] [address] Essential (primary) hypertension Social History Tobacco Use [...] 09/17/2024 2:05 PM EST Mckinley RN * Do you have serious difficulty [...] 3:00 PM EST Office Visit Adult Medicine [facility] [address] [place], [place] [phone] Nando Deng MD [address] [place], [place] documented as of this encounter Procedures Procedure Name Priority Date/Time Associated Diagnosis Comments CBC WITH AUTO DIFFERENTIAL Routine 09/19/2024 6:14 AM EST Essential (primary) hypertension CBC AND DIFFERENTIAL Routine 09/19/2024 6:14 AM EST Essential (primary) hypertension THYROID STIMULATING HORMONE Routine 09/19/2024 6:14 AM EST Essential (primary) hypertension FOLATE Routine 09/19/2024 6:14 AM EST Essential (primary) hypertension VITAMIN B12 Routine 09/19/2024 6:14 AM EST Essential (primary) hypertension COMPREHENSIVE METABOLIC PANEL Routine 09/19/2024 6:14 AM EST Essential (primary) hypertension documented in this encounter Results * (ABNORMAL) CBC auto differential (09/19/2024 6:14 AM EST) WBC 5.3 4.8 - 10.8 K/mcL LAB HEMETOLOGY METHOD 09/19/2024 11:00 AM [facility] RBC 4.00(L) 4.50 - 5.50 M/mcL LAB HEMETOLOGY METHOD 09/19/2024 11:00 AM [facility] Hemoglobin 11.0(L) 13.5 - 17.5 g/dL LAB HEMETOLOGY METHOD 09/19/2024 11:00 AM [facility] Hematocrit 35.0(L) 42.0 - 54.0 % LAB HEMETOLOGY METHOD 09/19/2024 11:00 AM [facility] MCV 86.6 79.0 - 98.0 FL LAB HEMETOLOGY METHOD 09/19/2024 11:00 AM [facility] MCH 27.2 27.0 - 32.0 pcg LAB HEMETOLOGY METHOD 09/19/2024 11:00 AM [facility] MCHC 31.4(L) 32.0 - 37.0 g/dL LAB HEMETOLOGY METHOD 09/19/2024 11:00 AM [facility] RDW 14.1 11.0 - 15.0 % LAB HEMETOLOGY METHOD 09/19/2024 11:00 AM [facility] Platelets 158 130 - 400 K/mcL LAB HEMETOLOGY METHOD 09/19/2024 11:00 AM [facility] MPV 9.5 7.0 - 11.0 FL LAB HEMETOLOGY METHOD 09/19/2024 11:00 AM [facility] NRBC 0.0 <1.0 % LAB HEMETOLOGY METHOD 09/19/2024 11:00 AM [facility] NRBC Absolute 0.00 <0.10 K/mcL LAB HEMETOLOGY METHOD 09/19/2024 11:00 AM [facility] Neutrophils Relative 54.6 % LAB HEMETOLOGY METHOD 09/19/2024 11:00 AM [facility] Lymphocytes Relative 24.0 % LAB HEMETOLOGY METHOD 09/19/2024 11:00 AM [facility] Monocytes Relative 13.2 % LAB HEMETOLOGY METHOD 09/19/2024 11:00 AM [facility] Eosinophils Relative 6.8 % LAB HEMETOLOGY METHOD 09/19/2024 11:00 AM [facility] Basophils Relative 0.8 % LAB HEMETOLOGY METHOD 09/19/2024 11:00 AM [facility] Immature Granulocytes Relative 0.6 % LAB HEMETOLOGY METHOD 09/19/2024 11:00 AM [facility] Neutrophils Absolute 2.90 1.50 - 7.00 K/mcL LAB HEMETOLOGY METHOD 09/19/2024 11:00 AM [facility] Lymphocytes Absolute 1.27 1.00 - 5.00 K/mcL LAB HEMETOLOGY METHOD 09/19/2024 11:00 AM [facility] Monocytes Absolute 0.70 0.20 - 1.00 K/mcL LAB HEMETOLOGY METHOD 09/19/2024 11:00 AM [facility] Eosinophils Absolute 0.36 0.00 - 0.50 K/mcL LAB HEMETOLOGY METHOD 09/19/2024 11:00 AM [facility] Basophils Absolute 0.04 0.00 - 0.20 K/mcL LAB HEMETOLOGY METHOD 09/19/2024 11:00 AM [facility] Immature Granulocytes Absolute 0.03 0.00 - 0.03 K/mcL LAB HEMETOLOGY METHOD 09/19/2024 11:00 AM [facility] Blood Venous blood specimen / Unknown Venipuncture / Unknown 09/19/2024 6:14 AM EST 09/19/2024 10:02 AM EST us Ervin Thayer MD LAB BLOOD ORDERABLES Final R esult Performing Organization Address City/[facility]/ZIP Co de Phone Number [facility] [address] [place] [address], [place] [phone] * Vitamin B12 (09/19/2024 6:14 AM EST) Vitamin B-12 377 250 - 900 pcg/mL LAB CHEMISTRY METHOD 09/19/2024 11:46 AM EST [facility] Blood Venous blood specimen / Unknown Venipuncture / Unknown 09/19/2024 6:14 AM EST 09/19/2024 10:02 AM EST us Ervin Thayer MD LAB BLOOD ORDERABLES Final R esult Performing Organization Address [facility]/ZIP Co de Phone Number [facility] [address] [place] [address], [place] [phone] * (ABNORMAL) Folate (09/19/2024 6:14 AM EST) Pathologist [facility] Folate 18.0(H) 2.8 - 17.0 ng/ml LAB CHEMISTRY METHOD 09/19/2024 11:46 AM EST [facility] Blood Venous blood specimen / Unknown Venipuncture / Unknown 09/19/2024 6:14 AM EST 09/19/2024 10:02 AM EST us Ervin Thayer MD LAB BLOOD ORDERABLES Final R esult Performing Organization Address City/[facility]/ZIP Co de Phone Number [facility] [address] [place] [address], [place] [phone] * (ABNORMAL) Thyroid stimulating hormone (09/19/2024 6:14 AM EST) TSH 5.02(H) 0.40 - 4.00 mcIU/mL LAB CHEMISTRY METHOD 09/19/2024 11:30 AM [facility] Blood Venous blood specimen / Unknown Venipuncture / Unknown 09/19/2024 6:14 AM EST 09/19/2024 10:02 AM EST us Ervin Thayer MD LAB BLOOD ORDERABLES Final R esult [facility] [address] [place] [address], [place] [phone] * (ABNORMAL) Comprehensive metabolic panel (09/19/2024 6:14 AM EST) [facility] Sodium 142 133 - 145 mmol/L LAB CHEMISTRY METHOD 09/19/2024 11:22 AM [facility] Potassium 4.1 3.5 - 5.5 mmol/L LAB CHEMISTRY METHOD 09/19/2024 11:22 AM [facility] Chloride 111(H) 96 - 110 mmol/L LAB CHEMISTRY METHOD 09/19/2024 11:22 AM [facility] CO2 28 21 - 32 mmol/L LAB CHEMISTRY METHOD 09/19/2024 11:22 AM [facility] Anion Gap 3 3 - 11 LAB CHEMISTRY METHOD 09/19/2024 11:22 AM [facility] Glucose 75 70 - 100 mg/dL LAB CHEMISTRY METHOD 09/19/2024 11:22 AM [facility] BUN 18 5 - 25 mg/dL LAB CHEMISTRY METHOD 09/19/2024 11:22 AM [facility] Creatinine 0.99 0.70 - 1.30 mg/dL LAB CHEMISTRY METHOD 09/19/2024 11:22 AM [facility] eGFR 74 >=60 mL/min/1. 73m2 LAB CHEMISTRY METHOD 09/19/2024 11:22 AM [facility] Comment:Calculation based on the Chronic Kidney Disease Epidemiology Collaboration (CKD-EPI) equation refit without adjustment for race. BUN/Creatinine Ratio 18.2 LAB CHEMISTRY METHOD 09/19/2024 11:22 AM [facility] Calcium 8.5 8.5 - 10.5 mg/dL LAB CHEMISTRY METHOD 09/19/2024 11:22 AM [facility] AST (SGOT) 16 10 - 42 unit/L LAB CHEMISTRY METHOD 09/19/2024 11:22 AM [facility] ALT (SGPT) 30 10 - 60 unit/L LAB CHEMISTRY METHOD 09/19/2024 11:22 AM [facility] Alkaline Phosphatase 46 42 - 121 unit/L LAB CHEMISTRY METHOD 09/19/2024 11:22 AM [facility] Total Protein 5.9(L) 6.0 - 8.0 g/dL LAB CHEMISTRY METHOD 09/19/2024 11:22 AM [facility] Albumin 3.0(L) 3.2 - 5.0 g/dL LAB CHEMISTRY METHOD 09/19/2024 11:22 AM [facility] Total Bilirubin 0.3 0.0 - 1.4 mg/dL LAB CHEMISTRY METHOD 09/19/2024 11:22 AM [facility] Blood Venous blood specimen / Unknown Venipuncture / Unknown 09/19/2024 6:14 AM EST 09/19/2024 10:02 AM EST us Ervin Thayer MD LAB BLOOD ORDERABLES Final R esult [facility] [address] [place] [address], documented in this encounter Visit Diagnoses Diagnosis Essential (primary) hypertension Unspecified essential hypertension documented [...] documented as of this encounter Care Teams Buckle Strap Drum Operator Relationship Specialty Start Date End Date Nando Deng MD [address] [place] [address] PCP - General Internal Medicine 01/12/25 documented as of this encounter
--- OUTSIDE RECORDS SUMMARY | 2025-06-18 16:55 | XMS_ITS | Encounter Summary ---
Author Organization [facility] Address [address] [place] [address] Care Team Providers Care Plastic Battery Assembler Name Role Phone Nando Deng MD Primary Care Provider Encounter Details Date Type Department Care Team (Late st Contact Info) Description 10/09/2024 Lab Requisition [facility] - Main Lab [address] [facility] [place] [address] Ervin Thayer MD [address] [place] [address] Other pulmonary embolism without acute cor pulmonale [...] 3:00 PM EST Office Visit Adult Medicine [facility] [address] [place], [place] [phone] Nando Deng MD [address] [place], [place] documented as of this encounter Visit Diagnoses Diagnosis Other pulmonary [...] documented as of this encounter Care Teams Plastic Battery Assembler Relationship Specialty Start Date End Date Nando Deng MD [address] [place] [address] PCP - General Internal Medicine 01/12/25 documented as of this encounter
--- OUTSIDE RECORDS SUMMARY | 2025-06-18 16:55 | XMS_ITS | Encounter Summary ---
Author Organization [facility] Address [address] [place] [address] Care Team Providers Care Automotive Machinist Apprentice Name Role Phone Nando Deng MD Primary Care Provider Reason for Visit * Reason Comments [facility] Health [facility] order# [id number] 10/11/24 to 12/09/24 Encounter Details Date Type Department Care Team (Late st Contact Info) Description 11/07/2024 Billing Patient Not Present Adult Medicine [address] [address] Levy Littlejohn, AMEYA [address] [place] [phone] Social History Tobacco Use Types Packs/Day [...] 3:00 PM EST Office Visit Adult Medicine [facility] [address] [place], [place] [phone] Nando Deng MD [address] [place], [place] documented as of this encounter Visit [...] documented as of this encounter Care Teams Automotive Machinist Apprentice Relationship Specialty Start Date End Date Nando Deng MD [address] [place] [address] PCP - General Internal Medicine 01/12/25 documented as of this encounter
--- OUTSIDE RECORDS SUMMARY | 2025-06-18 16:55 | XMS_ITS | Encounter Summary ---
Author Organization [facility] Address [address] [place] [address] Care Team Providers Care Squirrel Man Name Role Phone Nando Deng MD Primary Care Provider Reason for Visit * Reason Onset Date Comments faxed order 06/01/2025 [phone] [id number] Encounter Details Date Type Department Care Team (Late st Contact Info) Description 06/01/2025 Telephone Adult Medicine [facility] [address] [place], [place] [phone] Nando Deng MD [address] [place], [place] Social History Tobacco Use Types Packs/Day Years Used Date Smoking Tobacco: Never Smokeless Tobacco: Never Alcohol Use Standard Drinks/Week Comments No 0 (1 standard drink = 0.6 oz pur e alcohol) Housing Instability Answer Date Recorde d Are you worried that in the next 2 months you may not have stable housing? No 02/11/2025 Food Access & Nutrition Answer Date Rec orded Do you have access to a vari ety of food including fruits and vegetables? Yes 02/11/2025 Access to Healthcare Answer Date Record ed Within the last 3 months, karen w many times did you visit the emergency department for your medical care? 1 02/11/2025 Health Literacy Answer Date Recorded How often do you need to hav e someone help you when you read instructions, pamphlets, or other written material from your doctor or pharmacy? Never 02/11/2025 Caregiver: How often do you need to have someone help you when you read instructions, pamphlets, or other written material from your doctor or pharmacy? Not on file 02/11/2025 Financial Risk Answer Date Recorded How hard is it for you to pa y for the very basics like food, housing, medical care, and air conditioning / heating? Not very hard 02/11/2025 Transportation Answer Date Recorded Has the lack of transportati on kept you from meetings, work, or from getting things needed for daily living? No Has the lack of transportati on kept you from medical appointments or from getting medications? No 02/11/2025 Social Isolation Answer Date Recorded How often do you feel lonely or isolated from th ose around you? Never 02/11/2025 Food Risk Answer Date Recorded Within the past 12 months we worried whether our food would run out before we got money to buy more. Never true 02/11/2025 Within the past 12 months th e food we bought just didn't last and we didn't have money to get more. Never true 02/11/2025 Dependent Care Answer Date Recorded Do you need help finding or paying for care for your loved ones. For example, child care provider or elderly care for an older adult? No 02/11/2025 Education Answer Date Recorded Do you think completing more education or training, like finishing a GED, going to college, or learning a trade, would be helpful for you? No 02/11/2025 Employment and Income Answer Date Recor ded During the last four weeks, have you been actively looking for work? No 02/11/2025 Living Situation Answer Date Recorded What is your living situation? Unrecognized valu e 02/11/2025 Interpersonal Safety Answer Date Record ed Physical Abuse Unrecognized value 04/22/2025 Verbal Abuse Unrecognized value 04/22/2025 Sex and Gender Information Value Date Recorded Sex Assigned at Male 09/17/2024 1:38 PM EST Legal Sex Male 6:48 PM EST Gender Identity Male 09/17/2024 1:38 PM EST Sexual Orientation Straight 09/17/2024 1: 38 PM EST documented as of this encounter Functional Status * Are you deaf or do you have serious difficulty hearing? Answer Date of Assessment Author No 11/16/2024 11:46 AM Amalia Kat, [place] * Are you blind or do you have serious difficulty seeing, even when wearing glasses? Answer Date of Assessment Author No 11/16/2024 11:46 AM EDT Amalia Khalil RN * Do you have serious difficulty walking or climbing stairs? Answer Date of Assessment Author Yes 11/16/2024 11:46 AM EDT Amalia Khalil RN * Do you have serious difficulty dressing or bathing? Answer Date of Assessment Author Yes 11/16/2024 11:46 AM EDT Amalia Khalil RN * Because of a physical, mental, or emotional condition, do you have serious difficulty doing errandsalone such as visiting the doctor? Answer Date of Assessment Author Yes 11/16/2024 11:46 AM EDT Amalia Khalil RN documented as of this encounter Mental Status * Because of a physical, mental, or emotional condition, do you have serious difficulty concentrating, remembering, or making decisions? (5 years old or older) Answer Entry Date Author Yes 11/16/2024 11:46 AM EDT Amalia Khalil RN documented in this encounter Progress Notes * Zandra Almazan MA - 06/16/2025 9:30 AM EDT Order signed, scanned and faxed back manually. * Zandra Almazan MA - 06/02/2025 3:53 PM EDT Order on Dr. Deng's desk for signature. * Julio Garcia - 06/01/2025 1:51 PM EDT Mei order #[id number] received. Please sign and fax to Fax # [phone] documented in this encounter Plan of Treatment Upcoming Encounters Date Type Department Care Team (Late st Contact Info) Description 08/20/2025 3:00 PM EST Office Visit Adult Medicine [facility] [address] [place], [place] [phone] Nando Deng MD [address] [place], [place] documented as of this encounter Visit Diagnoses Not on filedocumented in this encounter Additional Health Concerns Assessment Noted Time PHQ-9 Depression Total Score: 0 05/28/20 10:19 AM EDT documented as of this encounter Care Teams Squirrel Man Relationship Specialty Start Date End Date Nando Deng MD [address] [place], [place] PCP - General Internal Medicine 01/12/25 documented as of this encounter
--- OUTSIDE RECORDS SUMMARY | 2025-06-18 16:55 | XMS_ITS | Encounter Summary ---
Author Organization [facility] Address [address] [place] [address] Care Team Providers Care Foot Drill Operator Name Role Phone Nando Deng MD Primary Care Provider Encounter Details Date Type Department Care Team (Late st Contact Info) Description 01/20/2025 Lab Requisition [facility] - Main Lab [address] [facility] [place] [address] Ervin Thayer MD [address] [place] [address] Metabolic encephalopathy; Hyperlipidemia, unspecified; Essential (primary) hypertension Social History Tobacco Use Types Packs/Day Years Used Date Smoking Tobacco: Never Smokeless Tobacco: Never Alcohol Use Standard Drinks/Week Comments No 0 (1 standard drink = 0.6 oz pur e alcohol) Interpersonal Safety Answer Date Record ed Physical Abuse Unrecognized value 01/13/2025 Verbal Abuse Unrecognized value 01/13/2025 Sex and Gender Information Value Date Recorded [...] of Assessment Author Yes 11/16/2024 11:46 AM Amalia Kat RN * Do you have serious difficulty dressing or bathing? Answer Date of Assessment Author Yes 11/16/2024 11:46 AM Amalia Kat RN * Because of a physical, mental, or emotional condition, do you have serious difficulty doing errandsalone such as visiting the doctor? Answer Date of Assessment Author Yes 11/16/2024 11:46 AM Amalia Kat RN documented as of this encounter Mental Status * Because of a physical, mental, or emotional condition, do you have serious difficulty concentrating, remembering, or making decisions? (5 years old or older) Answer Entry Date Author Yes 11/16/2024 11:46 AM Amalia Kat RN documented in this encounter Plan of Treatment Upcoming Encounters Date Type Department Care Team (Late st Contact Info) Description 08/20/2025 3:00 PM EST Office Visit Adult Medicine [address] [phone] Nando Deng MD [address] [place], [place] documented as of this encounter Procedures Procedure Name Priority Date/Time Associated Diagnosis Comments COMPLETE BLOOD COUNT Routine 01/20/2025 7:18 AM EDT Metabolic encephalopathy Hyperlipidemia, unspecified Essential (primary) hypertension COMPREHENSIVE METABOLIC PANEL Routine 01/20/2025 7:18 AM EDT Metabolic encephalopathy Hyperlipidemia, unspecified Essential (primary) hypertension documented in this encounter Results * (ABNORMAL) Comprehensive metabolic panel (01/20/2025 7:18 AM EDT) [facility] Sodium 145 133 - 145 mmol/L LAB CHEMISTRY METHOD 01/20/2025 11:06 AM EDT [facility] Potassium 3.8 3.5 - 5.5 mmol/L LAB CHEMISTRY METHOD 01/20/2025 11:06 AM [facility] Chloride 113(H) 96 - 110 mmol/L LAB CHEMISTRY METHOD 01/20/2025 11:06 AM [facility] CO2 25 21 - 32 mmol/L LAB CHEMISTRY METHOD 01/20/2025 11:06 AM [facility] Anion Gap 7 3 - 11 LAB CHEMISTRY METHOD 01/20/2025 11:06 AM [facility] Glucose 89 70 - 100 mg/dL LAB CHEMISTRY METHOD 01/20/2025 11:06 AM [facility] BUN 21 5 - 25 mg/dL LAB CHEMISTRY METHOD 01/20/2025 11:06 AM [facility] Creatinine 0.97 0.70 - 1.30 mg/dL LAB CHEMISTRY METHOD 01/20/2025 11:06 AM [facility] eGFR 76 >=60 mL/min/1. 73m2 LAB CHEMISTRY METHOD 01/20/2025 11:06 AM [facility] Comment:Calculation based on the Chronic Kidney Disease Epidemiology Collaboration (CKD-EPI) equation refit without adjustment for race. BUN/Creatinine Ratio 21.6 LAB CHEMISTRY METHOD 01/20/2025 11:06 AM [facility] Calcium 8.5 8.5 - 10.5 mg/dL LAB CHEMISTRY METHOD 01/20/2025 11:06 AM [facility] AST (SGOT) 28 10 - 42 unit/L LAB CHEMISTRY METHOD 01/20/2025 11:06 AM [facility] ALT (SGPT) 41 10 - 60 unit/L LAB CHEMISTRY METHOD 01/20/2025 11:06 AM [facility] Alkaline Phosphatase 54 42 - 121 unit/L LAB CHEMISTRY METHOD 01/20/2025 11:06 AM [facility] Total Protein 6.1 6.0 - 8.0 g/dL LAB CHEMISTRY METHOD 01/20/2025 11:06 AM T [facility] Albumin 2.7(L) 3.2 - 5.0 g/dL LAB CHEMISTRY METHOD 01/20/2025 11:06 AM [facility] Total Bilirubin 0.3 0.0 - 1.4 mg/dL LAB CHEMISTRY METHOD 01/20/2025 11:06 AM T [facility] Blood Venous blood specimen / Unknown Venipuncture / Unknown 01/20/2025 7:18 AM EDT 01/20/2025 9:24 AM EDT us Ervin Thayer MD LAB BLOOD ORDERABLES Final R esult [facility] [address] [place] [address], * (ABNORMAL) Complete blood count (01/20/2025 7:18 AM EDT) WBC 5.8 4.8 - 10.8 K/mcL LAB HEMETOLOGY METHOD 01/20/2025 10:26 AM T [facility] RBC 3.80(L) 4.50 - 5.50 M/mcL LAB HEMETOLOGY METHOD 01/20/2025 10:26 AM [facility] Hemoglobin 10.5(L) 13.5 - 17.5 g/dL LAB HEMETOLOGY METHOD 01/20/2025 10:26 AM T [facility] Hematocrit 33.4(L) 42.0 - 54.0 % LAB HEMETOLOGY METHOD 01/20/2025 10:26 AM [facility] MCV 87.7 79.0 - 98.0 FL LAB HEMETOLOGY METHOD 01/20/2025 10:26 AM [facility] MCH 27.6 27.0 - 32.0 pcg LAB HEMETOLOGY METHOD 01/20/2025 10:26 AM EDT [facility] MCHC 31.4(L) 32.0 - 37.0 g/dL LAB HEMETOLOGY METHOD 01/20/2025 10:26 AM EDT [facility] RDW 14.5 11.0 - 15.0 % LAB HEMETOLOGY METHOD 01/20/2025 10:26 AM EDT [facility] Platelets 217 130 - 400 K/mcL LAB HEMETOLOGY METHOD 01/20/2025 10:26 AM EDT [facility] MPV 9.1 7.0 - 11.0 FL LAB HEMETOLOGY METHOD 01/20/2025 10:26 AM EDT [facility] NRBC 0.0 <1.0 % LAB HEMETOLOGY METHOD 01/20/2025 10:26 AM EDT [facility] NRBC Absolute 0.00 <0.10 K/mcL LAB HEMETOLOGY METHOD 01/20/2025 10:26 AM EDT [facility] Blood Venous blood specimen / Unknown Venipuncture / Unknown 01/20/2025 7:18 AM EDT 01/20/2025 9:24 AM EDT Ervin Thayer MD LAB BLOOD ORDERABLES Final R esult [facility] [address] [place] [address], documented in this encounter Visit Diagnoses Diagnosis Metabolic encephalopathy Hyperlipidemia, unspecified Essential (primary) hypertension Unspecified essential hypertension documented in this encounter Additional Health Concerns Infection Onset Date Last Indicated Resolved Time Respiratory Rule-Out 04/21/2025 04/21/20252 025 11:00 PM EDT COVID-19 Rule-Out 04/21/2025 04/21/2025 04/21/2025 11:00 PM EDT documented as of this encounter Care Teams Foot Drill Operator Relationship Specialty Start Date End Date Nando Deng MD [address] [place] [address] PCP - General Internal Medicine 01/12/25 documented as of this encounter
--- OUTSIDE RECORDS SUMMARY | 2025-06-18 16:55 | XMS_ITS | Encounter Summary ---
Author Organization [facility] Address [address] [place] [address] Care Team Providers Care Health Policy Nurse Name Role Phone Nando Deng MD Primary Care Provider Encounter Details Date Type Department Care Team (Late st Contact Info) Description 09/25/2024 Lab Requisition [facility] - Main Lab 299 [facility] [place] [address] Ervin Thayer MD [address] [place] [address] Other pulmonary embolism without acute cor pulmonale [...] 3:00 PM EST Office Visit Adult Medicine [facility] [address] [place], [place] [phone] Nando Deng MD [address] [place], [place] documented as of this encounter Procedures Procedure Name Priority Date/Time Associated Diagnosis Comments COMPLETE BLOOD COUNT Routine 09/26/2024 6:25 AM EST Other pulmonary embolism without acute cor pulmonale (CMS/HCC) Essential (primary) hypertension THYROID STIMULATING HORMONE Routine 09/26/2024 6:25 AM EST Other pulmonary embolism without acute cor pulmonale (CMS/HCC) Essential (primary) hypertension FOLATE Routine 09/26/2024 6:25 AM EST Other pulmonary embolism without acute cor pulmonale (CMS/HCC) Essential (primary) hypertension VITAMIN B12 Routine 09/26/2024 6:25 AM EST Other pulmonary embolism without acute cor pulmonale (CMS/HCC) Essential (primary) hypertension BASIC METABOLIC PANEL Routine 09/26/2024 6:25 AM EST Other pulmonary embolism without acute cor pulmonale (CMS/HCC) Essential (primary) hypertension documented in this encounter Results * Vitamin B12 (09/26/2024 6:25 AM EST) Vitamin B-12 423 250 - 900 pcg/mL LAB CHEMISTRY METHOD 09/26/2024 10:55 AM EST [facility] Blood Venous blood specimen / Unknown Venipuncture / Unknown 09/26/2024 6:25 AM EST 09/26/2024 9:32 AM EST Ervin Thayer MD LAB BLOOD ORDERABLES Final R esult Performing Organization Address [facility]/ZIP Co de Phone Number [facility] [address] [place] [address], * (ABNORMAL) Folate (09/26/2024 6:25 AM EST) Pathologist [facility] Folate 19.2(H) 2.8 - 17.0 ng/ml LAB CHEMISTRY METHOD 09/26/2024 10:55 AM EST [facility] Blood Venous blood specimen / Unknown Venipuncture / Unknown 09/26/2024 6:25 AM EST 09/26/2024 9:32 AM EST Ervin Thayer MD LAB BLOOD ORDERABLES Final R esult [facility] [address] [place] [address], * (ABNORMAL) Thyroid stimulating hormone (09/26/2024 6:25 AM EST) TSH 4.77(H) 0.40 - 4.00 mcIU/mL LAB CHEMISTRY METHOD 09/26/2024 10:33 AM EST [facility] Blood Venous blood specimen / Unknown Venipuncture / Unknown 09/26/2024 6:25 AM EST 09/26/2024 9:32 AM EST Ervin Thayer MD LAB BLOOD ORDERABLES Final R esult [facility] [address] [place] [address], * (ABNORMAL) Basic metabolic panel (09/26/2024 6:25 AM EST) Sodium 142 133 - 145 mmol/L LAB CHEMISTRY METHOD 09/26/2024 10:[address] [facility] Potassium 4.7 3.5 - 5.5 mmol/L LAB CHEMISTRY METHOD 09/26/2024 10:[address] [facility] Chloride 111(H) 96 - 110 mmol/L LAB CHEMISTRY METHOD 09/26/2024 10:[address] [facility] CO2 27 21 - 32 mmol/L LAB CHEMISTRY METHOD 09/26/2024 10:[address] [facility] Anion Gap 4 3 - 11 LAB CHEMISTRY METHOD 09/26/2024 10:[address] [facility] Glucose 99 70 - 100 mg/dL LAB CHEMISTRY METHOD 09/26/2024 10:[address] [facility] BUN 24 5 - 25 mg/dL LAB CHEMISTRY METHOD 09/26/2024 10:[address] [facility] Creatinine 1.16 0.70 - 1.30 mg/dL LAB CHEMISTRY METHOD 09/26/2024 10:[address] [facility] eGFR 61 >=60 mL/min/1. 73m2 LAB CHEMISTRY METHOD 09/26/2024 10:[address] [facility] Comment:Calculation based on the Chronic Kidney Disease Epidemiology Collaboration (CKD-EPI) equation refit without adjustment for race. BUN/Creatinine Ratio 20.7 LAB CHEMISTRY METHOD 09/26/2024 10:[address] [facility] Calcium 9.1 8.5 - 10.5 mg/dL LAB CHEMISTRY METHOD 09/26/2024 10:[address] [facility] Blood Venous blood specimen / Unknown Venipuncture / Unknown 09/26/2024 6:25 AM EST 09/26/2024 9:32 AM EST us Ervin Thayer MD LAB BLOOD ORDERABLES Final R esult [facility] [address] [place] [address], * (ABNORMAL) Complete blood count (09/26/2024 6:25 AM EST) WBC 8.1 4.8 - 10.8 K/mcL LAB HEMETOLOGY METHOD 09/26/2024 9:[address] [facility] RBC 4.20(L) 4.50 - 5.50 M/[facility] LAB HEMETOLOGY METHOD 09/26/2024 9:[address] [facility] Hemoglobin 11.4(L) 13.5 - 17.5 g/dL LAB HEMETOLOGY METHOD 09/26/2024 9:[address] [facility] Hematocrit 36.2(L) 42.0 - 54.0 % LAB HEMETOLOGY METHOD 09/26/2024 9:[address] [facility] MCV 87.0 79.0 - 98.0 FL LAB HEMETOLOGY METHOD 09/26/2024 9:[address] [facility] MCH 27.4 27.0 - 32.0 pcg LAB HEMETOLOGY METHOD 09/26/2024 9:[address] [facility] MCHC 31.5(L) 32.0 - 37.0 g/dL LAB HEMETOLOGY METHOD 09/26/2024 9:[address] [facility] RDW 14.3 11.0 - 15.0 % LAB HEMETOLOGY METHOD 09/26/2024 9:37 AM EST [facility] Platelets 232 130 - 400 K/mcL LAB HEMETOLOGY METHOD 09/26/2024 9:37 AM EST [facility] MPV 10.1 7.0 - 11.0 FL LAB HEMETOLOGY METHOD 09/26/2024 9:37 AM EST [facility] NRBC 0.0 <1.0 % LAB HEMETOLOGY METHOD 09/26/2024 9:37 AM EST [facility] NRBC Absolute 0.00 <0.10 K/mcL LAB HEMETOLOGY METHOD 09/26/2024 9:37 AM EST [facility] Blood Venous blood specimen / Unknown Venipuncture / Unknown 09/26/2024 6:25 AM EST 09/26/2024 9:29 AM EST us Ervin Thayer MD LAB BLOOD ORDERABLES Final R esult [facility] [address] [place] [address], documented in this encounter Visit Diagnoses Diagnosis [...] 11/16/2024 2:40 PM EDT Respiratory Rule-Out 01/12/2025 01/12/202512/2 025 8:02 PM EDT COVID-19 Rule-Out 01/12/2025 01/12/2025 01/12/2025 8:02 PM EDT Respiratory Rule-Out 04/21/2025 04/21/2025 025 11:00 PM EDT COVID-19 Rule-Out 04/21/2025 04/21/2025 04/21/2025 11:00 PM EDT documented as of this encounter Care Teams Health Policy Nurse Relationship Specialty Start Date End Date Nando Deng MD [address] [place] [address] PCP - General Internal Medicine 01/12/25 documented as of this encounter
--- OUTSIDE RECORDS SUMMARY | 2025-06-18 16:55 | XMS_ITS | Encounter Summary ---
Author Organization [facility] Address [address] [place] [address] Care Team Providers Care Court Orderly Name Role Phone Nando Deng MD Primary Care Provider Encounter Details Date Type Department Care Team (Late st Contact Info) Description 01/19/2025 Lab Requisition [facility] - Main Lab 299 [facility] [place] [address] Ervin Thayer MD [address] [place] [address] Essential (primary) hypertension; Hyperlipidemia, unspecified; Cerebral infarction, unspecified (CMS/HCC V24, CMS/HCC V28); Acute embolism and thrombosis of unspecified deep veins of unspecified lower extremity (CMS/HCC V24, CMS/HCC V28) Social History Tobacco Use Types Packs/Day Years [...] Assessment Author No 11/16/2024 11:46 AM Amalia Kat RN * Are you blind or do you have serious difficulty seeing, even when wearing glasses? Answer Date of Assessment Author No 11/16/2024 11:46 AM Amalia Kat RN * [...] 3:00 PM EST Office Visit Adult Medicine [address] [phone] Nando Deng MD [address] [place] [address] documented as of this encounter Procedures Procedure Name Priority Date/Time Associated Diagnosis Comments COMPLETE BLOOD COUNT Routine 01/19/2025 8:36 AM EDT Essential (primary) hypertension Hyperlipidemia, unspecified Cerebral infarction, unspecified (CMS/HCC V24, CMS/HCC V28) Acute embolism and thrombosis of unspecified deep veins of unspecified lower extremity (CMS/HCC V24, CMS/HCC V28) COMPREHENSIVE METABOLIC PANEL Routine 01/19/2025 8:36 AM EDT Essential (primary) hypertension Hyperlipidemia, unspecified Cerebral infarction, unspecified (CMS/HCC V24, CMS/HCC V28) Acute embolism and thrombosis of unspecified deep veins of unspecified lower extremity ([facility] V24, [facility] V28) documented in this encounter Results * (ABNORMAL) Comprehensive metabolic panel (01/19/2025 8:36 AM EDT) Sodium 146(H) 133 - 145 mmol/L LAB CHEMISTRY METHOD 01/19/2025 3:27 PM [facility] Potassium 3.9 3.5 - 5.5 mmol/L LAB CHEMISTRY METHOD 01/19/2025 3:27 PM [facility] Chloride 111(H) 96 - 110 mmol/L LAB CHEMISTRY METHOD 01/19/2025 3:27 PM [facility] CO2 24 21 - 32 mmol/L LAB CHEMISTRY METHOD 01/19/2025 3:27 PM [facility] Anion Gap 11 3 - 11 LAB CHEMISTRY METHOD 01/19/2025 3:27 PM [facility] Glucose 79 70 - 100 mg/dL LAB CHEMISTRY METHOD 01/19/2025 3:27 PM [facility] BUN 24 5 - 25 mg/dL LAB CHEMISTRY METHOD 01/19/2025 3:27 PM [facility] Creatinine 1.10 0.70 - 1.30 mg/dL LAB CHEMISTRY METHOD 01/19/2025 3:27 PM [facility] eGFR 65 >=60 mL/min/1. 73m2 LAB CHEMISTRY METHOD 01/19/2025 3:27 PM [facility] Comment:Calculation based on the Chronic Kidney Disease Epidemiology Collaboration (CKD-EPI) equation refit without adjustment for race. BUN/Creatinine Ratio 21.8 LAB CHEMISTRY METHOD 01/19/2025 3:27 PM [facility] Calcium 9.0 8.5 - 10.5 mg/dL LAB CHEMISTRY METHOD 01/19/2025 3:27 PM [facility] AST (SGOT) 30 10 - 42 unit/L LAB CHEMISTRY METHOD 01/19/2025 3:27 PM EDT [facility] ALT (SGPT) 44 10 - 60 unit/L LAB CHEMISTRY METHOD 01/19/2025 3:27 PM EDT [facility] Alkaline Phosphatase 64 42 - 121 unit/L LAB CHEMISTRY METHOD 01/19/2025 3:27 PM EDT [facility] Total Protein 6.9 6.0 - 8.0 g/dL LAB CHEMISTRY METHOD 01/19/2025 3:27 PM EDT [facility] Albumin 3.0(L) 3.2 - 5.0 g/dL LAB CHEMISTRY METHOD 01/19/2025 3:27 PM EDT [facility] Total Bilirubin 0.3 0.0 - 1.4 mg/dL LAB CHEMISTRY METHOD 01/19/2025 3:27 PM EDT [facility] Blood Venous blood specimen / Unknown Venipuncture / Unknown 01/19/2025 8:36 AM EDT 01/19/2025 11:57 AM EDT us Ervin Thayer MD LAB BLOOD ORDERABLES Final R esult [facility] [address] [place] [address], * (ABNORMAL) Complete blood count (01/19/2025 8:36 AM EDT) WBC 6.1 4.8 - 10.8 K/mcL LAB HEMETOLOGY METHOD 01/19/2025 2:53 PM EDT [facility] RBC 4.50 4.50 - 5.50 M/mcL LAB HEMETOLOGY METHOD 01/19/2025 2:53 PM EDT [facility] Hemoglobin 12.1(L) 13.5 - 17.5 g/dL LAB HEMETOLOGY METHOD 01/19/2025 2:53 PM EDT [facility] Hematocrit 39.8(L) 42.0 - 54.0 % LAB HEMETOLOGY METHOD 01/19/2025 2:53 PM EDT [facility] MCV 89.2 79.0 - 98.0 FL LAB HEMETOLOGY METHOD 01/19/2025 2:53 PM EDT [facility] MCH 27.1 27.0 - 32.0 pcg LAB HEMETOLOGY METHOD 01/19/2025 2:53 PM EDT [facility] MCHC 30.4(L) 32.0 - 37.0 g/dL LAB HEMETOLOGY METHOD 01/19/2025 2:53 PM EDT [facility] RDW 14.8 11.0 - 15.0 % LAB HEMETOLOGY METHOD 01/19/2025 2:53 PM EDT [facility] Platelets 255 130 - 400 K/mcL LAB HEMETOLOGY METHOD 01/19/2025 2:53 PM EDT [facility] MPV 9.3 7.0 - 11.0 FL LAB HEMETOLOGY METHOD 01/19/2025 2:53 PM EDT [facility] NRBC 0.0 <1.0 % LAB HEMETOLOGY METHOD 01/19/2025 2:53 PM EDT [facility] NRBC Absolute 0.00 <0.10 K/mcL LAB HEMETOLOGY METHOD 01/19/2025 2:53 PM EDT [facility] Blood Venous blood specimen / Unknown Venipuncture / Unknown 01/19/2025 8:36 AM EDT 01/19/2025 11:57 AM EDT us Ervin Thayer MD LAB BLOOD ORDERABLES Final R esult [facility] [address] [place] [address], [place] [phone] documented in this encounter Visit Diagnoses Diagnosis Essential (primary) hypertension Unspecified essential hypertension Hyperlipidemia, unspecified Cerebral infarction, unspecified ([facility] V24, [facility] V28) Acute embolism and thrombosis of unspecified deep veins of unspecified lower extremity ([facility] V24, [facility] V28) documented in this encounter Additional Health Concerns Infection Onset Date Last Indicated Resolved Time Respiratory Rule-Out 04/21/2025 04/21/2025 025 11:00 PM EDT COVID-19 Rule-Out 04/21/2025 04/21/2025 04/21/2025 11:00 PM EDT documented as of this encounter Care Teams Court Orderly Relationship Specialty Start Date End Date Nando Deng MD [address] [place] [address] PCP - General Internal Medicine 01/12/25 documented as of this encounter
--- OUTSIDE RECORDS SUMMARY | 2025-06-18 16:56 | XMS_ITS | Encounter Summary ---
Author Organization [facility] Address [address] [place] [address] Care Team Providers Care Desk Officer Name Role Phone Nando Deng MD Primary Care Provider Encounter Details Date Type Department Care Team (Latest Contact Info) Description 04/27/2025 Lab Requisition [facility] - Main Lab 299 [facility] [place] [address] Ervin Thayer MD [address] [place] [address] Anemia, unspecified; Essential (primary) hypertension; Type 2 diabetes mellitus without complications (CMS/HCC V24, CMS/HCC V28) Social History Tobacco [...] ed Within the last 3 months, karen loyola many times did you visit the emergency [...] for your loved ones. For example, child protective services specialist or elderly care for an older adult? [...] 3:00 PM EST Office Visit Adult Medicine [facility] [address] [place] [address] Nando Deng MD [address] [place], [place] documented as of this encounter Procedures Procedure Name Priority Date/Time Associated Diagnosis Comments COMPLETE BLOOD COUNT Routine 04/28/2025 6:59 AM EDT Anemia, unspecified Essential (primary) hypertension Type 2 diabetes mellitus without complications (CMS/HCC V24, CMS/HCC V28) BASIC METABOLIC PANEL Routine 04/28/2025 6:59 AM EDT Anemia, unspecified Essential (primary) hypertension Type 2 diabetes mellitus without complications (CMS/HCC V24, CMS/HCC V28) documented in this encounter Results * (ABNORMAL) Complete blood count (04/28/2025 6:59 AM EDT) [facility] WBC 5.4 4.8 - 10.8 K/mcL LAB HEMETOLOGY METHOD 04/28/2025 9:19 AM [facility] RBC 4.50 4.50 - 5.50 M/mcL LAB HEMETOLOGY METHOD 04/28/2025 9:19 AM [facility] Hemoglobin 12.5(L) 13.5 - 17.5 g/dL LAB HEMETOLOGY METHOD 04/28/2025 9:19 AM [facility] Hematocrit 38.7(L) 42.0 - 54.0 % LAB HEMETOLOGY METHOD 04/28/2025 9:19 AM [facility] MCV 85.2 79.0 - 98.0 FL LAB HEMETOLOGY METHOD 04/28/2025 9:19 AM [facility] MCH 27.5 27.0 - 32.0 pcg LAB HEMETOLOGY METHOD 04/28/2025 9:19 AM [facility] MCHC 32.3 32.0 - 37.0 g/dL LAB HEMETOLOGY METHOD 04/28/2025 9:19 AM [facility] RDW 14.1 11.0 - 15.0 % LAB HEMETOLOGY METHOD 04/28/2025 9:19 AM [facility] Platelets 151 130 - 400 K/mcL LAB HEMETOLOGY METHOD 04/28/2025 9:19 AM [facility] MPV 9.7 7.0 - 11.0 FL LAB HEMETOLOGY METHOD 04/28/2025 9:19 AM [facility] NRBC 0.0 <1.0 % LAB HEMETOLOGY METHOD 04/28/2025 9:19 AM [facility] NRBC Absolute 0.00 <0.10 K/mcL LAB HEMETOLOGY METHOD 04/28/2025 9:19 AM [facility] Blood Venous blood specimen / Unknown Venipuncture / Unknown 04/28/2025 6:59 AM EDT 04/28/2025 9:02 AM EDT us Ervin Thayer MD LAB BLOOD ORDERABLES Final R esult [facility] [address] [place] [address], * (ABNORMAL) Basic metabolic panel (04/28/2025 6:59 AM EDT) Sodium 141 133 - 145 mmol/L LAB CHEMISTRY METHOD 04/28/2025 9:46 AM [facility] Potassium 4.0 3.5 - 5.5 mmol/L LAB CHEMISTRY METHOD 04/28/2025 9:46 AM [facility] Chloride 111(H) 96 - 110 mmol/L LAB CHEMISTRY METHOD 04/28/2025 9:46 AM [facility] CO2 28 21 - 32 mmol/L LAB CHEMISTRY METHOD 04/28/2025 9:46 AM [facility] Anion Gap 2(L) 3 - 11 LAB CHEMISTRY METHOD 04/28/2025 9:46 AM [facility] Glucose 91 70 - 100 mg/dL LAB CHEMISTRY METHOD 04/28/2025 9:46 AM [facility] BUN 23 5 - 25 mg/dL LAB CHEMISTRY METHOD 04/28/2025 9:46 AM [facility] Creatinine 1.02 0.70 - 1.30 mg/dL LAB CHEMISTRY METHOD 04/28/2025 9:46 AM [facility] eGFR 71 >=60 mL/min/1. 73m2 LAB CHEMISTRY METHOD 04/28/2025 9:46 AM [facility] Comment:Calculation based on the Chronic Kidney Disease Epidemiology Collaboration (CKD-EPI) equation refit without adjustment for race. BUN/Creatinine Ratio 22.5 LAB CHEMISTRY METHOD 04/28/2025 9:[address] [facility] Calcium 8.5 8.5 - 10.5 mg/dL LAB CHEMISTRY METHOD 04/28/2025 9:[address] [facility] Blood Venous blood specimen / Unknown Venipuncture / Unknown 04/28/2025 6:59 AM EDT 04/28/2025 9:02 AM EDT us Ervin Thayer MD LAB BLOOD ORDERABLES Final R esult [facility]) [facility] [address] [place] [address], [place] [phone] documented in this encounter Visit Diagnoses Diagnosis Anemia, unspecified Essential (primary) hypertension Unspecified essential hypertension Type 2 diabetes mellitus without complications (CMS/HCC V24, CMS/HCC V28) documented in this encounter Care Teams Desk Officer Relationship Specialty Start Date End Date Nando Deng MD [address] [place] [address] PCP - General Internal Medicine 01/12/25 documented as of this encounter
--- OUTSIDE RECORDS SUMMARY | 2025-06-18 16:56 | XMS_ITS | Clinical Summary ---
Author Organization [facility] Address [address] [place] [address] Phone Care Team Providers Care Rn Embedded Name Role Phone Nando Deng MD Primary Care Provider Allergies Active Allergy Reactions Criticality Noted Date Comments Other Low 01/24/2010 Seasonal - Other Reaction(s): Runny Nose/Rhinitis Medications atorvastatin (LIPITOR) 40 mg tablet Take 1 tablet (40 mg total) by mouth 1 (one) time each day. 90 tablet 3 5 Active aspirin 81 mg EC tablet Take 1 tablet (81 mg total) by mouth 1 (one) time each day. 90 tablet 3 5 Active pantoprazole (PROTONIX) 40 mg EC tablet Take 1 tablet (40 mg total) by mouth 1 (one) time each day before breakfast. 90 tablet 1 5 Active multivitamin with minerals tablet Take 1 tablet by mouth 1 (one) time each day. Focus factor brain suplement Active acidophilus-pec tin, citrus 25 million cell -100 mg tablet tablet Take by mouth 1 (one) time each day at the same time. 5 Active acetaminophen (TYLENOL) 500 mg tablet Take by mouth every 6 (six) hours if needed for mild pain. Active metoprolol tartrate (LOPRESSOR) 25 mg tablet Take 1 tablet (25 mg total) by mouth 2 (two) times a day. 60 each 11 5 05/11/20 26 Active methenamine hippurate (HIPREX) 1 gram tablet Take 1 tablet (1 g total) by mouth 2 (two) times a day with meals. Active Active Problems Problem Noted Date Diagnosed Date Hemiplegia and hemiparesis f ollowing cerebral infarction affecting right dominant side ([facility] V24, [facility] V28) 05/28/2025 Mild dementia without behavi oral disturbance, psychotic disturbance, mood disturbance, or anxiety, unspecified dementia type ([facility] V24, [facility] V28) 05/28/2025 Urinary incontinence 05/28/2025 History of subdural hemorrhage 05/28/2025 History of cerebrovascular a ccident (CVA) with residual deficit 04/20/2025 Overview (04/20/2025): Left thalamic infarct, right-sided hemiparesis in oct 2023 Prediabetes 02/11/2025 Fever of unknown origin 11/25/2024 Gastrointestinal hemorrhage 10/05/2023 Ulcer of esophagus with bleeding 10/05/2023 Mild aortic stenosis 02/10/2022 Mild mitral regurgitation 02/10/2022 Gallbladder sludge 06/08/2021 Overview (08/12/2024): Talked to general surgery, patient is asymptomatic, no surgical intervention recommended Thoracic aortic aneurysm ([facility] V24) Gastroesophageal reflux disease without esophagi tis 11/21/2016 Impaired fasting blood sugar 07/10/2016 Benign neoplasm of colon 04/21/2013 Overview (08/12/2024): 5 mm polyps x 2 at CN 04/21/2013: Diminutive tubular adenomas x 2. Consider colonoscopy 2018 depending upon his overall state of health. Diverticulitis of colon without hemorrhage 04/21 Overview (08/12/2024): Incidental finding at colonoscopy 04/21/2013. SBO (small bowel obstruction) ([facility] V24, [facility] V28) 08/01/2010 Overview (08/12/2024): July 2010 admitted to [facility] and rx conservatively with resolution Hyperlipidemia 08/07/2005 Hypertension 08/07/2005 Resolved Problems Problem Noted Date Diagnosed Date Resolved Date Acute metabolic encephalopathy 04/21/2025 05/28/2025 Metabolic encephalopathy 11/16/2024 Acute encephalopathy 09/13/2024 025 Acute CVA (cerebrovascular a ccident) ([facility] V24, [facility] V28) 10/05/2023 04/20/2025 Overview (08/12/2024): Left thalamic infarct, right-sided hemiparesis COVID 04/23/2022 05/28/2025 Encounters Date Type Department Care Team Description 06/11/2025 Telephone Adult Medicine [address] [phone] Nando Deng MD 06/02/2025 Telephone Adult Medicine [address] [phone] Zandra Almazan [place] 06/01/2025 Telephone Adult Medicine [address] [phone] Nando Deng MD 05/29/2025 Telephone Adult Medicine [address] [phone] Nando Deng MD 05/28/2025 10:30 AM EDT Office Visit Adult [address] [phone] Nando Deng MD Hospital discharge follow-up (Primary Dx); Hemiplegia and hemiparesis following cerebral infarction affecting right dominant side ([facility] V24, [facility] V28); Mild dementia without behavioral disturbance, psychotic disturbance, mood disturbance, or anxiety, unspecified dementia type ([facility] V24, [facility] V28); History of cerebrovascular accident (CVA) with residual deficit; Prediabetes; Other hyperlipidemia; Primary hypertension; Thoracic aortic aneurysm without rupture, unspecified part ([facility] V24); Urinary incontinence, unspecified type; History of subdural hemorrhage 05/25/2025 Telephone Adult Medicine [address] [phone] Zandra Almazan [place] 05/22/2025 Telephone Adult Medicine [address] [phone] Carmen Wellington [place] 05/15/2025 Telephone Adult Medicine [address] [phone] Nando Deng MD 05/12/2025 Telephone Adult Medicine [address] [phone] Nando Deng MD 05/11/2025 Telephone Adult Medicine [address] [phone] Nando Deng MD 05/08/2025 Telephone Adult Medicine [address] [phone] Nando Deng MD 05/07/2025 Telephone Adult Medicine [address] [phone] Carmen Wellington [place] 04/27/2025 Lab Requisition [facility] [address] [place] [address] Ervin Thayer MD Anemia, unspecified; Essential (primary) hypertension; Type 2 diabetes mellitus without complications (CMS/HCC V24, CMS/HCC V28) 04/27/2025 Lab Requisition [facility] [address] [place] [phone] Ervin Thayer MD Anemia, unspecified; Essential (primary) hypertension; Type 2 diabetes mellitus without complications (CMS/HCC V24, CMS/HCC V28); Gastro-esophageal reflux disease without esophagitis 04/21/2025 6:55 PM EDT - 04/25/2025 1:25 PM EDT Hospital Encounter [facility] [address] [place] [id number] Abhi Denny MD Jones, Christopher, MD Kokosadze, Estate, MD Mohani, Priya, MD Lower urinary tract infectious disease (Primary Dx); Altered mental status, unspecified altered mental status type Discharge Disposition: Nursing Home Facility 04/20/2025 12:00 PM EDT Office Visit Adult Medicine [address] [phone] Nando Deng MD Primary hypertension (Primary Dx); History of cerebrovascular accident (CVA) with residual deficit; History of GI bleed; Other hyperlipidemia; Prediabetes; Thoracic aortic aneurysm without rupture, unspecified part ([facility] V24) 03/27/2025 Telephone Adult Medicine [address] [phone] Mckayla Das [place] 03/24/2025 Telephone Adult Medicine [address] [phone] Nando Deng MD 03/18/2025 1:15 PM EDT Office Visit Adult [address] [phone] Nando Deng MD Primary hypertension (Primary Dx); Prediabetes; Other hyperlipidemia; History of GI bleed; History of cerebrovascular accident (CVA) with residual deficit; Need for tetanus, diphtheria, and acellular pertussis (Tdap) vaccine from Last 3 Months Immunizations Immunization Administration Dates Next Due Influenza trivalent, 0.5mL ( Fluad) 65yo and older 05/28/2025 Influenza trivalent, 0.5mL, preservative free (Fluarix; FluLaval; Fluzone) ages 6mo and older (Afluria) 3 years and older 07/08/2015,07/13/2014,07/29/2012,06/27 Pneumococcal conjugate 13 va lent (Prevnar 13, PCV13) 2mo and older 07/08/2015 Pneumococcal polysaccharide 23 valent (Pneumovax 23) 2yo and older 07/20/2008 Td Tetanus diptheria (Tdvax) 7yo and older 07/25/2011 Tdap Tetanus diptheria acell ular pertussis (Boostrix; Adacel) 7yo and older 03/18/2025 Surgical History Surgery Date Site/Laterality Comments APPENDECTOMY PROCEDURE: OK APPENDECTOMY OTHER SURGICAL HISTORY PROCEDURE: HISTORY OTHER; COMMENT: lt arm fracture OTHER SURGICAL HISTORY PROCEDURE: HISTORY OTHER; COMMENT: left leg frac ORIF COLONOSCOPY 02/03/2019 PROCEDURE: HISTORICAL COLONOSCOPY; COMMENT: no polyps COLONOSCOPY 2012 PROCEDURE: HISTORICAL COLONOSCOPY; COMMENT: 5 mm polyps x 2: Tubular adenoma x2. OTHER SURGICAL HISTORY 08/10/2023 PROCEDURE: OUTSIDE ENDOSCOPY; COMMENT: carla - HH, esophageal ulcer Medical History Medical History Date Comments Pure hypercholesterolemia 08/07/2005 DX:Pur e hypercholesterolemia Essential hypertension, benign 08/07/2005 D X:Essential hypertension, benign Benign neoplasm of colon 04/21/2013 DX:Howie gn neoplasm of colon; COMMENT: 5 mm polyps x 2 at CN 04/21/2013: Diverticulosis of colon (wit hout mention of hemorrhage) 04/21/2013 DX:Diverticulosis of colon ( without mention of hemorrhage); COMMENT: Incidental finding at colonoscopy 04/21/2013. Acute CVA (cerebrovascular a ccident) ([facility] V24, [facility] V28) 10/05/2023 Left thalamic infarct, righ t-sided hemiparesis Acute metabolic encephalopathy 04/21/2025 Acute encephalopathy 09/13/2024 Metabolic encephalopathy 11/16/2024 Covid 04/23/2022 Family History Relation Name Status Comments Father (Age 68) colon canc er Mother (Age 92) ?? Sister Alive Social History Tobacco Use Types Packs/Day Years Used Date Smoking Tobacco: Never Smokeless Tobacco: Never Tobacco Cessation:Counseling Given: Not Answered Alcohol Use Standard Drinks/Week Comments No 0 [...] Record ed Within the last 3 months, ho w many times did you visit the [...] your loved ones. For example, child care education coordinator or elderly care for an older adult? [...] Orientation Straight 09/17/2024 1: 38 PM EST Obstetrics History Last Filed Vital Signs Vital Sign Reading Time Taken Comments Blood Pressure 114/72 05/28/2025 10:19 AM EDT Pulse 59 05/28/2025 10:19 AM EDT Temperature 35.8 C (96.4 F) 05/28/2025 10:19 AM EDT Respiratory Rate 15 05/28/2025 10:19 AM EDT Oxygen Saturation 98% 05/28/2025 10:19 AM EDT Inhaled Oxygen Concentration - - Weight 74.8 kg (165 lb) 05/28/2025 10:19 AM EDT Height 170.2 cm (5' 7 ) 05/28/2025 10:19 AM EDT Body Mass Index 25.84 05/28/2025 10:19 AM EDT Plan of Treatment Upcoming Encounters Date Type Department Care Team (Late st Contact Info) Description 08/20/2025 3:00 PM EST Office Visit Adult Medicine [facility] [address], [place] [phone] Nando Deng MD [address] [place], [place] Health Maintenance Due Date Last Done Comments Diabetes: Annual Foot Exam 1948 Diabetes: Annual Retina Eye Exam 1950 Zoster Vaccines (1 of 2) 1988 RSV Immunization Adult Patients (1 - 1-dose 75+ series) 2013 Medicare Annual Wellness Visit 01/13/2025 01/14/2024 COVID-19 Vaccine ( season) 2025 10/19/2020, 09/28/2020 Diabetes: Blood Sugar Control Test (HGBA1C) 10/17/2025 04/16/2025, 01/12/2025, 10/29/2024, Additional history exists Social Influencers of Health Screening 02/11/2026 02/11/2025 Falls Risk Assessment 04/25/2026 04/25/2025, 024 Hypertension/CHF/CAD Annual BMP Blood Test 04/28/2026 04/28/2025, 04/22/2025, 04/21/2025, Additional history exists Cholesterol Screening (Lipid Panel) 04/16/2030 04/16/2025, 01/13/2025, 10/29/2024, Additional history exists DTaP,Tdap,and Td Vaccines (3 - Td or Tdap) 03/18/2035 03/18/2025, 07/25/2011 Pneumococcal Vaccine: 50+ Years Completed 07/08/2015, 07/20/2008 Depression Screening Completed 05/28/2025, 01/14/20 24 Influenza Vaccine Completed 05/28/2025, , 07/08/2015, Additional history exists HIB Vaccines Aged Out No longer eligi ble based on patient's age to complete this topic HPV Vaccines Aged Out No longer eligi ble based on patient's age to complete this topic Hepatitis A Vaccines Aged Out No long er eligible based on patient's age to complete this topic Hepatitis B Vaccines Aged Out No long er eligible based on patient's age to complete this topic IPV Vaccines Aged Out No longer eligi ble based on patient's age to complete this topic MMR Vaccines Aged Out No longer eligi ble based on patient's age to complete this topic Meningococcal ACWY Vaccine Aged Out N o longer eligible based on patient's age to complete this topic Meningococcal B Vaccine Aged Out No l onger eligible based on patient's age to complete this topic RSV Immunization Patients Under 20 months Aged Out No longer eligible based on patient's age to complete this topic Varicella Vaccines Aged Out No longer eligible based on patient's age to complete this topic Procedures Procedure Name Priority Date/Time Associated Diagnosis Comments COMPLETE BLOOD COUNT Routine 04/28/2025 6:59 AM EDT Anemia, unspecified Essential (primary) hypertension Type 2 diabetes mellitus without complications (CMS/HCC V24, CMS/HCC V28) BASIC METABOLIC PANEL Routine 04/28/2025 6:59 AM EDT Anemia, unspecified Essential (primary) hypertension Type 2 diabetes mellitus without complications (CMS/HCC V24, CMS/HCC V28) ECG ANNOTATED 04/27/2025 CBC WITH AUTO DIFFERENTIAL Routine 04/22/2025 4:33 AM EDT CBC AND DIFFERENTIAL Routine 04/22/2025 4:33 AM EDT BASIC METABOLIC PANEL Routine 04/22/2025 4:33 AM EDT RESPIRATORY VIRUS PANEL MOLECULAR STUDY STAT 04/21/2025 9:39 PM EDT [place] URINE CULTURE TUBE STAT 04/21/2025 9:36 PM EDT URINALYSIS WITH REFLEX MICROSCOPIC AND CULTURE STAT 04/21/2025 9:36 PM EDT URINALYSIS WITH REFLEX MICROSCOPIC AND CULTURE STAT 04/21/2025 9:36 PM EDT CULTURE URINE STAT 04/21/2025 9:36 PM EDT CBC WITH AUTO DIFFERENTIAL STAT 04/21/2025 8:03 PM EDT CBC AND DIFFERENTIAL STAT 04/21/2025 8:03 PM EDT LIPASE STAT 04/21/2025 8:03 PM EDT COMPREHENSIVE METABOLIC PANEL STAT 04/21/2025 8:03 PM EDT LACTATE, WITH REFLEX STAT 04/21/2025 8:03 PM EDT CULTURE BLOOD STAT 04/21/2025 8:03 PM EDT CULTURE BLOOD STAT 04/21/2025 8:03 PM EDT XR CHEST 1 VIEW STAT 04/21/2025 7:[address] HEAD WO CONTRAST STAT 04/21/2025 7 :55 PM EDT ECG 12-LEAD STAT 04/21/2025 7:22 PM EDT CBC WITH AUTO DIFFERENTIAL Routine 04/16/2025 10:02 AM EDT Primary hypertension CBC AND DIFFERENTIAL Routine 04/16/2025 10:02 AM EDT Primary hypertension COMPREHENSIVE METABOLIC PANEL Routine 04/16/2025 10:02 AM EDT Other hyperlipidemia HEMOGLOBIN A1C Routine 04/16/2025 10:02 AM EDT Prediabetes LIPID PANEL WITH REFLEX TO DIRECT LDL Routine 04/16/2025 10:02 AM EDT Other hyperlipidemia DEPRESSION SCREENING Routine 01/14/2024 FALLS RISK ASSESSMENT Routine 12/25/2023 from Last 3 Months or Most Recently Relevant to Health Maintenance Results * (ABNORMAL) Complete blood count (04/28/2025 6:59 AM EDT) [facility] WBC 5.4 4.8 - 10.8 K/mcL LAB HEMETOLOGY METHOD 04/28/2025 9:19 AM [facility] RBC 4.50 4.50 - 5.50 M/mcL LAB HEMETOLOGY METHOD 04/28/2025 9:19 AM [facility] Hemoglobin 12.5(L) 13.5 - 17.5 g/dL LAB HEMETOLOGY METHOD 04/28/2025 9:19 AM [facility] Hematocrit 38.7(L) 42.0 - 54.0 % LAB HEMETOLOGY METHOD 04/28/2025 9:19 AM [facility] MCV 85.2 79.0 - 98.0 FL LAB HEMETOLOGY METHOD 04/28/2025 9:19 AM [facility] LAB MCH 27.5 27.0 - 32.0 pcg LAB HEMETOLOGY METHOD 04/28/2025 9:19 AM EDT [facility] MCHC 32.3 32.0 - 37.0 g/dL LAB HEMETOLOGY METHOD 04/28/2025 9:19 AM EDT [facility] RDW 14.1 11.0 - 15.0 % LAB HEMETOLOGY METHOD 04/28/2025 9:19 AM EDT [facility] Platelets 151 130 - 400 K/mcL LAB HEMETOLOGY METHOD 04/28/2025 9:19 AM EDT [facility] MPV 9.7 7.0 - 11.0 FL LAB HEMETOLOGY METHOD 04/28/2025 9:19 AM EDT [facility] NRBC 0.0 <1.0 % LAB HEMETOLOGY METHOD 04/28/2025 9:19 AM EDT [facility] NRBC Absolute 0.00 <0.10 K/mcL LAB HEMETOLOGY METHOD 04/28/2025 9:19 AM EDT [facility] Blood Venous blood specimen / Unknown Venipuncture / Unknown 04/28/2025 6:59 AM EDT 04/28/2025 9:02 AM EDT us Ervin Thayer MD LAB BLOOD ORDERABLES Final R esult [facility] [address] [place] [address], * (ABNORMAL) Basic metabolic panel (04/28/2025 6:59 AM EDT) Only the most recent of2 resultswithin the time period is included. Sodium 141 133 - 145 mmol/L LAB CHEMISTRY METHOD 04/28/2025 9:46 AM EDT [facility] Potassium 4.0 3.5 - 5.5 mmol/L LAB CHEMISTRY METHOD 04/28/2025 9:46 AM EDT [facility] Chloride 111(H) 96 - 110 mmol/L LAB CHEMISTRY METHOD 04/28/2025 9:46 AM [facility] CO2 28 21 - 32 mmol/L LAB CHEMISTRY METHOD 04/28/2025 9:46 AM [facility] Anion Gap 2(L) 3 - 11 LAB CHEMISTRY METHOD 04/28/2025 9:46 AM [facility] Glucose 91 70 - 100 mg/dL LAB CHEMISTRY METHOD 04/28/2025 9:46 AM [facility] BUN 23 5 - 25 mg/dL LAB CHEMISTRY METHOD 04/28/2025 9:46 AM [facility] Creatinine 1.02 0.70 - 1.30 mg/dL LAB CHEMISTRY METHOD 04/28/2025 9:46 AM [facility] eGFR 71 >=60 mL/min/1. 73m2 LAB CHEMISTRY METHOD 04/28/2025 9:46 AM [facility] Comment:Calculation based on the Chronic Kidney Disease Epidemiology Collaboration (CKD-EPI) equation refit without adjustment for race. BUN/Creatinine Ratio 22.5 LAB CHEMISTRY METHOD 04/28/2025 9:46 AM [facility] Calcium 8.5 8.5 - 10.5 mg/dL LAB CHEMISTRY METHOD 04/28/2025 9:46 AM [facility] Blood Venous blood specimen / Unknown Venipuncture / Unknown 04/28/2025 6:59 AM EDT 04/28/2025 9:02 AM EDT us Ervin Thayer MD LAB BLOOD ORDERABLES Final R esult [facility] [address] [place] [address], * ECG-Annotated (04/27/2025) us Provider Onbase ECG ORDERABLES Final Result * (ABNORMAL) CBC auto differential (04/22/2025 4:33 AM EDT) Only the most recent of3 resultswithin the time period is included. WBC 5.7 4.8 - 10.8 K/mcL LAB HEMETOLOGY METHOD 04/22/2025 5:19 AM [facility] RBC 4.30(L) 4.50 - 5.50 M/mcL LAB HEMETOLOGY METHOD 04/22/2025 5:19 AM [facility] Hemoglobin 11.7(L) 13.5 - 17.5 g/dL LAB HEMETOLOGY METHOD 04/22/2025 5:19 AM [facility] Hematocrit 36.4(L) 42.0 - 54.0 % LAB HEMETOLOGY METHOD 04/22/2025 5:19 AM [facility] MCV 85.6 79.0 - 98.0 FL LAB HEMETOLOGY METHOD 04/22/2025 5:19 AM [facility] MCH 27.5 27.0 - 32.0 pcg LAB HEMETOLOGY METHOD 04/22/2025 5:19 AM [facility] MCHC 32.1 32.0 - 37.0 g/dL LAB HEMETOLOGY METHOD 04/22/2025 5:19 AM [facility] RDW 14.2 11.0 - 15.0 % LAB HEMETOLOGY METHOD 04/22/2025 5:19 AM [facility] Platelets 121(L) 130 - 400 K/mcL LAB HEMETOLOGY METHOD 04/22/2025 5:19 AM [facility] MPV 9.3 7.0 - 11.0 FL LAB HEMETOLOGY METHOD 04/22/2025 5:19 AM [facility] NRBC 0.0 <1.0 % LAB HEMETOLOGY METHOD 04/22/2025 5:19 AM [facility] NRBC Absolute 0.00 <0.10 K/mcL LAB HEMETOLOGY METHOD 04/22/2025 5:19 AM [facility] Neutrophils Relative 54.7 % LAB HEMETOLOGY METHOD 04/22/2025 5:19 AM [facility] Lymphocytes Relative 25.6 % LAB HEMETOLOGY METHOD 04/22/2025 5:19 AM [facility] Monocytes Relative 15.6 % LAB HEMETOLOGY METHOD 04/22/2025 5:19 AM [facility] Eosinophils Relative 3.0 % LAB HEMETOLOGY METHOD 04/22/2025 5:19 AM [facility] Basophils Relative 0.7 % LAB HEMETOLOGY METHOD 04/22/2025 5:19 AM [facility] Immature Granulocytes Relative 0.4 % LAB HEMETOLOGY METHOD 04/22/2025 5:19 AM [facility] Neutrophils Absolute 3.12 1.50 - 7.00 K/mcL LAB HEMETOLOGY METHOD 04/22/2025 5:19 AM [facility] Lymphocytes Absolute 1.46 1.00 - 5.00 K/mcL LAB HEMETOLOGY METHOD 04/22/2025 5:19 AM [facility] Monocytes Absolute 0.89 0.20 - 1.00 K/mcL LAB HEMETOLOGY METHOD 04/22/2025 5:19 AM [facility] Eosinophils Absolute 0.17 0.00 - 0.50 K/mcL LAB HEMETOLOGY METHOD 04/22/2025 5:19 AM [facility] Basophils Absolute 0.04 0.00 - 0.20 K/mcL LAB HEMETOLOGY METHOD 04/22/2025 5:19 AM [facility] Immature Granulocytes Absolute 0.02 0.00 - 0.03 K/mcL LAB HEMETOLOGY METHOD 04/22/2025 5:19 AM EDT [facility] Blood Venous blood specimen / Unknown Venipuncture / Unknown 04/22/2025 4:33 AM EDT 04/22/2025 4:55 AM EDT us Angelo Lewis MD LAB BLOOD ORDERABLES Final Result [facility] [address] [place] [address], * Respiratory virus panel molecular study (04/21/2025 9:39 PM EDT) Adenovirus Detection by PCR Not Detected Not Detected LAB MICROBIOLOGY METHOD 04/21/2025 11:00 PM EDT [facility] Influenza A PCR Not Detected Not Detected LAB MICROBIOLOGY METHOD 04/21/2025 11:00 PM EDT [facility] Influenza B PCR Not Detected Not Detected LAB MICROBIOLOGY METHOD 04/21/2025 11:00 PM EDT [facility] Coronavirus 229E Not Detected Not Detected LAB MICROBIOLOGY METHOD 04/21/2025 11:00 PM EDT [facility] Coronavirus HKU1 Not Detected Not Detected LAB MICROBIOLOGY METHOD 04/21/2025 11:00 PM EDT [facility] Coronavirus OC43 Not Detected Not Detected LAB MICROBIOLOGY METHOD 04/21/2025 11:00 PM EDT [facility] Coronavirus NL63 Not Detected Not Detected LAB MICROBIOLOGY METHOD 04/21/2025 11:00 PM EDT [facility] Parainfluenza Virus 1 Not Detected Not Detected LAB MICROBIOLOGY METHOD 04/21/2025 11:00 PM EDT [facility] Parainfluenza Virus 2 Not Detected Not Detected LAB MICROBIOLOGY METHOD 04/21/2025 11:00 PM EDT [facility] Parainfluenza Virus 3 Not Detected Not Detected LAB MICROBIOLOGY METHOD 04/21/2025 11:00 PM EDT [facility] Parainfluenza Virus 4 Not Detected Not Detected LAB MICROBIOLOGY METHOD 04/21/2025 11:00 PM EDT [facility] RSV PCR Not Detected Not Detected LAB MICROBIOLOGY METHOD 04/21/2025 11:00 PM EDT [facility] Human Metapneumovirus A and B Not Detected Not Detected LAB MICROBIOLOGY METHOD 04/21/2025 11:00 PM EDT [facility] Rhinovirus/Entero virus Not Detected Not Detected LAB MICROBIOLOGY METHOD 04/21/2025 11:00 PM EDT [facility] Bordetella pertussis Not Detected Not Detected LAB MICROBIOLOGY METHOD 04/21/2025 11:00 PM EDT [facility] Bordetella parapertussis Not Detected Not Detected LAB MICROBIOLOGY METHOD 04/21/2025 11:00 PM EDT [facility] Mycoplasma pneumo by PCR Not Detected Not Detected LAB MICROBIOLOGY METHOD 04/21/2025 11:00 PM EDT [facility] Chlamydia pneumoniae Not Detected Not Detected LAB MICROBIOLOGY METHOD 04/21/2025 11:00 PM EDT [facility] SARS COV-2 Not Detected Not Detected LAB MICROBIOLOGY METHOD 04/21/2025 11:00 PM T [facility] Swab Both anterior nares / Unknown Non-blood Collection / Unknown 04/21/2025 9:39 PM EDT 04/21/2025 10:05 PM EDT [facility] - 04/21/2025 11:00 PM EDT Testing was performed using the FREECULTR Respiratory Pathogen PCR Assay. All results must be correlated with the clinical findings. Results should not be used as the sole basis for diagnosis. False Negative results may occur from the presence of sequence variants in the region targeted by the assay or the presence of inhibitors. Results may be affected by concurrent antiviral/antimicrobial therapy or levels of organisms that are below the limit of detection. Abhi Denny MD LAB MICROBIOLOGY - GENERAL ORDER TRINITY Final Result [facility] [address] [place] [address], [place] [phone] * (ABNORMAL) Urinalysis with reflex microscopic and culture (04/21/2025 9:36 PM EDT) Specific [place] Urine 1.020 1.003 - 1.030 LAB URINALYSIS - AUTOMATED METHOD 04/21/2025 10:13 PM EDT [facility] pH, Urine 7.0 5.0 - 8.0 pH LAB URINALYSIS - AUTOMATED METHOD 04/21/2025 10:13 PM [facility] Leukocytes, Urine Trace(A) Negative LAB URINALYSIS - AUTOMATED METHOD 04/21/2025 10:13 PM [facility] Nitrite, Urine Positive(A) Negative LAB URINALYSIS - AUTOMATED METHOD 04/21/2025 10:13 PM [facility] Protein, Urine Trace <=Trace mg/dL LAB URINALYSIS - AUTOMATED METHOD 04/21/2025 10:13 PM [facility] Glucose, Urine Negative Negative mg/dL LAB URINALYSIS - AUTOMATED METHOD 04/21/2025 10:13 PM [facility] Ketones, Urine Negative Negative mg/dL LAB URINALYSIS - AUTOMATED METHOD 04/21/2025 10:13 PM [facility] Urobilinogen , Urine 1.0 0.2 - 1.0 mg/dL LAB URINALYSIS - AUTOMATED METHOD 04/21/2025 10:13 PM [facility] Bilirubin, Urine Negative Negative LAB URINALYSIS - AUTOMATED METHOD 04/21/2025 10:13 PM [facility] Blood, Urine Small(A) Negative LAB URINALYSIS - AUTOMATED METHOD 04/21/2025 10:13 PM EDT [facility] RBC, Urine 6.9(H) 0 - 4 /HPF LAB URINALYSIS - AUTOMATED METHOD 04/21/2025 10:13 PM EDT [facility] WBC, Urine 6.0(H) 0 - 4 /HPF LAB URINALYSIS - AUTOMATED METHOD 04/21/2025 10:13 PM EDT [facility] Squamous Epithelial, Urine 8 0 - 60 /LPF LAB URINALYSIS - AUTOMATED METHOD 04/21/2025 10:13 PM EDT [facility] Bacteria, Urine Moderate(A) Negative /HPF LAB URINALYSIS - AUTOMATED METHOD 04/21/2025 10:13 PM EDT [facility] Hyaline Casts, Urine 1.2 0 - 3 /LPF LAB URINALYSIS - AUTOMATED METHOD 04/21/2025 10:13 PM EDT [facility] Urine Urine specimen obtained by clean catch procedure / Unknown Non-blood Collection / Unknown 04/21/2025 9:36 PM EDT 04/21/2025 10:05 PM EDT us Abhi Denny MD LAB URINE ORDERABLES Final Resul t Performing Organization Address [facility]/ZIP Co de Phone Number [facility] [address] [place] [address], [place] [phone] * Lawrence urine culture tube (04/21/2025 9:36 PM EDT) Extra Tube Hold for add-ons. 04/22/2025 12:01 AM EDT [facility] Comment:Auto resulted. Urine Urine specimen obtained by clean catch procedure / Unknown Non-blood Collection / Unknown 04/21/2025 9:36 PM EDT 04/21/2025 10:05 PM EDT us Abhi Denny MD LAB URINE ORDERABLES Final Resul t [facility] [address] [place] [address], [place] [phone] * (ABNORMAL) Culture urine (04/21/2025 9:36 PM EDT) Culture, Urine >=100,000 CFU/mL Pseudomonas fluorescens(A) KIMBERLY 04/25/2025 9:08 AM EDT [facility] Comment: The organism value for this result has been updated. These results have been appended to the previously preliminary verified report. This is an edited result. Previous organism was Gram negative bacilli on 04/24/2025 at 1346 EDT. Culture, Urine 50,000-100,000 CFU/mL Pseudomonas aeruginosa(A) KIMBERLY 04/25/2025 9:08 AM EDT [facility] Comment: The organism value for this result has been updated. These results have been appended to the previously preliminary verified report. Urine Urine specimen obtained by clean catch procedure / Unknown Non-blood Collection / Unknown 04/21/2025 9:36 PM EDT 04/21/2025 10:13 PM EDT Narrative Organism Antibiotic Method Susceptibility Pseudomonas fluorescens Amikacin KIMBERLY <=1 ug/ml: Susceptible Pseudomonas fluorescens Ciprofloxacin KIMBERLY <=0.06 ug/ml: Susceptible Pseudomonas fluorescens Levofloxacin KIMBERLY 0.25 ug/ml: Susceptible Pseudomonas fluorescens Trimethoprim/Sul famethoxazo le KIMBERLY 160 ug/ml: Resistant Pseudomonas aeruginosa Piperacillin/Tazobactam KIMBERLY <=4 ug/ml: Susceptible Pseudomonas aeruginosa Ceftazidime KIMEBRLY 2 ug/ml: Susceptible Pseudomonas aeruginosa Cefepime KIMBERLY 2 ug/ml: Susceptible Pseudomonas aeruginosa Meropenem KIMBERLY <=0.25 ug/ml: Susceptible Pseudomonas aeruginosa Amikacin KIMBERLY 4 ug/ml: Susceptible Pseudomonas aeruginosa Ciprofloxacin KIMBERLY 0.12 ug/ml: Susceptible Pseudomonas aeruginosa Levofloxacin KIMBERLY 0.25 ug/ml: Susceptible Abhi Denny MD LAB MICROBIOLOGY - GENERAL ORDER TRINITY Final Result [facility] [address] [place] [address], [place] [phone] * Lactate, with Reflex (04/21/2025 8:03 PM EDT) LACTIC ACID 1.6 0.4 - 2.0 mmol/L LAB CHEMISTRY METHOD 04/21/2025 8:49 PM EDT [facility] Blood Venous blood specimen / Unknown Venipuncture / Unknown 04/21/2025 8:03 PM EDT 04/21/2025 8:16 PM EDT us Abhi Denny MD LAB BLOOD ORDERABLES Final Resul t Performing Organization Address City/[facility]/ZIP Co de Phone Number [facility] [address] [place] [address], [place] [phone] * Blood Culture, Peripheral #2 (04/21/2025 8:03 PM EDT) Only the most recent of2 resultswithin the time period is included. Pathologist [facility] Culture, Blood No growth at 5 days 04/26/2025 9:01 PM EDT [facility] Blood Venous blood specimen / Unknown Venipuncture / Unknown 04/21/2025 8:03 PM EDT 04/21/2025 8:16 PM EDT us Abhi Denny MD LAB MICROBIOLOGY - GENERAL ORDER TRINITY Final Result Performing Organization Address City/[facility]/ZIP Co de Phone Number [facility] [address] [place] [address], [place] [phone] * Lipase (04/21/2025 8:03 PM EDT) Lipase 26 13 - 75 unit/L LAB CHEMISTRY METHOD 04/21/2025 8:49 PM EDT [facility] Blood Venous blood specimen / Unknown Venipuncture / Unknown 04/21/2025 8:03 PM EDT 04/21/2025 8:16 PM EDT us Abhi Denny MD LAB BLOOD ORDERABLES Final Resul t [facility] [address] [place] [address], * (ABNORMAL) Comprehensive Metabolic Panel (CMP) (04/21/2025 8:03 PM EDT) Only the most recent of2 resultswithin the time period is included. Sodium 140 133 - 145 mmol/L LAB CHEMISTRY METHOD 04/21/2025 8:49 PM EDT [facility] Potassium 4.5 3.5 - 5.5 mmol/L LAB CHEMISTRY METHOD 04/21/2025 8:49 PM [facility] Chloride 108 96 - 110 mmol/L LAB CHEMISTRY METHOD 04/21/2025 8:49 PM [facility] CO2 28 21 - 32 mmol/L LAB CHEMISTRY METHOD 04/21/2025 8:49 PM [facility] Anion Gap 4 3 - 11 LAB CHEMISTRY METHOD 04/21/2025 8:49 PM [facility] Glucose 95 70 - 100 mg/dL LAB CHEMISTRY METHOD 04/21/2025 8:49 PM [facility] BUN 26(H) 5 - 25 mg/dL LAB CHEMISTRY METHOD 04/21/2025 8:49 PM [facility] Creatinine 1.19 0.70 - 1.30 mg/dL LAB CHEMISTRY METHOD 04/21/2025 8:49 PM [facility] eGFR 59(L) >=60 mL/min/1. 73m2 LAB CHEMISTRY METHOD 04/21/2025 8:49 PM [facility] Comment:Calculation based on the Chronic Kidney Disease Epidemiology Collaboration (CKD-EPI) equation refit without adjustment for race. BUN/Creatinine Ratio 21.8 LAB CHEMISTRY METHOD 04/21/2025 8:49 PM [facility] Calcium 9.3 8.5 - 10.5 mg/dL LAB CHEMISTRY METHOD 04/21/2025 8:49 PM EDT [facility] AST (SGOT) 21 10 - 42 unit/L LAB CHEMISTRY METHOD 04/21/2025 8:49 PM EDT [facility] ALT (SGPT) 30 10 - 60 unit/L LAB CHEMISTRY METHOD 04/21/2025 8:49 PM EDT [facility] Alkaline Phosphatase 61 42 - 121 unit/L LAB CHEMISTRY METHOD 04/21/2025 8:49 PM EDT [facility] Total Protein 7.2 6.0 - 8.0 g/dL LAB CHEMISTRY METHOD 04/21/2025 8:49 PM EDT [facility] Albumin 4.0 3.2 - 5.0 g/dL LAB CHEMISTRY METHOD 04/21/2025 8:49 PM EDT [facility] Total Bilirubin 0.5 0.0 - 1.4 mg/dL LAB CHEMISTRY METHOD 04/21/2025 8:49 PM EDT [facility] Blood Venous blood specimen / Unknown Venipuncture / Unknown 04/21/2025 8:03 PM EDT 04/21/2025 8:16 PM EDT Abhi Denny MD LAB BLOOD ORDERABLES Final Resul t [facility] [address] [place] [address], * XR Chest 1 View (04/21/2025 7:59 PM EDT) Anatomical Region Laterality Modality Body Radiographic Thu ging 04/22/2025 8:15 AM EDT Impressions 04/22/2025 8:18 AM EDT FINDINGS/IMPRESSION: No pneumonia or pulmonary edema. No pleural effusion or pneumothorax. Cardiac silhouette is normal in size. Degenerative changes seen throughout the bones. -------- FINAL REPORT -------- Dictated By: CHRIS LEMUS Dictated Date: 04/22/2025 08:15 ET Assigned Physician: CHRIS LEMUS Reviewed and Electronically Signed By: CHRIS LEMUS Signed Date: 04/22/2025 08:18 ET Workstation ID: [id number] Transcribed By: Self Edit Transcribed Date: 04/22/2025 08:15 ET Narrative 04/22/2025 8:18 AM EDT XR CHEST 1 VIEW INDICATION: Pain TECHNIQUE: XR CHEST 1 VIEW COMPARISON: 01/16/2025 Procedure Note Chris Lemus MD - 04/22/2025 XR CHEST 1 VIEW INDICATION: Pain TECHNIQUE: XR CHEST 1 VIEW COMPARISON: 01/16/2025 IMPRESSION: FINDINGS/IMPRESSION: No pneumonia or pulmonary edema. No pleural effusionor pneumothorax. Cardiac silhouette is normal in size. Degenerativechanges seen throughout the bones. -------- FINAL REPORT -------- Dictated By: CHRIS LEMUS Dictated Date: 04/22/2025 08:15 ET Assigned Physician: CHRIS LEMUS Reviewed and Electronically Signed By: CHRIS LEMUS Signed Date: 04/22/2025 08:18 ET Workstation ID: [id number] Transcribed By: Self Edit Transcribed Date: 04/22/2025 08:15 ET Abhi Denny MD IMG XR PROCEDURES Final Result * CT Head wo Contrast (04/21/2025 7:55 PM EDT) Anatomical Region Laterality Modality Head and Neck Computed Tomogra phy 04/21/2025 9:01 PM EDT Impressions 04/21/2025 9:01 PM EDT Impression: No acute findings. This document has been electronically signed by: Robina Romo MD on 04/21/2025 21:01:40 Narrative 04/21/2025 9:01 PM EDT INDICATION: Mental status change, unknown cause CT head without contrast Comparison: CT - CT ANGIO HEAD NECK STROKE WO AND OR W CONTRAST - 01/12/25 19:[address] - CT HEAD WO CONTRAST - 01/12/25 16:37 EDT Findings: No acute hemorrhage. No extra-axial fluid collection. Prominence of the ventricles greater than the extra-axial spaces due to atrophy of the brain parenchyma versus mild hydrocephalus, similar to the prior study. No mass-effect or herniation. Lawrence-white differentiation is maintained. There is patchy hypoattenuation of the periventricular and deep white matter, which is most likely the sequela of moderate chronic small vessel ischemic disease and is similar to the prior study. 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 No acute orbital pathology. No acute soft tissue abnormality. No fracture. Remote right parietal craniotomy. The visualized paranasal sinuses are predominantly clear. The mastoid air cells are clear. Procedure Note Robina Pfeiffer MD - 04/21/2025 INDICATION: Mental status change, unknown cause CT head without contrast Comparison: CT - CT ANGIO HEAD NECK STROKE WO AND OR W CONTRAST -01/12/25 19:[address] - CT HEAD WO CONTRAST - 01/12/25 16:37 EDT Findings: No acute hemorrhage. No extra-axial fluid collection. Prominence of the ventricles greater than the extra-axial spaces due to atrophy of thebrain parenchyma versus mild hydrocephalus, similar to the prior study. No mass-effect or herniation. Lawrence-white differentiation is maintained.There is patchy hypoattenuation of the periventricular and deep white matter, which is most likely the sequela of moderate chronic small vesselischemic disease and is similar to the prior study. 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 No acute orbital pathology. No acute soft tissue abnormality. Nofracture. Remote right parietal craniotomy. The visualized paranasal sinuses are predominantly clear. The mastoid air cells are clear. IMPRESSION: Impression: No acute findings. This document has been electronically signed by: Robina Romo MD on 04/21/2025 21:01:40 Abhi Denny MD [facility] CT PROCEDURES Final Result * ECG 12 lead (04/21/2025 7:22 PM EDT) Ventricular Rate ECG 86 BPM GEMUSE Atrial Rate 86 BPM GEMUSE P-R Interval 156 ms GEMUSE QRS Duration 90 ms GEMUSE Q-T Interval 380 ms GEMUSE QTc 454 ms GEMUSE P Wave [place] 22 degrees GEMUSE R [place] -20 degrees GEMUSE T [place] -17 degrees GEMUSE ECG Interpretation Normal sinus rhythm Inferior infarct (cited on or before 13-SEP-2024) Abnormal ECG When compared with ECG of 15-JAN-2025 13:57, No significant change was found Confirmed by MD YEH JOHN ([id number]) on 04/21/2025 9:33:33 PM GEMUSE 04/21/2025 7:22 PM EDT 04/21/2025 9:33 PM EDT us Abhi Denny MD ECG ORDERABLES Final Result GEMUSE * Lipid panel with reflex to direct LDL (04/16/2025 10:02 AM EDT) Cholesterol 157 0 - 200 mg/dL LAB CHEMISTRY METHOD 04/16/2025 1:41 PM EDT [facility] Triglycerides 120 0 - 150 mg/dL LAB CHEMISTRY METHOD 04/16/2025 1:41 PM EDT [facility] HDL 49 >=40 mg/dL LAB CHEMISTRY METHOD 04/16/2025 1:41 PM [facility] LDL Calculated 84 0 - 100 mg/dL LAB CHEMISTRY METHOD 04/16/2025 1:41 PM T [facility] Comment:Estimated LDL Calcul ated using equation: Total cholesterol - HDL cholesterol - (Triglycerides/5) VLDL Cholesterol Rashaun 24 mg/dL LAB CHEMISTRY METHOD 04/16/2025 1:41 PM [facility] Non HDL Chol. (LDL+VLDL) 108 <145 mg/dL LAB CHEMISTRY METHOD 04/16/2025 1:41 PM [facility] Chol/HDL Ratio 3.2 0.0 - 4.4 LAB CHEMISTRY METHOD 04/16/2025 1:41 PM [facility] Blood Venous blood specimen / Unknown Venipuncture / Unknown 04/16/2025 10:02 AM EDT 04/16/2025 10:02 AM EDT Nando Deng MD LAB BLOOD ORDERABLES F inal Result [facility] [address] [place] [address], [place] [phone] * Hemoglobin A1c (04/16/2025 10:02 AM EDT) [facility] Hemoglobin A1C 5.4 <6.5 % LAB CHEMISTRY METHOD 04/16/2025 1:46 PM EDT [facility] Mean Bld Glu Estim. 108 mg/dL LAB CHEMISTRY METHOD 04/16/2025 1:46 PM EDT [facility] Blood Venous blood specimen / Unknown Venipuncture / Unknown 04/16/2025 10:02 AM EDT 04/16/2025 10:02 AM EDT Nando Deng MD LAB BLOOD ORDERABLES F inal Result [facility] [address] [place] [address], [place] [phone] * Depression Screening (01/14/2024) Depression Screening abstracted Historical Provider HEALTH MAINTENANCE Final Result * Falls Risk Assessment (12/25/2023) Pathologist [facility] Falls Risk Assessment abstracted Historical Provider HEALTH MAINTENANCE Final Result from Last 3 Months or Most Recently Relevant to Health Maintenance Insurance [employer] MEDICARE [facility] Advance Directives Documents on File Type Date Recorded Patient Digital X Ray Service Engineer Expl anation Health Care Decision (hx) 08/21/2023 AD CHARLES DIRECTIVE Health Care Decision (hx) 08/14/2023 AD CHARLES DIRECTIVE Health Care Decision (hx) 08/14/2023 AD CHARLES DIRECTIVE Health Care Decision (hx) 08/14/2023 AD CHARLES DIRECTIVE Health Care Decision (hx) 08/14/2023 AD CHARLES DIRECTIVE Health Care Decision (hx) 08/14/2023 AD CHARLES DIRECTIVE Health Care Decision (hx) 08/13/2023 PO LST FORM * No CPR/Do Not Intubate (Latest Code Status on File) Date Activated Date Inactivated Comments 04/21/2025 11:53 PM 04/25/2025 3:37 PM This code s tatus was ascertained in the following way: Code status discussion: discussion with patient To update the patient's code status, place a code status order. Do not modify or discontinue any currently active code status orders. * Full Code - Default Date Activated Date Inactivated Comments 04/21/2025 10:56 PM 04/21/2025 11:53 PM This is or liliane is used when code status has not been discussed with the patient, or code status is otherwise unknown/unconfirmed To update the patient's code status, place a code status order. Do not modify or discontinue any currently active code status orders. * No CPR/Do Not Intubate Date Activated Date Inactivated Comments 01/15/2025 3:32 PM 01/17/2025 5:[address] atus was ascertained in the following way: Code status discussion: discussion with healthcare licensing representative * Full Code - Default Date Activated Date Inactivated Comments 01/12/2025 9:24 PM 01/15/2025 3:32 PM This is orde r is used when code status has not been discussed with the patient, or code status is otherwise unknown/unconfirmed To update the patient's code status, place a code status order. Do not modify or discontinue any currently active code status orders. * Full Code - Default Date Activated Date Inactivated Comments 11/16/2024 5:08 PM 11/18/2024 5:30 PM This is orde r is used when code status has not been discussed with the patient, or code status is otherwise unknown/unconfirmed To update the patient's code status, place a code status order. Do not modify or discontinue any currently active code status orders. Healthcare Agents on File Name Relationship Healthcare Agent Relationshi p Communication Angella Myrick Spouse Health Care Agent Care Teams Rn Embedded Relationship Specialty Start Date End Date Nando Deng MD [address] [place] [address] PCP - General Internal Medicine 01/12/25
--- OUTSIDE RECORDS SUMMARY | 2025-06-18 16:56 | XMS_ITS | Encounter Summary ---
Author Organization [facility] Address [address] [place] [address] Care Team Providers Care Life Skills Consultant Name Role Phone Nando Deng MD Primary Care Provider Reason for Visit * Reason Onset Date Comments [id number] Encounter Details Date Type Department Care Team (Late st Contact Info) Description 05/15/[address] [facility] [address] [place], [place] [phone] Nando Deng MD [address], [place] Social History Tobacco Use Types Packs/Day [...] for your loved ones. For example, child support specialist or elderly care for an older [...] Progress Notes * Zandra Almazan [place] - 05/25/2025 11:58 AM EDT ORDER FAXED BACK ON 05.25.2025 Via Right Fax * Julio Garcia - 05/15/2025 10:17 AM EDT [facility] order #[id number] received. Please sign and fax to Fax # [phone] documented in this encounter Plan of Treatment Upcoming Encounters Date Type Department Care Team (Late st Contact Info) Description 08/20/2025 3:00 PM EST Office Visit Adult Medicine [address] [phone] Nando Deng MD [address] [place] [address] documented as of this encounter Visit Diagnoses Not on filedocumented in this encounter Care Teams Life Skills Consultant Relationship Specialty Start Date End Date Nando Deng MD [address] [place] [address] PCP - General Internal Medicine 01/12/25 documented as of this encounter
--- OUTSIDE RECORDS SUMMARY | 2025-06-18 16:56 | XMS_ITS ---
Author Organization [facility] Care Team Providers Care Bank Representative Name Role Phone Tomy Head Unavailable Unavailable Suzi Munoz Unavailable Allergies and adverse reactions No Known Allergies Care Team Name Role Address Phone Organization Dates Tomy Head PCP [address], [place], [address], [place] (Office): : [facility] 08/26/2020 - 09/16/2020 Suzi Munoz [address], [place], [address], [place] (Office): [facility] 08/26/2020 - 09/16/2020 Goals Section Goals Description Status Target Date I will be able to communicat e basic needs on a daily basis through the review date. Active 12/09/2020 I will be free of injury through the next review date. Active 12/09/2020 I will be offered drinks and snacks. I am on a heart healthy diet, regular texture, thin liquids. Active 12/09/2020 I will express my need to ch jacinda my Advance Directives if I wish to. Active 12/09/2020 I will have intact skin, nacho e of redness, blisters or discoloration by/through review date Active 12/09/2020 I will improve current level of function in (Specify Bed Mobility, Transfers, Eating, Dressing, Toilet Use and Personal Hygiene, ADL Score) through the review date. Active 12/09/2020 I will maintain involvement in cognitive stimulation, social activities as desired through next review date. Active 2020 I will not have an interrupt ion in normal activities due to pain through the review date Active 12/09/2020 I will remain free from skin breakdown due to incontinence and brief use through the review date. Active 12/09/2020 My discharge goals are: to i mprove physically as well as medically then return home. Active 12/09/2020 Will have intake >75% of loli ls W ill have stable weights W ill tolerate diet W ill have improved skin integrity Active 12/09/2020 will effectively cope with his/her feelings of s ocial isolation. Active 12/09/2020 Immunizations Immunization Status Vaccine Details Vaccine Code CodeSystem Date Notes Influenza completed Influenza, split virus, trivalent, injectable, contains preservative lotNumber: [id number] expiry: 03/02/2021 Mfg: seqirus Given 0.5 ml Left Deltoid intramuscularly 141 CVX created date: 08/26/2020 consent date: 08/30/2020 administer ed date: 09/14/2020 Educated by ellen on 09/14/2020 TB 2 Step Mantoux Skin Test completed tuberculin skin test; unspecified formulation lotNumber: [id number] expiry: 10/25/2021 Mfg: PAR pharmaceical Given 0.1 ml Right Forearm intradermally Step 1 of Multi-step with next step required 98 CVX created date: 09/11/2020 consent date: 09/10/2020 administer ed date: 09/10/2020 TB 2 Step Mantoux Skin Test completed tuberculin skin test; unspecified formulation Given Right Forearm Step 1 of Multi-step with next step required 98 CVX created date: 08/26/2020 consent date: 08/30/2020 administer ed date: 08/27/2020 PCV13 (Pneumococcal Conjugate)Vacci ne cancelled pneumococcal conjugate vaccine, 13 valent 133 CVX created date: 08/26/2020 consent date: 08/30/2020 SARS-COV-2 (COVID-19) new created date: 08/30/2020 consent date: 08/30/2020 Mental Status Section Date Assessment Total Score Description 09/16/2020 CAM 0 No delirium ind icated 09/15/2020 BIMS 09 moderate cognit maryann impairment PHQ-9 00 Insurance Providers Plan of Treatment Section Interventions Intervention Code Code System Display Name Proposed D ate Problems Problem # Description Date of onset Resolved Date Code CodeSystem Concern Status 1 ACUTE RESPIRATORY FAILURE WITH HYPOXIA 08/26/[address] active 2 COGNITIVE COMMUNICATION DEFICIT 08/26/[address] active 3 COVID-19 08/26/[address] active 4 ESSENTIAL (PRIMARY) HYPERTENSION 08/26/[address] active 5 GASTRO-ESOPHAGEAL REFLUX DISEASE WITHOUT ESOPHAGITIS 08/26/[address] active 6 HYPERLIPIDEMIA, UNSPECIFIED 08/26/[address] active 7 MUSCLE WASTING AND ATROPHY, NOT ELSEWHERE CLASSIFIED, LEFT LOWER LEG 08/26/[address] active 8 MUSCLE WASTING AND ATROPHY, NOT ELSEWHERE CLASSIFIED, RIGHT LOWER LEG 08/26/[address] active 9 OTHER FATIGUE 08/26/[address] acti ve 10 OTHER INTESTINAL OBSTRUCTION UNSPECIFIED TO PARTIAL VERSUS COMPLETE OBSTRUCTION 08/26/[address] active 11 OTHER REDUCED MOBILITY 08/26/[address] active 12 REPEATED FALLS 08/26/[address] ac tive Reason for Referral No Reasons for Referral Entered Social History Social History Observation Description Start Date End Date Code Code System Current Smoking Status Tobacco smoking consumption unknown 888439277 SNOMED CT Sex Assigned At Male 1940 86979-9 LOINC Gender Identity Sexual Orientation Vital Signs Code Code System Vitals Name Values and Units Timing Information 9279-1 LOINC Respiratory Rate Value=18.0 Units=/m in 09/16/2020 8310-5 LOINC Body Temperature Value=97.3 Units= F 09/16/2020 29330-2 LOINC O2 % BldC Oximetry Value=92.0 Units= % 09/16/2020 72144-1 LOINC Pain Level Value=0.0 09/16/2020 22006-3 LOINC Weight Lwoqp=919.0 Units=Lbs 8462-4 [facility] Blood Pressure-Diastolic Value=69 Un its=mmHg 09/15/2020 8480-6 [facility] Blood Pressure-Systolic Bywnb=503 Un its=mmHg 09/15/2020 8867-4 [facility] Heart rate Value=90.0 Units=/min 2339-0 [facility] Blood Sugar Ssozo=432.0 Units=mg/dL 09/06/2020 8302-2 [facility] Height Value=75.0 Units=Inches 08/26/2020
--- OUTSIDE RECORDS SUMMARY | 2025-06-18 16:56 | XMS_ITS | Encounter Summary ---
Author Organization [facility] Address [address] [place] [address] Care Team Providers Care Wood Coater Name Role Phone Nando Deng MD Primary Care Provider Encounter Details Date Type Department Care Team (Latest Contact Info) Description 04/27/2025 Lab Requisition [facility] - Main Lab [address] [facility] [place] [address] Ervin Thayer MD [facility] [place] [address] Anemia, unspecified; Essential (primary) hypertension; Type 2 diabetes mellitus without complications (CMS/HCC V24, CMS/HCC V28); Gastro-esophageal reflux disease without esophagitis Social History Tobacco Use Types Packs/Day Years [...] care for your loved ones. For example, assistant child care teacher or elderly care for an older adult? [...] 3:00 PM EST Office Visit Adult Medicine [address] [phone] Nando Deng MD [address] [place] [address] documented as of this encounter Visit Diagnoses Diagnosis Anemia, unspecified Essential (primary) hypertension Unspecified essential hypertension Type 2 diabetes mellitus without complications (CMS/HCC V24, CMS/HCC V28) Gastro-esophageal reflux disease without esophagitis documented in this encounter Care Teams Wood Coater Relationship Specialty Start Date End Date Nando Deng MD [address] [place] [address] PCP - General Internal Medicine 01/12/25 documented as of this encounter
--- OUTSIDE RECORDS SUMMARY | 2025-06-18 16:56 | XMS_ITS | Data Portability ---
Author Organization [facility], Main Office Address [address] [facility] [address] [place] [address] Care Team Providers Care Portrait Consultant Name Role Phone ATTILA WEAVER 1ST FLOOR OTHER MATT ALVARADO Primary Care Provider Assessment No assessment recorded. Plan of Treatment Reminders Order Date Submit Date Provider Last Modified By Organization Details Last Modified Time Details Appointments None recorded. Lab None recorded. Referral None recorded. Procedures None recorded. Surgeries None recorded. Imaging None recorded. Medication Orders atorvastati n 40 mg tablet 2023 [facility] #[id number], [address] [place] [address], [id number], 4 13:23:58 cholecalcif mariola (vitamin D3) 25 mcg (1,000 unit) capsule 2023 [facility] #[id number], [address] [place], [place], [id number], 4 13:23:46 clopidogrel 75 mg tablet 2023 [facility] #[id number], [address], [place], [id number], 4 13:24:00 pantoprazol e 40 mg tablet,olivia yed release 2023 [facility] #[id number], [address] [place] [address], [id number], 4 13:23:52 Vitamin C 500 mg tablet 2023 024 [facility] #07633, [address], [place], [id number], 4 13:23:52 aspirin 81 mg tablet,olivia yed release 2023 024 [facility] #[id number], [address], [place], [id number], 4 13:23:53 Patient TargetsNo targets recorded. Patient InstructionsNo instructions recorded. Reason for Referral None Reported. Problems Name Problem SNOMED Code Status Onset Date Resolution Date Notes Provider Name and Address Organization Details Recorded Time SARS-CoV-2 Active 2019 ROS VELA NP [address] [place] [address], [facility] [address], [place], [address], [facility] 0 17:16:04 Essential hypertension 39363241 Active 2019 ROS VELA NP [address] [place] [address], [address], [place], [address], [facility] 4 14:09:28 Hyperlipidemia 96189131 Active 2019 ROS VELA NP [address] [facility], [address], [place], [address], [facility] 4 14:08:52 Gastritis 3586840 Active 2020 Suzi Munoz MD [address] [place] [address], [address], [place], [address], [facility] 1 23:59:41 Mild neurocognitive disorder 070165377 Active 2020 ROS VELA NP [address] [place] [address], [address], [place], [address], [facility] 4 14:09:17 Low blood pressure 35572163 Active 2020 ROS VELA NP [address] [place] [address], [address], [place], [address], [facility] 1 13:37:52 Dehydration 90135564 Active 2020 ROS VELA, RN FLIGHT [address], [address], [place], [address], [facility] 1 11:29:09 Cerebrovascula r accident 806584664 Active 2023 ROS VELA, RN FLIGHT [address], [address], [place], [address], [facility] 4 14:08:28 Gastro-esophag eal reflux disease with esophagitis 243092651 Active 2023 [facility], RN FLIGHT [address], [address], [place], [address], [facility] 4 14:09:04 Recurrent falls 404495416 Active 2023 [facility], RN FLIGHT [address], [address], [place], [address], [facility] 4 14:10:02 Anemia 492129108 Active 2023 ROS VELA, RN FLIGHT [address], [address], [place], [address], [facility] 4 14:12:21 Problem Notes None recorded. Medical Equipment None Reported. Allergies No known drug allergies Medications Name Sig Start Date Stop Date Status Note LastModified by Organization Details LastModified Time atorvastatin 40 mg tablet Take 1 tablet every day by oral route. 2023 active Not Available Not Available Not Avai lable Vitamin C 500 mg tablet Take 1 tablet every day by oral route. 2023 active Not Available Not Available Not Avai lable clopidogrel 75 mg tablet Take 1 tablet every day by oral route. 2023 active Not Available Not Available Not Avai lable aspirin 81 mg tablet,delayed release Take 1 tablet every day by oral route. 2023 active Not Available Not Available Not Avai lable pantoprazole 40 mg tablet,delayed release Take 1 tablet twice a day by oral route. 2023 active Not Available Not Available Not Avai lable cholecalciferol (vitamin D3) 25 mcg (1,000 unit) capsule Take 1 capsule every day by oral route. 2023 active Not Available Not Available Not Avai lable Vitals None Recorded Social History Question Answer Notes LastModified by Organizat ion Details LastModified Time Tobacco Smoking Status Former Smoker ROS VELA, JOY [address] [facility], [address], [place], [address], [facility] 08/26/2020 17:22:23 Do You Have An Advance Directive? Yes Information not available 09/05/2023 How Much Tobacco Do You Chew? None Information not available 09/02/2020 What Is Your Code Status? Full Code Information not available 09/05/2023 Do You Have A Medical Power Of Coal Screener? Yes Information not available 09/02/2020 What Was The Date Of Your Most Recent Tobacco Screening? 09/05/2023 Information not available 09/05/2023 Sex: Unknown Functional Status Question Answer Note LastModified by Organizat ion Details LastModified Time What is your level of alcohol consumption? None Information not available 08/26/2020 Do you or have you ever used smokeless tobacco? Never used smokeless tobacco Information not available 09/02/2020 Do you or have you ever used e-cigarettes or vape? Never used electronic cigarettes Information not available 09/02/2020 Mental Status None recorded. Family History Nothing Reported Notes:n/c Medical History No medical history recorded. Immunizations Vaccine Type Date Status Note Provider Nam e and Address Organization Details Recorded Time Td (adult), 5 Lf tetanus toxoid, preservative free, adsorbed 1 completed [facility] 11/26/2023 11:19:42 Pneumococcal conjugate PCV 13 5 completed [facility] 11/26/2023 11:19:55 pneumococcal polysaccharide PPV23 8 completed [facility] 11/26/2023 11:20:09 COVID-19, mRNA, LNP-S, bivalent, PF, 30 mcg/0.3 mL dose 1 completed [facility] 11/26/2023 11:20:25 COVID-19, mRNA, LNP-S, bivalent, PF, 30 mcg/0.3 mL dose completed [facility] 11/26/2023 11:20:32 Past Encounters Encounter ID Performer Location Encounter Start Date Encounter Closed Date Diagnosis/Indication Diagnosis SNOMED-CT Code Diagnosis ICD10 Code Diagnosis IMO Codes Diagnosis Note [id number] ROS VELA NP [address] [address] 08/26/2020 16:28:54 09/10/2020 13:52:08 Essential hypertension 81704931 I10 lisinopril 20 mg daily monitor bp Hyperlipidemia 52535967 E78.5 simvastati n 40 mg daily SARS-CoV-2 421269981 U07 .1 08/20 positive decadron 6 mg daily x 5 days to 08/31 encourage po fluids ivf for anorexia monitor for any changes in medical or mental status send to ED for decompensa tion [id number] ROS VELA NP [address] [address] 08/30/2020 11:38:04 09/10/2020 13:54:52 SARS-CoV-2 157501547 U07.1 08/20 positive decadron 6 mg daily x 5 days to 08/31 encourage po fluids ivf for anorexia monitor for any changes in medical or mental status send to ED for decompensa tion Essential hypertension 24278208 I10 lisinopril 20 mg daily monitor bp [id number] Suzi Munoz MD [address] [address] 09/02/2020 14:54:14 09/13/2020 15:44:23 SARS-CoV-2 913055288 U07.1 + test on 08/20 Course of decadron 6 mg qd completed on 08/31 Appetite poor tonight due to epigastric pain. Will encourage po fluids and tx gastritis as below. Continue to monitor O2 sats, temp, GI sxs and po intake. Essential hypertension 08630390 I10 Good control on lisinopril 20 mg qd. Monitor BP and labs. Hyperlipidemia 17488476 E78.49 Continue simvastati n 40 mg qd. Monitor labs as outpt. Acquired thrombocytopenia 16241663 D69.59 Resolved inpt, now back to nl. Monitor labs. Gastritis 2256036 K29.60 Will use liquid antacid 30 ml q 4 hrs prn and omeprazole 20 mg qd. Monitor sxs. Mild neuro cognitive disorder 478007256 G31.84 With moderate confusion tonight. Does not understand medical condition. HCP invoked. Monitor MS, mood and behaviors. [id number] ROS VELA NP [address] [address] 09/06/2020 11:20:17 09/10/2020 14:41:20 Mild neurocognitive disorder 290219157 G31.84 HCP invoked. Monitor MS, mood and behaviors UA C/S SARS-CoV-2 200047423 U07 .1 recovered, past the 14 day quarantine 08/20 positive encourage po fluids ivf for anorexia monitor for any changes in medical or mental status send to ED for decompensa tion Low blood pressure 76806 003 I95.9 stop lisinopril monitor bp [id number] ROS VELA NP [address] [address] 09/13/2020 14:07:05 09/15/2020 15:15:29 Low blood pressure 04359479 I95.9 D51/2 NS ivf at 50ml/hr x 2liters bmp sun stop lisinopril monitor bp SARS-CoV-2 207858768 U07 .1 recovered 08/20 positive, 09/01 negative, / negative encourage po fluids ivf for anorexia monitor for any changes in medical or mental status send to ED for decompensa tion [id number] ROS VELA NP [address] [address] 09/15/2020 10:11:57 09/21/2020 14:24:34 Low blood pressure 88345368 I95.9 D51/2 NS ivf at 50ml/hr x 2liters bmp sunday stop lisinopril monitor bp Dehydration 26735723 E86 .0 [id number] ROS VELA NP [address] [address] 09/05/2023 13:53:00 09/11/2023 14:39:02 Cerebrovascular accident 475983888 I63.9 asa 81 mg dailyplavi x 75 mg dailymonit or neuros Gastro-eso phageal reflux disease with esophagitis 041099007 K21.00 protonix 40 mg bidmonitor for any gi bleeding Mild neuro cognitive disorder 516935175 G31.84 monitor need for HCP invoke Monitor MS, mood and behaviors Recurrent falls 06876101 2 R29.6 PT OT eval and treatfall precaution sfrequent safety checks Hyperlipidemia 01819937 E78.49 atorvastat in 40 mg daily Essential hypertension 56994934 I10 lisinopril 20 mg daily-stop ped in hospital monitor bp Anemia 477458117 D64.9 vit c 500 mg dailypt own mvi bid [id number] MD ATTILA Kaur [address] [place] [address] rd [place] [address] 09/10/2023 08:31:53 09/19/2023 12:09:34 Upper gastrointestinal bleeding 25940456 K92.89 see HPI and aboveupper GI bleed with hematemesi sEval by GI and underwent EGD positive for superficia l ulceration s distal esophagus consistent with longstandi ng GERDASA and plavix held through 08/18 then restartedm onitor cbcpantopr azole 40 mg bid - discussed with nursingupd ate GI with concerns Cerebrovas cular accident 338487266 I63.89 see HPIMRI on 08/03 positive for acute CVA left thalamus without hemorrhagi c conversion was on ASA and plavix. Patient was discharged to outside facility however then readmitted after developing upper GI bleed with hematemesi s. Eval by GI and underwent EGD positive for superficia l ulceration s distal esophagus consistent with longstandi ng GERD. ASA and plavix held through 08/18 then restarted. Monitor neuro status. PT OT eval and treat. Mild dysarthria Gastro-eso phageal reflux disease with esophagitis 971643370 K21.00 see above Mild neuro cognitive disorder 309242634 G31.84 carrying dxmonitor level of insight and need to invoke Recurrent falls 37475579 2 R29.6 PT OT eval and treatmonit or fall risk and need for increased support in community Hyperlipidemia 54591938 E78.49 lipitor 40 mg qdcontinue d Essential hypertension 46526679 I10 complicate d by hypotensio n in hospital now off medication smonitor bp and need to restart Anemia 843779366 D50.8 see above with recent GI bleedmonit or cbc with iron studies prn [id number] BENJA CHENEY [address] [address] 09/12/2023 09:20:58 09/19/2023 12:50:40 Cerebrovascular accident 319496929 I63.89 09/12: alert and verbal, speech clear.VSS Upper gastrointestinal bleeding 43232610 K92.89 HX gerdmonito r cbcpantopr azole 40 mg bidupdate GI with concerns Recurrent falls 59344856 2 R29.6 PT OT eval and treat Hyperlipidemia 28185019 E78.49 lipitor 40 mg qdcontinue d Essential hypertension 06777441 I10 mainly 110-120smo nitor bp and need to restart Anemia 239997853 D50.8 see above with recent GI bleedmonit or cbc with iron studies prn [id number] BENJA CHENEY [address] [address] 09/17/2023 11:08:02 09/19/2023 14:24:03 Upper gastrointestinal bleeding 05737573 K92.89 HX gerdmonito r cbcpantopr azole 40 mg bidupdate GI with concerns Recurrent falls 42842586 2 R29.6 PT OT eval and treat Hyperlipidemia 46032037 E78.49 lipitor 40 mg qdcontinue d Essential hypertension 24213064 I10 mainly 110-120smo nitor bp and need to restart Anemia 166951012 D50.8 see above with recent GI bleedmonit or cbc with iron studies prn Cerebrovas cular accident 203197591 I63.89 stableasa 81 mg dailyplavi x 75 mg dailymonit or neuros [id number] BENJA CHENEY [address] [address] 09/19/2023 08:43:17 09/24/2023 15:41:34 Cerebrovascular accident 292525939 I63.89 09/19: progressin g with therapy toward goals.stab leasa 81 mg dailyplavi x 75 mg dailymonit or neuros Upper gastrointestinal bleeding 48428673 K92.89 HX gerdmonito r cbcpantopr azole 40 mg bidupdate GI with concerns Recurrent falls 15108437 2 R29.6 no reported fallPT OT eval and treat Essential hypertension 47370199 I10 mainly 110-120smo nitor bp and need to restart Atopic dermatitis 007096 01 L20.9 09/19: resolving: noted with small scattered pinpoint red pruritic rash on right torso -thought related to laundry detergent from [facility] dorcortiso ne cream ordered and applied- today there is pinpoint scabs, no redness, denies any itchiness. [id number] BENJA CHENEY [address] [address] 09/25/2023 07:47:32 09/28/2023 08:30:34 Cerebrovascular accident 524107320 I63.89 09/19: progressin g with therapy toward goals.stab leasa 81 mg dailyplavi x 75 mg dailymonit or neuros Upper gastrointestinal bleeding 16582001 K92.89 HX gerdmonito r cbcpantopr azole 40 mg bidupdate GI with concerns Recurrent falls 36158235 2 R29.6 no reported fallPT OT eval and treat Essential hypertension 71440655 I10 mainly 110-120smo nitor bp and need to restart Atopic dermatitis 576045 01 L20.9 09/19: resolving11: noted with small scattered pinpoint red pruritic rash on right torso -thought related to laundry detergent from [facility] dorcortiso ne cream ordered and applied- today there is pinpoint scabs, no redness, denies any itchiness. Conjunctivitis 6924696 H 10.9 itching, gritty, watery eyes with dischargeE rythromyci n 5 mg ointment QID for 7 dayscan apply cold compress for comfort.nu rsing to monitor for resolution . [id number] BENJA CHENEY [address] [address] 09/28/2023 08:16:53 10/03/2023 11:38:39 Cerebrovascular accident 810473006 I63.89 1/17: progressin g with therapy toward goals.stab leasa 81 mg dailyplavi x 75 mg dailymonit or neuros Upper gastrointestinal bleeding 28670996 K92.89 HX gerdmonito r cbcpantopr azole 40 mg bidupdate GI with concerns Recurrent falls 66243293 2 R29.6 no reported fallPT OT eval and treat Essential hypertension 91197582 I10 mainly 110-120smo nitor bp and need to restart Atopic dermatitis 481139 01 L20.9 09/19: resolving: noted with small scattered pinpoint red pruritic rash on right torso -thought related to laundry detergent from [facility] dorcortiso ne cream ordered and applied- today there is pinpoint scabs, no redness, denies any itchiness. Conjunctivitis 2104480 H 10.9 much improved today. slight redness noted. continue Erythromyc in 5 mg ointment QID for 7 days as ordered.ca n apply cold compress for comfort.nu rsing to monitor for resolution . [id number] BENJA CHENEY [address] [place] [address] 10/01/2023 07:25:27 10/03/2023 12:51:32 Cerebrovascular accident 640184430 I63.89 asa 81 mg dailyplavi x 75 mg dailyfollo w up with PCP Upper gastrointestinal bleeding 04306379 K92.89 HX gerdmonito r cbc out patientpan toprazole 40 mg bidfollow up with pcp Recurrent falls 53398194 2 R29.6 no reported falls during rehab stay Essential hypertension 95470440 I10 SBP mainly 110-120sfo llow up with PCP Atopic dermatitis 389277 01 L20.9 resolved Conjunctivitis 6795648 H 10.9 resolvingc ontinue Erythromyc in 5 mg ointment QID for 7 days as ordered.ca n apply cold compress for comfort.fo llow up with pcp Gastro-eso phageal reflux disease with esophagitis 053938858 K21.00 protonix 40 mg bidfollow up with pcp Mild neuro cognitive disorder 913190021 G31.84 stable Hyperlipidemia 26883396 E78.49 atorvastat in 40 mg dailymonit or labs/follo w up with pcp Anemia 743862728 D64.9 vit c 500 mg dailymonit or labs / follow up with pcp Medication therapy management information sent to primary care pharmacist [id number] 18326 Z76.89 Health Concerns Section Related Observation LastModified by Organization Detai ls LastModified Time None Recorded Concern Status LastModified by Organization Details LastModified Time None Recorded Advance Directives Directive Y: Payers Insurance Date Sequence Insurance Name Policy Number Policy Gallagher Covered Member ID Gallagher Member ID Guarantor Name 10/01/2023 2 FOR LIFE ( - MEDICARE SUPPLEMENT) Morgan Redmanlemette [id number] Morgan Redmanlemette 09/05/2023 1 MEDIC[place]: [employer] Morgan Joshimette [id number] Morgan Redmanlemette 10/01/[address] [facility] (MEDICARE REPLACEMENT/ ADVANTAGE - PPO) [id number] Morgan Joshimette [id number] Morgan Joshimette Notes Date Note Type Note Provider Name and Address Organization Details Recorded Time 09/17/2023 text/html ROS as noted in the HPI Patient is an 83 yr old male seen today for acute rounding visit. Patient is alert and stable, offers no new complaints, there is no acute distress. There is no acute nursing concerns. PMH significant for hypertension, dementia, hyperlipidemia,ALANIS D, gait instability , Admit from hospital after initially presenting with acute CVA. 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 Patient was discharged to outside facility however then readmitted after developing upper GI bleed with hematemesis. Eval by GI and underwent EGD positive for superficial ulcerations distal esophagus consistent with longstanding GERD. ASA and plavix held through 08/18 then restarted. Now on pantoprazole 40 mg bid. Complicated by ileus improved on IVF while NPO. Further complicated by orthostatic hypotension with lisinopril dose decreased to 5 mg qd then discontinued BENJA CHENEY [address] [facility], [address], [place], [address], [facility] [place] 09/17/2023 17:17:08 09/19/2023 text/html ROS as noted in the HPI Patient is an 83 yr old male seen today for acute rounding visit. Patient is alert and verbal, denies any discomfort. There is no acute nursing concerns. PMH significant for hypertension, dementia, hyperlipidemia,ALANIS D, gait instability , Admit from hospital after initially presenting with acute CVA. 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 Patient was discharged to outside facility however then readmitted after developing upper GI bleed with hematemesis. Eval by GI and underwent EGD positive for superficial ulcerations distal esophagus consistent with longstanding GERD. ASA and plavix held through 08/18 then restarted. Now on pantoprazole 40 mg bid. Complicated by ileus improved on IVF while NPO. Further complicated by orthostatic hypotension with lisinopril dose decreased to 5 mg qd then discontinued BENJA CHENEY [address] [facility], [address], [place], [address], [facility] 09/19/2023 11:08:09 09/25/2023 text/html ROS as noted in the HPI Patient is seen for acute rounding visit. Patient is alert and verbal, denies any discomfort. However he is noted with right eye redness, reports feeling gritty itching and discharge.Denies any visual changes. PMH significant for hypertension, dementia, hyperlipidemia,ALANIS D, gait instability , Admit from hospital after initially presenting with acute CVA. 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 Patient was discharged to outside facility however then readmitted after developing upper GI bleed with hematemesis. Eval by GI and underwent EGD positive for superficial ulcerations distal esophagus consistent with longstanding GERD. ASA and plavix held through 08/18 then restarted. Now on pantoprazole 40 mg bid. Complicated by ileus improved on IVF while NPO. Further complicated by orthostatic hypotension with lisinopril dose decreased to 5 mg qd then discontinued BENJA CHENEY [address] [facility], [address], [place], [address], [facility] 09/25/2023 12:23:15 09/28/2023 text/html ROS as noted in the HPI Patient is seen for acute rounding visit. Patient is alert and stable, there is no acute nursing concerns. PMH significant for hypertension, dementia, hyperlipidemia,ALANIS D, gait instability , Admit from hospital after initially presenting with acute CVA. 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 Patient was discharged to outside facility however then readmitted after developing upper GI bleed with hematemesis. Eval by GI and underwent EGD positive for superficial ulcerations distal esophagus consistent with longstanding GERD. ASA and plavix held through 08/18 then restarted. Now on pantoprazole 40 mg bid. Complicated by ileus improved on IVF while NPO. Further complicated by orthostatic hypotension with lisinopril dose decreased to 5 mg qd then discontinued BENJA CHENEY [address] [facility], [address], [place], [address], [facility] 09/28/2023 11:35:58 10/01/2023 text/html ROS as noted in the HPI Morgan is an 83 yr old male seen for discharge. PMH significant for hypertension, dementia, hyperlipidemia,ALANIS D, gait instability , Admit from hospital after initially presenting with acute CVA. 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 Patient was discharged to outside facility however then readmitted after developing upper GI bleed with hematemesis. Eval by GI and underwent EGD positive for superficial ulcerations distal esophagus consistent with longstanding GERD. ASA and plavix held through 08/18 then restarted. Now on pantoprazole 40 mg bid. Complicated by ileus improved on IVF while NPO. Further complicated by orthostatic hypotension with lisinopril dose decreased to 5 mg qd then discontinued. He has progressed with therapy towards goals for a safe discharge. Patient has been stable, and can be discharge to home with medications and VNA services. BENJA CHENEY [address] [facility], [address], [place], [address], [facility] 10/01/2023 13:34:48
== END 2025-06-18 14:58 | disposition home or self-care (01) ==
LOC: HO.HSM 13:28
PROVIDERS: PCP Internal Medicine; Referring Provider Physician Assistant Medical; Visit Provider Psychiatry & Neurology Neurology
DX: G30.1 Alzheimer's disease with late onset (principal); F02.B0 Dementia in other diseases classified elsewhere, moderate, without behavioral disturbance, psychotic disturbance, mood disturbance, and anxiety
CPT/HCPCS: 99214

== ENCOUNTER → 2025-06-18 13:27 | Outpatient (BNVA) | payer MEDICARE, OTHER, SELFPAY | PROVIDERS: PCP Internal Medicine; Referring Provider Physician Assistant Medical; Visit Provider Psychiatry & Neurology Neurology | DX: G30.1 Alzheimer's disease with late onset (principal); F02.B0 Dementia in other diseases classified elsewhere, moderate, without behavioral disturbance, psychotic disturbance, mood disturbance, and anxiety | CPT/HCPCS: 99212 ==